=== PATIENT | male | born 1995 | race Caucasian/White ===

== ENCOUNTER 2021-11-12 09:25 | Inpatient (IN) | payer OTHER, SELFPAY ==
[2021-11-12] VITALS (11 sets, daily range): BP systolic 127–169; BP diastolic 76–91; PULSE 55–93; RESP 12–26; TEMP 36.9–37.2; O2SAT 95–100; BMI 38.7
--- NOTE | ~2021-11-12 | NM_ITS ---
PULMONARY PERFUSION ONLY STUDY: CLINICAL INDICATION: Shortness of breath. Elevated d-dimer. PROCEDURE: Following the intravenous administration of 4.0 millicuries technetium 99m MAA, images of the chest were obtained in multiple projections using a gamma scintiphotographic camera. The radiotracer was injected through the left neck IV site without complications. COMPARISON: Noncontrast CT of the chest and chest radiograph done on 11/14/2021. PERFUSION IMAGES: No segmental perfusion defects or other perfusion abnormalities are noted. NM/NM pul perfusion IMPRESSION: Based on perfusion only modified PIOPED 2 criteria, pulmonary thromboembolism is considered to be absent.
--- NOTE | ~2021-11-12 | CT_ITS ---
EXAMINATION: CT ABDOMEN AND PELVIS WITH CONTRAST CLINICAL INFORMATION: Worsening abdominal pain COMPARISON: Previous CT of the abdomen and pelvis 11/12/2021 TECHNIQUE: Multidetector volumetric images were obtained from the superior aspect of the liver through the pubic symphysis following administration 85 mL of Omnipaque 350 intravenous contrast. Sagittal and coronal reformatted images were obtained on the technologist's workstation. Oral contrast: Yes This CT examination was performed using dose optimization techniques as appropriate, variously including the following: *Automated exposure control *Adjustment of mA and/or kV according to patient size (this includes techniques or standardized protocols for targeted exams where dose is matched to indication/reason for exam; i.e. extremities or head) *Use of iterative reconstruction technique DLP: 1083 mGy-cm FINDINGS: LUNG BASES: There is new airspace disease in the left lower lobe and small left pleural effusion. There is minimal subsegmental atelectasis in the right lower lobe. LIVER, GALLBLADDER, AND BILIARY TREE: The liver is normal in size, shape, and attenuation. No focal hepatic lesion or biliary ductal dilatation is present. The gallbladder is unremarkable with no evidence of radiopaque gallstones, gallbladder wall thickening, or obvious pericholecystic inflammatory changes. PANCREAS: There is worsening pancreatitis with increasing fluid seen surrounding the body and tail of the pancreas. There is a increasing fluid seen in the left anterior pararenal fascia, adjacent to the left adrenal gland, adjacent to the left colon and adjacent to the spleen and greater curvature of the stomach. There is question of a developing cyst in the head of the pancreas measuring 2 cm. SPLEEN: Unremarkable. ADRENAL GLANDS: Unremarkable. KIDNEYS AND URETERS: The kidneys are normal in size, shape, and attenuation. No hydronephrosis, hydroureter, or calculi seen. No perinephric stranding. BLADDER: Unremarkable. GASTROINTESTINAL TRACT: The small and large bowel are unremarkable. The appendix is unremarkable. ABDOMINAL WALL: No significant hernia is appreciated. LYMPH NODES: Normal. VASCULAR: Unremarkable. PELVIC VISCERA: Unremarkable. OSSEOUS STRUCTURES: Unremarkable. CT/CT abdomen pelvis w con IMPRESSION: Worsening pancreatitis with increasing peripancreatic fluid collections. New left lower lobe pneumonia and small left pleural effusion. Fleischner guidelines were followed.
--- NOTE | ~2021-11-12 | XR_ITS ---
EXAMINATION: XR CHEST CLINICAL INFORMATION: Shortness of breath COMPARISON: CT chest from 11/06/2021 TECHNIQUE: Frontal view of the chest was obtained. FINDINGS: Bilateral low lung volumes. Slight accentuation of the pulmonary vasculature. Small left pleural effusion. Left basilar opacity which may represents subjacent atelectatic changes versus evolving infectious/inflammatory etiology. Mild opacity involving the right medial lung base may represent atelectasis. No pneumothorax. Trachea is midline. Cardiomediastinal silhouette is not enlarged. Osseous structures are intact. Soft tissues are unremarkable. XR/XR chest 1V IMPRESSION: 1. Bilateral low lung volumes. 2. Slight accentuation of the pulmonary vasculature. 3. Small left pleural effusion. 4. Left basilar opacity which may represents subjacent atelectatic changes versus evolving infectious/inflammatory etiology. 5. Mild opacity involving the right medial lung base may represent atelectasis.
--- NOTE | ~2021-11-12 | CT_ITS ---
EXAMINATION: CT ABDOMEN AND PELVIS WITHOUT CONTRAST CLINICAL INFORMATION: Abdominal pain, alcoholism. COMPARISON: None TECHNIQUE: Multidetector volumetric imaging was performed from the superior aspect of the liver through the pubic symphysis. Sagittal and coronal reformatted images were obtained on the technologist's workstation. Lack of intravenous and oral contrast limits visceral evaluation. This CT examination was performed using dose optimization techniques as appropriate, variously including the following: *Automated exposure control *Adjustment of mA and/or kV according to patient size (this includes techniques or standardized protocols for targeted exams where dose is matched to indication/reason for exam; i.e. extremities or head) *Use of iterative reconstruction technique DLP: 1026 mGy-cm FINDINGS: LUNG BASES: The visualized lung bases are unremarkable. LIVER, GALLBLADDER, AND BILIARY TREE: Diffuse decreased hepatic attenuation without focal abnormality. Gallbladder and minimally distended limiting evaluation without overt focal abnormality. No biliary ductal dilatation. PANCREAS: Moderate peripancreatic infiltrative changes extending to the left upper quadrant with mild dependent fluid, but no organized collection. No pancreatic ductal dilatation. SPLEEN: Unremarkable. ADRENAL GLANDS: Unremarkable. KIDNEYS AND URETERS: The kidneys are normal in size, shape, and attenuation. No hydronephrosis, hydroureter, or calculi seen. No perinephric stranding. BLADDER: Unremarkable. GASTROINTESTINAL TRACT: The stomach and small bowel are unremarkable. Diffuse mild mural fatty infiltration of the colon without surrounding abnormality. The rectum is unremarkable. ABDOMINAL WALL: No significant hernia is appreciated. LYMPH NODES: No lymphadenopathy. VASCULAR: Unremarkable. PELVIC VISCERA: Trace free fluid. OSSEOUS STRUCTURES: Unremarkable. CT/CT abdomen pelvis wo con IMPRESSION: 1. Moderate acute pancreatitis with mild free fluid, but no definitive organized fluid collection. No pancreatic ductal dilatation. 2. Hepatic steatosis. 3. Colonic findings are nonspecific and not acute, but can be seen as sequelae of prior colitis. Fleischner guidelines were followed.
--- NOTE | ~2021-11-12 | CT_ITS ---
EXAMINATION: CT CHEST WITHOUT CONTRAST CLINICAL INFORMATION: Hemoptysis COMPARISON: CT abdomen pelvis 11/12/2021 TECHNIQUE: Multidetector volumetric CT imaging of the chest was done. Axial MIP volume rendering provided. Sagittal and coronal reformatted images were obtained. This CT examination was performed using dose optimization techniques as appropriate, variously including the following: *Automated exposure control *Adjustment of mA and/or kV according to patient size (this includes techniques or standardized protocols for targeted exams where dose is matched to indication/reason for exam; i.e. extremities or head) *Use of iterative reconstruction technique DLP: 377 mGy-cm FINDINGS: LUNGS AND PLEURA: Bilateral small pleural effusions are present, left greater than right with associated bilateral lower lobe collapse/consolidation, left greater than right. These findings are new when compared to the 11/12/2021 study 2 days ago. The lungs are otherwise clear. MEDIASTINUM: Thyroid gland appears normal. Heart size is normal. No mediastinal or hilar lymph nodes are seen. No significant pericardial effusion is seen. AXILLA: No lymphadenopathy. UPPER ABDOMEN: There is hepatic steatosis present along with changes of pancreatitis described on the CT abdomen earlier today OSSEOUS STRUCTURES: Unremarkable. CT/CT chest wo con IMPRESSION: 1. Cause for the patient's hemoptysis has not been found. 2. New bilateral lower lobe atelectasis/consolidations with small pleural effusions, left greater than right. 3. Incidental note made once again of hepatic steatosis and pancreatitis. Fleischner guidelines were followed.
--- NOTE | 2021-11-12 09:58 | ECG_ITS ---
Test Reason : pancreatitis Blood Pressure : / mmHG Vent. Rate : 090 BPM Atrial Rate : 090 BPM P-R Int : 160 ms QRS Dur : 084 ms QT Int : 384 ms P-R-T Axes : 035 000 026 degrees QTc Int : 469 ms Normal sinus rhythm with sinus arrhythmia Normal ECG No previous ECGs available Referred By: Phillip Chacko Electronically Signed By:DWAIN CHACKO
--- NOTE | 2021-11-12 09:59 | ED_ITS ---
HPI - General Adult General Chief complaint: Abdominal Pain Stated complaint: 01/27 ABDO PAIN Time Seen by Provider: 11/12/21 10:27 Source: patient Mode of arrival: ambulatory Limitations: no limitations History of Present Illness HPI narrative: 26-year-old male with history of alcohol abuse and pancreatitis presents to ED for abdominal pain since last night. Patient states he has been detoxing from alcohol since yesterday 08:00. Patient states last drink was 08:00 yesterday. Patient states last night started having abdominal pain, nausea, vomiting, and tremors. Patient denies any opiate drug use. Patient states usually states drinking sinks tall boy beers. patient denies any chest pain or shortness of breath. Related Data Home Medications Medication Instructions Recorded Confirmed acamprosate 333 mg tablet,delayed 666 mg PO TID 11/12/21 11/12/21 release famotidine 10 mg tablet (Heartburn 1 tab PO BID 11/12/21 11/12/21 Relief (famotidine)) gabapentin 400 mg capsule 2 cap PO TID 11/12/21 11/12/21 lamotrigine 100 mg tablet 1 tab PO BID 11/12/21 11/12/21 nicotine 7 mg/24 hr daily 1 patch topical DAILY 11/12/21 11/12/21 transdermal patch ondansetron HCl 4 mg tablet 1 tab PO Q8H PRN Nausea 11/12/21 11/12/21 pantoprazole 40 mg tablet,delayed 1 tab PO DAILY 11/12/21 11/12/21 release prazosin 2 mg capsule 2 cap PO BEDTIME nightmares 11/12/21 11/12/21 trazodone 50 mg tablet 100 tab PO BEDTIME PRN Insomnia 11/12/21 11/12/21 Allergies Allergy/AdvReac Type Severity Reaction Status Date / Time No Known Allergies Allergy Unverified 01/05/20 17:39 Review of Systems Review of Systems: abdominal pain, nausea, and vomiting, with tremors Yes all other systems are reviewed and are negative PMF Past Medical History Medical History No known health problems Social History Social History Alcohol intake: current Alcohol intake frequency: 3 or more drinks per day Patient Tobacco Use Status: Current everyday Tobacco user Use of substances other than those prescribed or required for medical reasons: No Advance Directives: No Advance Directives Information Provided: Yes Physical Exam ED Vital Signs: Vital Signs - 24 hr 11/12/21 09:39 11/12/21 09:44 11/12/21 12:00 Temperature 98.4 F 98.4 F Pulse Rate 60 55 58 Respiratory Rate 15 18 15 Blood Pressure 144/87 H 144/87 H 141/76 H Pulse Oximetry 99 100 Oxygen Delivery Method Room Air Room Air Room Air BMI result Body Mass Index 38.7 Const General: cooperative, healthy appearing, comfortable, well developed, alert, awake, Physically active and acute distress Orientation/consciousness: oriented to time and patient oriented x3 HENMT Head: Yes normal to inspection, Yes No palpable skull fracture present, Yes normocephalic, Yes atraumatic and No abrasion Eyes General: appearance normal, both eyes and all related structures Neck Neck: Yes normal visual inspection, Yes full ROM, Yes no lymphadenopathy, Yes no meningeal signs, Yes trachea midline, Yes supple, No anterior neck swelling and No tender Chest Chest palpation & inspection: normal inspection of the chest and normal palpation of entire chest wall Resp Effort & Inspection: normal respiratory effort and able to speak in complete sentences Auscultation: clear to auscultation bilaterally Cardio Jugular venous distension: no JVD Heart sounds: S1 normal heart sound present and S2 normal heart sound present GI Inspection: Yes normal to inspection and No abdominal wall ecchymosis Palpation (GI): Soft to palpation, not firm, Tenderness to palpation present (GI) ( diffuse), no guarding and not rigid General: No CVA tenderness and Yes no CVA tenderness Back/Spine/Pelvis Back: no CVA tenderness, No CVA tenderness and No back tenderness Skin General skin exam: no rashes or lesions noted and elasticity normal Neuro Other: positive for tremors of extremities. Patient alert oriented x3. General: oriented to time, patient oriented x3, gait normal, no meningeal signs and CN's II-XI intact bilaterally Cranial nerves: Yes CN's II-XII intact bilaterally Extrem General: Yes normal to inspection and Yes full ROM Psych Appearance: grossly normal, well kempt and not disheveled Course Course Course Narrative: differential alcohol withdrawal versus pancreatitis. Will do labs. EKG, Valium, and CT scan abdomen ordered Reevaluation(s) Reevaluation #1: tremors resolved after receiving Valium. Labs showed white blood cell count [id number] CT scan abdomen showed pancreatitis with some fluid. Olaf presents to hospitalist for admission who agrees with plan. Patient given narcotic morphine for pain. still awaited from chemistry result from [facility]. EKG negative STEMI Time: 15:37 Medical Decision Making MDM Narrative Medical decision making narrative: pancreatitis Lab Data Result diagrams: 11/12/21 10:16 11/12/21 10:16 Labs: Lab Results 11/12/21 Range/Units 10:16 WBC 17.9 H (4.8-10.8) X10*3/uL RBC 5.26 (4.60-5.80) X10*6/uL Hgb 15.3 (14.0-18.0) g/dl Hct 44.0 (42.0-52.0) % MCV 83.7 (80.0-98.0) fL MCH 29.1 (27.0-33.0) pg MCHC 34.8 (31.0-36.0) g/dl RDW 14.8 (11.0-16.0) % Plt Count 279 (160-400) X10*3/uL MPV 9.3 L (9.4-12.4) fL Immature Gran % (Auto) 0.5 H (0.0-0.4) % Neut % (Auto) 87.7 H (45-73) % Lymph % (Auto) 2.9 L (20-40) % [place] % (Auto) 6.0 (2-11) % Eos % (Auto) 2.7 (0-4) % Baso % (Auto) 0.2 (0-2) % Lymph # (Auto) 0.5 L (1.2-4.9) X10*3/uL [place] # (Auto) 1.1 (0.1-1.2) X10*3/uL Eos # (Auto) 0.5 H (0.0-0.4) X10*3/uL Baso # (Auto) 0.0 (0.0-0.2) X10*3/uL Abs Immat Gran (auto) 0.09 H (0.00-0.03) X10*3/uL Absolute Neuts (auto) 15.7 H (2.0-8.3) x10*3/uL Absolute Nucleated RBC 0.000 (0.0-0.012) X10*3/uL Nucleated RBC % (auto) 0.0 (0.0-0.2) /100WBC ECG Data Interpretation: normal sinus rhythm periventricular a 90. Pr interval 160. QRS 84. QTC 469. Negative STEMI Discharge Plan Discharge Clinical Impression: Pancreatitis Patient Disposition: Admitted As Inpatient
[2021-11-12 10:21] LABS: MANUAL DIFF FLAG NO
[2021-11-12 10:23] LABS: Basophils Percent Auto 0.2 % (0-2); Eosinophils Absolute Auto 0.5 X10*3/uL (0.0-0.4); Eosinophils Percent Auto 2.7 % (0-4); Hemoglobin 15.3 g/dl (14.0-18.0); Imm Gran Abs Auto 0.09 X10*3/uL (0.00-0.03); Imm Gran Pct Auto 0.5 % (0.0-0.4); Lymphocytes Absolute Auto 0.5 X10*3/uL (1.2-4.9); Lymphocytes Percent Auto 2.9 % (20-40); Mean Corpuscular HGB Conc 34.8 g/dl (31.0-36.0); Mean Corpuscular Hemoglobin 29.1 pg (27.0-33.0); Mean Corpuscular Volume 83.7 fL (80.0-98.0); Mean Platelet Volume 9.3 fL (9.4-12.4); Monocytes Absolute Auto 1.1 X10*3/uL (0.1-1.2); Neutrophils Absolute Auto 15.7 x10*3/uL (2.0-8.3); Neutrophils Percent Auto 87.7 % (45-73); Platelet Count 279 X10*3/uL (160-400); Red Blood Count 5.26 X10*6/uL (4.60-5.80); Red Cell Distribution Width 14.8 % (11.0-16.0); White Blood Count 17.9 X10*3/uL (4.8-10.8)
[2021-11-12] MEDS: 0.9 % Sodium Chloride 1,000 ML 999 ML IV (10:42)
[2021-11-12] MEDS: ondansetron HCL 4 MG/2 ML VIAL IVPUSH ×3 (10:42→23:48)
[2021-11-12] MEDS: diazePAM 10 MG/2 ML CARTRIDGE 5 MG IVPUSH (10:47)
[2021-11-12] MEDS: Morphine Sulfate 4 MG/ML CARTRIDGE IVPUSH (12:13)
--- NOTE | 2021-11-12 13:04 | PM.IMHP ---
History of Present Illness Date of Service: 11/12/21 Chief Complaint: Abdominal Pain 26-year-old male with known history of alcohol abuse and a history of past pancreatitis presents today with diffuse mid epigastric pain associated with nausea. He also states that he is withdrawing from alcohol. States he checked into detox last night but could not stay secondary to the worsening pain. States last drink approximately 24-36 hours ago. Review of Systems Review of Systems: Denies chest pain Denies shortness of breath Denies fever chills Admits abdominal pain with nausea and vomiting PMFSH Medical History No known health problems Social History Alcohol intake: current Alcohol intake frequency: 3 or more drinks per day Patient Tobacco Use Status: Current everyday Tobacco user Use of substances other than those prescribed or required for medical reasons: No Advance Directives: No Advance Directives Information Provided: Yes Meds Allergies Allergy/AdvReac Type Severity Reaction Status Date / Time No Known Allergies Allergy Unverified 01/05/20 17:39 Active Medications: Current Medications Enoxaparin Sodium (Enoxaparin Sodium 40 Mg/0.4 Ml Syringe) 40 mg SUBCUT Q24H [facility] Hydromorphone HCl (Hydromorphone Hcl 1 Mg/Ml Syringe) 1 mg IVPUSH Q4H PRN; Protocol PRN Reason: Pain, Severe (Pain Scale 7-10) Sodium Chloride (Ns) 1,000 mls @ 200 mls/hr IVCONT .Q5H [facility] Stop: 11/13/21 03:59 Ondansetron HCl (Ondansetron Hcl 4 Mg/2 Ml Vial) 4 mg IVPUSH Q4H PRN PRN Reason: Nausea and Vomiting Pharmacy Consult (Consult Rx Etoh Phenob Po Only) 1 each MISCELLANE ONCE PRN; Protocol PRN Reason: Consult order Sodium Chloride (0.9 % Sodium Chloride Flush 3 Ml Syringe) 3 ml IVFLUSH QSHIFT MIRIAM Physical Exam Vital Signs and Narrative: Vital Signs: Last Vital Signs Temp 98.4 F 11/12/21 09:44 Pulse 58 11/12/21 12:00 Resp 15 11/12/21 12:00 BP 141/76 H 11/12/21 12:00 Pulse Ox 100 11/12/21 12:00 O2 Del Method 11/12/21 12:00 BMI result Body Mass Index 38.7 Const: Other: Awake alert uncomfortable appearing on stretcher HEENT: Other: Membranes dry Resp: Other: Clear to auscultation bilaterally no rales rhonchi or wheezes Cardio: Other: No S4; positive S1-S2; no S3 murmurs rubs or gallops GI: Other: Soft with voluntary guarding across abdomen. Tender with minimal palpation across epigastrium. Bowel sounds quiet Neuro: Other: Cranial nerves 2-12 grossly intact as tested. Motor 5/5 all extremities. Sensation is intact. Cognition appropriate Extrem: Other: No edema bilaterally Results Labs CBC and Chem 7: 11/12/21 10:16 11/12/21 10:16 Labs: Laboratory Results - last 24 hr 11/12/21 10:16 MCV 83.7 MCH 29.1 MCHC 34.8 RDW 14.8 Plt Count 279 MPV 9.3 L Immature Gran % (Auto) 0.5 H Neut % (Auto) 87.7 H Lymph % (Auto) 2.9 L [place] % (Auto) 6.0 Eos % (Auto) 2.7 Baso % (Auto) 0.2 Lymph # (Auto) 0.5 L [place] # (Auto) 1.1 Eos # (Auto) 0.5 H Baso # (Auto) 0.0 Abs Immat Gran (auto) 0.09 H Absolute Neuts (auto) 15.7 H Absolute Nucleated RBC 0.000 Nucleated RBC % (auto) 0.0 Imaging Radiologist's Impressions: Impressions Abdomen/Pelvis CT 11/12/21 10:54 IMPRESSION: 1. Moderate acute pancreatitis with mild free fluid, but no definitive organized fluid collection. No pancreatic ductal dilatation. 2. Hepatic steatosis. 3. Colonic findings are nonspecific and not acute, but can be seen as sequelae of prior colitis. Fleischner guidelines were followed. Assessment and Plan (1) Acute alcoholic pancreatitis: Status: Acute (2) Alcohol withdrawal: Status: Acute Plan 26-year-old male with known history of ongoing alcohol abuse and history of pancreatitis presents from detox with diffuse mid epigastric pain nausea and vomiting. Initial CT scan in the emergency room consistent with acute pancreatitis. Presents with mild alcohol withdrawal in addition to pancreatitis 1. Acute alcoholic pancreatitis -NPO -IV Dilaudid for pain management -Zofran for nausea -aggressive volume repletion with normal saline -GI consult 2. Alcohol withdrawal -phenobarb protocol -observe on CIWA Lovenox Full Code Patient will require 2 midnights going forward for IV volume repletion in the backdrop of acute pancreatitis along with treatment of his alcohol withdrawal. This cannot be achieved and lesser acute setting Quality Stroke Does the patient have a stroke diagnosis?: No VTE Prior VTE?: No VTE Risk Level:: Medical - moderate - high VTE Device Contraindication: Treatment Not Indicated VTE Drug Contraindication: N/A - Med Ordered
--- NOTE | 2021-11-12 13:19 | P.CNGI_ITS ---
History of Present Illness Data of Consult Service Date: 11/12/21 Requesting physician: Regan Massey Primary Care Provider: Unknown Physician HPI Reason for consult: pancreatitis 26 yr old m with hx of alcoholism and pancreatitis who I am seeing for acute pancreatitis. Patient has been drinking 6 tall boy beers daily for months. Suddenly developed severe 10/10 stabbing epigastric pain which is constant and goes into his back without any relieving factors or exacerbating factors. Associated with chills, nausea and non bloody emesis. He is constipated with last stool being 2 d ago. Appetite is poor. no melena or hematemesis. No chest pain or SOB. He says he has had admission for pancreatitis x6 in past, but this attack is more severe than than the others. CT with inflammed pancreatitis and some free fluid along with liver steatosis and non specific colonic findings. LAbs with nml HGB, cmp and lipase pending. Review of Systems Review of Systems: Constitutional : No Weight loss, No Fever, ENT/Mouth : No sore throat, No Rhinorrhea Eyes: No Swelling, No Redness Cardiovascular : No Chest Pain, No SOB, No Edema Respiratory : No Cough, No Sputum, No Wheezing Gastrointestinal : see HPI Genitourinary : NO Dysuria, No Urinary Frequency, No Hematuria, No Urgency Musculoskeletal : No joint pain, No Myalgias, No Joint Swelling Skin : No Skin Lesions, No rash Neuro : No Weakness, No Numbness, No Dizziness, No Headache Psych : No Anxiety/Panic, No Depression Heme/Lymph: No Bruising, No Lymphadenopathy Endocrine : No Polyuria, No Polydipsia All other systems reviewed and are negative. Yes all other systems are reviewed and are negative [facility] Past Medical History Medical History No known health problems Family History Pertinent family history: no FH of pancreas disease but there is FH of alcoholism Social History Social History Alcohol intake: current Alcohol intake frequency: 3 or more drinks per day Patient Tobacco Use Status: Current everyday Tobacco user Use of substances other than those prescribed or required for medical reasons: No Advance Directives: No Advance Directives Information Provided: Yes Meds Allergies Allergy/AdvReac Type Severity Reaction Status Date / Time No Known Allergies Allergy Unverified 01/05/20 17:39 Active Medications: Current Medications Enoxaparin Sodium (Enoxaparin Sodium 40 Mg/0.4 Ml Syringe) 40 mg SUBCUT Q24H MIRIAM Hydromorphone HCl (Hydromorphone Hcl 1 Mg/Ml Syringe) 1 mg IVPUSH Q4H PRN; Protocol PRN Reason: Pain, Severe (Pain Scale 7-10) Sodium Chloride (Ns) 1,000 mls @ 200 mls/hr IVCONT .Q5H [facility] Stop: 11/13/21 03:59 Ondansetron HCl (Ondansetron Hcl 4 Mg/2 Ml Vial) 4 mg IVPUSH Q4H PRN PRN Reason: Nausea and Vomiting Pharmacy Consult (Consult Rx Etoh Phenob Po Only) 1 each MISCELLANE ONCE PRN; Protocol PRN Reason: Consult order Phenobarbital (Phenobarbital 200 Mg Po Once) 300 mg PO ONCE ONE; Protocol Stop: 11/12/21 14:01 Phenobarbital 200 mg/ (Phenobarbital 30 mg) 230 mg PO Q3H [facility]; Protocol Stop: 11/12/21 20:01 Phenobarbital (Phenobarbital 30 Mg Tablet) 60 mg PO BID [facility]; Protocol Stop: 11/14/21 21:01 Phenobarbital (Phenobarbital 30 Mg Tablet) 30 mg PO BID [facility]; Protocol Stop: 11/16/21 21:01 Phenobarbital (Phenobarbital 30 Mg Tablet) 30 mg PO DAILY [facility]; Protocol Stop: 11/18/21 09:01 Sodium Chloride (0.9 % Sodium Chloride Flush 3 Ml Syringe) 3 ml IVFLUSH QSHIFT [facility] Home Medications Medication Instructions Recorded Confirmed Last Taken Type acamprosate 333 mg tablet,delayed 666 mg PO TID 11/12/21 11/12/21 11/10/21 History release famotidine 10 mg tablet (Heartburn 1 tab PO BID 11/12/21 11/12/21 11/10/21 History Relief (famotidine)) gabapentin 400 mg capsule 2 cap PO TID 11/12/21 11/12/21 11/10/21 History lamotrigine 100 mg tablet 1 tab PO BID 11/12/21 11/12/21 11/10/21 History nicotine 7 mg/24 hr daily 1 patch topical DAILY 11/12/21 11/12/21 11/10/21 History transdermal patch ondansetron HCl 4 mg tablet 1 tab PO Q8H PRN Nausea 11/12/21 11/12/21 11/10/21 History pantoprazole 40 mg tablet,delayed 1 tab PO DAILY 11/12/21 11/12/21 11/10/21 History release prazosin 2 mg capsule 2 cap PO BEDTIME nightmares 11/12/21 11/12/21 11/10/21 History trazodone 50 mg tablet 100 tab PO BEDTIME PRN Insomnia 11/12/21 11/12/21 0 11/10/21 History Physical Exam Vital Signs: Vital Signs: Last Vital Signs Temp 98.4 F 11/12/21 09:44 Pulse 58 11/12/21 12:00 Resp 15 11/12/21 12:00 BP 141/76 H 11/12/21 12:00 Pulse Ox 100 11/12/21 12:00 O2 Del Method 11/12/21 12:00 BMI result Body Mass Index 38.7 Const: Other: Awake alert uncomfortable appearing on stretcher General: cooperative, well developed, alert, awake, Physically active and acute distress Orientation/consciousness: oriented to time and patient oriented x3 HEENT: Other: Membranes dry Head: Yes normal to inspection, Yes No palpable skull fracture present, Yes normocephalic, Yes atraumatic and No abrasion Eyes: General: appearance normal, both eyes and all related structures Neck: Neck: Yes normal visual inspection, Yes full ROM, Yes no lymphadenopathy, Yes no meningeal signs, Yes trachea midline, Yes supple, No anterior neck swelling and No tender Chest: Chest palpation & inspection: normal inspection of the chest and normal palpation of entire chest wall Resp: Other: Clear to auscultation bilaterally no rales rhonchi or wheezes Effort & Inspection: normal respiratory effort and able to speak in complete sentences Auscultation: clear to auscultation bilaterally Cardio: Other: No S4; positive S1-S2; no S3 murmurs rubs or gallops Jugular venous distension: no JVD Heart sounds: S1 normal heart sound present and S2 normal heart sound present GI: Inspection: Yes normal to inspection and No abdominal wall ecchymosis Palpation (GI): Soft to palpation, not firm, Tenderness to palpation present (GI) ( diffuse), no guarding and not rigid : General: No CVA tenderness and Yes no CVA tenderness Back/Spine/Pelvis: Back: no CVA tenderness, No CVA tenderness and No back tenderness Skin: General skin exam: no rashes or lesions noted and elasticity normal Neuro: General: oriented to time, patient oriented x3, gait normal, no meningeal signs and CN's II-XI intact bilaterally Cranial nerves: Yes CN's II-XII intact bilaterally Extrem: Other: No edema bilaterally General: Yes normal to inspection and Yes full ROM Psych: Appearance: grossly normal, well kempt and not disheveled Results Labs CBC & Chem 7: 11/12/21 10:16 11/12/21 10:16 Labs: Short CBC 11/12/21 Range/Units 10:16 WBC 17.9 H (4.8-10.8) X10*3/uL Hgb 15.3 (14.0-18.0) g/dl Hct 44.0 (42.0-52.0) % Plt Count 279 (160-400) X10*3/uL Imaging CT scan - abdomen: Attestation: I personally reviewed and interpreted this imaging study as follows: My impression: acute oancreatitis with fluid and edema Assessment and Plan (1) Acute alcoholic pancreatitis: Qualifiers: Acute pancreatitis complication: no infection or necrosis Qualified Code(s): K85.20 - Alcohol induced acute pancreatitis without necrosis or infection Status: Acute Plan 1/ Acute pancreatitis, alcohol related with hx of prior attacks in past PLAN: 1/ await labs, check trigs 2/ US to r/o gallstones 3/ CIWA protocol 4/ multivitamins 5 bowle rest, IV analgesia 6/ aggressive fluid resus with LR, give 1 L bolus stat then maintain to give total of 3 -4 L over 24 hrs 7/ substance abuse consult, needs to avoid smoking as increases risk for chronic pancreatitis Procedures Date of Service Date of Service: 11/12/21
[2021-11-12 14:20] LABS: INTERNATIONAL NORM RATIO 1.1 (0.9-1.1); Prothrombin Time 12.4 SEC (10.0-13.1)
[2021-11-12] MEDS: Lactated Ringers 1,000 ML 500 ML IVCONT ×2 (14:23→17:38)
[2021-11-12] MEDS: HYDROmorphone HCl 1 MG/ML SYRINGE IVPUSH ×3 (14:24→23:48)
[2021-11-12] MEDS: PHENobarbitaL 200 MG PO ONCE 300 MG PO (14:24)
[2021-11-12] MEDS: Enoxaparin Sodium 40 MG/0.4 ML SYRINGE SUBCUT (14:24)
--- NOTE | 2021-11-12 14:30 | PC.NURSE ---
Dr. Massey made aware of patients fluctuating respirations. No further action required per Dr. Massey.
[2021-11-12 14:57] LABS: Partial Thromboplastin Time 17.4 SEC (24.1-38.0)
[2021-11-12 15:02] LABS: COVID-19 Test Negative (Negative); IDNOW Serial# 9DB6401D
--- NOTE | 2021-11-12 15:03 | PHA.MEDREC ---
Pharmacy Consult ? Medication Reconciliation Pharmacy has completed the medication reconciliation. Patient reported medications. Reports no long taking paroxetine or suboxone. Leonela Valdez, PharmD
[2021-11-12 16:16] LABS: Troponin-I High Sensitivity < 3.5 ng/L (<3.5-35.0)
[2021-11-12 16:20] LABS: Ethanol < 10 mg/dL
[2021-11-12] MEDS: PHENobarbitaL 200 MG, PHENobarbitaL 30 MG 230 MG PO ×2 (16:57→19:57)
--- NOTE | 2021-11-12 17:42 | PC.NURSE ---
LR bag not scanning, had RN verify with me.
[2021-11-12 18:17] LABS: Alanine Aminotransferase 92 U/L (0-40); Albumin Level 4.5 g/dL (3.5-5.0); Alkaline Phosphatase 195 U/L (39-117); Anion Gap 19 (12-20); Aspartate Amino Transferase 78 U/L (5-37); Bilirubin Total 1.1 mg/dL (0.0-1.0); Blood Urea Nitrogen 8 mg/dL (9-16); Calcium 9.1 mg/dL (8.4-10.2); Carbon Dioxide 22 mmol/L (22-29); Chloride 100 mmol/L (96-108); Creatinine Clr Calc Pharmacy 134.8; Estimated Glomerular Filt Rate > 60; Glucose Random 188 mg/dL (60-115); Potassium 4.9 mmol/L (3.3-5.1); Sodium 136 mmol/L (135-145); Total Protein 7.8 g/dL (6.5-8.0)
[2021-11-12 18:26] LABS: Lipase 1558 U/L (8-78)
[2021-11-12] MEDS: Lactated Ringers 1,000 ML 250 ML IVCONT ×2 (19:59→23:48)
--- NOTE | 2021-11-12 23:30 | PC.NURSE ---
white [place] noted to pts right shoulder above IV. IV is patent, pt has no c/o discomfort at the site
[2021-11-13] VITALS (7 sets, daily range): BP systolic 144–154; BP diastolic 85–98; PULSE 109–145; RESP 18–32; TEMP 37.1–38.1; O2SAT 92–98
[2021-11-13] MEDS: PHENobarbitaL 30 MG TABLET 60 MG PO ×3 (01:59→22:25)
[2021-11-13] MEDS: ondansetron HCL 4 MG/2 ML VIAL IVPUSH ×5 (04:07→21:35)
[2021-11-13] MEDS: Lactated Ringers 1,000 ML 250 ML IVCONT ×5 (04:07→21:22)
[2021-11-13] MEDS: HYDROmorphone HCl 1 MG/ML SYRINGE IVPUSH ×5 (04:07→21:40)
[2021-11-13 05:16] LABS: Alanine Aminotransferase 58 U/L (0-40); Albumin Level 3.5 g/dL (3.5-5.0); Alkaline Phosphatase 138 U/L (39-117); Anion Gap 14 (12-20); Aspartate Amino Transferase 55 U/L (5-37); Bilirubin Total 1.2 mg/dL (0.0-1.0); Blood Urea Nitrogen 6 mg/dL (9-16); Calcium 8.2 mg/dL (8.4-10.2); Carbon Dioxide 21 mmol/L (22-29); Chloride 102 mmol/L (96-108); Creatinine Clr Calc Pharmacy 184.3; Estimated Glomerular Filt Rate > 60; Glucose Fasting 183 mg/dL (60-99); Potassium 4.4 mmol/L (3.3-5.1); Sodium 133 mmol/L (135-145); Total Protein 6.1 g/dL (6.5-8.0)
[2021-11-13 06:06] LABS: Basophils Absolute Auto 0.1 X10*3/uL (0.0-0.2); Basophils Percent Auto 0.3 % (0-2); Hematocrit 43.3 % (42.0-52.0); Hemoglobin 14.6 g/dl (14.0-18.0); Imm Gran Abs Auto 0.03 X10*3/uL (0.00-0.03); Imm Gran Pct Auto 0.2 % (0.0-0.4); Lymphocytes Absolute Auto 1.4 X10*3/uL (1.2-4.9); Lymphocytes Percent Auto 7.8 % (20-40); Mean Corpuscular HGB Conc 33.7 g/dl (31.0-36.0); Mean Corpuscular Hemoglobin 28.8 pg (27.0-33.0); Mean Corpuscular Volume 85.4 fL (80.0-98.0); Mean Platelet Volume 9.4 fL (9.4-12.4); Monocytes Absolute Auto 1.1 X10*3/uL (0.1-1.2); Monocytes Percent Auto 6.1 % (2-11); Neutrophils Absolute Auto 15.5 x10*3/uL (2.0-8.3); Neutrophils Percent Auto 85.6 % (45-73); Platelet Count 196 X10*3/uL (160-400); Red Blood Count 5.07 X10*6/uL (4.60-5.80); Red Cell Distribution Width 15.3 % (11.0-16.0); White Blood Count 18.1 X10*3/uL (4.8-10.8)
[2021-11-13 06:12] LABS: MANUAL DIFF FLAG NO
--- NOTE | 2021-11-13 08:35 | PC.NURSE ---
Pt A&Ox4 at this time, calm and cooperative, CIWA of 4, medicated as per [facility] orders for pain and pheno protocol. Pt pain 9/10 to the abd at this time. ST in the 110's on the monitor at this time. Urinal given to pt, call faye within reach, awaiting bed assignment at this time. Will continue to monitor.
--- NOTE | 2021-11-13 09:32 | MHC.CM.PN ---
Attempted to meet with patient in regards to discharge planning. Patient is currently sleeping. No family present. Will attempt to meet again. Continue to monitor for d/c needs.
--- NOTE | 2021-11-13 11:59 | PC.NURSE ---
Pt awoke and requesting pain medication, explained to pt pain medication not due until 1230, I will bring it in at that time. Call faye within reach. Will continue to monitor.
[2021-11-13] MEDS: Enoxaparin Sodium 40 MG/0.4 ML SYRINGE SUBCUT (12:34)
[2021-11-13] MEDS: PHENobarbitaL sodium 130 MG/ML VIAL IM Q3Hx2 230 MG IM ×2 (13:56→16:36)
--- NOTE | 2021-11-13 15:15 | P.PNIM_ITS ---
Subjective Subjective Date of Service: 11/13/21 Interval History: Still with diffuse abdominal pain. Review of Systems Denies chest pain Denies shortness of breath Denies fever chills Admits abdominal pain with nausea and vomiting Physical Exam Vital Signs: Vital Signs: Last Vital Signs Temp 98.8 F 11/13/21 05:58 Pulse 122 H 11/13/21 12:36 Resp 18 11/13/21 12:36 BP 154/98 H 11/13/21 12:36 Pulse Ox 98 11/13/21 12:36 O2 Del Method 11/13/21 12:36 BMI result Body Mass Index 38.7 Const: Other: Awake alert uncomfortable appearing on stretcher HEENT: Other: Membranes dry Resp: Other: Clear to auscultation bilaterally no rales rhonchi or wheezes Cardio: Other: No S4; positive S1-S2; no S3 murmurs rubs or gallops GI: Other: Soft with voluntary guarding across abdomen. Tender with minimal palpation across epigastrium. Bowel sounds quiet Neuro: Other: Cranial nerves 2-12 grossly intact as tested. Motor 5/5 all extremities. Sensation is intact. Cognition appropriate Extrem: Other: No edema bilaterally Objective Data Active Medications Enoxaparin Sodium (Enoxaparin Sodium 40 Mg/0.4 Ml Syringe) 40 mg SUBCUT Q24H [facility] Last Admin: 11/13/21 12:34 Dose: 40 mg Documented By: CHELLE Hydromorphone HCl (Hydromorphone Hcl 1 Mg/Ml Syringe) 1 mg IVPUSH Q4H PRN; Protocol PRN Reason: Pain, Severe (Pain Scale 7-10) Last Admin: 11/13/21 12:34 Dose: 1 mg Documented By: CHELLE Lactated Ringer's (Lr) 1,000 mls @ 250 mls/hr IVCONT .Q4H [facility] Last Admin: 11/13/21 12:33 Dose: 250 mls/hr Documented By: CHELLE Ondansetron HCl (Ondansetron Hcl 4 Mg/2 Ml Vial) 4 mg IVPUSH Q4H PRN PRN Reason: Nausea and Vomiting Last Admin: 11/13/21 12:34 Dose: 4 mg Documented By: CHELLE Pharmacy Consult (Consult Rx Etoh Phenob Po Only) 1 each MISCELLANE ONCE PRN; Protocol PRN Reason: Consult order Phenobarbital (Phenobarbital 30 Mg Tablet) 60 mg PO BID [facility]; Protocol Stop: 11/14/21 21:01 Last Admin: 11/13/21 08:30 Dose: 60 mg Documented By: CHELLE Phenobarbital (Phenobarbital 30 Mg Tablet) 30 mg PO BID [facility]; Protocol Stop: 11/16/21 21:01 Phenobarbital (Phenobarbital 30 Mg Tablet) 30 mg PO DAILY [facility]; Protocol Stop: 11/18/21 09:01 Phenobarbital Sodium (Phenobarbital Sodium 130 Mg/Ml Vial Im Q3hx2) 230 mg IM Q3H [facility]; Protocol Stop: 11/13/21 17:01 Last Admin: 11/13/21 13:56 Dose: 230 mg Documented By: TONY Sodium Chloride (0.9 % Sodium Chloride Flush 3 Ml Syringe) 3 ml IVFLUSH QSHIFT [facility] Last Admin: 11/13/21 08:38 Dose: Not Given Documented By: CHELLE Non-Admin Reason: IV Running Labs CBC & Chem 7: 11/13/21 05:52 11/13/21 04:38 Labs: Laboratory Results - last 24 hr 11/12/21 11/12/21 11/13/21 15:51 15:51 04:38 MCV MCH MCHC RDW Plt Count MPV Immature Gran % (Auto) Neut % (Auto) Lymph % (Auto) [place] % (Auto) Eos % (Auto) Baso % (Auto) Lymph # (Auto) [place] # (Auto) Eos # (Auto) Baso # (Auto) Abs Immat Gran (auto) Absolute Neuts (auto) Absolute Nucleated RBC Nucleated RBC % (auto) Anion Gap 19 14 Estim Creat Clear Calc 134.8 184.3 Estimated GFR > 60 > 60 Random Glucose 188 H Fasting Glucose 183 H Calcium 9.1 8.2 L D Total Bilirubin 1.1 H 1.2 H AST 78 H 55 H ALT 92 H 58 H Alkaline Phosphatase 195 H 138 H D Total Protein 7.8 6.1 L D Albumin 4.5 3.5 D Lipase 1558 H Ethyl Alcohol < 10 11/13/21 05:52 MCV 85.4 MCH 28.8 MCHC 33.7 RDW 15.3 Plt Count 196 D MPV 9.4 Immature Gran % (Auto) 0.2 Neut % (Auto) 85.6 H Lymph % (Auto) 7.8 L [place] % (Auto) 6.1 Eos % (Auto) 0.0 Baso % (Auto) 0.3 Lymph # (Auto) 1.4 [place] # (Auto) 1.1 Eos # (Auto) 0.0 Baso # (Auto) 0.1 Abs Immat Gran (auto) 0.03 Absolute Neuts (auto) 15.5 H Absolute Nucleated RBC 0.000 Nucleated RBC % (auto) 0.0 Anion Gap Estim Creat Clear Calc Estimated GFR Random Glucose Fasting Glucose Calcium Total Bilirubin AST ALT Alkaline Phosphatase Total Protein Albumin Lipase Ethyl Alcohol Assessment and Plan (1) Acute alcoholic pancreatitis: Status: Acute (2) Alcohol withdrawal: Status: Acute Plan 26-year-old male with known history of ongoing alcohol abuse and history of pancreatitis presents from detox with diffuse mid epigastric pain nausea and vomiting. Initial CT scan in the emergency room consistent with acute pancreatitis. Presents with mild alcohol withdrawal in addition to pancreatitis 1. Acute alcoholic pancreatitis -NPO... Trial ice chips -IV Dilaudid for pain management -Zofran for nausea -aggressive volume repletion with LR 2. Alcohol withdrawal -phenobarb protocol.. Add in IM dosing x2 -observe on CIWA Lovenox Full Code Patient requires ongoing hospitalization to complete alcohol withdrawal protocol on phenobarbital; require supplemental IVs given acute pancreatitis Quality Stroke Does the patient have a stroke diagnosis?: No VTE Prior VTE?: No VTE Risk Level:: Medical - moderate - high VTE Device Contraindication: Treatment Not Indicated VTE Drug Contraindication: N/A - Med Ordered
--- NOTE | 2021-11-13 16:13 | MHC.CM.PN ---
Met with admitted patient with bed assignment pending. PCP Jt Forman. Declines HCP. Was a [facility] [place] for detox, felt to sick, left and came to ED. Lives with parents. Uses no DME/Services. [employer] x2. 01/23/21 & 04/25/21. Aware that recovery services will see him while hospitalized. D/C plan is home. Pt to arrange transportation at discharge. CM to follow for d/c needs.
[2021-11-13] MEDS: Pantoprazole Sodium 40 MG/10 ML VIAL IVPUSH (21:50)
--- NOTE | 2021-11-13 22:04 | PM.EVENT ---
Event Note Date of Service: 11/13/21 Event Note: pt had coffee ground emesis x1 . no abd pain. has tachycardia, febrile blood cultures, H&H and lactic acid ordered. Will start Pantoprazole. Abd CT showed no evidence of varices, will obtian chest ct
[2021-11-13] MEDS: Acetaminophen 325 MG TABLET 650 MG PO (22:25)
[2021-11-13 23:37] LABS: Lactic Acid 1.6 mmol/L (0.5-2.0)
[2021-11-14] VITALS (13 sets, daily range): BP systolic 108–154; BP diastolic 57–100; PULSE 99–121; RESP 18–30; TEMP 36.5–38.6; O2SAT 88–98; BMI 41.5
[2021-11-14 00:04] LABS: Hematocrit 38.6 % (42.0-52.0); Hemoglobin 13.1 g/dl (14.0-18.0)
[2021-11-14 00:18] LABS: D Dimer High Sensitivity 1597 NG/ML
[2021-11-14] MEDS: ceFAZolin Sodium/Dextrose,Iso 2 GM/50 ML PIGGYBACK IV (00:31)
[2021-11-14 00:49] LABS: Alanine Aminotransferase 40 U/L (0-40); Albumin Level 3.2 g/dL (3.5-5.0); Alkaline Phosphatase 113 U/L (39-117); Anion Gap 12 (12-20); Aspartate Amino Transferase 40 U/L (5-37); Bilirubin Total 1.2 mg/dL (0.0-1.0); Blood Urea Nitrogen 6 mg/dL (9-16); Calcium 7.9 mg/dL (8.4-10.2); Carbon Dioxide 24 mmol/L (22-29); Chloride 99 mmol/L (96-108); Creatinine Clr Calc Pharmacy 184.3; Estimated Glomerular Filt Rate > 60; Glucose Random 178 mg/dL (60-115); Potassium 4.6 mmol/L (3.3-5.1); Sodium 130 mmol/L (135-145); Total Protein 5.9 g/dL (6.5-8.0)
--- NOTE | 2021-11-14 01:08 | PM.EVENT ---
Event Note Date of Service: 11/14/21 Event Note: Patient became febrile, tachycardic, found to have right upper arm erythema, tenderness, and warmth mode being treated for cellulitis of right upper extremity
[2021-11-14] MEDS: ondansetron HCL 4 MG/2 ML VIAL IVPUSH ×5 (01:36→20:46)
[2021-11-14] MEDS: HYDROmorphone HCl 2 MG/ML VIAL 1 MG IVPUSH (01:37)
--- NOTE | 2021-11-14 01:45 | PC.NURSE ---
unable to chart VS. BP 126/82, HR 121, RR, 30, SPO2 96%, T 99.1
[2021-11-14] MEDS: Lactated Ringers 1,000 ML 250 ML IVCONT ×4 (02:14→16:51)
[2021-11-14] MEDS: Acetaminophen 325 MG TABLET 650 MG PO ×2 (05:17→20:00)
[2021-11-14] MEDS: HYDROmorphone HCl 1 MG/ML SYRINGE IVPUSH ×5 (05:17→20:46)
[2021-11-14] MEDS: Pantoprazole Sodium 40 MG/10 ML VIAL IVPUSH ×2 (05:18→16:42)
[2021-11-14 07:46] LABS: MANUAL DIFF FLAG NO
[2021-11-14 07:48] LABS: Basophils Percent Auto 0.1 % (0-2); Eosinophils Percent Auto 0.1 % (0-4); Hematocrit 34.8 % (42.0-52.0); Hemoglobin 11.7 g/dl (14.0-18.0); Imm Gran Abs Auto 0.07 X10*3/uL (0.00-0.03); Imm Gran Pct Auto 0.5 % (0.0-0.4); Lymphocytes Absolute Auto 1.7 X10*3/uL (1.2-4.9); Lymphocytes Percent Auto 11.4 % (20-40); Mean Corpuscular HGB Conc 33.6 g/dl (31.0-36.0); Mean Corpuscular Hemoglobin 28.8 pg (27.0-33.0); Mean Corpuscular Volume 85.7 fL (80.0-98.0); Mean Platelet Volume 9.8 fL (9.4-12.4); Monocytes Absolute Auto 1.1 X10*3/uL (0.1-1.2); Monocytes Percent Auto 7.1 % (2-11); Neutrophils Absolute Auto 12.1 x10*3/uL (2.0-8.3); Neutrophils Percent Auto 80.8 % (45-73); Platelet Count 147 X10*3/uL (160-400); Red Blood Count 4.06 X10*6/uL (4.60-5.80)
[2021-11-14] MEDS: 0.9 % Sodium Chloride Flush 3 ML SYRINGE IVFLUSH ×3 (08:02→20:01)
[2021-11-14 08:12] LABS: Alanine Aminotransferase 29 U/L (0-40); Albumin Level 2.9 g/dL (3.5-5.0); Alkaline Phosphatase 99 U/L (39-117); Anion Gap 12 (12-20); Aspartate Amino Transferase 28 U/L (5-37); Bilirubin Total 1.2 mg/dL (0.0-1.0); Blood Urea Nitrogen 7 mg/dL (9-16); Calcium 7.7 mg/dL (8.4-10.2); Carbon Dioxide 24 mmol/L (22-29); Chloride 99 mmol/L (96-108); Creatinine Clr Calc Pharmacy 196.2; Estimated Glomerular Filt Rate > 60; Glucose Fasting 149 mg/dL (60-99); Potassium 4.1 mmol/L (3.3-5.1); Sodium 131 mmol/L (135-145); Total Protein 5.1 g/dL (6.5-8.0)
--- NOTE | 2021-11-14 08:29 | P.CDIC_ITS ---
CDI Concurrent Query Documentation Clarification: PHYSICIAN'S DOCUMENTATION REQUEST Date of Query: 11/14/21829 Patient Name: Jorge Nolasco Admit Date: 11/12/21 Dear Doctor, A review of the medical record indicates additional documentation may be needed. Please review below and update the documentation accordingly. Risk Factors/Clinical Indicators/Treatments Nursing notes Height and Weight - BMI 41.5 Extreme Obesity Class III If possible, please provide an associated diagnosis related to the abnormal BMI, such as: For a BMI >= 40: * Overweight * Obesity * Due to excess calories * Drug induced * Due to other cause * Severe or Morbid Obesity * With alveolar hypoventilation * Without alveolar hypoventilation Or: * BMI is not significant * Other (please specify) * Unable to determine Use of terms such as suspected, likely, concern for, or probable (associated with a specific diagnosis that is being evaluated, monitored, or treated as if it exists) are acceptable and can be coded in the inpatient setting, when documented at the time of discharge. Thank you, Krys Sanchez [facility], CDIS Extension: [phone] Please use your independent medical judgment in providing your response. THIS QUERY IS PART OF THE PERMANENT MEDICAL RECORD Provider Response: Other Other Diagnosis: BMI is not significant
--- NOTE | 2021-11-14 08:29 | MHC.CDI.CONC ---
CDI Concurrent Query Documentation Clarification: PHYSICIAN'S DOCUMENTATION REQUEST Date of Query: 11/14/2130 Patient Name: Jorge Nolasco Admit Date: 11/12/21 Dear Doctor, A review of the medical record indicates additional documentation may be needed. Please review below and update the documentation accordingly. Risk Factors/Clinical Indicators/Treatments Nursing notes Height and Weight - BMI 41.5 Extreme Obesity Class III If possible, please provide an associated diagnosis related to the abnormal BMI, such as: For a BMI >= 40: Overweight Obesity Due to excess calories Drug induced Due to other cause Severe or Morbid Obesity With alveolar hypoventilation Without alveolar hypoventilation Or: BMI is not significant Other (please specify) Unable to determine Use of terms such as suspected, likely, concern for, or probable (associated with a specific diagnosis that is being evaluated, monitored, or treated as if it exists) are acceptable and can be coded in the inpatient setting, when documented at the time of discharge. Thank you, Krys Sanchez [facility], CDIS Extension: [phone] Please use your independent medical judgment in providing your response. THIS QUERY IS PART OF THE PERMANENT MEDICAL RECORD Provider Response: Other Other Diagnosis: BMI is not significant
[2021-11-14] MEDS: PHENobarbitaL 30 MG TABLET 60 MG PO ×2 (08:55→19:59)
[2021-11-14] MEDS: Piperacillin Sodium/Tazobactam 4.5 GM in 0.9 % Sodium Chloride 100 ML IV ×3 (09:03→20:00)
--- NOTE | 2021-11-14 09:40 | P.CDIC_ITS ---
CDI Concurrent Query Documentation Clarification: PHYSICIAN'S DOCUMENTATION REQUEST Date of Query: 11/14/21 0940 Patient Name: Jorge Nolasco Admit Date: 11/12/21 Dear Doctor, A review of the medical record indicates additional documentation may be needed. Please review below and update the documentation accordingly. Clinical Indicators: Is there a diagnosis that correlates with these lab findings: Risk Factors/Clinical Indicators/Treatments Labs: 11/14 - sodium 130 L IV fluids Based on the above, could you clarify in the Progress Notes the appropriate diagnosis, if significant, that supports the above abnormalities and additional evaluation, monitoring, and/or treatment rendered: * Hyponatremia or other etiology of lab findings * Labs indicate a diagnosis of (please specify) * Other (please specify) * Unable to determine Use of terms such as suspected, likely, concern for, or probable (associated with a specific diagnosis that is being evaluated, monitored, or treated as if it exists) are acceptable and can be coded in the inpatient setting, when documented at the time of discharge. Thank you, Krys Sanchez [facility], CDIS Extension: [phone] Please use your independent medical judgment in providing your response. THIS QUERY IS PART OF THE PERMANENT MEDICAL RECORD Provider Response: Other Other Diagnosis: Hypovolemic hyponatremia
--- NOTE | 2021-11-14 12:02 | ECG_ITS ---
Test Reason : chest pain Blood Pressure : / mmHG Vent. Rate : 102 BPM Atrial Rate : 102 BPM P-R Int : 156 ms QRS Dur : 090 ms QT Int : 326 ms P-R-T Axes : 037 013 027 degrees QTc Int : 424 ms Sinus tachycardia Otherwise normal ECG When compared with ECG of 12-NOV-2021 10:13, T wave amplitude has decreased in Anterolateral leads Referred By: Regan Massey Electronically Signed By:DWAIN CHACKO
[2021-11-14] MEDS: Magnesium Hydrox/Alum Hydrox 30 ML ORAL.SUSP PO (12:13)
[2021-11-14] MEDS: Enoxaparin Sodium 40 MG/0.4 ML SYRINGE SUBCUT (12:23)
--- NOTE | 2021-11-14 13:16 | HO.PM.IMPN ---
Subjective Subjective Date of Service: 11/14/21 Interval History: Still with significant pain; no overt seizures. Doing well with phenobarb taper Review of Systems Denies chest pain Denies shortness of breath Denies fever chills Admits abdominal pain with nausea and vomiting Physical Exam Vital Signs: Vital Signs: Last Vital Signs Temp 99.8 F 11/14/21 11:09 Pulse 105 H 11/14/21 11:09 Resp 18 11/14/21 11:09 BP 133/73 11/14/21 11:09 Pulse Ox 93 11/14/21 11:09 O2 Del Method 11/14/21 11:09 BMI result Body Mass Index 41.5 Const: Other: Awake alert uncomfortable appearing on stretcher HEENT: Other: Membranes dry Resp: Other: Clear to auscultation bilaterally no rales rhonchi or wheezes Cardio: Other: No S4; positive S1-S2; no S3 murmurs rubs or gallops GI: Other: Soft with voluntary guarding across abdomen. Tender with minimal palpation across epigastrium. Bowel sounds quiet Neuro: Other: Cranial nerves 2-12 grossly intact as tested. Motor 5/5 all extremities. Sensation is intact. Cognition appropriate Extrem: Other: No edema bilaterally Objective Data Active Medications Acetaminophen (Acetaminophen 325 Mg Tablet) 650 mg PO Q6H PRN PRN Reason: Pain, Mild (Pain Scale 1-3), Last Admin: 11/14/21 05:17 Dose: 650 mg Documented By: DAVID Al Hydroxide/Mg Hydroxide (Magnesium Hydrox/Alum Hydrox 30 Ml Oral.Susp) 30 ml PO Q4H PRN PRN Reason: Heartburn Last Admin: 11/14/21 12:13 Dose: 30 ml Documented By: NENITA Enoxaparin Sodium (Enoxaparin Sodium 40 Mg/0.4 Ml Syringe) 40 mg SUBCUT Q24H [facility] Last Admin: 11/14/21 12:23 Dose: 40 mg Documented By: NENITA Hydromorphone HCl (Hydromorphone Hcl 1 Mg/Ml Syringe) 1 mg IVPUSH Q4H PRN; Protocol PRN Reason: Pain, Severe (Pain Scale 7-10) Last Admin: 11/14/21 12:24 Dose: 1 mg Documented By: NENITA Lactated Ringer's (Lr) 1,000 mls @ 250 mls/hr IVCONT .Q4H [facility] Last Admin: 11/14/21 11:53 Dose: Not Given Documented By: KYLE Non-Admin Reason: IV Running Piperacillin Sod/Tazobactam (Sod 4.5 gm/ Sodium Chloride) 100 mls @ 200 mls/hr IV Q6H [facility] Last Infusion: 11/14/21 10:36 Dose: 0 mls/hr Documented By: NENITA Ondansetron HCl (Ondansetron Hcl 4 Mg/2 Ml Vial) 4 mg IVPUSH Q4H PRN PRN Reason: Nausea and Vomiting Last Admin: 11/14/21 12:17 Dose: 4 mg Documented By: NENITA Pantoprazole Sodium (Pantoprazole Sodium 40 Mg/10 Ml Vial) 40 mg IVPUSH BID@0630,1630 [facility] Last Admin: 11/14/21 05:18 Dose: 40 mg Documented By: DAVID Pharmacy Consult (Consult Rx Etoh Phenob Po Only) 1 each MISCELLANE ONCE PRN; Protocol PRN Reason: Consult order Phenobarbital (Phenobarbital 30 Mg Tablet) 60 mg PO BID [facility]; Protocol Stop: 11/14/21 21:01 Last Admin: 11/14/21 08:55 Dose: 60 mg Documented By: NENITA Phenobarbital (Phenobarbital 30 Mg Tablet) 30 mg PO BID [facility]; Protocol Stop: 11/16/21 21:01 Phenobarbital (Phenobarbital 30 Mg Tablet) 30 mg PO DAILY [facility]; Protocol Stop: 11/18/21 09:01 Sodium Chloride (0.9 % Sodium Chloride Flush 3 Ml Syringe) 3 ml IVFLUSH QSHIFT [facility] Last Admin: 11/14/21 08:02 Dose: 3 ml Documented By: NENITA Labs CBC & Chem 7: 11/14/21 07:23 11/14/21 07:23 Labs: Laboratory Results - last 24 hr 11/13/21 11/13/21 11/14/21 23:18 23:58 00:22 MCV MCH MCHC RDW Plt Count MPV Immature Gran % (Auto) Neut % (Auto) Lymph % (Auto) [place] % (Auto) Eos % (Auto) Baso % (Auto) Lymph # (Auto) [place] # (Auto) Eos # (Auto) Baso # (Auto) Abs Immat Gran (auto) Absolute Neuts (auto) Absolute Nucleated RBC Nucleated RBC % (auto) D-Dimer High Sensitivty 1597 Anion Gap 12 Estim Creat Clear Calc 184.3 Estimated GFR > 60 Random Glucose 178 H Fasting Glucose Lactic Acid 1.6 Calcium 7.9 L Total Bilirubin 1.2 H AST 40 H ALT 40 Alkaline Phosphatase 113 Total Creatine Kinase 129 Total Protein 5.9 L Albumin 3.2 L 11/14/21 11/14/21 07:23 07:23 MCV 85.7 MCH 28.8 MCHC 33.6 RDW 15.0 Plt Count 147 L MPV 9.8 Immature Gran % (Auto) 0.5 H Neut % (Auto) 80.8 H Lymph % (Auto) 11.4 L [place] % (Auto) 7.1 Eos % (Auto) 0.1 Baso % (Auto) 0.1 Lymph # (Auto) 1.7 [place] # (Auto) 1.1 Eos # (Auto) 0.0 Baso # (Auto) 0.0 Abs Immat Gran (auto) 0.07 H Absolute Neuts (auto) 12.1 H Absolute Nucleated RBC 0.000 Nucleated RBC % (auto) 0.0 D-Dimer High Sensitivty Anion Gap 12 Estim Creat Clear Calc 196.2 Estimated GFR > 60 Random Glucose Fasting Glucose 149 H Lactic Acid Calcium 7.7 L Total Bilirubin 1.2 H AST 28 ALT 29 Alkaline Phosphatase 99 Total Creatine Kinase Total Protein 5.1 L Albumin 2.9 L Assessment and Plan (1) Acute alcoholic pancreatitis: Status: Acute (2) Alcohol withdrawal: Status: Acute Plan 26-year-old male with known history of ongoing alcohol abuse and history of pancreatitis presents from detox with diffuse mid epigastric pain nausea and vomiting. Initial CT scan in the emergency room consistent with acute pancreatitis. Presents with mild alcohol withdrawal in addition to pancreatitis 1. Acute alcoholic pancreatitis -NPO... Trial ice chips failed secondary recurrent pain -IV Dilaudid for pain management -Zofran for nausea -aggressive volume repletion with LR -4 midline today 2. Alcohol withdrawal -phenobarb protocol.. Add in IM dosing x2 -observe on CIWA Lovenox Full Code Patient requires ongoing hospitalization to complete alcohol withdrawal protocol on phenobarbital; require supplemental IVs given acute pancreatitis Quality Stroke Does the patient have a stroke diagnosis?: No VTE Prior VTE?: No VTE Risk Level:: Medical - moderate - high VTE Device Contraindication: Treatment Not Indicated VTE Drug Contraindication: N/A - Med Ordered
[2021-11-14] MEDS: Lactated Ringers 1,000 ML 150 ML IVCONT (23:01)
[2021-11-15] VITALS (9 sets, daily range): BP systolic 108–133; BP diastolic 57–76; PULSE 89–113; RESP 14–20; TEMP 36.8–38.8; O2SAT 91–95
[2021-11-15] MEDS: ondansetron HCL 4 MG/2 ML VIAL IVPUSH ×5 (00:57→17:21)
[2021-11-15] MEDS: Piperacillin Sodium/Tazobactam 4.5 GM in 0.9 % Sodium Chloride 100 ML IV ×4 (00:57→21:31)
[2021-11-15] MEDS: HYDROmorphone HCl 1 MG/ML SYRINGE IVPUSH ×6 (00:58→21:31)
[2021-11-15] MEDS: Acetaminophen 325 MG TABLET 650 MG PO ×2 (02:23→15:55)
[2021-11-15] MEDS: Pantoprazole Sodium 40 MG/10 ML VIAL IVPUSH ×2 (05:07→15:10)
[2021-11-15] MEDS: Lactated Ringers 1,000 ML 150 ML IVCONT ×3 (06:13→23:13)
[2021-11-15 06:42] LABS: MANUAL DIFF FLAG NO
[2021-11-15 06:47] LABS: Basophils Percent Auto 0.2 % (0-2); Eosinophils Percent Auto 0.3 % (0-4); Hematocrit 30.8 % (42.0-52.0); Hemoglobin 10.2 g/dl (14.0-18.0); Imm Gran Abs Auto 0.07 X10*3/uL (0.00-0.03); Imm Gran Pct Auto 0.5 % (0.0-0.4); Lymphocytes Absolute Auto 1.4 X10*3/uL (1.2-4.9); Lymphocytes Percent Auto 10.3 % (20-40); Mean Corpuscular HGB Conc 33.1 g/dl (31.0-36.0); Mean Corpuscular Hemoglobin 28.2 pg (27.0-33.0); Mean Corpuscular Volume 85.1 fL (80.0-98.0); Mean Platelet Volume 9.7 fL (9.4-12.4); Monocytes Absolute Auto 1.2 X10*3/uL (0.1-1.2); Monocytes Percent Auto 8.9 % (2-11); Neutrophils Absolute Auto 10.7 x10*3/uL (2.0-8.3); Neutrophils Percent Auto 79.8 % (45-73); Platelet Count 144 X10*3/uL (160-400); Red Blood Count 3.62 X10*6/uL (4.60-5.80); Red Cell Distribution Width 14.6 % (11.0-16.0); White Blood Count 13.4 X10*3/uL (4.8-10.8)
[2021-11-15 07:04] LABS: Alanine Aminotransferase 21 U/L (0-40); Albumin Level 2.8 g/dL (3.5-5.0); Alkaline Phosphatase 105 U/L (39-117); Anion Gap 14 (12-20); Aspartate Amino Transferase 29 U/L (5-37); Bilirubin Total 1.4 mg/dL (0.0-1.0); Blood Urea Nitrogen 7 mg/dL (9-16); Calcium 7.6 mg/dL (8.4-10.2); Carbon Dioxide 22 mmol/L (22-29); Chloride 99 mmol/L (96-108); Creatinine Clr Calc Pharmacy 191.2; Estimated Glomerular Filt Rate > 60; Glucose Fasting 119 mg/dL (60-99); Potassium 3.8 mmol/L (3.3-5.1); Sodium 131 mmol/L (135-145); Total Protein 5.1 g/dL (6.5-8.0)
[2021-11-15] MEDS: PHENobarbitaL 30 MG TABLET PO ×2 (08:41→21:31)
[2021-11-15] MEDS: 0.9 % Sodium Chloride Flush 3 ML SYRINGE IVFLUSH (08:42)
--- NOTE | 2021-11-15 10:04 | HO.MIDLINE ---
Midline Insertion MIDLINE INSERTION Diagnosis: PANCREATITIS Indication: DIFFICULT IV ACCESS Pertinent Labs: REVIEWED Technique: Using sterile technique including cap and mask, glove and drape, the LEFT arm was prepped and draped in the usual sterile fashion of full barrier technique with G. Using ultrasound guidance, CEPHALIC vein access was obtained IN SINGLE ATTEMPT BY THIS RN; PRIOR UNSUCCESSFUL ATTEMPT BY THIS RN TO RUE. A SINGLE LUMEN, NON-PASV, (20G X 8CM) MIDLINE was positioned. The procedure was performed in S-272. Ultrasound was used to document vein patency and for needle entry. A formal ultrasound picture was recorded. [employer] has released the line for use and it is currently dressed with a StatLock, Tegaderm, and CHG disc. Verification has been performed for blood return and line patency. Equipment: [employer] POWERGLIDE PRO Catheter Type: SINGLE LUMEN, NON-PASV, (20G X 8CM) Lot #: [id number]
--- NOTE | 2021-11-15 12:20 | MHC.CM.PN ---
Per ROUNDS discussion, Patient is on Phenobarbital and not yet medically cleared for dc; Home and/or Care Team interventions is the goal and CM will continue to follow.
[2021-11-15] MEDS: Enoxaparin Sodium 40 MG/0.4 ML SYRINGE SUBCUT (13:00)
--- NOTE | 2021-11-15 15:06 | HO.PM.IMPN ---
Subjective Subjective Date of Service: 11/15/21 Interval History: Still unable to advance diet secondary to pain. Tolerating liquids. Review of Systems Denies chest pain Denies shortness of breath Denies fever chills Admits abdominal pain with nausea and vomiting Physical Exam Vital Signs: Vital Signs: Last Vital Signs Temp 100.0 F 11/15/21 11:37 Pulse 106 H 11/15/21 11:37 Resp 20 11/15/21 11:37 BP 133/76 11/15/21 11:37 Pulse Ox 91 L 11/15/21 11:37 O2 Del Method 11/15/21 11:37 BMI result Body Mass Index 41.5 Const: Other: Awake alert uncomfortable appearing on stretcher HEENT: Other: Membranes dry Resp: Other: Clear to auscultation bilaterally no rales rhonchi or wheezes Cardio: Other: No S4; positive S1-S2; no S3 murmurs rubs or gallops GI: Other: Soft with voluntary guarding across abdomen. Tender with minimal palpation across epigastrium. Bowel sounds quiet Neuro: Other: Cranial nerves 2-12 grossly intact as tested. Motor 5/5 all extremities. Sensation is intact. Cognition appropriate Extrem: Other: No edema bilaterally Objective Data Active Medications Acetaminophen (Acetaminophen 325 Mg Tablet) 650 mg PO Q6H PRN PRN Reason: Pain, Mild (Pain Scale 1-3), Last Admin: 11/15/21 02:23 Dose: 650 mg Documented By: FÉLIX Al Hydroxide/Mg Hydroxide (Magnesium Hydrox/Alum Hydrox 30 Ml Oral.Susp) 30 ml PO Q4H PRN PRN Reason: Heartburn Last Admin: 11/14/21 12:13 Dose: 30 ml Documented By: NENITA Albuterol/Ipratropium (Albuterol/Iprat 2.5/0.5mg 3 Ml Ampul.Neb) 3 ml INHALE RQ4H PRN PRN Reason: Wheezing Enoxaparin Sodium (Enoxaparin Sodium 40 Mg/0.4 Ml Syringe) 40 mg SUBCUT Q24H [facility] Last Admin: 11/15/21 13:00 Dose: 40 mg Documented By: NENITA Hydromorphone HCl (Hydromorphone Hcl 1 Mg/Ml Syringe) 1 mg IVPUSH Q4H PRN; Protocol PRN Reason: Pain, Severe (Pain Scale 7-10) Last Admin: 11/15/21 13:00 Dose: 1 mg Documented By: NENITA Piperacillin Sod/Tazobactam (Sod 4.5 gm/ Sodium Chloride) 100 mls @ 200 mls/hr IV Q6H [facility] Last Infusion: 11/15/21 11:25 Dose: 0 mls/hr Documented By: NENITA Lactated Ringer's (Lr) 1,000 mls @ 150 mls/hr IVCONT .Q6H40M [facility] Last Infusion: 11/15/21 11:25 Dose: 150 mls/hr Documented By: NENITA Ondansetron HCl (Ondansetron Hcl 4 Mg/2 Ml Vial) 4 mg IVPUSH Q4H PRN PRN Reason: Nausea and Vomiting Last Admin: 11/15/21 13:00 Dose: 4 mg Documented By: NENITA Pantoprazole Sodium (Pantoprazole Sodium 40 Mg/10 Ml Vial) 40 mg IVPUSH BID@0630,1630 [facility] Last Admin: 11/15/21 05:07 Dose: 40 mg Documented By: FÉLIX Pharmacy Consult (Consult Rx Etoh Phenob Po Only) 1 each MISCELLANE ONCE PRN; Protocol PRN Reason: Consult order Phenobarbital (Phenobarbital 30 Mg Tablet) 30 mg PO BID [facility]; Protocol Stop: 11/16/21 21:01 Last Admin: 11/15/21 08:41 Dose: 30 mg Documented By: NENITA Phenobarbital (Phenobarbital 30 Mg Tablet) 30 mg PO DAILY [facility]; Protocol Stop: 11/18/21 09:01 Sodium Chloride (0.9 % Sodium Chloride Flush 3 Ml Syringe) 3 ml IVFLUSH QSHIFT [facility] Last Admin: 11/15/21 08:42 Dose: 3 ml Documented By: NENITA Labs CBC & Chem 7: 11/15/21 06:25 11/15/21 06:24 Labs: Laboratory Results - last 24 hr 11/15/21 11/15/21 06:24 06:25 MCV 85.1 MCH 28.2 MCHC 33.1 RDW 14.6 Plt Count 144 L MPV 9.7 Immature Gran % (Auto) 0.5 H Neut % (Auto) 79.8 H Lymph % (Auto) 10.3 L Chase % (Auto) 8.9 Eos % (Auto) 0.3 Baso % (Auto) 0.2 Lymph # (Auto) 1.4 Chase # (Auto) 1.2 Eos # (Auto) 0.0 Baso # (Auto) 0.0 Abs Immat Gran (auto) 0.07 H Absolute Neuts (auto) 10.7 H Absolute Nucleated RBC 0.000 Nucleated RBC % (auto) 0.0 Anion Gap 14 Estim Creat Clear Calc 191.2 Estimated GFR > 60 Fasting Glucose 119 H Calcium 7.6 L Total Bilirubin 1.4 H AST 29 ALT 21 Alkaline Phosphatase 105 Total Protein 5.1 L Albumin 2.8 L Microbiology Microbiology Results: Microbiology 11/13/21 23:58 Blood Culture - Preliminary Blood - Venous No growth after 24 hours. 11/13/21 22:18 Blood Culture - Preliminary Blood - Venous No growth after 24 hours. Assessment and Plan (1) Acute alcoholic pancreatitis: Status: Acute (2) Alcohol withdrawal: Status: Acute Plan 26-year-old male with known history of ongoing alcohol abuse and history of pancreatitis presents from detox with diffuse mid epigastric pain nausea and vomiting. Initial CT scan in the emergency room consistent with acute pancreatitis. Presents with mild alcohol withdrawal in addition to pancreatitis 1. Acute alcoholic pancreatitis -advanced to clears -IV Dilaudid for pain management -Zofran for nausea -aggressive volume repletion with LR 2. Alcohol withdrawal -phenobarb protocol.. Doing well with p.o.. No evidence of seizures -observe on CIWA Lovenox Full Code Patient requires ongoing hospitalization to complete alcohol withdrawal protocol on phenobarbital; require supplemental IVs given acute pancreatitis Quality Stroke Does the patient have a stroke diagnosis?: No VTE Prior VTE?: No VTE Risk Level:: Medical - moderate - high VTE Device Contraindication: Treatment Not Indicated VTE Drug Contraindication: N/A - Med Ordered
[2021-11-15] MEDS: PHENobarbitaL sodium 130 MG/ML VIAL IM (18:44)
[2021-11-16] MEDS: Piperacillin Sodium/Tazobactam 4.5 GM in 0.9 % Sodium Chloride 100 ML IV ×4 (01:16→20:57)
[2021-11-16] MEDS: HYDROmorphone HCl 1 MG/ML SYRINGE IVPUSH ×6 (01:16→22:19)
[2021-11-16 03:45] VITALS: BP 131/66; PULSE 95; RESP 20; TEMP 37.7; O2SAT 95
[2021-11-16] MEDS: Acetaminophen 325 MG TABLET 975 MG PO ×2 (05:10→20:57)
[2021-11-16] MEDS: Pantoprazole Sodium 40 MG/10 ML VIAL IVPUSH (05:11)
[2021-11-16] MEDS: Lactated Ringers 1,000 ML 150 ML IVCONT ×2 (05:22→17:38)
[2021-11-16] MEDS: ondansetron HCL 4 MG/2 ML VIAL IVPUSH ×4 (05:24→22:19)
[2021-11-16 07:36] VITALS: BP 117/74; PULSE 77; RESP 20; TEMP 36.4; O2SAT 94
[2021-11-16] MEDS: PHENobarbitaL 30 MG TABLET PO ×2 (08:47→20:58)
[2021-11-16 11:58] VITALS: BP 124/60; PULSE 71; RESP 20; TEMP 36.5; O2SAT 94
--- NOTE | 2021-11-16 12:53 | HO.PM.IMPN ---
Subjective Subjective Date of Service: 11/16/21 Interval History: f/u on pancreatitis, still c/o pain, tolerating liquid diet Review of Systems Denies chest pain Denies shortness of breath Denies fever chills Admits abdominal pain with nausea Physical Exam Vital Signs: Vital Signs: Last Vital Signs Temp 97.7 F 11/16/21 11:58 Pulse 71 11/16/21 11:58 Resp 20 11/16/21 11:58 BP 124/60 11/16/21 11:58 Pulse Ox 94 11/16/21 11:58 O2 Del Method 11/16/21 11:58 BMI result Body Mass Index 41.5 Const: Other: Awake alert uncomfortable appearing on stretcher HEENT: Other: Membranes dry Resp: Other: Clear to auscultation bilaterally no rales rhonchi or wheezes Cardio: Other: No S4; positive S1-S2; no S3 murmurs rubs or gallops GI: Other: Soft with voluntary guarding across abdomen. Tender with minimal palpation across epigastrium. Bowel sounds quiet Neuro: Other: Cranial nerves 2-12 grossly intact as tested. Motor 5/5 all extremities. Sensation is intact. Cognition appropriate Extrem: Other: No edema bilaterally Objective Data Active Medications Acetaminophen (Acetaminophen 325 Mg Tablet) 975 mg PO Q6H PRN PRN Reason: Fever Last Admin: 11/16/21 05:10 Dose: 975 mg Documented By: SURJIT Al Hydroxide/Mg Hydroxide (Magnesium Hydrox/Alum Hydrox 30 Ml Oral.Susp) 30 ml PO Q4H PRN PRN Reason: Heartburn Last Admin: 11/14/21 12:13 Dose: 30 ml Documented By: NENITA Albuterol/Ipratropium (Albuterol/Iprat 2.5/0.5mg 3 Ml Ampul.Neb) 3 ml INHALE RQ4H PRN PRN Reason: Wheezing Enoxaparin Sodium (Enoxaparin Sodium 40 Mg/0.4 Ml Syringe) 40 mg SUBCUT Q24H [facility] Last Admin: 11/15/21 13:00 Dose: 40 mg Documented By: NENITA Hydromorphone HCl (Hydromorphone Hcl 1 Mg/Ml Syringe) 1 mg IVPUSH Q4H PRN; Protocol PRN Reason: Pain, Severe (Pain Scale 7-10) Last Admin: 11/16/21 09:19 Dose: 1 mg Documented By: KOBI Piperacillin Sod/Tazobactam (Sod 4.5 gm/ Sodium Chloride) 100 mls @ 200 mls/hr IV Q6H [facility] Last Infusion: 11/16/21 09:18 Dose: 200 mls/hr Documented By: KOBI Lactated Ringer's (Lr) 1,000 mls @ 150 mls/hr IVCONT .Q6H40M [facility] Last Admin: 11/16/21 05:22 Dose: 150 mls/hr Documented By: SURJIT Ondansetron HCl (Ondansetron Hcl 4 Mg/2 Ml Vial) 4 mg IVPUSH Q4H PRN PRN Reason: Nausea and Vomiting Last Admin: 11/16/21 09:19 Dose: 4 mg Documented By: KOBI Pantoprazole Sodium (Pantoprazole Sodium 40 Mg/10 Ml Vial) 40 mg IVPUSH BID@0630,1630 [facility] Last Admin: 11/16/21 05:11 Dose: 40 mg Documented By: SURJIT Pharmacy Consult (Consult Rx Etoh Phenob Po Only) 1 each MISCELLANE ONCE PRN; Protocol PRN Reason: Consult order Phenobarbital (Phenobarbital 30 Mg Tablet) 30 mg PO BID [facility]; Protocol Stop: 11/16/21 21:01 Last Admin: 11/16/21 08:47 Dose: 30 mg Documented By: KOBI Phenobarbital (Phenobarbital 30 Mg Tablet) 30 mg PO DAILY [facility]; Protocol Stop: 11/18/21 09:01 Sodium Chloride (0.9 % Sodium Chloride Flush 3 Ml Syringe) 3 ml IVFLUSH QSHIFT [facility] Last Admin: 11/16/21 08:47 Dose: Not Given Documented By: KOBI Non-Admin Reason: IV Running Labs CBC & Chem 7: 11/15/21 06:25 11/15/21 06:24 Labs: Laboratory Results - last 24 hr 11/15/21 18:42 Phenobarbital 15.7 Microbiology Microbiology Results: Microbiology 11/13/21 23:58 Blood Culture - Preliminary Blood - Venous No growth after 48 hours. 11/13/21 22:18 Blood Culture - Preliminary Blood - Venous No growth after 48 hours. Assessment and Plan (1) Acute alcoholic pancreatitis: Status: Acute (2) Alcohol withdrawal: Status: Acute Plan 26-year-old male with known history of ongoing alcohol abuse and history of pancreatitis presents from detox with diffuse mid epigastric pain nausea and vomiting. Initial CT scan in the emergency room consistent with acute pancreatitis. Presents with mild alcohol withdrawal in addition to pancreatitis 1. Acute alcoholic pancreatitis--improviment -advanced to full liquid diet -IV Dilaudid for pain management -Zofran for nausea -IV fluid 2. Alcohol withdrawal -phenobarb protocol.. Doing well with p.o.. No evidence of seizures -observe on CIWA Lovenox Full Code Patient requires ongoing hospitalization to complete alcohol withdrawal protocol on phenobarbital; require supplemental IVs given acute pancreatitis Quality Stroke Does the patient have a stroke diagnosis?: No VTE Prior VTE?: No VTE Risk Level:: Medical - moderate - high VTE Device Contraindication: Treatment Not Indicated VTE Drug Contraindication: N/A - Med Ordered
[2021-11-16] MEDS: Enoxaparin Sodium 40 MG/0.4 ML SYRINGE SUBCUT (13:37)
[2021-11-16 15:47] VITALS: BP 135/85; PULSE 84; RESP 16; TEMP 36.9; O2SAT 97
--- NOTE | 2021-11-16 16:59 | PC.NURSE ---
Pt reporting feeling symptoms of withdrawal. CIWA scale at this time is 6. Reported this to Dr Delarosa.
[2021-11-16] MEDS: hydrOXYzine HCL 25 MG TABLET PO (17:38)
[2021-11-16 20:00] VITALS: BP 122/60; PULSE 80; RESP 18; TEMP 38.7; O2SAT 94
[2021-11-16] MEDS: Acamprosate Calcium 333 MG TABLET.DR 666 MG PO (20:57)
[2021-11-16] MEDS: oxyCODONE HCl Immed Release 5 MG TABLET PO (20:57)
[2021-11-16] MEDS: lamoTRIgine 100 MG TABLET PO (20:58)
[2021-11-16] MEDS: Prazosin HCL 1 MG CAPSULE 4 MG PO (20:58)
[2021-11-16] MEDS: Gabapentin 400 MG CAPSULE 800 MG PO (20:58)
[2021-11-16] MEDS: 0.9 % Sodium Chloride Flush 3 ML SYRINGE IVFLUSH (21:02)
[2021-11-16] MEDS: traZODone HCL 100 MG TABLET PO (22:19)
[2021-11-16 23:09] VITALS: BP 128/56; PULSE 90; RESP 18; TEMP 37; O2SAT 93
[2021-11-17] MEDS: hydrOXYzine HCL 25 MG TABLET PO (03:24)
[2021-11-17] MEDS: HYDROmorphone HCl 1 MG/ML SYRINGE IVPUSH ×5 (03:24→20:16)
[2021-11-17] MEDS: Piperacillin Sodium/Tazobactam 4.5 GM in 0.9 % Sodium Chloride 100 ML IV ×4 (03:24→20:16)
[2021-11-17 03:51] VITALS: BP 118/72; PULSE 107; RESP 18; TEMP 37.2; O2SAT 99
[2021-11-17] MEDS: Lactated Ringers 1,000 ML 150 ML IVCONT (04:01)
[2021-11-17] MEDS: ondansetron HCL 4 MG/2 ML VIAL IVPUSH (04:04)
[2021-11-17] MEDS: Omeprazole 20 MG CAPSULE.DR PO (06:59)
[2021-11-17 08:00] VITALS: BP 128/84; PULSE 100; RESP 20; TEMP 36.9; O2SAT 96
[2021-11-17] MEDS: oxyCODONE HCl Immed Release 5 MG TABLET PO ×2 (09:19→16:59)
[2021-11-17] MEDS: lamoTRIgine 100 MG TABLET PO ×2 (09:19→20:17)
--- NOTE | 2021-11-17 09:19 | HO.PM.IMPN ---
Subjective Subjective Date of Service: 11/17/21 Interval History: f/u on pancreatitis, pain is better, tolerating full liquid diet Review of Systems no fever, no nausea, or vomitting some residual abd pain Physical Exam Vital Signs: Vital Signs: Last Vital Signs Temp 98.4 F 11/17/21 08:00 Pulse 100 11/17/21 08:00 Resp 20 11/17/21 08:00 BP 128/84 11/17/21 08:00 Pulse Ox 96 11/17/21 08:00 O2 Del Method 11/17/21 08:00 BMI result Body Mass Index 41.5 Const: Other: Awake alert uncomfortable appearing on stretcher HEENT: Other: Membranes dry Resp: Other: Clear to auscultation bilaterally no rales rhonchi or wheezes Cardio: Other: No S4; positive S1-S2; no S3 murmurs rubs or gallops GI: Other: Soft with voluntary guarding across abdomen. Tender with minimal palpation across epigastrium. Bowel sounds quiet Neuro: Other: Cranial nerves 2-12 grossly intact as tested. Motor 5/5 all extremities. Sensation is intact. Cognition appropriate Extrem: Other: No edema bilaterally Objective Data Active Medications Acamprosate (Acamprosate Calcium 333 Mg Tablet.) 666 mg PO TID [facility] Last Admin: 11/16/21 20:57 Dose: 666 mg Documented By: SURJIT Acetaminophen (Acetaminophen 325 Mg Tablet) 975 mg PO Q6H PRN PRN Reason: Fever Last Admin: 11/16/21 20:57 Dose: 975 mg Documented By: SURJIT Al Hydroxide/Mg Hydroxide (Magnesium Hydrox/Alum Hydrox 30 Ml Oral.Susp) 30 ml PO Q4H PRN PRN Reason: Heartburn Last Admin: 11/14/21 12:13 Dose: 30 ml Documented By: SOLISROMAN Albuterol/Ipratropium (Albuterol/Iprat 2.5/0.5mg 3 Ml Ampul.Neb) 3 ml INHALE RQ4H PRN PRN Reason: Wheezing Enoxaparin Sodium (Enoxaparin Sodium 40 Mg/0.4 Ml Syringe) 40 mg SUBCUT Q24H [facility] Last Admin: 11/16/21 13:37 Dose: 40 mg Documented By: KOBI Gabapentin (Gabapentin 400 Mg Capsule) 800 mg PO TID [facility] Last Admin: 11/16/21 20:58 Dose: 800 mg Documented By: SURJIT Hydromorphone HCl (Hydromorphone Hcl 1 Mg/Ml Syringe) 1 mg IVPUSH Q4H PRN; Protocol PRN Reason: Pain, Severe (Pain Scale 7-10) Last Admin: 11/17/21 06:59 Dose: 1 mg Documented By: SURJIT Hydroxyzine HCl (Hydroxyzine Hcl 25 Mg Tablet) 25 mg PO Q6H PRN PRN Reason: Anxiety Last Admin: 11/17/21 03:24 Dose: 25 mg Documented By: SURJIT Piperacillin Sod/Tazobactam (Sod 4.5 gm/ Sodium Chloride) 100 mls @ 200 mls/hr IV Q6H [facility] Last Infusion: 11/17/21 04:08 Dose: 0 mls/hr Documented By: SURJIT Lamotrigine (Lamotrigine 100 Mg Tablet) 100 mg PO BID [facility] Last Admin: 11/16/21 20:58 Dose: 100 mg Documented By: SURJIT Nicotine (Nicotine 7 Mg Patch.Td24) 7 mg TRANSDERMA DAILY [facility] Last Admin: 11/16/21 17:48 Dose: Not Given Documented By: KOBI Non-Admin Reason: Patient Refused Omeprazole (Omeprazole 20 Mg Capsule.Dr) 20 mg PO DAILY@0630 [facility] Last Admin: 11/17/21 06:59 Dose: 20 mg Documented By: SURJIT Ondansetron HCl (Ondansetron Hcl 4 Mg/2 Ml Vial) 4 mg IVPUSH Q4H PRN PRN Reason: Nausea and Vomiting Last Admin: 11/17/21 04:04 Dose: 4 mg Documented By: SURJIT Oxycodone HCl (Oxycodone Hcl Immed Release 5 Mg Tablet) 5 mg PO Q6H PRN PRN Reason: Pain, Severe (Pain Scale 7-10) Last Admin: 11/16/21 20:57 Dose: 5 mg Documented By: SURJIT Pharmacy Consult (Consult Rx Etoh Phenob Po Only) 1 each MISCELLANE ONCE PRN; Protocol PRN Reason: Consult order Phenobarbital (Phenobarbital 30 Mg Tablet) 30 mg PO DAILY [facility]; Protocol Stop: 11/18/21 09:01 Prazosin HCl (Prazosin Hcl 1 Mg Capsule) 4 mg PO BEDTIME [facility]; Protocol Last Admin: 11/16/21 20:58 Dose: 4 mg Documented By: SURJIT Sodium Chloride (0.9 % Sodium Chloride Flush 3 Ml Syringe) 3 ml IVFLUSH QSHIFT [facility] Last Admin: 11/16/21 21:02 Dose: 3 ml Documented By: SURJIT Trazodone HCl (Trazodone Hcl 100 Mg Tablet) 100 mg PO BEDTIME PRN PRN Reason: Insomnia Last Admin: 11/16/21 22:19 Dose: 100 mg Documented By: SURJIT Labs CBC & Chem 7: 11/15/21 06:25 11/15/21 06:24 Microbiology Microbiology Results: Microbiology 11/15/21 17:02 Blood Culture - Preliminary Blood - Venous No growth after 24 hours. 11/15/21 17:02 Blood Culture - Preliminary Blood - Venous No growth after 24 hours. Assessment and Plan (1) Acute alcoholic pancreatitis: Status: Acute (2) Alcohol withdrawal: Status: Acute Plan 26-year-old male with known history of ongoing alcohol abuse and history of pancreatitis presents from detox with diffuse mid epigastric pain nausea and vomiting. Initial CT scan in the emergency room consistent with acute pancreatitis. Presents with mild alcohol withdrawal in addition to pancreatitis 1. Acute alcoholic pancreatitis--improving -advanced to regular low fat diet -IV Dilaudid for pain management and transition to oxycodone -Zofran for nausea -IV fluid -empiric Zosyn for fever 101 this morning 2. Alcohol withdrawal -phenobarb protocol.. Doing well with p.o.. No evidence of seizures -observe on CIWA Lovenox Full Code Patient requires ongoing hospitalization to complete alcohol withdrawal protocol on phenobarbital; require supplemental IVs given acute pancreatitis Quality Stroke Does the patient have a stroke diagnosis?: No VTE Prior VTE?: No VTE Risk Level:: Medical - moderate - high VTE Device Contraindication: Treatment Not Indicated VTE Drug Contraindication: N/A - Med Ordered
[2021-11-17] MEDS: PHENobarbitaL 30 MG TABLET PO (09:20)
[2021-11-17] MEDS: Gabapentin 400 MG CAPSULE 800 MG PO ×3 (09:20→20:17)
[2021-11-17] MEDS: Acamprosate Calcium 333 MG TABLET.DR 666 MG PO ×3 (09:20→20:17)
[2021-11-17] MEDS: 0.9 % Sodium Chloride Flush 3 ML SYRINGE IVFLUSH ×2 (09:21→20:17)
[2021-11-17 11:48] VITALS: BP 150/94; PULSE 105; RESP 20; TEMP 37.1; O2SAT 94
[2021-11-17] MEDS: Enoxaparin Sodium 40 MG/0.4 ML SYRINGE SUBCUT (13:09)
[2021-11-17 14:57] VITALS: BP 119/75; PULSE 88; RESP 18; TEMP 37.8; O2SAT 96
[2021-11-17] MEDS: Acetaminophen 325 MG TABLET 975 MG PO (15:35)
[2021-11-17 17:06] VITALS: TEMP 36.8
[2021-11-17 20:00] VITALS: BP 134/73; PULSE 84; RESP 18; TEMP 37; O2SAT 98
[2021-11-17] MEDS: Prazosin HCL 1 MG CAPSULE 4 MG PO (20:16)
[2021-11-18] MEDS: traZODone HCL 100 MG TABLET PO ×2 (00:56→21:54)
[2021-11-18] MEDS: HYDROmorphone HCl 1 MG/ML SYRINGE IVPUSH ×3 (00:56→08:57)
[2021-11-18] MEDS: ondansetron HCL 4 MG/2 ML VIAL IVPUSH ×3 (00:56→12:08)
[2021-11-18] MEDS: Piperacillin Sodium/Tazobactam 4.5 GM in 0.9 % Sodium Chloride 100 ML IV ×4 (01:01→21:54)
[2021-11-18 03:39] VITALS: BP 138/74; PULSE 92; RESP 20; TEMP 37.8; O2SAT 93
[2021-11-18] MEDS: Omeprazole 20 MG CAPSULE.DR PO (05:07)
[2021-11-18] MEDS: Acetaminophen 325 MG TABLET 975 MG PO (05:07)
[2021-11-18 07:59] VITALS: BP 113/65; PULSE 52; RESP 16; TEMP 36.3; O2SAT 96
[2021-11-18] MEDS: 0.9 % Sodium Chloride Flush 3 ML SYRINGE IVFLUSH ×3 (08:56→22:07)
[2021-11-18] MEDS: Gabapentin 400 MG CAPSULE 800 MG PO ×3 (09:02→21:54)
[2021-11-18] MEDS: PHENobarbitaL 30 MG TABLET PO (09:02)
[2021-11-18] MEDS: Nicotine 7 MG PATCH.TD24 TRANSDERMA (09:02)
[2021-11-18] MEDS: Acamprosate Calcium 333 MG TABLET.DR 666 MG PO ×3 (09:02→21:54)
[2021-11-18] MEDS: lamoTRIgine 100 MG TABLET PO ×2 (09:02→21:54)
[2021-11-18 11:15] VITALS: BP 119/60; PULSE 68; RESP 16; TEMP 36.7; O2SAT 98
--- NOTE | 2021-11-18 12:00 | P.PNIM_ITS ---
Subjective Subjective Date of Service: 11/18/21 Interval History: cc: abd pain interval history:had some solids but still with some pain Cardiovascular Cardiovascular: Reports no additional cardiovascular complaints Respiratory Respiratory: Reports no additional respiratory complaints Physical Exam Vital Signs: Vital Signs: Last Vital Signs Temp 98.1 F 11/18/21 11:15 Pulse 68 11/18/21 11:15 Resp 16 11/18/21 11:15 BP 119/60 11/18/21 11:15 Pulse Ox 98 11/18/21 11:15 O2 Del Method 11/18/21 11:15 BMI result Body Mass Index 41.5 General: AO X 3, no acute distress Resp: CTA bilateral, no accessory muscles used CVS: S1,S2,RRR GI: soft, mildy tender, non distended Neuro: motor grossly intact, alert Psych: appropriate affect, appropriate insight Objective Data Active Medications Acamprosate (Acamprosate Calcium 333 Mg Tablet.) 666 mg PO TID [facility] Last Admin: 11/18/21 09:02 Dose: 666 mg Documented By: BRANDON Acetaminophen (Acetaminophen 325 Mg Tablet) 975 mg PO Q6H PRN PRN Reason: Fever Last Admin: 11/18/21 05:07 Dose: 975 mg Documented By: SURJIT Al Hydroxide/Mg Hydroxide (Magnesium Hydrox/Alum Hydrox 30 Ml Oral.Susp) 30 ml PO Q4H PRN PRN Reason: Heartburn Last Admin: 11/14/21 12:13 Dose: 30 ml Documented By: SOLISROMAN Albuterol/Ipratropium (Albuterol/Iprat 2.5/0.5mg 3 Ml Ampul.Neb) 3 ml INHALE RQ4H PRN PRN Reason: Wheezing Enoxaparin Sodium (Enoxaparin Sodium 40 Mg/0.4 Ml Syringe) 40 mg SUBCUT Q24H [facility] Last Admin: 11/17/21 13:09 Dose: 40 mg Documented By: BRIGIDA Gabapentin (Gabapentin 400 Mg Capsule) 800 mg PO TID [facility] Last Admin: 11/18/21 09:02 Dose: 800 mg Documented By: BRANDON Hydroxyzine HCl (Hydroxyzine Hcl 25 Mg Tablet) 25 mg PO Q6H PRN PRN Reason: Anxiety Last Admin: 11/17/21 03:24 Dose: 25 mg Documented By: SURJIT Piperacillin Sod/Tazobactam (Sod 4.5 gm/ Sodium Chloride) 100 mls @ 200 mls/hr IV Q6H [facility] Last Infusion: 11/18/21 10:01 Dose: 0 mls/hr Documented By: BRANDON Lamotrigine (Lamotrigine 100 Mg Tablet) 100 mg PO BID [facility] Last Admin: 11/18/21 09:02 Dose: 100 mg Documented By: BRANDON Nicotine (Nicotine 7 Mg Patch.Td24) 7 mg TRANSDERMA DAILY [facility] Last Admin: 11/18/21 09:02 Dose: 7 mg Documented By: BRANDON Omeprazole (Omeprazole 20 Mg Capsule.Dr) 20 mg PO DAILY@0630 [facility] Last Admin: 11/18/21 05:07 Dose: 20 mg Documented By: SURJIT Ondansetron HCl (Ondansetron Hcl 4 Mg/2 Ml Vial) 4 mg IVPUSH Q4H PRN PRN Reason: Nausea and Vomiting Last Admin: 11/18/21 05:07 Dose: 4 mg Documented By: SURJIT Oxycodone HCl (Oxycodone Hcl Immed Release 5 Mg Tablet) 5 mg PO Q6H PRN PRN Reason: Pain, Severe (Pain Scale 7-10) Last Admin: 11/17/21 16:59 Dose: 5 mg Documented By: BRIGIDA Pharmacy Consult (Consult Rx Etoh Phenob Po Only) 1 each MISCELLANE ONCE PRN; Protocol PRN Reason: Consult order Prazosin HCl (Prazosin Hcl 1 Mg Capsule) 4 mg PO BEDTIME [facility]; Protocol Last Admin: 11/17/21 20:16 Dose: 4 mg Documented By: SURJIT Sodium Chloride (0.9 % Sodium Chloride Flush 3 Ml Syringe) 3 ml IVFLUSH QSHIFT [facility] Last Admin: 11/18/21 08:56 Dose: 3 ml Documented By: BRANDON Trazodone HCl (Trazodone Hcl 100 Mg Tablet) 100 mg PO BEDTIME PRN PRN Reason: Insomnia Last Admin: 11/18/21 00:56 Dose: 100 mg Documented By: SURJIT Labs CBC & Chem 7: 11/15/21 06:25 11/15/21 06:24 Microbiology Microbiology Results: Microbiology 11/15/21 17:02 Blood Culture - Preliminary Blood - Venous No growth after 48 hours. 11/15/21 17:02 Blood Culture - Preliminary Blood - Venous No growth after 48 hours. Assessment and Plan (1) Acute alcoholic pancreatitis: Status: Acute (2) Alcohol withdrawal: Status: Acute Plan 26-year-old male with known history of ongoing alcohol abuse and history of pancreatitis presents from detox with diffuse mid epigastric pain nausea and vomiting. Initial CT scan in the emergency room consistent with acute pancreatitis. Presents with mild alcohol withdrawal in addition to pancreatitis Acute alcoholic pancreatitis--improving -advanced to regular low fat diet po oxycodone for pain management -Zofran for nausea -IV fluid aspiration pnuemonia vs pneumonitis continue zosyn Alcohol dependence with withdrawal -phenobarb protocol.. Doing well with p.o.. No evidence of seizures -observe on CIWA Lovenox Full Code reason for continued hospitalization:awaiting tolerance of solid foods. Quality Stroke Does the patient have a stroke diagnosis?: No VTE Prior VTE?: No VTE Risk Level:: Medical - moderate - high VTE Device Contraindication: Treatment Not Indicated VTE Drug Contraindication: N/A - Med Ordered
[2021-11-18] MEDS: Enoxaparin Sodium 40 MG/0.4 ML SYRINGE SUBCUT (12:08)
--- NOTE | 2021-11-18 12:19 | MHC.CM.PN ---
PER MD ROUNDS, PT WILL DC TODAY VS TOMORROW, HOME WITH NO SERVICES VS FAMILY TRANSPORT
[2021-11-18] MEDS: oxyCODONE HCl Immed Release 5 MG TABLET PO ×2 (14:52→21:54)
[2021-11-18 15:55] VITALS: BP 124/59; PULSE 75; RESP 17; TEMP 37.8; O2SAT 95
[2021-11-18 20:00] VITALS: BP 129/76; PULSE 96; RESP 18; TEMP 36.8; O2SAT 95
[2021-11-18] MEDS: Prazosin HCL 1 MG CAPSULE 4 MG PO (21:54)
[2021-11-18] MEDS: hydrOXYzine HCL 25 MG TABLET PO (21:54)
[2021-11-19] VITALS (7 sets, daily range): BP systolic 112–138; BP diastolic 61–87; PULSE 74–97; RESP 14–20; TEMP 36.1–37.8; O2SAT 92–97
[2021-11-19] MEDS: hydrOXYzine HCL 25 MG TABLET PO (05:02)
[2021-11-19] MEDS: oxyCODONE HCl Immed Release 5 MG TABLET PO (05:02)
[2021-11-19] MEDS: Omeprazole 20 MG CAPSULE.DR PO (05:02)
[2021-11-19] MEDS: Piperacillin Sodium/Tazobactam 4.5 GM in 0.9 % Sodium Chloride 100 ML IV ×3 (06:25→20:28)
[2021-11-19] MEDS: Nicotine 7 MG PATCH.TD24 TRANSDERMA (09:15)
[2021-11-19] MEDS: Acamprosate Calcium 333 MG TABLET.DR 666 MG PO ×3 (09:15→20:27)
[2021-11-19] MEDS: 0.9 % Sodium Chloride Flush 3 ML SYRINGE IVFLUSH ×3 (09:15→20:30)
[2021-11-19] MEDS: lamoTRIgine 100 MG TABLET PO ×2 (09:15→20:27)
[2021-11-19] MEDS: ondansetron HCL 4 MG/2 ML VIAL IVPUSH ×2 (09:16→13:28)
[2021-11-19] MEDS: HYDROmorphone HCl 1 MG/ML SYRINGE IVPUSH ×4 (09:16→21:36)
[2021-11-19 09:29] LABS: Mean Corpuscular HGB Conc 33.3 g/dl (31.0-36.0); Mean Corpuscular Hemoglobin 28.1 pg (27.0-33.0); Mean Corpuscular Volume 84.4 fL (80.0-98.0); Mean Platelet Volume 9.9 fL (9.4-12.4); Platelet Count 335 X10*3/uL (160-400); Red Blood Count 3.91 X10*6/uL (4.60-5.80); Red Cell Distribution Width 15.2 % (11.0-16.0); White Blood Count 13.5 X10*3/uL (4.8-10.8)
[2021-11-19 09:38] LABS: Alanine Aminotransferase 61 U/L (0-40); Albumin Level 3.4 g/dL (3.5-5.0); Alkaline Phosphatase 212 U/L (39-117); Anion Gap 18 (12-20); Aspartate Amino Transferase 91 U/L (5-37); Bilirubin Direct 0.5 mg/dL (0.0-0.5); Bilirubin Total 0.7 mg/dL (0.0-1.0); Blood Urea Nitrogen 4 mg/dL (9-16); Calcium 8.2 mg/dL (8.4-10.2); Carbon Dioxide 22 mmol/L (22-29); Chloride 99 mmol/L (96-108); Creatinine Clr Calc Pharmacy 179.8; Estimated Glomerular Filt Rate > 60; Glucose Fasting 284 mg/dL (60-99); Potassium 3.7 mmol/L (3.3-5.1); Sodium 135 mmol/L (135-145); Total Protein 6.5 g/dL (6.5-8.0)
[2021-11-19] MEDS: Gabapentin 400 MG CAPSULE 800 MG PO ×3 (10:04→20:28)
--- NOTE | 2021-11-19 11:16 | P.PNIM_ITS ---
Subjective Subjective Date of Service: 11/19/21 Interval History: cc: abd pain interval history: fevers, not tolerating solids Cardiovascular Cardiovascular: Reports no additional cardiovascular complaints Respiratory Respiratory: Reports no additional respiratory complaints Physical Exam Vital Signs: Vital Signs: Last Vital Signs Temp 99.1 F 11/19/21 10:54 Pulse 94 11/19/21 10:54 Resp 18 11/19/21 10:54 BP 112/71 11/19/21 10:54 Pulse Ox 96 11/19/21 10:54 O2 Del Method 11/19/21 10:54 BMI result Body Mass Index 41.5 General: AO X 3, in pain Resp: CTA bilateral, no accessory muscles used CVS: S1,S2,RRR GI: soft, tender, non distended Neuro: motor grossly intact, alert Psych: appropriate affect, appropriate insight Objective Data Active Medications Acamprosate (Acamprosate Calcium 333 Mg Tablet.) 666 mg PO TID [facility] Last Admin: 11/19/21 09:15 Dose: 666 mg Documented By: NENITA Acetaminophen (Acetaminophen 325 Mg Tablet) 975 mg PO Q6H PRN PRN Reason: Fever Last Admin: 11/18/21 05:07 Dose: 975 mg Documented By: SURJIT Al Hydroxide/Mg Hydroxide (Magnesium Hydrox/Alum Hydrox 30 Ml Oral.Susp) 30 ml PO Q4H PRN PRN Reason: Heartburn Last Admin: 11/14/21 12:13 Dose: 30 ml Documented By: NENITA Albuterol/Ipratropium (Albuterol/Iprat 2.5/0.5mg 3 Ml Ampul.Neb) 3 ml INHALE RQ4H PRN PRN Reason: Wheezing Enoxaparin Sodium (Enoxaparin Sodium 40 Mg/0.4 Ml Syringe) 40 mg SUBCUT Q24H [facility] Last Admin: 11/18/21 12:08 Dose: 40 mg Documented By: BRANDON Gabapentin (Gabapentin 400 Mg Capsule) 800 mg PO TID [facility] Last Admin: 11/19/21 10:04 Dose: 800 mg Documented By: NENITA Hydromorphone HCl (Hydromorphone Hcl 1 Mg/Ml Syringe) 1 mg IVPUSH Q4H PRN; Protocol PRN Reason: moderate pain Last Admin: 11/19/21 09:16 Dose: 1 mg Documented By: NENITA Hydroxyzine HCl (Hydroxyzine Hcl 25 Mg Tablet) 25 mg PO Q6H PRN PRN Reason: Anxiety Last Admin: 11/19/21 05:02 Dose: 25 mg Documented By: SURJIT Piperacillin Sod/Tazobactam (Sod 4.5 gm/ Sodium Chloride) 100 mls @ 200 mls/hr IV Q6H [facility] Last Infusion: 11/19/21 06:58 Dose: 0 mls/hr Documented By: SURJIT Lamotrigine (Lamotrigine 100 Mg Tablet) 100 mg PO BID [facility] Last Admin: 11/19/21 09:15 Dose: 100 mg Documented By: NENITA Nicotine (Nicotine 7 Mg Patch.Td24) 7 mg TRANSDERMA DAILY [facility] Last Admin: 11/19/21 09:15 Dose: 7 mg Documented By: NENITA Omeprazole (Omeprazole 20 Mg Capsule.Dr) 20 mg PO DAILY@0630 [facility] Last Admin: 11/19/21 05:02 Dose: 20 mg Documented By: SURJIT Ondansetron HCl (Ondansetron Hcl 4 Mg/2 Ml Vial) 4 mg IVPUSH Q4H PRN PRN Reason: Nausea and Vomiting Last Admin: 11/19/21 09:16 Dose: 4 mg Documented By: NENITA Oxycodone HCl (Oxycodone Hcl Immed Release 5 Mg Tablet) 5 mg PO Q6H PRN PRN Reason: Pain, Severe (Pain Scale 7-10) Last Admin: 11/19/21 05:02 Dose: 5 mg Documented By: SURJIT Pharmacy Consult (Consult Rx Etoh Phenob Po Only) 1 each MISCELLANE ONCE PRN; Protocol PRN Reason: Consult order Prazosin HCl (Prazosin Hcl 1 Mg Capsule) 4 mg PO BEDTIME [facility]; Protocol Last Admin: 11/18/21 21:54 Dose: 4 mg Documented By: SURJIT Sodium Chloride (0.9 % Sodium Chloride Flush 3 Ml Syringe) 3 ml IVFLUSH QSHIFT [facility] Last Admin: 11/19/21 09:15 Dose: 3 ml Documented By: NENITA Trazodone HCl (Trazodone Hcl 100 Mg Tablet) 100 mg PO BEDTIME PRN PRN Reason: Insomnia Last Admin: 11/18/21 21:54 Dose: 100 mg Documented By: SURJIT Labs CBC & Chem 7: 11/19/21 08:34 11/19/21 08:34 Labs: Laboratory Results - last 24 hr 11/19/21 11/19/21 08:34 08:34 MCV 84.4 MCH 28.1 MCHC 33.3 RDW 15.2 Plt Count 335 D MPV 9.9 Absolute Nucleated RBC 0.000 Nucleated RBC % (auto) 0.0 Anion Gap 18 Estim Creat Clear Calc 179.8 Estimated GFR > 60 Fasting Glucose 284 H D Calcium 8.2 L D Magnesium 2.0 Total Bilirubin 0.7 Direct Bilirubin 0.5 AST 91 H ALT 61 H Alkaline Phosphatase 212 H D Total Protein 6.5 D Albumin 3.4 L D Microbiology Microbiology Results: Microbiology 11/13/21 23:58 Blood Culture - Final Blood - Venous No growth after 5 days. 11/13/21 22:18 Blood Culture - Final Blood - Venous No growth after 5 days. Assessment and Plan (1) Acute alcoholic pancreatitis: Status: Acute (2) Alcohol withdrawal: Status: Acute Plan 26-year-old male with known history of ongoing alcohol abuse and history of pancreatitis presents from detox with diffuse mid epigastric pain nausea and vomiting. Initial CT scan in the emergency room consistent with acute pancreatitis. Presents with mild alcohol withdrawal in addition to pancreatitis Acute alcoholic pancreatitis--improving -advanced to regular low fat diet and did not tolerate in significant pain today, will go back to clears, check repeat CT abd, restart iv dilaudid for pain -Zofran for nausea -IV fluid aspiration pnuemonia vs pneumonitis continue zosyn Alcohol dependence with withdrawal -phenobarb protocol.. Doing well with p.o.. No evidence of seizures -observe on CIWA Lovenox Full Code reason for continued hospitalization:awaiting tolerance of solid foods. Quality Stroke Does the patient have a stroke diagnosis?: No VTE Prior VTE?: No VTE Risk Level:: Medical - moderate - high VTE Device Contraindication: Treatment Not Indicated VTE Drug Contraindication: N/A - Med Ordered
[2021-11-19] MEDS: Enoxaparin Sodium 40 MG/0.4 ML SYRINGE SUBCUT (13:27)
[2021-11-19] MEDS: iohexoL 350 MG/ML 100 ML INFUS..BTL IV (15:27)
[2021-11-19] MEDS: Prazosin HCL 1 MG CAPSULE 4 MG PO (20:26)
[2021-11-20] MEDS: HYDROmorphone HCl 1 MG/ML SYRINGE IVPUSH ×6 (01:39→21:59)
[2021-11-20] MEDS: Piperacillin Sodium/Tazobactam 4.5 GM in 0.9 % Sodium Chloride 100 ML IV ×4 (01:41→19:45)
[2021-11-20] MEDS: ondansetron HCL 4 MG/2 ML VIAL IVPUSH ×3 (01:45→14:11)
[2021-11-20 03:26] VITALS: BP 143/85; PULSE 85; RESP 16; TEMP 37.2; O2SAT 97
[2021-11-20] MEDS: Omeprazole 20 MG CAPSULE.DR PO (05:45)
[2021-11-20 07:12] LABS: Hematocrit 32.2 % (42.0-52.0); Hemoglobin 10.7 g/dl (14.0-18.0); Mean Corpuscular HGB Conc 33.2 g/dl (31.0-36.0); Mean Corpuscular Hemoglobin 28.1 pg (27.0-33.0); Mean Corpuscular Volume 84.5 fL (80.0-98.0); Mean Platelet Volume 10.1 fL (9.4-12.4); Platelet Count 389 X10*3/uL (160-400); Red Blood Count 3.81 X10*6/uL (4.60-5.80); Red Cell Distribution Width 15.3 % (11.0-16.0); White Blood Count 12.8 X10*3/uL (4.8-10.8)
[2021-11-20 07:45] VITALS: BP 124/64; PULSE 59; RESP 17; TEMP 36.1; O2SAT 95
[2021-11-20 07:48] LABS: Alanine Aminotransferase 79 U/L (0-40); Albumin Level 3.4 g/dL (3.5-5.0); Alkaline Phosphatase 224 U/L (39-117); Anion Gap 16 (12-20); Aspartate Amino Transferase 88 U/L (5-37); Bilirubin Direct 0.5 mg/dL (0.0-0.5); Bilirubin Total 0.7 mg/dL (0.0-1.0); Blood Urea Nitrogen 2 mg/dL (9-16); Calcium 8.3 mg/dL (8.4-10.2); Carbon Dioxide 25 mmol/L (22-29); Chloride 97 mmol/L (96-108); Creatinine Clr Calc Pharmacy 191.2; Estimated Glomerular Filt Rate > 60; Glucose Fasting 247 mg/dL (60-99); Potassium 3.9 mmol/L (3.3-5.1); Sodium 134 mmol/L (135-145); Total Protein 6.6 g/dL (6.5-8.0)
[2021-11-20] MEDS: 0.9 % Sodium Chloride Flush 3 ML SYRINGE IVFLUSH ×2 (08:36→14:19)
[2021-11-20] MEDS: Acamprosate Calcium 333 MG TABLET.DR 666 MG PO ×3 (08:37→21:58)
[2021-11-20] MEDS: lamoTRIgine 100 MG TABLET PO ×2 (08:37→21:57)
[2021-11-20] MEDS: Gabapentin 400 MG CAPSULE 800 MG PO ×3 (08:37→21:58)
[2021-11-20] MEDS: Nicotine 7 MG PATCH.TD24 TRANSDERMA (08:37)
[2021-11-20] MEDS: Magnesium Hydrox/Alum Hydrox 30 ML ORAL.SUSP PO (08:46)
[2021-11-20] MEDS: Lactated Ringers 1,000 ML 150 ML IVCONT ×2 (09:56→21:25)
--- NOTE | 2021-11-20 10:18 | P.PNIM_ITS ---
Subjective Subjective Date of Service: 11/20/21 Interval History: cc: abd pain interval history: not tolerating clears Cardiovascular Cardiovascular: Reports no additional cardiovascular complaints Respiratory Respiratory: Reports no additional respiratory complaints Physical Exam Vital Signs: Vital Signs: Last Vital Signs Temp 96.9 F 11/20/21 07:45 Pulse 59 11/20/21 07:45 Resp 17 11/20/21 07:45 BP 124/64 11/20/21 07:45 Pulse Ox 95 11/20/21 07:45 O2 Del Method 11/20/21 07:45 BMI result Body Mass Index 41.5 General: AO X 3, in pain Resp: CTA bilateral, no accessory muscles used CVS: S1,S2,RRR GI: soft, tender, non distended Neuro: motor grossly intact, alert Psych: appropriate affect, appropriate insight Objective Data Active Medications Acamprosate (Acamprosate Calcium 333 Mg Tablet.) 666 mg PO TID [facility] Last Admin: 11/20/21 08:37 Dose: 666 mg Documented By: NENITA Acetaminophen (Acetaminophen 325 Mg Tablet) 975 mg PO Q6H PRN PRN Reason: Fever Last Admin: 11/18/21 05:07 Dose: 975 mg Documented By: SURJIT Al Hydroxide/Mg Hydroxide (Magnesium Hydrox/Alum Hydrox 30 Ml Oral.Susp) 30 ml PO Q4H PRN PRN Reason: Heartburn Last Admin: 11/20/21 08:46 Dose: 30 ml Documented By: NENITA Albuterol/Ipratropium (Albuterol/Iprat 2.5/0.5mg 3 Ml Ampul.Neb) 3 ml INHALE RQ4H PRN PRN Reason: Wheezing Enoxaparin Sodium (Enoxaparin Sodium 40 Mg/0.4 Ml Syringe) 40 mg SUBCUT Q24H [facility] Last Admin: 11/19/21 13:27 Dose: 40 mg Documented By: NENITA Gabapentin (Gabapentin 400 Mg Capsule) 800 mg PO TID [facility] Last Admin: 11/20/21 08:37 Dose: 800 mg Documented By: NENITA Hydromorphone HCl (Hydromorphone Hcl 1 Mg/Ml Syringe) 1 mg IVPUSH Q4H PRN; Protocol PRN Reason: moderate pain Last Admin: 11/20/21 09:56 Dose: 1 mg Documented By: NENITA Hydroxyzine HCl (Hydroxyzine Hcl 25 Mg Tablet) 25 mg PO Q6H PRN PRN Reason: Anxiety Last Admin: 11/19/21 05:02 Dose: 25 mg Documented By: SURJIT Piperacillin Sod/Tazobactam (Sod 4.5 gm/ Sodium Chloride) 100 mls @ 200 mls/hr IV Q6H [facility] Last Infusion: 11/20/21 09:23 Dose: 0 mls/hr Documented By: NIGLE Lactated Ringer's (Lr) 1,000 mls @ 150 mls/hr IVCONT .Q6H40M [facility] Last Admin: 11/20/21 09:56 Dose: 150 mls/hr Documented By: NENITA Lamotrigine (Lamotrigine 100 Mg Tablet) 100 mg PO BID [facility] Last Admin: 11/20/21 08:37 Dose: 100 mg Documented By: NENITA Nicotine (Nicotine 7 Mg Patch.Td24) 7 mg TRANSDERMA DAILY [facility] Last Admin: 11/20/21 08:37 Dose: 7 mg Documented By: NENITA Omeprazole (Omeprazole 20 Mg Capsule.Dr) 20 mg PO DAILY@0630 [facility] Last Admin: 11/20/21 05:45 Dose: 20 mg Documented By: SALLY Ondansetron HCl (Ondansetron Hcl 4 Mg/2 Ml Vial) 4 mg IVPUSH Q4H PRN PRN Reason: Nausea and Vomiting Last Admin: 11/20/21 05:45 Dose: 4 mg Documented By: SALLY Oxycodone HCl (Oxycodone Hcl Immed Release 5 Mg Tablet) 5 mg PO Q6H PRN PRN Reason: Pain, Severe (Pain Scale 7-10) Last Admin: 11/19/21 05:02 Dose: 5 mg Documented By: SURJIT Pharmacy Consult (Consult Rx Etoh Phenob Po Only) 1 each MISCELLANE ONCE PRN; Protocol PRN Reason: Consult order Prazosin HCl (Prazosin Hcl 1 Mg Capsule) 4 mg PO BEDTIME [facility]; Protocol Last Admin: 11/19/21 20:26 Dose: 4 mg Documented By: SALLY Sodium Chloride (0.9 % Sodium Chloride Flush 3 Ml Syringe) 3 ml IVFLUSH QSHIFT [facility] Last Admin: 11/20/21 08:36 Dose: 3 ml Documented By: NENITA Trazodone HCl (Trazodone Hcl 100 Mg Tablet) 100 mg PO BEDTIME PRN PRN Reason: Insomnia Last Admin: 11/18/21 21:54 Dose: 100 mg Documented By: SURJIT Labs CBC & Chem 7: 11/20/21 06:20 11/20/21 06:20 Labs: Laboratory Results - last 24 hr 11/20/21 11/20/21 06:20 06:20 MCV 84.5 MCH 28.1 MCHC 33.2 RDW 15.3 Plt Count 389 MPV 10.1 Absolute Nucleated RBC 0.000 Nucleated RBC % (auto) 0.0 Anion Gap 16 Estim Creat Clear Calc 191.2 Estimated GFR > 60 Fasting Glucose 247 H Calcium 8.3 L Total Bilirubin 0.7 Direct Bilirubin 0.5 AST 88 H ALT 79 H Alkaline Phosphatase 224 H Total Protein 6.6 Albumin 3.4 L Assessment and Plan (1) Acute alcoholic pancreatitis: Status: Acute (2) Alcohol withdrawal: Status: Acute Plan 26-year-old male with known history of ongoing alcohol abuse and history of pancreatitis presents from detox with diffuse mid epigastric pain nausea and vomiting. Initial CT scan in the emergency room consistent with acute pancreatitis. Presents with mild alcohol withdrawal in addition to pancreatitis Acute alcoholic pancreatitis-complicated by SIRS did not tolerate diet, repeat CT showing worsening pancreatitis without abscess or necrosis will restart fluids, npo, will pursue picc for tpn aspiration pnuemonia vs pneumonitis continue zosyn Alcohol dependence with withdrawal -phenobarb protocol.. Doing well with p.o.. No evidence of seizures -observe on CIWA Lovenox Full Code reason for continued hospitalization:awaiting tolerance of solid foods. Quality Stroke Does the patient have a stroke diagnosis?: No VTE Prior VTE?: No VTE Risk Level:: Medical - moderate - high VTE Device Contraindication: Treatment Not Indicated VTE Drug Contraindication: N/A - Med Ordered
--- NOTE | 2021-11-20 12:18 | MHC.CM.PN ---
Per Rounds discussion, patient is Not yet medically cleared for discharge today r/t awaiting tolerance of solid foods. On NPO diet and waiting on picc line for TPN. Discharge plan continues to be Home (self-care) vs Care Team intervention. CM will continue to follow for D/C needs.
--- NOTE | 2021-11-20 12:31 | P.PICC_ITS ---
PICC Line Insertion NPICC Diagnosis: Pancreatitis Indication: Hyperalimentation Pertinent Labs: Reviewed Technique: Following informed consent including risks, benefits and alternatives and using sterile technique including cap and mask, sterile gown, glove and drape, the arm was prepped and draped in the usual sterile fashion of full barrier technique with CHG. Following completion of [place] Protocol the skin and soft tissues were anesthetized with 1% Lidocaine plain. Using ultrasound guidance, Right Basilic vein access was obtained. Over an 0.018 wire through peel-away sheath, a Double lumen 5 [place] k[place] PASV PICC line was positioned in a single attempt by this RN. Catheter length is 44 cm internal length, 1cm external length, for a total trimmed length of 45 cm. The procedure was performed in S272. Tip verification was performed by Lety Boone with Jake 3CG. Tip located in SVC. Ultrasound was used to document vein patency and for needle entry. A formal ultrasound picture and cardiac rhythm strip was recorded. Vascular [employer]can[employer] has released the line for use and it is currently dressed with a StatLock, Tegaderm, and CHG disc. Verification has been performed for blood return and line patency. Arm Circumference: 29 cm Equipment: [employer] PowerPICC Solo Catheter Type: 5 [place] Double lumen PASV PowerPICC Solo Lot #: [id number]
[2021-11-20 13:13] VITALS: BMI 41.5
--- NOTE | 2021-11-20 13:17 | MHC.CLN ---
RE: CONSULT FOR TPN PT UNABLE TO TOLERATE CLEAR LIQUIDS AND WILL REQUIRE TPN FOR NUTRITION SUPPORT PT HAS PICC LINE PER MD RECOMMEND D15AA5 AT 35ML/HR TO PROVIDE 596KCALS, 42G PROTEIN DAY 2: INCREASE TPN D15AA5 AT 55ML/HR TO PROVIDE 937KCALS, 66G PROTEIN CHECK TRIGS DAY 3: INCREASE TPN D15AA5 AT 75ML/HR AND ADD 20ML OF 20% LIPIDS TO PROVIDE 1758KCALS TOTAL AND 90G PROTEIN DISCUSSED WITH PHARMACY; REPLETE LYTES NEEDED SEE ALSO FULL CLINICAL NUTRITION ASSESSMENT
[2021-11-20 13:54] LABS: Phosphorus 2.8 mg/dL (2.7-4.5)
[2021-11-20] MEDS: Enoxaparin Sodium 40 MG/0.4 ML SYRINGE SUBCUT (14:12)
[2021-11-20 15:18] VITALS: BP 134/75; PULSE 75; RESP 14; TEMP 37.3; O2SAT 97
[2021-11-20] MEDS: ALPRAZolam 0.25 MG TABLET 0.125 MG PO ×2 (15:29→22:07)
[2021-11-20] MEDS: 0.9 % Sodium Chloride Flush 10 ML SYRINGE 5 ML IVFLUSH (17:56)
--- NOTE | 2021-11-20 18:55 | PC.NURSE ---
14 beats of Vtach on glove parts cutter, pt assessed ,no symptoms, pt in bed resting , DR Hernandez notified
[2021-11-20 20:00] VITALS: BP 143/73; PULSE 59; RESP 14; TEMP 36.3; O2SAT 98
[2021-11-20] MEDS: Prazosin HCL 1 MG CAPSULE 4 MG PO (21:57)
[2021-11-20] MEDS: traZODone HCL 100 MG TABLET PO (22:08)
[2021-11-20 23:41] VITALS: BP 124/60; PULSE 74; RESP 16; TEMP 36.4; O2SAT 98
[2021-11-21] MEDS: Piperacillin Sodium/Tazobactam 4.5 GM in 0.9 % Sodium Chloride 100 ML IV ×4 (01:56→21:19)
[2021-11-21] MEDS: 0.9 % Sodium Chloride Flush 3 ML SYRINGE IVFLUSH ×4 (02:01→21:22)
[2021-11-21] MEDS: HYDROmorphone HCl 1 MG/ML SYRINGE IVPUSH ×6 (02:07→21:20)
[2021-11-21 03:04] VITALS: BP 109/71; PULSE 86; RESP 15; TEMP 36.5; O2SAT 95
[2021-11-21] MEDS: Lactated Ringers 1,000 ML 150 ML IVCONT ×4 (04:11→23:23)
[2021-11-21 05:59] LABS: Hematocrit 31.6 % (42.0-52.0); Hemoglobin 10.4 g/dl (14.0-18.0); Mean Corpuscular HGB Conc 32.9 g/dl (31.0-36.0); Mean Corpuscular Hemoglobin 27.7 pg (27.0-33.0); Mean Platelet Volume 9.9 fL (9.4-12.4); Platelet Count 388 X10*3/uL (160-400); Red Blood Count 3.76 X10*6/uL (4.60-5.80); Red Cell Distribution Width 15.3 % (11.0-16.0); White Blood Count 11.5 X10*3/uL (4.8-10.8)
[2021-11-21] MEDS: Omeprazole 20 MG CAPSULE.DR PO (06:06)
[2021-11-21 06:25] LABS: Albumin Level 3.1 g/dL (3.5-5.0); Anion Gap 16 (12-20); Blood Urea Nitrogen 2 mg/dL (9-16); Carbon Dioxide 23 mmol/L (22-29); Chloride 102 mmol/L (96-108); Creatinine Clr Calc Pharmacy 212.8; Estimated Glomerular Filt Rate > 60; Glucose Fasting 230 mg/dL (60-99); Phosphorus 3.6 mg/dL (2.7-4.5); Potassium 3.6 mmol/L (3.3-5.1); Sodium 137 mmol/L (135-145); Triglycerides 184 mg/dL
[2021-11-21 07:23] VITALS: BP 140/75; PULSE 69; RESP 20; TEMP 36.4; O2SAT 97
[2021-11-21] MEDS: Acamprosate Calcium 333 MG TABLET.DR 666 MG PO ×3 (07:48→21:21)
[2021-11-21] MEDS: lamoTRIgine 100 MG TABLET PO ×2 (07:49→21:21)
[2021-11-21] MEDS: Gabapentin 400 MG CAPSULE 800 MG PO ×3 (07:49→21:20)
[2021-11-21] MEDS: Nicotine 7 MG PATCH.TD24 TRANSDERMA (07:50)
[2021-11-21] MEDS: 0.9 % Sodium Chloride Flush 10 ML SYRINGE 5 ML IVFLUSH ×2 (07:51→13:39)
[2021-11-21] MEDS: ondansetron HCL 4 MG/2 ML VIAL IVPUSH (07:52)
[2021-11-21] MEDS: Magnesium Hydrox/Alum Hydrox 30 ML ORAL.SUSP PO (09:52)
--- NOTE | 2021-11-21 10:20 | P.PNIM_ITS ---
Subjective Subjective Date of Service: 11/21/21 Interval History: cc: abd pain interval history: slightly better today, had episode of NSVT at 7pm 11/20/21, felt palpitations Cardiovascular Cardiovascular: Reports no additional cardiovascular complaints Respiratory Respiratory: Reports no additional respiratory complaints Physical Exam Vital Signs: Vital Signs: Last Vital Signs Temp 97.6 F 11/21/21 07:23 Pulse 69 11/21/21 07:23 Resp 20 11/21/21 07:23 BP 140/75 H 11/21/21 07:23 Pulse Ox 97 11/21/21 07:23 O2 Del Method 11/21/21 07:23 BMI result Body Mass Index 41.5 General: AO X 3, in pain Resp: CTA bilateral, no accessory muscles used CVS: S1,S2,RRR GI: soft, tender, non distended Neuro: motor grossly intact, alert Psych: appropriate affect, appropriate insight Objective Data Active Medications Acamprosate (Acamprosate Calcium 333 Mg Tablet.) 666 mg PO TID [facility] Last Admin: 11/21/21 07:48 Dose: 666 mg Documented By: TONEY Acetaminophen (Acetaminophen 325 Mg Tablet) 975 mg PO Q6H PRN PRN Reason: Fever Last Admin: 11/18/21 05:07 Dose: 975 mg Documented By: SURJIT Al Hydroxide/Mg Hydroxide (Magnesium Hydrox/Alum Hydrox 30 Ml Oral.Susp) 30 ml PO Q4H PRN PRN Reason: Heartburn Last Admin: 11/21/21 09:52 Dose: 30 ml Documented By: TONEY Albuterol/Ipratropium (Albuterol/Iprat 2.5/0.5mg 3 Ml Ampul.Neb) 3 ml INHALE RQ4H PRN PRN Reason: Wheezing Alprazolam (Alprazolam 0.25 Mg Tablet) 0.125 mg PO TID PRN PRN Reason: anxiety Last Admin: 11/20/21 22:07 Dose: 0.125 mg Documented By: SHERIE Enoxaparin Sodium (Enoxaparin Sodium 40 Mg/0.4 Ml Syringe) 40 mg SUBCUT Q24H [facility] Last Admin: 11/20/21 14:12 Dose: 40 mg Documented By: NENITA Gabapentin (Gabapentin 400 Mg Capsule) 800 mg PO TID [facility] Last Admin: 11/21/21 07:49 Dose: 800 mg Documented By: TONEY Hydromorphone HCl (Hydromorphone Hcl 1 Mg/Ml Syringe) 1 mg IVPUSH Q4H PRN; Protocol PRN Reason: moderate pain Last Admin: 11/21/21 09:52 Dose: 1 mg Documented By: TONEY Hydroxyzine HCl (Hydroxyzine Hcl 25 Mg Tablet) 25 mg PO Q6H PRN PRN Reason: Anxiety Last Admin: 11/19/21 05:02 Dose: 25 mg Documented By: SURJIT Piperacillin Sod/Tazobactam (Sod 4.5 gm/ Sodium Chloride) 100 mls @ 200 mls/hr IV Q6H [facility] Last Infusion: 11/21/21 09:28 Dose: 0 mls/hr Documented By: TONEY Lactated Ringer's (Lr) 1,000 mls @ 150 mls/hr IVCONT .Q6H40M [facility] Last Admin: 11/21/21 04:11 Dose: 150 mls/hr Documented By: YKLE Multivitamins 12 ml/ Trace Metals 1.2 ml/ Amino Acids/Electrolytes 840 mls @ 35 mls/hr IV DAILY@1800 [facility] Last Admin: 11/20/21 17:46 Dose: 35 mls/hr Documented By: NENITA Lamotrigine (Lamotrigine 100 Mg Tablet) 100 mg PO BID [facility] Last Admin: 11/21/21 07:49 Dose: 100 mg Documented By: TONEY Nicotine (Nicotine 7 Mg Patch.Td24) 7 mg TRANSDERMA DAILY [facility] Last Admin: 11/21/21 07:50 Dose: 7 mg Documented By: TONEY Omeprazole (Omeprazole 20 Mg Capsule.Dr) 20 mg PO DAILY@0630 [facility] Last Admin: 11/21/21 06:06 Dose: 20 mg Documented By: KYLE Ondansetron HCl (Ondansetron Hcl 4 Mg/2 Ml Vial) 4 mg IVPUSH Q4H PRN PRN Reason: Nausea and Vomiting Last Admin: 11/21/21 07:52 Dose: 4 mg Documented By: TONEY Oxycodone HCl (Oxycodone Hcl Immed Release 5 Mg Tablet) 5 mg PO Q6H PRN PRN Reason: Pain, Severe (Pain Scale 7-10) Last Admin: 11/19/21 05:02 Dose: 5 mg Documented By: SURJIT Pharmacy Consult (Consult Rx Etoh Phenob Po Only) 1 each MISCELLANE ONCE PRN; Protocol PRN Reason: Consult order Prazosin HCl (Prazosin Hcl 1 Mg Capsule) 4 mg PO BEDTIME [facility]; Protocol Last Admin: 11/20/21 21:57 Dose: 4 mg Documented By: SHERIE Sodium Chloride (0.9 % Sodium Chloride Flush 3 Ml Syringe) 3 ml IVFLUSH QSHIFT [facility] Last Admin: 11/21/21 07:49 Dose: 3 ml Documented By: TONEY Sodium Chloride (0.9 % Sodium Chloride Flush 10 Ml Syringe) 5 ml IVFLUSH TID [facility] Last Admin: 11/21/21 07:51 Dose: 5 ml Documented By: TONEY Trazodone HCl (Trazodone Hcl 100 Mg Tablet) 100 mg PO BEDTIME PRN PRN Reason: Insomnia Last Admin: 11/20/21 22:08 Dose: 100 mg Documented By: SHERIE Labs CBC & Chem 7: 11/21/21 05:38 11/21/21 05:38 Labs: Laboratory Results - last 24 hr 11/20/21 11/21/21 11/21/21 06:20 05:38 05:38 MCV 84.0 MCH 27.7 MCHC 32.9 RDW 15.3 Plt Count 388 MPV 9.9 Absolute Nucleated RBC 0.000 Nucleated RBC % (auto) 0.0 Anion Gap 16 Estim Creat Clear Calc 212.8 Estimated GFR > 60 Random Glucose TNP Fasting Glucose 230 H Calcium 8.0 L Phosphorus 2.8 3.6 Magnesium 2.0 2.0 Albumin 3.1 L Triglycerides 184 11/21/21 05:38 MCV MCH MCHC RDW Plt Count MPV Absolute Nucleated RBC Nucleated RBC % (auto) Anion Gap Estim Creat Clear Calc Estimated GFR Random Glucose Fasting Glucose Calcium Phosphorus Magnesium Albumin Triglycerides Cancelled Microbiology Microbiology Results: Microbiology 11/15/21 17:02 Blood Culture - Final Blood - Venous No growth after 5 days. 11/15/21 17:02 Blood Culture - Final Blood - Venous No growth after 5 days. Assessment and Plan (1) Acute alcoholic pancreatitis: Status: Acute (2) Alcohol withdrawal: Status: Acute Plan 26-year-old male with known history of ongoing alcohol abuse and history of pancreatitis presents from detox with diffuse mid epigastric pain nausea and vomiting. Initial CT scan in the emergency room consistent with acute pancreatitis. Presents with mild alcohol withdrawal in addition to pancreatitis Acute alcoholic pancreatitis-complicated by SIRS did not tolerate diet, repeat CT showing worsening pancreatitis without abscess or necrosis now npo again, on TPN and iv fluids NSVT echo, cardio eval aspiration pnuemonia vs pneumonitis continue zosyn Alcohol dependence with withdrawal -phenobarb protocol completed.. Doing well with p.o.. No evidence of seizures Lovenox Full Code reason for continued hospitalization:awaiting tolerance of solid foods. Quality Stroke Does the patient have a stroke diagnosis?: No VTE Prior VTE?: No VTE Risk Level:: Medical - moderate - high VTE Device Contraindication: Treatment Not Indicated VTE Drug Contraindication: N/A - Med Ordered
--- NOTE | 2021-11-21 10:26 | MHC.CLN ---
F/U REVIEWED LABS DAY 2 (11/21/21): RECOMMEND INCREASING TPN D15AA5 AT 55ML/HR TO PROVIDE 937KCALS, 66G PROTEIN TRIGS NOTED 184 TODAY DISCUSSED WITH PHARMACY; REPLETE LYTES NEEDED
--- NOTE | 2021-11-21 10:30 | CA_ITS ---
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 Technically limited study despite use of contrast agent 2. Normal LV systolic and diastolic function 3. Limited visualization of cardiac valves with normal cardiac valvular Doppler 4. No gross pericardial effusion Findings Procedure Information Contrast agent, definity, is being given per protocol without apparent complications. Left Ventricle Normal left ventricular size, thickness, and systolic function. The visually estimated ejection fraction is between 65-70%. Diastolic function is normal for age. Right Ventricle Normal right ventricular cavity size. Atria The left atrium is normal in size. Interatrial shunt cannot be excluded. The right atrium is normal in size. Aortic Valve The aortic valve structure and function is likely normal. There is no aortic valve stenosis. There is no aortic valve regurgitation. Mitral Valve Likely normal mitral valve structure and function. There is trace mitral valve regurgitation. There is no mitral valve stenosis. Pulmonic Valve The pulmonic valve was not well visualized. Tricuspid Valve Likely normal tricuspid valve structure and function. Tricuspid regurgitation envelope is inadequate for calculation of right ventricular systolic pressure. Normal right atrial pressure. Great Vessels All visible segments of the aorta are normal in size. The pulmonary artery was not well visualized. Venous The inferior vena cava is normal in size and collapses greater than 50% with inspiration. Pericardium/Pleural The pericardium was not well visualized. Prior Study Comparison No prior study available for comparison. Measurements 2D Linear Measurements IVSd: 0.87 0.6-0.9/0.6-1.0 cm LVIDd: 5.00 3.9-5.3/4.2-5.9 cm LVIDd Index: 2.05 2.4-3.2/2.2-3.1 cm/m2 LVIDs: 3.32 2.0-3.6 cm LVPWd: 0.76 0.7-1.1 cm LA Diam: 4.00 2.7-3.8/3.0-4.0 cm LAIDs Index: 1.64 1.5-2.3 cm/m2 LV Mass: 172.95 67-162/88-224 g LV Mass Index: 70.88 43-95/49-115 g/m2 LVOT Diam: 2.50 3.0+(-)1.3 cm 2D Systolic Function EF 4C: 75.50 >55% EF 2C: 67.10 >55% EF BiP: 70.80 >55% Mitral Valve MV Pk E: 1.12 MV PK A: 0.32 MV Decel Time: 140.00 E/A: 3.50 E'Lateral: 18.80 E'Medial: 11.70 E/E' Med: 9.60 E/E' Lat: 6.00 PHT: 41.00 MVA PHT: 5.37 Decel Floyd: 7.99 Aortic Valve AoV Pk Albino: 1.25 AoV Mn Albino: 0.84 AoV VTI: 0.28 AoV Pk Grad: 6.00 Aov Mn Grad: 4.00 YONATAN Cont.VTI: 4.57 LVOT LVOT Pk Albino: 1.16 LVOT Mn Albino: 0.73 LVOT VTI: 0.26 LVOT Pk Grad: 5.00 LVOT Mn Grad: 3.00 LVOT Diam: 2.50 LVOT Area: 4.91 Diastolic Function MV Pk E: 1.12 MV Pk A: 0.32 E/A: 3.50 E'Medial: 11.70 E/E' Med: 9.60 E' Laterial: 18.80 E/E' Lat: 6.00 Right Ventricle TAPSE (mm): 26.00 TVS' Albino: 13.80 Tricuspid Valve RA Press: 3.00 Great Vessels Aorta Sinus of Valsalva: 3.60 2.0-3.5 cm Ao Asc: 3.00 2.1-3.4 cm Ao Arch: 3.00 Pulmonary Valve PV Pk Albino: 1.14 Peak PV Grad: 5.00 Updated in Other Vendor System with Status of Final Luis Alfredo Whelan MD electronically signed on 11/21/2021 4:53:13 PM with status of Final
--- NOTE | 2021-11-21 10:37 | P.CONCA_ITS ---
History of Present Illness History of Present Illness Date of Service: 11/21/21 Requesting physician: Martin Hernandez Consult reason: other ( nonsustained VT) Chief complaint: Acute Pancreatitis Narrative: I was consulted to see Jorge in cardiology consultation today as incidentally on monitor today was noted to have couple of runs of wide complex tachycardia. These are most consistent with nonsustained VT. Patient has no prior history of cardiac issues. He however says that for many years he has had symptoms of fast heart rate which have been labeled as related to anxiety. However he also has had skipped heartbeats, never had any cardiac workup in the past. He has longstanding history of alcohol abuse and was in a detox facility very develops symptoms and was admitted here with pancreatitis and also developed alcohol withdrawal. He is currently being treated for both. Not sure lema on court monitor although on the monitor is noted to have nonsustained VT now. He denies any symptoms associated with nonsustained VT. Denies any skipped heartbeats also on the monitor is noted to have isolated PVCs. His potassium level was 3.6 and magnesium level is 2. no prior history of cardiomyopathy, syncope, coronary artery disease or myocardial infarction. No strong family history of premature sudden cardiac that. Review of Systems Constitutional: Constitutional: Reports lethargy Eyes: Eyes: Reports no additional eye complaints Cardiovascular: Cardiovascular: Denies chest pain, Denies lightheadedness, Denies Loss of Consciousness, Reports palpitations, Denies dyspnea on exertion, Denies orthopnea and Reports other ( Skipped heartbeat) Respiratory: Respiratory: Reports no additional respiratory complaints and Denies dyspnea on exertion Musculoskeletal: Musculoskeletal: Reports no additional musculoskeletal complaints Integumentary/Breasts: Skin/Breast: Reports system reviewed and no additional complaints, except as docu Neurologic: Reports system reviewed and no additional complaints, except as documented Psychiatric: Psychiatric: Reports no additional psychiatric complaints Endocrine: Endocrine: Reports palpitations Hematologic/Lymphatic: Hematologic/Lymphatic: Reports no additional hematologic/lymphatic complaints Allergic/Immunologic: Allergic/Immunologic: Reports no additional a llergic/immunologic complaints PMFSH Past Medical History Medical History No known health problems Social History Social History Household Members: Family Housing: House Do you presently have visiting nurse or other home services: No Alcohol intake: current Alcohol intake frequency: 3 or more drinks per day Patient Tobacco Use Status: Current everyday Tobacco user Tobacco use type: Cigarette Cigarette Packs Per Day: 0.3 Cigarettes Per Day: 6.0 Years Smoked: 14 e-Cigarette/Vaping Use: Currently Using Second Hand Smoke Exposure: Yes service: No Current occupational status: unemployed Meds Allergies Allergy/AdvReac Type Severity Reaction Status Date / Time No Known Allergies Allergy Unverified 01/05/20 17:39 Active Medications: Current Medications Acamprosate (Acamprosate Calcium 333 Mg Tablet.Dr) 666 mg PO TID [facility] Last Admin: 11/21/21 07:48 Dose: 666 mg Acetaminophen (Acetaminophen 325 Mg Tablet) 975 mg PO Q6H PRN PRN Reason: Fever Last Admin: 11/18/21 05:07 Dose: 975 mg Al Hydroxide/Mg Hydroxide (Magnesium Hydrox/Alum Hydrox 30 Ml Oral.Susp) 30 ml PO Q4H PRN PRN Reason: Heartburn Last Admin: 11/21/21 09:52 Dose: 30 ml Albuterol/Ipratropium (Albuterol/Iprat 2.5/0.5mg 3 Ml Ampul.Neb) 3 ml INHALE RQ4H PRN PRN Reason: Wheezing Alprazolam (Alprazolam 0.25 Mg Tablet) 0.125 mg PO TID PRN PRN Reason: anxiety Last Admin: 11/20/21 22:07 Dose: 0.125 mg Enoxaparin Sodium (Enoxaparin Sodium 40 Mg/0.4 Ml Syringe) 40 mg SUBCUT Q24H [facility] Last Admin: 11/20/21 14:12 Dose: 40 mg Gabapentin (Gabapentin 400 Mg Capsule) 800 mg PO TID [facility] Last Admin: 11/21/21 07:49 Dose: 800 mg Hydromorphone HCl (Hydromorphone Hcl 1 Mg/Ml Syringe) 1 mg IVPUSH Q4H PRN; Protocol PRN Reason: moderate pain Last Admin: 11/21/21 09:52 Dose: 1 mg Hydroxyzine HCl (Hydroxyzine Hcl 25 Mg Tablet) 25 mg PO Q6H PRN PRN Reason: Anxiety Last Admin: 11/19/21 05:02 Dose: 25 mg Piperacillin Sod/Tazobactam (Sod 4.5 gm/ Sodium Chloride) 100 mls @ 200 mls/hr IV Q6H [facility] Last Infusion: 11/21/21 09:28 Dose: Infused Lactated Ringer's (Lr) 1,000 mls @ 150 mls/hr IVCONT .Q6H40M [facility] Last Admin: 11/21/21 04:11 Dose: 150 mls/hr Multivitamins 12 ml/ Trace Metals 1.2 ml/ Amino Acids/Electrolytes 840 mls @ 35 mls/hr IV DAILY@1800 [facility] Last Admin: 11/20/21 17:46 Dose: 35 mls/hr Lamotrigine (Lamotrigine 100 Mg Tablet) 100 mg PO BID [facility] Last Admin: 11/21/21 07:49 Dose: 100 mg Nicotine (Nicotine 7 Mg Patch.Td24) 7 mg TRANSDERMA DAILY [facility] Last Admin: 11/21/21 07:50 Dose: 7 mg Omeprazole (Omeprazole 20 Mg Capsule.Dr) 20 mg PO DAILY@0630 [facility] Last Admin: 11/21/21 06:06 Dose: 20 mg Ondansetron HCl (Ondansetron Hcl 4 Mg/2 Ml Vial) 4 mg IVPUSH Q4H PRN PRN Reason: Nausea and Vomiting Last Admin: 11/21/21 07:52 Dose: 4 mg Oxycodone HCl (Oxycodone Hcl Immed Release 5 Mg Tablet) 5 mg PO Q6H PRN PRN Reason: Pain, Severe (Pain Scale 7-10) Last Admin: 11/19/21 05:02 Dose: 5 mg Pharmacy Consult (Consult Rx Etoh Phenob Po Only) 1 each MISCELLANE ONCE PRN; Protocol PRN Reason: Consult order Prazosin HCl (Prazosin Hcl 1 Mg Capsule) 4 mg PO BEDTIME [facility]; Protocol Last Admin: 11/20/21 21:57 Dose: 4 mg Sodium Chloride (0.9 % Sodium Chloride Flush 3 Ml Syringe) 3 ml IVFLUSH QSHIFT [facility] Last Admin: 11/21/21 07:49 Dose: 3 ml Sodium Chloride (0.9 % Sodium Chloride Flush 10 Ml Syringe) 5 ml IVFLUSH TID [facility] Last Admin: 11/21/21 07:51 Dose: 5 ml Trazodone HCl (Trazodone Hcl 100 Mg Tablet) 100 mg PO BEDTIME PRN PRN Reason: Insomnia Last Admin: 11/20/21 22:08 Dose: 100 mg Home Medications Medication Instructions Recorded Confirmed Last Taken Type acamprosate 333 mg tablet,delayed 666 mg PO TID 11/12/21 11/12/21 11/10/21 History release famotidine 10 mg tablet (Heartburn 1 tab PO BID 11/12/21 11/12/21 11/10/21 History Relief (famotidine)) gabapentin 400 mg capsule 2 cap PO TID 11/12/21 11/12/21 11/10/21 History lamotrigine 100 mg tablet 1 tab PO BID 11/12/21 11/12/21 11/10/21 History nicotine 7 mg/24 hr daily 1 patch topical DAILY 11/12/21 11/12/21 11/10/21 History transdermal patch ondansetron HCl 4 mg tablet 1 tab PO Q8H PRN Nausea 11/12/21 11/12/21 11/10/21 History pantoprazole 40 mg tablet,delayed 1 tab PO DAILY 11/12/21 11/12/21 11/10/21 History release prazosin 2 mg capsule 2 cap PO BEDTIME nightmares 11/12/21 11/12/21 11/10/21 History trazodone 50 mg tablet 100 mg PO BEDTIME PRN Insomnia 11/12/21 11/16/21 11/10/21 History Physical Exam Vital Signs: Vital Signs: Last Vital Signs Temp 97.6 F 11/21/21 07:23 Pulse 69 11/21/21 07:23 Resp 20 11/21/21 07:23 BP 140/75 H 11/21/21 07:23 Pulse Ox 97 11/21/21 07:23 O2 Del Method 11/21/21 07:23 BMI result Body Mass Index 41.5 Const: General: cooperative, comfortable, no acute distress, alert, awake and tired appearing Nutritional Appearance: obese Orientation/consciousness: patient oriented x3 Limitations: no limitations HEENT: Head: Yes normocephalic and Yes atraumatic Neck: Neck: Yes trachea midline, Yes supple and Yes no JVD Chest: Chest palpation & inspection: normal inspection of the chest Resp: Effort & Inspection: normal respiratory effort Auscultation: no rales, no rhonchi, no wheezes and breath sounds absent bilateral (bases) Cardio: Jugular venous distension: no JVD Palpation: normal PMI Rate: regular rate Rhythm: regular rhythm Heart sounds: S1 normal heart sound present, S2 normal heart sound present, no click, no gallops, no murmurs and no rubs GI: Auscultation: normal bowel sounds Skin: General skin exam: no rashes or lesions noted Neuro: General: patient oriented x3 and no focal motor deficits Extrem: General: Yes no clubbing, cyanosis or edema Objective Labs and Meds Result diagrams: 11/21/21 05:38 11/21/21 05:38 Lab results: Laboratory Results - last 24 hr 11/20/21 11/21/21 11/21/21 06:20 05:38 05:38 WBC 11.5 H RBC 3.76 L Hgb 10.4 L Hct 31.6 L MCV 84.0 MCH 27.7 MCHC 32.9 RDW 15.3 Plt Count 388 MPV 9.9 Absolute Nucleated RBC 0.000 Nucleated RBC % (auto) 0.0 Sodium 137 Potassium 3.6 Chloride 102 Carbon Dioxide 23 Anion Gap 16 BUN 2 L Creatinine 0.71 Estim Creat Clear Calc 212.8 Estimated GFR > 60 Random Glucose TNP Fasting Glucose 230 H Calcium 8.0 L Phosphorus 2.8 3.6 Magnesium 2.0 2.0 Albumin 3.1 L Triglycerides 184 11/21/21 05:38 WBC RBC Hgb Hct MCV MCH MCHC RDW Plt Count MPV Absolute Nucleated RBC Nucleated RBC % (auto) Sodium Potassium Chloride Carbon Dioxide Anion Gap BUN Creatinine Estim Creat Clear Calc Estimated GFR Random Glucose Fasting Glucose Calcium Phosphorus Magnesium Albumin Triglycerides Cancelled Assessment and Plan (1) Nonsustained ventricular tachycardia: Status: Acute nonsustained ventricular tachycardia noted in this young man incidentally while being monitored, admitted for pancreatitis and alcohol withdrawal. He had no symptoms related to it. He has prior history of skipped heartbeats which are most likely related to PVCs. He also has prior history of tachycardia / palpitations but no diagnosis, has been labile related to anxiety. Unlikely that nonsustained VT with given symptoms for so long without having proper presentation diagnosis. However requires rule out of structural heart disease given his longstanding history of alcohol use and need to rule out alcohol induced cardiomyopathy. Please request an echocardiogram. His magnesium appears acceptable and is currently on magnesium replacement. Replace his potassium to above 4. Also start him on metoprolol 25 mg b.i.d.. Will require outpatient follow-up and workup. Further treatment based on the findings of echocardiogram. Will sign of the case. Feel free to contact us. Procedures Date of Service Date of Service: 11/21/21
[2021-11-21] MEDS: ALPRAZolam 0.25 MG TABLET 0.125 MG PO ×2 (10:53→17:51)
[2021-11-21 11:17] VITALS: BP 128/66; PULSE 74; RESP 18; TEMP 36.6; O2SAT 98
[2021-11-21] MEDS: Potassium Chloride ER 20 MEQ TAB.ER.PRT 40 MEQ PO (13:38)
[2021-11-21] MEDS: Enoxaparin Sodium 40 MG/0.4 ML SYRINGE SUBCUT (13:38)
[2021-11-21 15:55] VITALS: BP 131/73; PULSE 91; RESP 16; TEMP 36.8; O2SAT 97
[2021-11-21 19:37] VITALS: BP 159/91; PULSE 78; RESP 18; TEMP 36.2; O2SAT 98
[2021-11-21] MEDS: Metoprolol Tartrate 25 MG TABLET PO (21:20)
[2021-11-21] MEDS: traZODone HCL 100 MG TABLET PO (21:21)
[2021-11-21] MEDS: Prazosin HCL 1 MG CAPSULE 4 MG PO (21:21)
[2021-11-21 23:37] VITALS: BP 118/58; PULSE 66; RESP 18; TEMP 37.8; O2SAT 95
[2021-11-22] VITALS (7 sets, daily range): BP systolic 111–143; BP diastolic 65–89; PULSE 50–78; RESP 16–18; TEMP 36.2–37; O2SAT 95–98
[2021-11-22] MEDS: Magnesium Hydrox/Alum Hydrox 30 ML ORAL.SUSP PO ×3 (01:36→22:16)
[2021-11-22] MEDS: Piperacillin Sodium/Tazobactam 4.5 GM in 0.9 % Sodium Chloride 100 ML IV ×4 (01:36→20:07)
[2021-11-22] MEDS: HYDROmorphone HCl 1 MG/ML SYRINGE IVPUSH ×5 (01:36→19:56)
[2021-11-22] MEDS: ALPRAZolam 0.25 MG TABLET 0.125 MG PO ×3 (04:02→22:14)
[2021-11-22] MEDS: Omeprazole 20 MG CAPSULE.DR PO (05:32)
[2021-11-22] MEDS: Lactated Ringers 1,000 ML 150 ML IVCONT (05:38)
[2021-11-22] MEDS: ondansetron HCL 4 MG/2 ML VIAL IVPUSH (06:30)
[2021-11-22] MEDS: Acamprosate Calcium 333 MG TABLET.DR 666 MG PO ×3 (08:23→21:04)
[2021-11-22] MEDS: Gabapentin 400 MG CAPSULE 800 MG PO ×3 (08:23→21:04)
[2021-11-22] MEDS: Nicotine 7 MG PATCH.TD24 TRANSDERMA (08:23)
[2021-11-22] MEDS: Metoprolol Tartrate 25 MG TABLET PO ×2 (08:24→21:04)
[2021-11-22] MEDS: lamoTRIgine 100 MG TABLET PO ×2 (08:24→21:04)
[2021-11-22] MEDS: 0.9 % Sodium Chloride Flush 3 ML SYRINGE IVFLUSH ×2 (08:25→15:46)
[2021-11-22] MEDS: 0.9 % Sodium Chloride Flush 10 ML SYRINGE 5 ML IVFLUSH ×3 (08:25→21:04)
[2021-11-22 08:46] LABS: Hematocrit 31.4 % (42.0-52.0); Hemoglobin 10.5 g/dl (14.0-18.0); Mean Corpuscular HGB Conc 33.4 g/dl (31.0-36.0); Mean Corpuscular Hemoglobin 28.4 pg (27.0-33.0); Mean Corpuscular Volume 84.9 fL (80.0-98.0); Mean Platelet Volume 9.9 fL (9.4-12.4); Platelet Count 414 X10*3/uL (160-400); Red Cell Distribution Width 15.2 % (11.0-16.0); White Blood Count 10.1 X10*3/uL (4.8-10.8)
[2021-11-22 09:04] LABS: Alanine Aminotransferase 77 U/L (0-40); Albumin Level 3.3 g/dL (3.5-5.0); Alkaline Phosphatase 210 U/L (39-117); Anion Gap 14 (12-20); Aspartate Amino Transferase 59 U/L (5-37); Bilirubin Direct 0.3 mg/dL (0.0-0.5); Bilirubin Total 0.5 mg/dL (0.0-1.0); Blood Urea Nitrogen 3 mg/dL (9-16); Carbon Dioxide 23 mmol/L (22-29); Chloride 101 mmol/L (96-108); Creatinine Clr Calc Pharmacy 228.9; Estimated Glomerular Filt Rate > 60; Ethanol < 10 mg/dL; Glucose Fasting 236 mg/dL (60-99); Phosphorus 2.6 mg/dL (2.7-4.5); Potassium 4.3 mmol/L (3.3-5.1); Sodium 134 mmol/L (135-145); Total Protein 6.3 g/dL (6.5-8.0)
--- NOTE | 2021-11-22 10:30 | PC.NURSE ---
Patient had a 6 beat run of VTach. Assymptomatic. Dr. Hernandez notified. No new orders.
--- NOTE | 2021-11-22 11:19 | MHC.CM.PN ---
Per ROUNDS discussion, will start clear liquids today. Patient is not yet medically cleared for dc; home is the goal and CM will continue to follow.
--- NOTE | 2021-11-22 11:52 | HO.PM.IMPN ---
Subjective Subjective Date of Service: 11/22/21 Interval History: cc: abd pain interval history: slightly better today, wanting to try clears again Cardiovascular Cardiovascular: Reports no additional cardiovascular complaints Respiratory Respiratory: Reports no additional respiratory complaints Physical Exam Vital Signs: Vital Signs: Last Vital Signs Temp 97.9 F 11/22/21 11:06 Pulse 50 11/22/21 11:06 Resp 17 11/22/21 11:06 BP 123/66 11/22/21 11:06 Pulse Ox 95 11/22/21 11:06 O2 Del Method 11/22/21 11:06 BMI result Body Mass Index 41.5 Const: General: cooperative, comfortable, no acute distress, alert, awake and tired appearing Nutritional Appearance: obese Orientation/consciousness: patient oriented x3 Limitations: no limitations HEENT: Head: Yes normocephalic and Yes atraumatic Neck: Neck: Yes trachea midline, Yes supple and Yes no JVD Chest: Chest palpation & inspection: normal inspection of the chest Resp: Effort & Inspection: normal respiratory effort Auscultation: no rales, no rhonchi, no wheezes and breath sounds absent bilateral (bases) Cardio: Jugular venous distension: no JVD Palpation: normal PMI Rate: regular rate Rhythm: regular rhythm Heart sounds: S1 normal heart sound present, S2 normal heart sound present, no click, no gallops, no murmurs and no rubs GI: Auscultation: normal bowel sounds Skin: General skin exam: no rashes or lesions noted Neuro: General: patient oriented x3 and no focal motor deficits Extrem: General: Yes no clubbing, cyanosis or edema Objective Data Active Medications Acamprosate (Acamprosate Calcium 333 Mg Tablet.) 666 mg PO TID [facility] Last Admin: 11/22/21 08:23 Dose: 666 mg Documented By: JED Acetaminophen (Acetaminophen 325 Mg Tablet) 975 mg PO Q6H PRN PRN Reason: Fever Last Admin: 11/18/21 05:07 Dose: 975 mg Documented By: SURJIT Al Hydroxide/Mg Hydroxide (Magnesium Hydrox/Alum Hydrox 30 Ml Oral.Susp) 30 ml PO Q4H PRN PRN Reason: Heartburn Last Admin: 11/22/21 08:36 Dose: 30 ml Documented By: JED Alprazolam (Alprazolam 0.25 Mg Tablet) 0.125 mg PO TID PRN PRN Reason: anxiety Last Admin: 11/22/21 04:02 Dose: 0.125 mg Documented By: DHAVAL Comments: Enoxaparin Sodium (Enoxaparin Sodium 40 Mg/0.4 Ml Syringe) 40 mg SUBCUT Q24H [facility] Last Admin: 11/21/21 13:38 Dose: 40 mg Documented By: TONEY Gabapentin (Gabapentin 400 Mg Capsule) 800 mg PO TID [facility] Last Admin: 11/22/21 08:23 Dose: 800 mg Documented By: JED Hydromorphone HCl (Hydromorphone Hcl 1 Mg/Ml Syringe) 1 mg IVPUSH Q4H PRN; Protocol PRN Reason: moderate pain Last Admin: 11/22/21 09:44 Dose: 1 mg Documented By: JED Hydroxyzine HCl (Hydroxyzine Hcl 25 Mg Tablet) 25 mg PO Q6H PRN PRN Reason: Anxiety Last Admin: 11/19/21 05:02 Dose: 25 mg Documented By: SURJIT Piperacillin Sod/Tazobactam (Sod 4.5 gm/ Sodium Chloride) 100 mls @ 200 mls/hr IV Q6H [facility] Last Infusion: 11/22/21 09:02 Dose: 0 mls/hr Documented By: JED Multivitamins 15 ml/ Trace Metals 1.5 ml/ Amino Acids/Electrolytes 1,320 mls @ 55 mls/hr IV DAILY@1800 [facility] Stop: 11/22/21 17:59 Last Admin: 11/21/21 17:36 Dose: 55 mls/hr Documented By: TONEY Multivitamins 11 ml/ Trace Metals 1.1 ml/ Amino Acids/Electrolytes 1,800 mls @ 75 mls/hr IV DAILY@1800 [facility] Stop: 11/23/21 17:59 Lamotrigine (Lamotrigine 100 Mg Tablet) 100 mg PO BID [facility] Last Admin: 11/22/21 08:24 Dose: 100 mg Documented By: JED Metoprolol Tartrate (Metoprolol Tartrate 25 Mg Tablet) 25 mg PO BID [facility]; Protocol Last Admin: 11/22/21 08:24 Dose: 25 mg Documented By: JED Nicotine (Nicotine 7 Mg Patch.Td24) 7 mg TRANSDERMA DAILY [facility] Last Admin: 11/22/21 08:23 Dose: 7 mg Documented By: JED Omeprazole (Omeprazole 20 Mg Capsule.Dr) 20 mg PO DAILY@0630 [facility] Last Admin: 11/22/21 05:32 Dose: 20 mg Documented By: DHAVAL Ondansetron HCl (Ondansetron Hcl 4 Mg/2 Ml Vial) 4 mg IVPUSH Q4H PRN PRN Reason: Nausea and Vomiting Last Admin: 11/22/21 06:30 Dose: 4 mg Documented By: DHAVAL Pharmacy Consult (Consult Rx Etoh Phenob Po Only) 1 each MISCELLANE ONCE PRN; Protocol PRN Reason: Consult order Prazosin HCl (Prazosin Hcl 1 Mg Capsule) 4 mg PO BEDTIME [facility]; Protocol Last Admin: 11/21/21 21:21 Dose: 4 mg Documented By: DHAVAL Sodium Chloride (0.9 % Sodium Chloride Flush 3 Ml Syringe) 3 ml IVFLUSH QSHIFT [facility] Last Admin: 11/22/21 08:25 Dose: 3 ml Documented By: JED Sodium Chloride (0.9 % Sodium Chloride Flush 10 Ml Syringe) 5 ml IVFLUSH TID [facility] Last Admin: 11/22/21 08:25 Dose: 5 ml Documented By: JED Trazodone HCl (Trazodone Hcl 100 Mg Tablet) 100 mg PO BEDTIME PRN PRN Reason: Insomnia Last Admin: 11/21/21 21:21 Dose: 100 mg Documented By: DHAVAL Labs CBC & Chem 7: 11/22/21 08:28 11/22/21 08:28 Labs: Laboratory Results - last 24 hr 11/22/21 11/22/21 08:28 08:28 MCV 84.9 MCH 28.4 MCHC 33.4 RDW 15.2 Plt Count 414 H MPV 9.9 Absolute Nucleated RBC 0.000 Nucleated RBC % (auto) 0.0 Anion Gap 14 Estim Creat Clear Calc 228.9 Estimated GFR > 60 Fasting Glucose 236 H Calcium 8.0 L Phosphorus 2.6 L Magnesium 2.0 Total Bilirubin 0.5 Direct Bilirubin 0.3 AST 59 H ALT 77 H Alkaline Phosphatase 210 H Total Protein 6.3 L Albumin 3.3 L Ethyl Alcohol < 10 Assessment and Plan (1) Acute alcoholic pancreatitis: Status: Acute (2) Alcohol withdrawal: Status: Acute Plan 26-year-old male with known history of ongoing alcohol abuse and history of pancreatitis presents from detox with diffuse mid epigastric pain nausea and vomiting. Initial CT scan in the emergency room consistent with acute pancreatitis. Presents with mild alcohol withdrawal in addition to pancreatitis Acute alcoholic pancreatitis-complicated by SIRS repeat CT 11/19/21 showing worsening pancreatitis without abscess or necrosis was started on TPN now a bit better, will rechallenge with clears hyperglycemia strong DM family history, check a1c insulin sliding scale for now NSVT echo unremarkable starte metoprolol cardio appreciated aspiration pnuemonia vs pneumonitis continue zosyn Alcohol dependence with withdrawal -phenobarb protocol completed.. Doing well with p.o.. No evidence of seizures Lovenox Full Code reason for continued hospitalization:awaiting tolerance of solid foods. Quality Stroke Does the patient have a stroke diagnosis?: No VTE Prior VTE?: No VTE Risk Level:: Medical - moderate - high VTE Device Contraindication: Treatment Not Indicated VTE Drug Contraindication: N/A - Med Ordered
[2021-11-22 12:17] LABS: Estimated Average Glucose 117 mg/dL; Hemoglobin A1c % 5.7 %
[2021-11-22 12:19] LABS: Glucose, Whole Blood 247 mg/dL (60-115)
[2021-11-22] MEDS: Insulin Lispro 100 UNIT/ML 3 ML VIAL SUBCUT ×2 (12:51→20:07)
[2021-11-22] MEDS: Enoxaparin Sodium 40 MG/0.4 ML SYRINGE SUBCUT (12:52)
--- NOTE | 2021-11-22 12:56 | MHC.CLN ---
F/U REVIEWED LABS PT ADVANCING TO CLEAR LIQUIDS AGAIN TODAY DAY 3 (11/22/21): RECOMMEND INCREASING TPN [id number] AT 75ML/HR TO PROVIDE 1278KCALS, 90G PROTEIN CONTINUE TO HOLD LIPIDS R/T TRIGS LEVELS 184 AND PANCREATITIS DISCUSSED WITH PHARMACY; REPLETE LYTES NEEDED IF PT CAN TOLERATE DIET-RECOMMEND D/C TPN
[2021-11-22 16:52] LABS: Glucose, Whole Blood 241 mg/dL (60-115)
[2021-11-22 20:02] LABS: Glucose, Whole Blood 263 mg/dL (60-115)
[2021-11-22] MEDS: Prazosin HCL 1 MG CAPSULE 4 MG PO (21:03)
[2021-11-23] MEDS: 0.9 % Sodium Chloride Flush 3 ML SYRINGE IVFLUSH ×3 (00:08→15:22)
[2021-11-23] MEDS: HYDROmorphone HCl 1 MG/ML SYRINGE IVPUSH ×6 (00:08→21:47)
[2021-11-23] MEDS: Piperacillin Sodium/Tazobactam 4.5 GM in 0.9 % Sodium Chloride 100 ML IV ×4 (02:54→20:03)
[2021-11-23 03:30] VITALS: BP 130/69; PULSE 73; RESP 16; TEMP 36.1; O2SAT 96
[2021-11-23] MEDS: Magnesium Hydrox/Alum Hydrox 30 ML ORAL.SUSP PO ×3 (03:47→22:59)
[2021-11-23] MEDS: Omeprazole 20 MG CAPSULE.DR PO (06:11)
[2021-11-23 07:34] VITALS: BP 139/82; PULSE 55; RESP 18; TEMP 36.4; O2SAT 96
[2021-11-23 07:41] LABS: Glucose, Whole Blood 330 mg/dL (60-115)
[2021-11-23 07:43] LABS: Hematocrit 32.8 % (42.0-52.0); Hemoglobin 10.8 g/dl (14.0-18.0); Mean Corpuscular HGB Conc 32.9 g/dl (31.0-36.0); Mean Corpuscular Hemoglobin 28.1 pg (27.0-33.0); Mean Corpuscular Volume 85.4 fL (80.0-98.0); Mean Platelet Volume 9.9 fL (9.4-12.4); Platelet Count 469 X10*3/uL (160-400); Red Blood Count 3.84 X10*6/uL (4.60-5.80); Red Cell Distribution Width 15.3 % (11.0-16.0); White Blood Count 10.5 X10*3/uL (4.8-10.8)
[2021-11-23 08:26] LABS: Anion Gap 16 (12-20); Blood Urea Nitrogen 4 mg/dL (9-16); Calcium 8.4 mg/dL (8.4-10.2); Carbon Dioxide 23 mmol/L (22-29); Chloride 99 mmol/L (96-108); Creatinine Clr Calc Pharmacy 206.9; Estimated Glomerular Filt Rate > 60; Glucose Fasting 322 mg/dL (60-99); Magnesium 2.1 mg/dL (1.6-2.6); Phosphorus 3.1 mg/dL (2.7-4.5); Potassium 4.5 mmol/L (3.3-5.1); Sodium 133 mmol/L (135-145)
[2021-11-23] MEDS: Insulin Lispro 100 UNIT/ML 3 ML VIAL SUBCUT ×4 (09:16→21:42)
[2021-11-23] MEDS: Nicotine 7 MG PATCH.TD24 TRANSDERMA (09:17)
[2021-11-23] MEDS: Acamprosate Calcium 333 MG TABLET.DR 666 MG PO ×3 (09:18→20:05)
[2021-11-23] MEDS: Gabapentin 400 MG CAPSULE 800 MG PO ×3 (09:18→20:06)
[2021-11-23] MEDS: Metoprolol Tartrate 25 MG TABLET PO ×2 (09:19→20:06)
[2021-11-23] MEDS: ALPRAZolam 0.25 MG TABLET 0.125 MG PO ×2 (09:19→22:27)
[2021-11-23] MEDS: lamoTRIgine 100 MG TABLET PO ×2 (09:19→20:06)
[2021-11-23] MEDS: 0.9 % Sodium Chloride Flush 10 ML SYRINGE 5 ML IVFLUSH ×3 (09:20→20:05)
[2021-11-23] MEDS: 0.9 % Sodium Chloride 1,000 ML 75 ML IVCONT ×2 (10:00→22:48)
--- NOTE | 2021-11-23 10:33 | HO.PM.IMPN ---
Subjective Subjective Date of Service: 11/23/21 Interval History: cc: abd pain interval history: did okay with some chicken broth, not ready to advance further. Cardiovascular Cardiovascular: Reports no additional cardiovascular complaints Respiratory Respiratory: Reports no additional respiratory complaints Physical Exam Vital Signs: Vital Signs: Last Vital Signs Temp 97.6 F 11/23/21 07:34 Pulse 55 11/23/21 07:34 Resp 18 11/23/21 07:34 BP 139/82 11/23/21 07:34 Pulse Ox 96 11/23/21 07:34 O2 Del Method 11/23/21 07:34 BMI result Body Mass Index 41.5 General: AO X 3, in some discomfort Resp: CTA bilateral, no accessory muscles used CVS: S1,S2,RRR GI: soft, tender, non distended Neuro: motor grossly intact, alert Psych: appropriate affect, appropriate insight Objective Data Active Medications Acamprosate (Acamprosate Calcium 333 Mg Tablet.) 666 mg PO TID [facility] Last Admin: 11/23/21 09:18 Dose: 666 mg Documented By: BRANDON Acetaminophen (Acetaminophen 325 Mg Tablet) 975 mg PO Q6H PRN PRN Reason: Fever Last Admin: 11/18/21 05:07 Dose: 975 mg Documented By: SURJIT Al Hydroxide/Mg Hydroxide (Magnesium Hydrox/Alum Hydrox 30 Ml Oral.Susp) 30 ml PO Q4H PRN PRN Reason: Heartburn Last Admin: 11/23/21 03:47 Dose: 30 ml Documented By: JJ Alprazolam (Alprazolam 0.25 Mg Tablet) 0.125 mg PO TID PRN PRN Reason: anxiety Last Admin: 11/23/21 09:19 Dose: 0.125 mg Documented By: BRANDON Dextrose (Dextrose 50 % 25 Gm/50 Ml Syringe) 25 gm IVPUSH Q15M PRN; Protocol PRN Reason: per Hypoglycemia Standing Ord. Enoxaparin Sodium (Enoxaparin Sodium 40 Mg/0.4 Ml Syringe) 40 mg SUBCUT Q24H [facility] Last Admin: 11/22/21 12:52 Dose: 40 mg Documented By: JED Gabapentin (Gabapentin 400 Mg Capsule) 800 mg PO TID [facility] Last Admin: 11/23/21 09:18 Dose: 800 mg Documented By: BRANDON Glucose (Glucose Gel 15 Gm Gel..Gram.) 15 gm PO Q15M PRN; Protocol PRN Reason: per Hypoglycemia Standing Ord. Hydromorphone HCl (Hydromorphone Hcl 1 Mg/Ml Syringe) 1 mg IVPUSH Q4H PRN; Protocol PRN Reason: moderate pain Last Admin: 11/23/21 09:21 Dose: 1 mg Documented By: BRANDON Hydroxyzine HCl (Hydroxyzine Hcl 25 Mg Tablet) 25 mg PO Q6H PRN PRN Reason: Anxiety Last Admin: 11/19/21 05:02 Dose: 25 mg Documented By: SURJIT Piperacillin Sod/Tazobactam (Sod 4.5 gm/ Sodium Chloride) 100 mls @ 200 mls/hr IV Q6H [facility] Last Admin: 11/23/21 09:17 Dose: 100 mls/hr Documented By: BRANDON Multivitamins 11 ml/ Trace Metals 1.1 ml/ Amino Acids/Electrolytes 1,800 mls @ 75 mls/hr IV DAILY@1800 [facility] Stop: 11/23/21 17:59 Last Admin: 11/22/21 18:16 Dose: 75 mls/hr Documented By: DEXTER Sodium Chloride (Ns) 1,000 mls @ 75 mls/hr IVCONT .[id number] [facility] Multivitamins 11 ml/ Trace Metals 1.1 ml/ Amino Acids/Electrolytes 1,800 mls @ 75 mls/hr IV DAILY@1800 [facility] Stop: 11/24/21 17:59 Insulin Human Lispro (Insulin Lispro 100 Unit/Ml 3 Ml Vial) 0 unit SUBCUT QIDACHS [facility]; Protocol Last Admin: 11/23/21 09:16 Dose: 8 unit Documented By: BRANDON Lamotrigine (Lamotrigine 100 Mg Tablet) 100 mg PO BID [facility] Last Admin: 11/23/21 09:19 Dose: 100 mg Documented By: BRANDON Metoprolol Tartrate (Metoprolol Tartrate 25 Mg Tablet) 25 mg PO BID [facility]; Protocol Last Admin: 11/23/21 09:19 Dose: 25 mg Documented By: BRANDON Nicotine (Nicotine 7 Mg Patch.Td24) 7 mg TRANSDERMA DAILY [facility] Last Admin: 11/23/21 09:17 Dose: 7 mg Documented By: BRANDON Omeprazole (Omeprazole 20 Mg Capsule.) 20 mg PO DAILY@0630 [facility] Last Admin: 11/23/21 06:11 Dose: 20 mg Documented By: JJ Ondansetron HCl (Ondansetron Hcl 4 Mg/2 Ml Vial) 4 mg IVPUSH Q4H PRN PRN Reason: Nausea and Vomiting Last Admin: 11/22/21 06:30 Dose: 4 mg Documented By: DHAVAL Pharmacy Consult (Consult Rx Etoh Phenob Po Only) 1 each MISCELLANE ONCE PRN; Protocol PRN Reason: Consult order Prazosin HCl (Prazosin Hcl 1 Mg Capsule) 4 mg PO BEDTIME [facility]; Protocol Last Admin: 11/22/21 21:03 Dose: 4 mg Documented By: SHERIE Sodium Chloride (0.9 % Sodium Chloride Flush 3 Ml Syringe) 3 ml IVFLUSH QSHIFT [facility] Last Admin: 11/23/21 09:17 Dose: 3 ml Documented By: BRANDON Sodium Chloride (0.9 % Sodium Chloride Flush 10 Ml Syringe) 5 ml IVFLUSH TID [facility] Last Admin: 11/23/21 09:20 Dose: 5 ml Documented By: BRANDON Trazodone HCl (Trazodone Hcl 100 Mg Tablet) 100 mg PO BEDTIME PRN PRN Reason: Insomnia Last Admin: 11/21/21 21:21 Dose: 100 mg Documented By: DHAVAL Labs CBC & Chem 7: 11/23/21 06:39 11/23/21 06:39 Labs: Laboratory Results - last 24 hr 11/22/21 11/22/21 11/22/21 08:28 12:14 16:46 MCV MCH MCHC RDW Plt Count MPV Absolute Nucleated RBC Nucleated RBC % (auto) Anion Gap Estim Creat Clear Calc Estimated GFR POC Glucose 247 H 241 H Random Glucose Fasting Glucose Estimat Average Glucose 117 Hemoglobin A1c % 5.7 Calcium Phosphorus Magnesium 11/22/21 11/23/21 11/23/21 19:56 06:39 06:39 MCV 85.4 MCH 28.1 MCHC 32.9 RDW 15.3 Plt Count 469 H MPV 9.9 Absolute Nucleated RBC 0.000 Nucleated RBC % (auto) 0.0 Anion Gap 16 Estim Creat Clear Calc 206.9 Estimated GFR > 60 POC Glucose 263 H Random Glucose TNP Fasting Glucose 322 H D Estimat Average Glucose Hemoglobin A1c % Calcium 8.4 Phosphorus 3.1 Magnesium 2.1 11/23/21 07:38 MCV MCH MCHC RDW Plt Count MPV Absolute Nucleated RBC Nucleated RBC % (auto) Anion Gap Estim Creat Clear Calc Estimated GFR POC Glucose 330 H Random Glucose Fasting Glucose Estimat Average Glucose Hemoglobin A1c % Calcium Phosphorus Magnesium Assessment and Plan (1) Acute alcoholic pancreatitis: Status: Acute (2) Alcohol withdrawal: Status: Acute Plan 26-year-old male with known history of ongoing alcohol abuse and history of pancreatitis presents from detox with diffuse mid epigastric pain nausea and vomiting. Initial CT scan in the emergency room consistent with acute pancreatitis. Presents with mild alcohol withdrawal in addition to pancreatitis Acute alcoholic pancreatitis-complicated by SIRS repeat CT 11/19/21 showing worsening pancreatitis without abscess or necrosis was started on TPN now a bit better, had some chicken broth yesterday but not much, wants to stay the same today hyperglycemia strong DM family history, a1c 5.7, likely preDM complicated by hyperglycemia from acute pancreatitis, can hopefully be diet controlled on discharge insulin sliding scale for now NSVT echo unremarkable started metoprolol cardio appreciated aspiration pnuemonia vs pneumonitis continue zosyn Alcohol dependence with withdrawal -phenobarb protocol completed.. Doing well with p.o.. No evidence of seizures Lovenox Full Code reason for continued hospitalization:awaiting tolerance of solid foods. Quality Stroke Does the patient have a stroke diagnosis?: No VTE Prior VTE?: No VTE Risk Level:: Medical - moderate - high VTE Device Contraindication: Treatment Not Indicated VTE Drug Contraindication: N/A - Med Ordered
[2021-11-23 11:17] VITALS: BP 118/63; PULSE 65; RESP 18; TEMP 36.6; O2SAT 96
[2021-11-23 11:40] LABS: Glucose, Whole Blood 199 mg/dL (60-115)
[2021-11-23] MEDS: Enoxaparin Sodium 40 MG/0.4 ML SYRINGE SUBCUT (13:06)
[2021-11-23 16:00] VITALS: BP 131/84; PULSE 65; RESP 20; TEMP 36.9; O2SAT 97
[2021-11-23 16:15] LABS: Glucose, Whole Blood 212 mg/dL (60-115)
[2021-11-23] MEDS: ondansetron HCL 4 MG/2 ML VIAL IVPUSH (18:44)
[2021-11-23 20:00] VITALS: BP 126/80; PULSE 71; RESP 18; TEMP 36.2; O2SAT 100
[2021-11-23] MEDS: Prazosin HCL 1 MG CAPSULE 4 MG PO (20:05)
[2021-11-23 21:13] LABS: Glucose, Whole Blood 182 mg/dL (60-115)
[2021-11-24] VITALS (9 sets, daily range): BP systolic 114–145; BP diastolic 66–91; PULSE 47–97; RESP 15–20; TEMP 36.1–36.6; O2SAT 92–98
[2021-11-24] MEDS: HYDROmorphone HCl 1 MG/ML SYRINGE IVPUSH ×7 (02:16→22:40)
[2021-11-24] MEDS: Piperacillin Sodium/Tazobactam 4.5 GM in 0.9 % Sodium Chloride 100 ML IV (02:16)
[2021-11-24] MEDS: Omeprazole 20 MG CAPSULE.DR PO (06:03)
[2021-11-24] MEDS: Magnesium Hydrox/Alum Hydrox 30 ML ORAL.SUSP PO ×3 (06:54→16:13)
[2021-11-24 07:04] LABS: Hematocrit 33.4 % (42.0-52.0); Hemoglobin 10.9 g/dl (14.0-18.0); Mean Corpuscular HGB Conc 32.6 g/dl (31.0-36.0); Mean Corpuscular Hemoglobin 27.9 pg (27.0-33.0); Mean Corpuscular Volume 85.6 fL (80.0-98.0); Mean Platelet Volume 9.8 fL (9.4-12.4); Platelet Count 486 X10*3/uL (160-400); Red Cell Distribution Width 15.2 % (11.0-16.0); White Blood Count 8.8 X10*3/uL (4.8-10.8)
[2021-11-24 07:21] LABS: Anion Gap 14 (12-20); Blood Urea Nitrogen 5 mg/dL (9-16); Calcium 8.4 mg/dL (8.4-10.2); Carbon Dioxide 22 mmol/L (22-29); Chloride 100 mmol/L (96-108); Creatinine Clr Calc Pharmacy 206.9; Estimated Glomerular Filt Rate > 60; Glucose Fasting 307 mg/dL (60-99); Magnesium 2.1 mg/dL (1.6-2.6); Potassium 4.4 mmol/L (3.3-5.1); Sodium 132 mmol/L (135-145); Triglycerides 155 mg/dL
[2021-11-24 07:31] LABS: Glucose, Whole Blood 302 mg/dL (60-115)
--- NOTE | 2021-11-24 10:11 | P.PNIM_ITS ---
Subjective Subjective Date of Service: 11/24/21 Interval History: cc: abd pain interval history: some improvement Cardiovascular Cardiovascular: Reports no additional cardiovascular complaints Respiratory Respiratory: Reports no additional respiratory complaints Physical Exam Vital Signs: Vital Signs: Last Vital Signs Temp 97.8 F 11/24/21 07:21 Pulse 97 11/24/21 07:21 Resp 20 11/24/21 07:21 BP 114/86 11/24/21 07:21 Pulse Ox 95 11/24/21 07:21 O2 Del Method 11/24/21 07:21 BMI result Body Mass Index 41.5 General: AO X 3, in some discomfort Resp: CTA bilateral, no accessory muscles used CVS: S1,S2,RRR GI: soft, tender, non distended Neuro: motor grossly intact, alert Psych: appropriate affect, appropriate insight Objective Data Active Medications Acamprosate (Acamprosate Calcium 333 Mg Tablet.) 666 mg PO TID [facility] Last Admin: 11/23/21 20:05 Dose: 666 mg Documented By: JJ Acetaminophen (Acetaminophen 325 Mg Tablet) 975 mg PO Q6H PRN PRN Reason: Fever Last Admin: 11/18/21 05:07 Dose: 975 mg Documented By: SURJIT Al Hydroxide/Mg Hydroxide (Magnesium Hydrox/Alum Hydrox 30 Ml Oral.Susp) 30 ml PO Q4H PRN PRN Reason: Heartburn Last Admin: 11/24/21 06:54 Dose: 30 ml Documented By: JJ Alprazolam (Alprazolam 0.25 Mg Tablet) 0.125 mg PO TID PRN PRN Reason: anxiety Last Admin: 11/23/21 22:27 Dose: 0.125 mg Documented By: JJ Dextrose (Dextrose 50 % 25 Gm/50 Ml Syringe) 25 gm IVPUSH Q15M PRN; Protocol PRN Reason: per Hypoglycemia Standing Ord. Enoxaparin Sodium (Enoxaparin Sodium 40 Mg/0.4 Ml Syringe) 40 mg SUBCUT Q24H [facility] Last Admin: 11/23/21 13:06 Dose: 40 mg Documented By: BRANDON Gabapentin (Gabapentin 400 Mg Capsule) 800 mg PO TID [facility] Last Admin: 11/23/21 20:06 Dose: 800 mg Documented By: JJ Glucose (Glucose Gel 15 Gm Gel..Gram.) 15 gm PO Q15M PRN; Protocol PRN Reason: per Hypoglycemia Standing Ord. Hydromorphone HCl (Hydromorphone Hcl 1 Mg/Ml Syringe) 1 mg IVPUSH Q3H PRN; Protocol PRN Reason: moderate pain Hydroxyzine HCl (Hydroxyzine Hcl 25 Mg Tablet) 25 mg PO Q6H PRN PRN Reason: Anxiety Last Admin: 11/19/21 05:02 Dose: 25 mg Documented By: SURJIT Sodium Chloride (Ns) 1,000 mls @ 75 mls/hr IVCONT .[id number] [facility] Last Admin: 11/23/21 22:48 Dose: 75 mls/hr Documented By: JJ Multivitamins 11 ml/ Trace Metals 1.1 ml/ Amino Acids/Electrolytes 1,800 mls @ 75 mls/hr IV DAILY@1800 [facility] Stop: 11/24/21 17:59 Last Admin: 11/23/21 18:04 Dose: 75 mls/hr Documented By: BRANDON Insulin Human Lispro (Insulin Lispro 100 Unit/Ml 3 Ml Vial) 0 unit SUBCUT QIDACHS [facility]; Protocol Last Admin: 11/23/21 21:42 Dose: 2 unit Documented By: JJ Lamotrigine (Lamotrigine 100 Mg Tablet) 100 mg PO BID [facility] Last Admin: 11/23/21 20:06 Dose: 100 mg Documented By: JJ Metoprolol Tartrate (Metoprolol Tartrate 25 Mg Tablet) 25 mg PO BID [facility]; Protocol Last Admin: 11/23/21 20:06 Dose: 25 mg Documented By: JJ Nicotine (Nicotine 7 Mg Patch.Td24) 7 mg TRANSDERMA DAILY [facility] Last Admin: 11/23/21 09:17 Dose: 7 mg Documented By: BRANDON Omeprazole (Omeprazole 20 Mg Capsule.) 20 mg PO DAILY@0630 [facility] Last Admin: 11/24/21 06:03 Dose: 20 mg Documented By: JJ Ondansetron HCl (Ondansetron Hcl 4 Mg/2 Ml Vial) 4 mg IVPUSH Q4H PRN PRN Reason: Nausea and Vomiting Last Admin: 11/23/21 18:44 Dose: 4 mg Documented By: BRANDON Pharmacy Consult (Consult Rx Etoh Phenob Po Only) 1 each MISCELLANE ONCE PRN; Protocol PRN Reason: Consult order Prazosin HCl (Prazosin Hcl 1 Mg Capsule) 4 mg PO BEDTIME [facility]; Protocol Last Admin: 11/23/21 20:05 Dose: 4 mg Documented By: JJ Sodium Chloride (0.9 % Sodium Chloride Flush 3 Ml Syringe) 3 ml IVFLUSH QSHIFT [facility] Last Admin: 11/23/21 23:25 Dose: Not Given Documented By: JJ Non-Admin Reason: IV Running Sodium Chloride (0.9 % Sodium Chloride Flush 10 Ml Syringe) 5 ml IVFLUSH TID [facility] Last Admin: 11/23/21 20:05 Dose: 5 ml Documented By: JJ Trazodone HCl (Trazodone Hcl 100 Mg Tablet) 100 mg PO BEDTIME PRN PRN Reason: Insomnia Last Admin: 11/21/21 21:21 Dose: 100 mg Documented By: DHAVAL Labs CBC & Chem 7: 11/24/21 06:45 11/24/21 06:45 Labs: Laboratory Results - last 24 hr 11/23/21 11/23/21 11/23/21 11:22 16:07 21:01 MCV MCH MCHC RDW Plt Count MPV Absolute Nucleated RBC Nucleated RBC % (auto) Anion Gap Estim Creat Clear Calc Estimated GFR POC Glucose 199 H 212 H 182 H Fasting Glucose Calcium Phosphorus Magnesium Triglycerides 11/24/21 11/24/21 11/24/21 06:45 06:45 07:24 MCV 85.6 MCH 27.9 MCHC 32.6 RDW 15.2 Plt Count 486 H MPV 9.8 Absolute Nucleated RBC 0.000 Nucleated RBC % (auto) 0.0 Anion Gap 14 Estim Creat Clear Calc 206.9 Estimated GFR > 60 POC Glucose 302 H Fasting Glucose 307 H Calcium 8.4 Phosphorus 3.0 Magnesium 2.1 Triglycerides 155 Assessment and Plan (1) Acute alcoholic pancreatitis: Status: Acute (2) Alcohol withdrawal: Status: Acute Plan 26-year-old male with known history of ongoing alcohol abuse and history of pancreatitis presents from detox with diffuse mid epigastric pain nausea and vomiting. Initial CT scan in the emergency room consistent with acute pancreatitis. Presents with mild alcohol withdrawal in addition to pancreatitis Acute alcoholic pancreatitis-complicated by SIRS repeat CT 11/19/21 showing worsening pancreatitis without abscess or necrosis now a bit better, will advance to solids and hold tpn today hyperglycemia strong DM family history, a1c 5.7, likely preDM complicated by hyperglycemia from acute pancreatitis, can hopefully be diet controlled on discharge insulin sliding scale for now NSVT echo unremarkable started metoprolol cardio appreciated aspiration pnuemonia vs pneumonitis completed zosyn course Alcohol dependence with withdrawal -phenobarb protocol completed.. Doing well with p.o.. No evidence of seizures Lovenox Full Code reason for continued hospitalization:awaiting tolerance of solid foods. Quality Stroke Does the patient have a stroke diagnosis?: No VTE Prior VTE?: No VTE Risk Level:: Medical - moderate - high VTE Device Contraindication: Treatment Not Indicated VTE Drug Contraindication: N/A - Med Ordered
[2021-11-24] MEDS: Enoxaparin Sodium 40 MG/0.4 ML SYRINGE SUBCUT (10:18)
[2021-11-24] MEDS: Acamprosate Calcium 333 MG TABLET.DR 666 MG PO ×3 (10:18→19:40)
[2021-11-24] MEDS: Nicotine 7 MG PATCH.TD24 TRANSDERMA (10:19)
[2021-11-24] MEDS: ALPRAZolam 0.25 MG TABLET 0.125 MG PO ×2 (10:19→16:14)
[2021-11-24] MEDS: Gabapentin 400 MG CAPSULE 800 MG PO ×3 (10:19→19:43)
[2021-11-24] MEDS: lamoTRIgine 100 MG TABLET PO ×2 (10:20→19:45)
[2021-11-24] MEDS: Metoprolol Tartrate 25 MG TABLET PO ×2 (10:20→19:45)
[2021-11-24] MEDS: Insulin Lispro 100 UNIT/ML 3 ML VIAL SUBCUT (10:21)
[2021-11-24] MEDS: 0.9 % Sodium Chloride Flush 3 ML SYRINGE IVFLUSH ×3 (10:22→19:47)
[2021-11-24] MEDS: 0.9 % Sodium Chloride Flush 10 ML SYRINGE 5 ML IVFLUSH ×3 (10:23→20:48)
[2021-11-24] MEDS: Insulin Glargine,Hum.rec.anlog 100 UNIT/ML 10 ML VIAL 10 UNIT SUBCUT (10:36)
[2021-11-24 11:54] LABS: Glucose, Whole Blood 152 mg/dL (60-115)
[2021-11-24] MEDS: 0.9 % Sodium Chloride 1,000 ML 75 ML IVCONT ×2 (13:29→23:46)
[2021-11-24 16:22] LABS: Glucose, Whole Blood 145 mg/dL (60-115)
[2021-11-24] MEDS: Prazosin HCL 1 MG CAPSULE 4 MG PO (19:44)
[2021-11-24] MEDS: Sucralfate Oral Suspension 1 GM/10 ML ORAL.SUSP PO (19:45)
[2021-11-24 20:09] LABS: Glucose, Whole Blood 110 mg/dL (60-115)
[2021-11-25] VITALS (10 sets, daily range): BP systolic 105–130; BP diastolic 55–88; PULSE 51–105; RESP 13–20; TEMP 35.8–36.6; O2SAT 96–100
[2021-11-25] MEDS: HYDROmorphone HCl 1 MG/ML SYRINGE IVPUSH ×6 (02:06→22:53)
[2021-11-25] MEDS: Omeprazole 20 MG CAPSULE.DR PO (05:39)
[2021-11-25 06:28] LABS: Hematocrit 34.7 % (42.0-52.0); Hemoglobin 11.3 g/dl (14.0-18.0); Mean Corpuscular HGB Conc 32.6 g/dl (31.0-36.0); Mean Corpuscular Hemoglobin 27.9 pg (27.0-33.0); Mean Corpuscular Volume 85.7 fL (80.0-98.0); Mean Platelet Volume 9.7 fL (9.4-12.4); Platelet Count 530 X10*3/uL (160-400); Red Blood Count 4.05 X10*6/uL (4.60-5.80); Red Cell Distribution Width 15.5 % (11.0-16.0); White Blood Count 9.6 X10*3/uL (4.8-10.8)
[2021-11-25 06:42] LABS: Anion Gap 17 (12-20); Blood Urea Nitrogen 7 mg/dL (9-16); Calcium 8.6 mg/dL (8.4-10.2); Carbon Dioxide 21 mmol/L (22-29); Chloride 103 mmol/L (96-108); Creatinine Clr Calc Pharmacy 239.8; Estimated Glomerular Filt Rate > 60; Glucose Fasting 116 mg/dL (60-99); Potassium 4.6 mmol/L (3.3-5.1); Sodium 136 mmol/L (135-145)
[2021-11-25 07:21] LABS: Glucose, Whole Blood 147 mg/dL (60-115)
[2021-11-25] MEDS: 0.9 % Sodium Chloride Flush 3 ML SYRINGE IVFLUSH ×3 (09:28→21:13)
[2021-11-25] MEDS: Nicotine 7 MG PATCH.TD24 TRANSDERMA (09:28)
[2021-11-25] MEDS: Sucralfate Oral Suspension 1 GM/10 ML ORAL.SUSP PO ×4 (09:28→19:53)
[2021-11-25] MEDS: Gabapentin 400 MG CAPSULE 800 MG PO ×3 (09:29→19:53)
[2021-11-25] MEDS: Acamprosate Calcium 333 MG TABLET.DR 666 MG PO ×3 (09:29→19:52)
[2021-11-25] MEDS: Metoprolol Tartrate 25 MG TABLET PO ×2 (09:29→19:52)
[2021-11-25] MEDS: lamoTRIgine 100 MG TABLET PO ×2 (09:29→19:53)
[2021-11-25] MEDS: Insulin Glargine,Hum.rec.anlog 100 UNIT/ML 10 ML VIAL 10 UNIT SUBCUT (09:30)
--- NOTE | 2021-11-25 10:08 | P.PNIM_ITS ---
Subjective Subjective Date of Service: 11/25/21 Interval History: cc: abd interval history:did okay with toast, but any other solids caused significant pain Cardiovascular Cardiovascular: Reports no additional cardiovascular complaints Respiratory Respiratory: Reports no additional respiratory complaints Physical Exam Vital Signs: Vital Signs: Last Vital Signs Temp 97.2 F 11/25/21 07:45 Pulse 89 11/25/21 07:45 Resp 20 11/25/21 07:45 BP 130/88 11/25/21 07:45 Pulse Ox 98 11/25/21 07:45 O2 Del Method 11/25/21 07:45 BMI result Body Mass Index 41.5 General: AO X 3, anxious, in pain Resp: CTA bilateral, no accessory muscles used CVS: S1,S2,RRR GI: soft, tender, non distended Neuro: motor grossly intact, alert Psych: appropriate affect, appropriate insight Objective Data Active Medications Acamprosate (Acamprosate Calcium 333 Mg Tablet.) 666 mg PO TID [facility] Last Admin: 11/25/21 09:29 Dose: 666 mg Documented By: LUIS Acetaminophen (Acetaminophen 325 Mg Tablet) 975 mg PO Q6H PRN PRN Reason: Fever Last Admin: 11/18/21 05:07 Dose: 975 mg Documented By: SURJIT Al Hydroxide/Mg Hydroxide (Magnesium Hydrox/Alum Hydrox 30 Ml Oral.Susp) 30 ml PO Q4H PRN PRN Reason: Heartburn Last Admin: 11/24/21 16:13 Dose: 30 ml Documented By: RAYSA Alprazolam (Alprazolam 0.25 Mg Tablet) 0.125 mg PO TID PRN PRN Reason: anxiety Last Admin: 11/24/21 16:14 Dose: 0.125 mg Documented By: RAYSA Dextrose (Dextrose 50 % 25 Gm/50 Ml Syringe) 25 gm IVPUSH Q15M PRN; Protocol PRN Reason: per Hypoglycemia Standing Ord. Enoxaparin Sodium (Enoxaparin Sodium 40 Mg/0.4 Ml Syringe) 40 mg SUBCUT Q24H [facility] Last Admin: 11/24/21 10:18 Dose: 40 mg Documented By: RAYSA Gabapentin (Gabapentin 400 Mg Capsule) 800 mg PO TID [facility] Last Admin: 11/25/21 09:29 Dose: 800 mg Documented By: LUIS Glucose (Glucose Gel 15 Gm Gel..Gram.) 15 gm PO Q15M PRN; Protocol PRN Reason: per Hypoglycemia Standing Ord. Hydromorphone HCl (Hydromorphone Hcl 1 Mg/Ml Syringe) 1 mg IVPUSH Q3H PRN; Protocol PRN Reason: moderate pain Last Admin: 11/25/21 05:39 Dose: 1 mg Documented By: DHAVAL Hydroxyzine HCl (Hydroxyzine Hcl 25 Mg Tablet) 25 mg PO Q6H PRN PRN Reason: Anxiety Last Admin: 11/19/21 05:02 Dose: 25 mg Documented By: SURJIT Sodium Chloride (Ns) 1,000 mls @ 75 mls/hr IVCONT .[id number] [facility] Last Admin: 11/25/21 01:36 Dose: Not Given Documented By: DHAVAL Non-Admin Reason: IV Running Insulin Glargine (Insulin Glargine,Hum.Rec.Anlog 100 Unit/Ml 10 Ml Vial) 10 unit SUBCUT DAILY [facility] Last Admin: 11/25/21 09:30 Dose: 10 unit Documented By: LUIS Insulin Human Lispro (Insulin Lispro 100 Unit/Ml 3 Ml Vial) 0 unit SUBCUT QIDACHS [facility]; Protocol Last Admin: 11/25/21 09:20 Dose: Not Given Documented By: LUIS Non-Admin Reason: No Insulin Coverage Lamotrigine (Lamotrigine 100 Mg Tablet) 100 mg PO BID [facility] Last Admin: 11/25/21 09:29 Dose: 100 mg Documented By: LUIS Metoprolol Tartrate (Metoprolol Tartrate 25 Mg Tablet) 25 mg PO BID [facility]; Protocol Last Admin: 11/25/21 09:29 Dose: 25 mg Documented By: LUIS Nicotine (Nicotine 7 Mg Patch.Td24) 7 mg TRANSDERMA DAILY [facility] Last Admin: 11/25/21 09:28 Dose: 7 mg Documented By: LUIS Omeprazole (Omeprazole 20 Mg Capsule.Dr) 20 mg PO DAILY@0630 [facility] Last Admin: 11/25/21 05:39 Dose: 20 mg Documented By: DHAVAL Ondansetron HCl (Ondansetron Hcl 4 Mg/2 Ml Vial) 4 mg IVPUSH Q4H PRN PRN Reason: Nausea and Vomiting Last Admin: 11/23/21 18:44 Dose: 4 mg Documented By: BRANDON Pharmacy Consult (Consult Rx Etoh Phenob Po Only) 1 each MISCELLANE ONCE PRN; P rotocol PRN Reason: Consult order Prazosin HCl (Prazosin Hcl 1 Mg Capsule) 4 mg PO BEDTIME [facility]; Protocol Last Admin: 11/24/21 19:44 Dose: 4 mg Documented By: DHAVAL Sodium Chloride (0.9 % Sodium Chloride Flush 3 Ml Syringe) 3 ml IVFLUSH QSHIFT [facility] Last Admin: 11/25/21 09:28 Dose: 3 ml Documented By: LUIS Sodium Chloride (0.9 % Sodium Chloride Flush 10 Ml Syringe) 5 ml IVFLUSH TID [facility] Last Admin: 11/24/21 20:48 Dose: 5 ml Documented By: DHAVAL Sucralfate (Sucralfate Oral Suspension 1 Gm/10 Ml Oral.Susp) 1 gm PO QIDACHS [facility] Last Admin: 11/25/21 09:28 Dose: 1 gm Documented By: LUIS Trazodone HCl (Trazodone Hcl 100 Mg Tablet) 100 mg PO BEDTIME PRN PRN Reason: Insomnia Last Admin: 11/21/21 21:21 Dose: 100 mg Documented By: DHAVAL Labs CBC & Chem 7: 11/25/21 06:14 11/25/21 06:14 Labs: Laboratory Results - last 24 hr 11/24/21 11/24/21 11/24/21 11:48 15:57 19:42 MCV MCH MCHC RDW Plt Count MPV Absolute Nucleated RBC Nucleated RBC % (auto) Anion Gap Estim Creat Clear Calc Estimated GFR POC Glucose 152 H 145 H 110 Random Glucose Fasting Glucose Calcium 11/25/21 11/25/21 11/25/21 06:14 06:14 07:17 MCV 85.7 MCH 27.9 MCHC 32.6 RDW 15.5 Plt Count 530 H MPV 9.7 Absolute Nucleated RBC 0.000 Nucleated RBC % (auto) 0.0 Anion Gap 17 Estim Creat Clear Calc 239.8 Estimated GFR > 60 POC Glucose 147 H Random Glucose TNP Fasting Glucose 116 H D Calcium 8.6 Assessment and Plan (1) Acute alcoholic pancreatitis: Status: Acute (2) Alcohol withdrawal: Status: Acute Plan 26-year-old male with known history of ongoing alcohol abuse and history of pancreatitis presents from detox with diffuse mid epigastric pain nausea and vomiting. Initial CT scan in the emergency room consistent with acute pancre atitis. Presents with mild alcohol withdrawal in addition to pancreatitis Acute alcoholic pancreatitis-complicated by SIRS repeat CT 11/19/21 showing worsening pancreatitis without abscess or necrosis TPN stopped 11/24/21, tolerated toast, but any other solid had significant pain will continue toast with ensure hyperglycemia strong DM family history, a1c 5.7, likely preDM complicated by hyperglycemia from acute pancreatitis, can hopefully be diet controlled on discharge insulin sliding scale for now NSVT echo unremarkable started metoprolol cardio appreciated aspiration pnuemonia vs pneumonitis completed zosyn course Alcohol dependence with withdrawal -phenobarb protocol completed.. Lovenox Full Code reason for continued hospitalization:awaiting tolerance of solid foods. Quality Stroke Does the patient have a stroke diagnosis?: No VTE Prior VTE?: No VTE Risk Level:: Medical - moderate - high VTE Device Contraindication: Treatment Not Indicated VTE Drug Contraindication: N/A - Med Ordered
[2021-11-25 11:14] LABS: Glucose, Whole Blood 111 mg/dL (60-115)
[2021-11-25] MEDS: Enoxaparin Sodium 40 MG/0.4 ML SYRINGE SUBCUT (13:07)
[2021-11-25] MEDS: ondansetron HCL 4 MG/2 ML VIAL IVPUSH (13:08)
--- NOTE | 2021-11-25 13:22 | MHC.CLN ---
F/U TPN D/C 11/24 PER PT TOLERATED TOAST PO INTAKE NOW 25-50% DIET RX: 1800DM LOW FAT-APPROPRIATE PT RECEIVING GLUCERNA TID TO INCREASE KCALS PROVIDES 711KCALS, 30G PROTEIN CONTINUE TO MONITOR PO INTAKE CLOSELY
[2021-11-25] MEDS: 0.9 % Sodium Chloride 1,000 ML 75 ML IVCONT (13:41)
[2021-11-25 15:58] LABS: Glucose, Whole Blood 137 mg/dL (60-115)
[2021-11-25] MEDS: 0.9 % Sodium Chloride Flush 10 ML SYRINGE 5 ML IVFLUSH ×2 (16:32→21:13)
[2021-11-25 19:22] LABS: Glucose, Whole Blood 144 mg/dL (60-115)
[2021-11-25] MEDS: Prazosin HCL 1 MG CAPSULE 4 MG PO (19:53)
[2021-11-26] VITALS (8 sets, daily range): BP systolic 110–158; BP diastolic 67–88; PULSE 64–88; RESP 14–20; TEMP 36–37.1; O2SAT 95–99
[2021-11-26] MEDS: HYDROmorphone HCl 1 MG/ML SYRINGE IVPUSH ×6 (02:11→20:16)
[2021-11-26] MEDS: 0.9 % Sodium Chloride 1,000 ML 75 ML IVCONT ×2 (02:39→16:48)
[2021-11-26] MEDS: Omeprazole 20 MG CAPSULE.DR PO (05:39)
[2021-11-26 06:02] LABS: Hematocrit 33.4 % (42.0-52.0); Hemoglobin 10.8 g/dl (14.0-18.0); Mean Corpuscular HGB Conc 32.3 g/dl (31.0-36.0); Mean Corpuscular Hemoglobin 27.9 pg (27.0-33.0); Mean Corpuscular Volume 86.3 fL (80.0-98.0); Mean Platelet Volume 9.8 fL (9.4-12.4); Platelet Count 512 X10*3/uL (160-400); Red Blood Count 3.87 X10*6/uL (4.60-5.80); Red Cell Distribution Width 15.3 % (11.0-16.0); White Blood Count 8.8 X10*3/uL (4.8-10.8)
[2021-11-26 06:35] LABS: Anion Gap 16 (12-20); Blood Urea Nitrogen 6 mg/dL (9-16); Calcium 8.9 mg/dL (8.4-10.2); Carbon Dioxide 23 mmol/L (22-29); Chloride 103 mmol/L (96-108); Creatinine Clr Calc Pharmacy 206.9; Estimated Glomerular Filt Rate > 60; Glucose Fasting 150 mg/dL (60-99); Potassium 4.5 mmol/L (3.3-5.1); Sodium 137 mmol/L (135-145)
[2021-11-26 08:09] LABS: Glucose, Whole Blood 141 mg/dL (60-115)
[2021-11-26] MEDS: Nicotine 7 MG PATCH.TD24 TRANSDERMA (10:01)
[2021-11-26] MEDS: lamoTRIgine 100 MG TABLET PO ×2 (10:04→20:01)
[2021-11-26] MEDS: Metoprolol Tartrate 25 MG TABLET PO ×2 (10:04→20:01)
[2021-11-26] MEDS: Acamprosate Calcium 333 MG TABLET.DR 666 MG PO ×3 (10:04→20:01)
[2021-11-26] MEDS: Sucralfate Oral Suspension 1 GM/10 ML ORAL.SUSP PO ×4 (10:05→20:01)
[2021-11-26] MEDS: Gabapentin 400 MG CAPSULE 800 MG PO ×3 (10:05→20:01)
[2021-11-26] MEDS: Insulin Glargine,Hum.rec.anlog 100 UNIT/ML 10 ML VIAL 10 UNIT SUBCUT (10:15)
[2021-11-26] MEDS: 0.9 % Sodium Chloride Flush 3 ML SYRINGE IVFLUSH ×2 (10:19→16:49)
[2021-11-26] MEDS: 0.9 % Sodium Chloride Flush 10 ML SYRINGE 5 ML IVFLUSH ×3 (10:19→20:01)
--- NOTE | 2021-11-26 10:20 | P.PNIM_ITS ---
Subjective Subjective Date of Service: 11/26/21 Interval History: cc: abd pain interval history:overall improved, but still vomitting occasionally and early satiety Cardiovascular Cardiovascular: Reports no additional cardiovascular complaints Respiratory Respiratory: Reports no additional respiratory complaints Physical Exam Vital Signs: Vital Signs: Last Vital Signs Temp 96.8 F 11/26/21 08:00 Pulse 64 11/26/21 08:00 Resp 20 11/26/21 08:00 BP 124/68 11/26/21 08:00 Pulse Ox 97 11/26/21 08:00 O2 Del Method 11/26/21 08:00 BMI result Body Mass Index 41.5 General: AO X 3, no acute distress Resp: CTA bilateral, no accessory muscles used CVS: S1,S2,RRR GI: soft, tender, non distended Neuro: motor grossly intact, alert Psych: appropriate affect, appropriate insight Objective Data Active Medications Acamprosate (Acamprosate Calcium 333 Mg Tablet.) 666 mg PO TID [facility] Last Admin: 11/25/21 19:52 Dose: 666 mg Documented By: DHAVAL Acetaminophen (Acetaminophen 325 Mg Tablet) 975 mg PO Q6H PRN PRN Reason: Fever Last Admin: 11/18/21 05:07 Dose: 975 mg Documented By: SURJIT Al Hydroxide/Mg Hydroxide (Magnesium Hydrox/Alum Hydrox 30 Ml Oral.Susp) 30 ml PO Q4H PRN PRN Reason: Heartburn Last Admin: 11/24/21 16:13 Dose: 30 ml Documented By: RAYSA Alprazolam (Alprazolam 0.25 Mg Tablet) 0.125 mg PO TID PRN PRN Reason: anxiety Last Admin: 11/24/21 16:14 Dose: 0.125 mg Documented By: RAYSA Dextrose (Dextrose 50 % 25 Gm/50 Ml Syringe) 25 gm IVPUSH Q15M PRN; Protocol PRN Reason: per Hypoglycemia Standing Ord. Enoxaparin Sodium (Enoxaparin Sodium 40 Mg/0.4 Ml Syringe) 40 mg SUBCUT Q24H [facility] Last Admin: 11/25/21 13:07 Dose: 40 mg Documented By: FLAVIAORRMarques Gabapentin (Gabapentin 400 Mg Capsule) 800 mg PO TID [facility] Last Admin: 11/25/21 19:53 Dose: 800 mg Documented By: DHAVAL Glucose (Glucose Gel 15 Gm Gel..Gram.) 15 gm PO Q15M PRN; Protocol PRN Reason: per Hypoglycemia Standing Ord. Hydromorphone HCl (Hydromorphone Hcl 1 Mg/Ml Syringe) 1 mg IVPUSH Q3H PRN; Protocol PRN Reason: moderate pain Last Admin: 11/26/21 05:39 Dose: 1 mg Documented By: WILI Hydroxyzine HCl (Hydroxyzine Hcl 25 Mg Tablet) 25 mg PO Q6H PRN PRN Reason: Anxiety Last Admin: 11/19/21 05:02 Dose: 25 mg Documented By: SURJIT Sodium Chloride (Ns) 1,000 mls @ 75 mls/hr IVCONT .[id number] [facility] Last Admin: 11/26/21 05:11 Dose: Not Given Documented By: DHAVAL Non-Admin Reason: IV Running Insulin Glargine (Insulin Glargine,Hum.Rec.Anlog 100 Unit/Ml 10 Ml Vial) 10 unit SUBCUT DAILY [facility] Last Admin: 11/25/21 09:30 Dose: 10 unit Documented By: LUIS Insulin Human Lispro (Insulin Lispro 100 Unit/Ml 3 Ml Vial) 0 unit SUBCUT QIDACHS [facility]; Protocol Last Admin: 11/26/21 09:38 Dose: Not Given Documented By: LUIS Non-Admin Reason: No Insulin Coverage Lamotrigine (Lamotrigine 100 Mg Tablet) 100 mg PO BID [facility] Last Admin: 11/25/21 19:53 Dose: 100 mg Documented By: DHAVAL Metoprolol Tartrate (Metoprolol Tartrate 25 Mg Tablet) 25 mg PO BID [facility]; Protocol Last Admin: 11/25/21 19:52 Dose: 25 mg Documented By: DHAVAL Nicotine (Nicotine 7 Mg Patch.Td24) 7 mg TRANSDERMA DAILY [facility] Last Admin: 11/25/21 09:28 Dose: 7 mg Documented By: LUIS Omeprazole (Omeprazole 20 Mg Capsule.Dr) 20 mg PO DAILY@0630 [facility] Last Admin: 11/26/21 05:39 Dose: 20 mg Documented By: WILI Ondansetron HCl (Ondansetron Hcl 4 Mg/2 Ml Vial) 4 mg IVPUSH Q4H PRN PRN Reason: Nausea and Vomiting Last Admin: 11/25/21 13:08 Dose: 4 mg Documented By: LUIS Pharmacy Consult (Consult Rx Etoh Phenob Po Only) 1 each MISCELLANE ONCE PRN; Protocol PRN Reason: Consult order Prazosin HCl (Prazosin Hcl 1 Mg Capsule) 4 mg PO BEDTIME [facility]; Protocol Last Admin: 11/25/21 19:53 Dose: 4 mg Documented By: DHAVAL Sodium Chloride (0.9 % Sodium Chloride Flush 3 Ml Syringe) 3 ml IVFLUSH QSHIFT [facility] Last Admin: 11/25/21 21:13 Dose: 3 ml Documented By: DHAVAL Sodium Chloride (0.9 % Sodium Chloride Flush 10 Ml Syringe) 5 ml IVFLUSH TID [facility] Last Admin: 11/25/21 21:13 Dose: 5 ml Documented By: DHAVAL Sucralfate (Sucralfate Oral Suspension 1 Gm/10 Ml Oral.Susp) 1 gm PO QIDACHS [facility] Last Admin: 11/25/21 19:53 Dose: 1 gm Documented By: DHAVAL Trazodone HCl (Trazodone Hcl 100 Mg Tablet) 100 mg PO BEDTIME PRN PRN Reason: Insomnia Last Admin: 11/21/21 21:21 Dose: 100 mg Documented By: DHAVAL Labs CBC & Chem 7: 11/26/21 05:46 11/26/21 05:46 Labs: Laboratory Results - last 24 hr 11/25/21 11/25/21 11/25/21 11:10 15:54 19:18 MCV MCH MCHC RDW Plt Count MPV Absolute Nucleated RBC Nucleated RBC % (auto) Anion Gap Estim Creat Clear Calc Estimated GFR POC Glucose 111 137 H 144 H Random Glucose Fasting Glucose Calcium 11/26/21 11/26/21 11/26/21 05:46 05:46 08:06 MCV 86.3 MCH 27.9 MCHC 32.3 RDW 15.3 Plt Count 512 H MPV 9.8 Absolute Nucleated RBC 0.000 Nucleated RBC % (auto) 0.0 Anion Gap 16 Estim Creat Clear Calc 206.9 Estimated GFR > 60 POC Glucose 141 H Random Glucose TNP Fasting Glucose 150 H Calcium 8.9 Assessment and Plan (1) Acute alcoholic pancreatitis: Status: Acute (2) Alcohol withdrawal: Status: Acute Plan 26-year-old male with known history of ongoing alcohol abuse and history of pancreatitis presents from detox with diffuse mid epigastric pain nausea and vomiting. Initial CT scan in the emergency room consistent with acute pancreatitis. Presents with mild alcohol withdrawal in addition to pancreatitis Acute alcoholic pancreatitis-complicated by SIRS repeat CT 11/19/21 showing worsening pancreatitis without abscess or necrosis TPN stopped 11/24/21, tolerating little bits of toast, but did still have some pain and vomitted after crackers continue simple solids with ensure hyperglycemia strong DM family history, a1c 5.7, likely preDM complicated by hyperglycemia from acute pancreatitis and TPN, can hopefully be diet controlled on discharge insulin sliding scale for now NSVT echo unremarkable started metoprolol cardio appreciated aspiration pnuemonia vs pneumonitis completed zosyn course Alcohol dependence with withdrawal -phenobarb protocol completed.. Lovenox Full Code reason for continued hospitalization:awaiting tolerance of solid foods. Quality Stroke Does the patient have a stroke diagnosis?: No VTE Prior VTE?: No VTE Risk Level:: Medical - moderate - high VTE Device Contraindication: Treatment Not Indicated VTE Drug Contraindication: N/A - Med Ordered
[2021-11-26] MEDS: ALPRAZolam 0.25 MG TABLET 0.125 MG PO ×2 (11:02→20:16)
[2021-11-26 11:17] LABS: Glucose, Whole Blood 129 mg/dL (60-115)
[2021-11-26] MEDS: Enoxaparin Sodium 40 MG/0.4 ML SYRINGE SUBCUT (13:41)
[2021-11-26 15:52] LABS: Glucose, Whole Blood 115 mg/dL (60-115)
[2021-11-26] MEDS: Prazosin HCL 1 MG CAPSULE 4 MG PO (20:00)
[2021-11-26] MEDS: traZODone HCL 100 MG TABLET PO (20:16)
[2021-11-26 20:37] LABS: Glucose, Whole Blood 110 mg/dL (60-115)
[2021-11-27] VITALS (8 sets, daily range): BP systolic 105–143; BP diastolic 59–78; PULSE 50–93; RESP 14–18; TEMP 36.1–36.4; O2SAT 96–99
[2021-11-27] MEDS: HYDROmorphone HCl 1 MG/ML SYRINGE IVPUSH ×8 (00:01→23:51)
[2021-11-27] MEDS: 0.9 % Sodium Chloride 1,000 ML 75 ML IVCONT (05:25)
[2021-11-27] MEDS: Omeprazole 20 MG CAPSULE.DR PO (05:28)
[2021-11-27] MEDS: ondansetron HCL 4 MG/2 ML VIAL IVPUSH ×2 (06:04→16:04)
[2021-11-27 06:58] LABS: Anion Gap 16 (12-20); Blood Urea Nitrogen 7 mg/dL (9-16); Calcium 9.4 mg/dL (8.4-10.2); Carbon Dioxide 25 mmol/L (22-29); Chloride 101 mmol/L (96-108); Creatinine Clr Calc Pharmacy 184.2; Estimated Glomerular Filt Rate > 60; Glucose Random 121 mg/dL (60-115); Potassium 4.2 mmol/L (3.3-5.1); Sodium 138 mmol/L (135-145)
[2021-11-27 07:57] LABS: Glucose, Whole Blood 153 mg/dL (60-115)
[2021-11-27] MEDS: Insulin Lispro 100 UNIT/ML 3 ML VIAL SUBCUT (09:42)
[2021-11-27] MEDS: Insulin Glargine,Hum.rec.anlog 100 UNIT/ML 10 ML VIAL 10 UNIT SUBCUT (09:43)
[2021-11-27] MEDS: Sucralfate Oral Suspension 1 GM/10 ML ORAL.SUSP PO ×4 (09:44→20:59)
[2021-11-27] MEDS: Gabapentin 400 MG CAPSULE 800 MG PO ×3 (09:44→20:49)
[2021-11-27] MEDS: Acamprosate Calcium 333 MG TABLET.DR 666 MG PO ×3 (09:44→20:49)
[2021-11-27] MEDS: lamoTRIgine 100 MG TABLET PO ×2 (09:44→20:49)
[2021-11-27] MEDS: Metoprolol Tartrate 25 MG TABLET PO ×2 (09:44→20:49)
[2021-11-27] MEDS: Nicotine 7 MG PATCH.TD24 TRANSDERMA (09:44)
[2021-11-27] MEDS: 0.9 % Sodium Chloride Flush 3 ML SYRINGE IVFLUSH ×3 (09:45→20:49)
--- NOTE | 2021-11-27 10:25 | HO.PM.IMPN ---
Subjective Subjective Date of Service: 11/27/21 Interval History: cc: abd pain interval history:overall improved, but still vomitting occasionally and early satiety Cardiovascular Cardiovascular: Reports no additional cardiovascular complaints Respiratory Respiratory: Reports no additional respiratory complaints Physical Exam Vital Signs: Vital Signs: Last Vital Signs Temp 97.0 F 11/27/21 08:00 Pulse 75 11/27/21 08:00 Resp 14 11/27/21 09:45 BP 109/64 11/27/21 08:00 Pulse Ox 97 11/27/21 08:00 O2 Del Method 11/27/21 08:00 BMI result Body Mass Index 41.5 General: AO X 3, no acute distress Resp: CTA bilateral, no accessory muscles used CVS: S1,S2,RRR GI: soft, tender, non distended Neuro: motor grossly intact, alert Psych: appropriate affect, appropriate insight Objective Data Active Medications Acamprosate (Acamprosate Calcium 333 Mg Tablet.) 666 mg PO TID [facility] Last Admin: 11/27/21 09:44 Dose: 666 mg Documented By: RAIMUNDO Acetaminophen (Acetaminophen 325 Mg Tablet) 975 mg PO Q6H PRN PRN Reason: Fever Last Admin: 11/18/21 05:07 Dose: 975 mg Documented By: SURJIT Al Hydroxide/Mg Hydroxide (Magnesium Hydrox/Alum Hydrox 30 Ml Oral.Susp) 30 ml PO Q4H PRN PRN Reason: Heartburn Last Admin: 11/24/21 16:13 Dose: 30 ml Documented By: RAYSA Alprazolam (Alprazolam 0.25 Mg Tablet) 0.125 mg PO TID PRN PRN Reason: anxiety Last Admin: 11/26/21 20:16 Dose: 0.125 mg Documented By: CASTILM Dextrose (Dextrose 50 % 25 Gm/50 Ml Syringe) 25 gm IVPUSH Q15M PRN; Protocol PRN Reason: per Hypoglycemia Standing Ord. Enoxaparin Sodium (Enoxaparin Sodium 40 Mg/0.4 Ml Syringe) 40 mg SUBCUT Q24H [facility] Last Admin: 11/26/21 13:41 Dose: 40 mg Documented By: CTORRZ Gabapentin (Gabapentin 400 Mg Capsule) 800 mg PO TID [facility] Last Admin: 11/27/21 09:44 Dose: 800 mg Documented By: RAIMUNDO Glucose (Glucose Gel 15 Gm Gel..Gram.) 15 gm PO Q15M PRN; Protocol PRN Reason: per Hypoglycemia Standing Ord. Hydromorphone HCl (Hydromorphone Hcl 1 Mg/Ml Syringe) 1 mg IVPUSH Q3H PRN; Protocol PRN Reason: moderate pain Last Admin: 11/27/21 09:45 Dose: 1 mg Documented By: RAIMUNDO Hydroxyzine HCl (Hydroxyzine Hcl 25 Mg Tablet) 25 mg PO Q6H PRN PRN Reason: Anxiety Last Admin: 11/19/21 05:02 Dose: 25 mg Documented By: SURJIT Insulin Glargine (Insulin Glargine,Hum.Rec.Anlog 100 Unit/Ml 10 Ml Vial) 10 unit SUBCUT DAILY [facility] Last Admin: 11/27/21 09:43 Dose: 10 unit Documented By: RAIMUNDO Insulin Human Lispro (Insulin Lispro 100 Unit/Ml 3 Ml Vial) 0 unit SUBCUT QIDACHS [facility]; Protocol Last Admin: 11/27/21 09:42 Dose: 2 unit Documented By: RAIMUNDO Lamotrigine (Lamotrigine 100 Mg Tablet) 100 mg PO BID [facility] Last Admin: 11/27/21 09:44 Dose: 100 mg Documented By: RAIMUNDO Metoprolol Tartrate (Metoprolol Tartrate 25 Mg Tablet) 25 mg PO BID [facility]; Protocol Last Admin: 11/27/21 09:44 Dose: 25 mg Documented By: RAIMUNDO Nicotine (Nicotine 7 Mg Patch.Td24) 7 mg TRANSDERMA DAILY [facility] Last Admin: 11/27/21 09:44 Dose: 7 mg Documented By: RAIMUNDO Omeprazole (Omeprazole 20 Mg Capsule.Dr) 20 mg PO DAILY@0630 [facility] Last Admin: 11/27/21 05:28 Dose: 20 mg Documented By: HAFSA Ondansetron HCl (Ondansetron Hcl 4 Mg/2 Ml Vial) 4 mg IVPUSH Q4H PRN PRN Reason: Nausea and Vomiting Last Admin: 11/27/21 06:04 Dose: 4 mg Documented By: HAFSA Pharmacy Consult (Consult Rx Etoh Phenob Po Only) 1 each MISCELLANE ONCE PRN; Protocol PRN Reason: Consult order Prazosin HCl (Prazosin Hcl 1 Mg Capsule) 4 mg PO BEDTIME [facility]; Protocol Last Admin: 11/26/21 20:00 Dose: 4 mg Documented By: HAFSA Sodium Chloride (0.9 % Sodium Chloride Flush 3 Ml Syringe) 3 ml IVFLUSH QSHIFT [facility] Last Admin: 11/27/21 09:45 Dose: 3 ml Documented By: RAIMUNDO Sodium Chloride (0.9 % Sodium Chloride Flush 10 Ml Syringe) 5 ml IVFLUSH TID [facility] Last Admin: 11/27/21 09:45 Dose: Not Given Documented By: RAIMUNDO Non-Admin Reason: Duplicate Order Sucralfate (Sucralfate Oral Suspension 1 Gm/10 Ml Oral.Susp) 1 gm PO QIDACHS [facility] Last Admin: 11/27/21 09:44 Dose: 1 gm Documented By: RAIMUNDO Trazodone HCl (Trazodone Hcl 100 Mg Tablet) 100 mg PO BEDTIME PRN PRN Reason: Insomnia Last Admin: 11/26/21 20:16 Dose: 100 mg Documented By: HAFSA Labs CBC & Chem 7: 11/26/21 05:46 11/27/21 05:43 Labs: Laboratory Results - last 24 hr 11/26/21 11/26/21 11/26/21 10:46 15:49 20:33 Anion Gap Estim Creat Clear Calc Estimated GFR POC Glucose 129 H 115 110 Random Glucose Calcium 11/27/21 11/27/21 05:43 07:54 Anion Gap 16 Estim Creat Clear Calc 184.2 Estimated GFR > 60 POC Glucose 153 H Random Glucose 121 H Calcium 9.4 Assessment and Plan (1) Acute alcoholic pancreatitis: Status: Acute (2) Alcohol withdrawal: Status: Acute Plan 26-year-old male with known history of ongoing alcohol abuse and history of pancreatitis presents from detox with diffuse mid epigastric pain nausea and vomiting. Initial CT scan in the emergency room consistent with acute pancreatitis. Presents with mild alcohol withdrawal in addition to pancreatitis Acute alcoholic pancreatitis-complicated by SIRS repeat CT 11/19/21 showing worsening pancreatitis without abscess or necrosis TPN stopped 11/24/21, tolerating little bits of toast, a little ensure, but did still have some pain and vomitting continue simple solids with ensure hyperglycemia strong DM family history, a1c 5.7, likely preDM complicated by hyperglycemia from acute pancreatitis and TPN, can hopefully be diet controlled on discharge insulin sliding scale for now NSVT echo unremarkable started metoprolol cardio appreciated aspiration pnuemonia vs pneumonitis completed zosyn course Alcohol dependence with withdrawal -phenobarb protocol completed.. Lovenox Full Code reason for continued hospitalization:awaiting tolerance of solid foods. Quality Stroke Does the patient have a stroke diagnosis?: No VTE Prior VTE?: No VTE Risk Level:: Medical - moderate - high VTE Device Contraindication: Treatment Not Indicated VTE Drug Contraindication: N/A - Med Ordered
[2021-11-27 11:51] LABS: Glucose, Whole Blood 140 mg/dL (60-115)
[2021-11-27] MEDS: Enoxaparin Sodium 40 MG/0.4 ML SYRINGE SUBCUT (13:29)
--- NOTE | 2021-11-27 15:40 | MHC.CM.PN ---
per rounds pot may need tpn when dcd
[2021-11-27 16:16] LABS: Glucose, Whole Blood 117 mg/dL (60-115)
[2021-11-27 20:39] LABS: Glucose, Whole Blood 129 mg/dL (60-115)
[2021-11-27] MEDS: Prazosin HCL 1 MG CAPSULE 4 MG PO (20:48)
[2021-11-27] MEDS: 0.9 % Sodium Chloride Flush 10 ML SYRINGE 5 ML IVFLUSH (20:59)
[2021-11-27] MEDS: traZODone HCL 100 MG TABLET PO (22:09)
[2021-11-27] MEDS: ALPRAZolam 0.25 MG TABLET 0.125 MG PO (22:09)
[2021-11-28] VITALS: BP 115/58; PULSE 80; RESP 18; TEMP 36.8; O2SAT 96
[2021-11-28] MEDS: HYDROmorphone HCl 1 MG/ML SYRINGE IVPUSH ×3 (03:03→09:00)
[2021-11-28 03:55] VITALS: BP 103/60; PULSE 83; RESP 18; TEMP 36.7; O2SAT 98
[2021-11-28] MEDS: Omeprazole 20 MG CAPSULE.DR PO ×2 (05:49→16:42)
[2021-11-28 06:31] LABS: Hematocrit 34.6 % (42.0-52.0); Hemoglobin 11.1 g/dl (14.0-18.0); Mean Corpuscular HGB Conc 32.1 g/dl (31.0-36.0); Mean Corpuscular Hemoglobin 27.8 pg (27.0-33.0); Mean Corpuscular Volume 86.7 fL (80.0-98.0); Mean Platelet Volume 9.9 fL (9.4-12.4); Platelet Count 417 X10*3/uL (160-400); Red Blood Count 3.99 X10*6/uL (4.60-5.80); Red Cell Distribution Width 14.6 % (11.0-16.0); White Blood Count 7.4 X10*3/uL (4.8-10.8)
[2021-11-28 07:10] LABS: Alanine Aminotransferase 45 U/L (0-40); Albumin Level 3.8 g/dL (3.5-5.0); Alkaline Phosphatase 208 U/L (39-117); Anion Gap 17 (12-20); Aspartate Amino Transferase 23 U/L (5-37); Bilirubin Direct 0.2 mg/dL (0.0-0.5); Bilirubin Total 0.3 mg/dL (0.0-1.0); Blood Urea Nitrogen 8 mg/dL (9-16); Calcium 9.2 mg/dL (8.4-10.2); Carbon Dioxide 26 mmol/L (22-29); Chloride 101 mmol/L (96-108); Creatinine Clr Calc Pharmacy 188.8; Estimated Glomerular Filt Rate > 60; Glucose Fasting 112 mg/dL (60-99); Potassium 4.5 mmol/L (3.3-5.1); Sodium 139 mmol/L (135-145); Total Protein 6.9 g/dL (6.5-8.0)
[2021-11-28 07:39] VITALS: BP 115/59; PULSE 64; RESP 17; TEMP 36.8; O2SAT 96
[2021-11-28 07:50] LABS: Glucose, Whole Blood 120 mg/dL (60-115)
[2021-11-28] MEDS: Sucralfate Oral Suspension 1 GM/10 ML ORAL.SUSP PO ×4 (08:44→21:39)
[2021-11-28] MEDS: Nicotine 7 MG PATCH.TD24 TRANSDERMA (08:44)
[2021-11-28] MEDS: Acamprosate Calcium 333 MG TABLET.DR 666 MG PO ×3 (08:44→21:34)
[2021-11-28] MEDS: Gabapentin 400 MG CAPSULE 800 MG PO ×3 (08:44→21:36)
[2021-11-28] MEDS: Insulin Glargine,Hum.rec.anlog 100 UNIT/ML 10 ML VIAL 10 UNIT SUBCUT (08:45)
[2021-11-28] MEDS: Metoprolol Tartrate 25 MG TABLET PO ×2 (08:45→21:36)
[2021-11-28] MEDS: lamoTRIgine 100 MG TABLET PO ×2 (08:45→21:36)
[2021-11-28] MEDS: ondansetron HCL 4 MG/2 ML VIAL IVPUSH (09:00)
[2021-11-28] MEDS: 0.9 % Sodium Chloride Flush 10 ML SYRINGE 5 ML IVFLUSH (09:01)
[2021-11-28] MEDS: 0.9 % Sodium Chloride Flush 3 ML SYRINGE IVFLUSH ×2 (09:01→21:39)
[2021-11-28 11:05] VITALS: BP 97/58; PULSE 80; RESP 17; TEMP 36.2; O2SAT 94
[2021-11-28 11:12] LABS: Glucose, Whole Blood 134 mg/dL (60-115)
[2021-11-28] MEDS: HYDROmorphone HCl 2 MG TABLET 1 MG PO ×2 (11:40→22:10)
[2021-11-28] MEDS: Lactulose 20 GM/30 ML SOLUTION PO (11:40)
--- NOTE | 2021-11-28 12:52 | MHC.CM.PN ---
Per rounds patient tolerating diet. Case Management will continue to follow patient for any discharge planning needs.
[2021-11-28] MEDS: Enoxaparin Sodium 40 MG/0.4 ML SYRINGE SUBCUT (13:36)
[2021-11-28] MEDS: Lactated Ringers 1,000 ML 150 ML IVCONT ×2 (15:12→21:30)
[2021-11-28] MEDS: Ketorolac Tromethamine 30 MG/ML VIAL 15 MG IVPUSH (15:14)
--- NOTE | 2021-11-28 15:16 | HO.PM.IMPN ---
Subjective Subjective Date of Service: 11/28/21 Interval History: Seen and evaluated Still complaining of abdominal pain and not tolerating diet Reported vomiting No other overnight events Review of Systems Review of Systems: Yes all other systems are reviewed and are negative Physical Exam Vital Signs: Vital Signs: Last Vital Signs Temp 97.2 F 11/28/21 11:05 Pulse 80 11/28/21 11:05 Resp 17 11/28/21 11:05 BP 97/58 L 11/28/21 11:05 Pulse Ox 94 11/28/21 11:05 O2 Del Method 11/28/21 11:05 BMI result Body Mass Index 41.5 Const: Other: Constitutional : Alert, oriented, not in distress Neck : Normal inspection, Supple Cardiovascular : RRR, no JVP, no lower extremity edema Respiratory : fair bilateral air entry, no crackles, wheezes or rhonchi Gastrointestinal: soft, lax, Normal bowel sounds, epigastric tenderness Skin : Warm, Dry Neurological : Alert & oriented x3, No focal deficit Objective Data Active Medications Acamprosate (Acamprosate Calcium 333 Mg Tablet.) 666 mg PO TID [facility] Last Admin: 11/28/21 08:44 Dose: 666 mg Documented By: DIANA Acetaminophen (Acetaminophen 325 Mg Tablet) 975 mg PO Q6H PRN PRN Reason: Fever Last Admin: 11/18/21 05:07 Dose: 975 mg Documented By: SURJIT Al Hydroxide/Mg Hydroxide (Magnesium Hydrox/Alum Hydrox 30 Ml Oral.Susp) 30 ml PO Q4H PRN PRN Reason: Heartburn Last Admin: 11/24/21 16:13 Dose: 30 ml Documented By: RAYSA Alprazolam (Alprazolam 0.25 Mg Tablet) 0.125 mg PO TID PRN PRN Reason: anxiety Last Admin: 11/27/21 22:09 Dose: 0.125 mg Documented By: SARAHY Dextrose (Dextrose 50 % 25 Gm/50 Ml Syringe) 25 gm IVPUSH Q15M PRN; Protocol PRN Reason: per Hypoglycemia Standing Ord. Enoxaparin Sodium (Enoxaparin Sodium 40 Mg/0.4 Ml Syringe) 40 mg SUBCUT Q24H [facility] Last Admin: 11/28/21 13:36 Dose: 40 mg Documented By: DIANA Gabapentin (Gabapentin 400 Mg Capsule) 800 mg PO TID [facility] Last Admin: 11/28/21 08:44 Dose: 800 mg Documented By: DIANA Glucose (Glucose Gel 15 Gm Gel..Gram.) 15 gm PO Q15M PRN; Protocol PRN Reason: per Hypoglycemia Standing Ord. Hydromorphone HCl (Hydromorphone Hcl 2 Mg Tablet) 1 mg PO Q4H PRN PRN Reason: Pain, Severe (Pain Scale 7-10) Last Admin: 11/28/21 11:40 Dose: 1 mg Documented By: DIANA Hydroxyzine HCl (Hydroxyzine Hcl 25 Mg Tablet) 25 mg PO Q6H PRN PRN Reason: Anxiety Last Admin: 11/19/21 05:02 Dose: 25 mg Documented By: SURJIT Lactated Ringer's (Lr) 1,000 mls @ 150 mls/hr IVCONT .Q6H40M [facility] Insulin Glargine (Insulin Glargine,Hum.Rec.Anlog 100 Unit/Ml 10 Ml Vial) 10 unit SUBCUT DAILY [facility] Last Admin: 11/28/21 08:45 Dose: 10 unit Documented By: DIANA Insulin Human Lispro (Insulin Lispro 100 Unit/Ml 3 Ml Vial) 0 unit SUBCUT QIDACHS [facility]; Protocol Last Admin: 11/28/21 11:36 Dose: Not Given Documented By: DIANA Non-Admin Reason: No Insulin Coverage Lactulose (Lactulose 20 Gm/30 Ml Solution) 20 gm PO DAILY [facility] Last Admin: 11/28/21 11:40 Dose: 20 gm Documented By: DIANA Lamotrigine (Lamotrigine 100 Mg Tablet) 100 mg PO BID [facility] Last Admin: 11/28/21 08:45 Dose: 100 mg Documented By: DIANA Metoprolol Tartrate (Metoprolol Tartrate 25 Mg Tablet) 25 mg PO BID [facility]; Protocol Last Admin: 11/28/21 08:45 Dose: 25 mg Documented By: DIANA Nicotine (Nicotine 7 Mg Patch.Td24) 7 mg TRANSDERMA DAILY [facility] Last Admin: 11/28/21 08:44 Dose: 7 mg Documented By: DIANA Omeprazole (Omeprazole 20 Mg Capsule.Dr) 20 mg PO BID@0630,1630 [facility] Ondansetron HCl (Ondansetron Hcl 4 Mg/2 Ml Vial) 4 mg IVPUSH Q4H PRN PRN Reason: Nausea and Vomiting Last Admin: 11/28/21 09:00 Dose: 4 mg Documented By: DIANA Pharmacy Consult (Consult Rx Etoh Phenob Po Only) 1 each MISCELLANE ONCE PRN; Protocol PRN Reason: Consult order Prazosin HCl (Prazosin Hcl 1 Mg Capsule) 4 mg PO BEDTIME [facility]; Protocol Last Admin: 11/27/21 20:48 Dose: 4 mg Documented By: SARAHY Sodium Chloride (0.9 % Sodium Chloride Flush 3 Ml Syringe) 3 ml IVFLUSH QSHIFT [facility] Last Admin: 11/28/21 09:01 Dose: 3 ml Documented By: DIANA Sodium Chloride (0.9 % Sodium Chloride Flush 10 Ml Syringe) 5 ml IVFLUSH TID [facility] Last Admin: 11/28/21 09:01 Dose: 5 ml Documented By: DIANA Sucralfate (Sucralfate Oral Suspension 1 Gm/10 Ml Oral.Susp) 1 gm PO QIDACHS [facility] Last Admin: 11/28/21 11:40 Dose: 1 gm Documented By: DIANA Trazodone HCl (Trazodone Hcl 100 Mg Tablet) 100 mg PO BEDTIME PRN PRN Reason: Insomnia Last Admin: 11/27/21 22:09 Dose: 100 mg Documented By: SARAHY Labs CBC & Chem 7: 11/28/21 05:58 11/28/21 05:58 Labs: Laboratory Results - last 24 hr 11/27/21 11/27/21 11/28/21 16:09 20:32 05:58 MCV 86.7 MCH 27.8 MCHC 32.1 RDW 14.6 Plt Count 417 H MPV 9.9 Absolute Nucleated RBC 0.000 Nucleated RBC % (auto) 0.0 Anion Gap Estim Creat Clear Calc Estimated GFR POC Glucose 117 H 129 H Fasting Glucose Calcium Total Bilirubin Direct Bilirubin AST ALT Alkaline Phosphatase Total Protein Albumin 11/28/21 11/28/21 11/28/21 05:58 07:42 11:08 MCV MCH MCHC RDW Plt Count MPV Absolute Nucleated RBC Nucleated RBC % (auto) Anion Gap 17 Estim Creat Clear Calc 188.8 Estimated GFR > 60 POC Glucose 120 H 134 H Fasting Glucose 112 H Calcium 9.2 Total Bilirubin 0.3 Direct Bilirubin 0.2 AST 23 D ALT 45 H Alkaline Phosphatase 208 H Total Protein 6.9 Albumin 3.8 Assessment and Plan (1) Acute alcoholic pancreatitis: Status: Acute Plan 26-year-old male with known history of ongoing alcohol abuse and history of pancreatitis presents from detox with diffuse mid epigastric pain nausea and vomiting. Initial CT scan in the emergency room consistent with acute pancreatitis. Presents with mild alcohol withdrawal in addition to pancreatitis Acute alcoholic pancreatitis repeat CT 11/19/21 showing worsening pancreatitis without abscess or necrosis TPN stopped 11/24/21, Tolerating more diet still have some pain and vomitting Change pain medication to p.o. Dilaudid Restart IV fluids hyperglycemia strong DM family history, a1c 5.7, likely preDM complicated by hyperglycemia from acute pancreatitis and TPN, can hopefully be diet controlled on discharge insulin sliding scale for now NSVT echo unremarkable Continue metoprolol cardio appreciated aspiration pnuemonia vs pneumonitis completed zosyn course Alcohol dependence with withdrawal phenobarb protocol completed.. Lovenox Full Code reason for continued hospitalization:awaiting tolerance of solid foods. Quality Stroke Does the patient have a stroke diagnosis?: No VTE Prior VTE?: No VTE Risk Level:: Medical - moderate - high VTE Device Contraindication: Treatment Not Indicated VTE Drug Contraindication: N/A - Med Ordered
[2021-11-28 15:41] VITALS: BP 113/64; PULSE 61; RESP 16; TEMP 36.4; O2SAT 98
[2021-11-28 16:08] LABS: Glucose, Whole Blood 105 mg/dL (60-115)
[2021-11-28 19:39] VITALS: BP 134/68; PULSE 67; RESP 18; TEMP 37.1; O2SAT 98
[2021-11-28 20:09] LABS: Glucose, Whole Blood 111 mg/dL (60-115)
[2021-11-28] MEDS: Prazosin HCL 1 MG CAPSULE 4 MG PO (21:32)
[2021-11-29] VITALS: BP 127/67; PULSE 79; RESP 18; TEMP 36.6; O2SAT 96
[2021-11-29 04:00] VITALS: BP 107/57; PULSE 72; RESP 18; TEMP 36.6; O2SAT 96
[2021-11-29] MEDS: Omeprazole 20 MG CAPSULE.DR PO ×2 (04:49→16:42)
[2021-11-29] MEDS: Lactated Ringers 1,000 ML 150 ML IVCONT (04:49)
[2021-11-29] MEDS: HYDROmorphone HCl 2 MG TABLET 1 MG PO ×4 (04:49→17:21)
[2021-11-29] MEDS: ALPRAZolam 0.25 MG TABLET 0.125 MG PO (04:57)
[2021-11-29 06:14] LABS: Hematocrit 37.4 % (42.0-52.0); Hemoglobin 12.4 g/dl (14.0-18.0); Mean Corpuscular HGB Conc 33.2 g/dl (31.0-36.0); Mean Corpuscular Hemoglobin 27.8 pg (27.0-33.0); Mean Corpuscular Volume 83.9 fL (80.0-98.0); PLT CLUMP 1; Red Blood Count 4.46 X10*6/uL (4.60-5.80); Red Cell Distribution Width 14.3 % (11.0-16.0)
[2021-11-29 06:30] LABS: Anion Gap 21 (12-20); Blood Urea Nitrogen 7 mg/dL (9-16); Calcium 9.4 mg/dL (8.4-10.2); Carbon Dioxide 20 mmol/L (22-29); Chloride 105 mmol/L (96-108); Creatinine Clr Calc Pharmacy 164.2; Estimated Glomerular Filt Rate > 60; Glucose Random 106 mg/dL (60-115); Sodium 141 mmol/L (135-145)
[2021-11-29 07:12] LABS: Platelet Count 365 X10*3/uL (160-400); White Blood Count 8.1 X10*3/uL (4.8-10.8)
[2021-11-29 07:17] VITALS: BP 126/77; PULSE 87; RESP 16; TEMP 36.9; O2SAT 98
[2021-11-29 07:28] LABS: Glucose, Whole Blood 114 mg/dL (60-115)
[2021-11-29] MEDS: Lactulose 20 GM/30 ML SOLUTION PO (08:12)
[2021-11-29] MEDS: lamoTRIgine 100 MG TABLET PO (08:12)
[2021-11-29] MEDS: Nicotine 7 MG PATCH.TD24 TRANSDERMA (08:12)
[2021-11-29] MEDS: Sucralfate Oral Suspension 1 GM/10 ML ORAL.SUSP PO ×3 (08:12→16:42)
[2021-11-29] MEDS: Gabapentin 400 MG CAPSULE 800 MG PO ×2 (08:12→16:42)
[2021-11-29] MEDS: Acamprosate Calcium 333 MG TABLET.DR 666 MG PO ×2 (08:13→16:42)
[2021-11-29] MEDS: Metoprolol Tartrate 25 MG TABLET PO (08:13)
[2021-11-29] MEDS: Insulin Glargine,Hum.rec.anlog 100 UNIT/ML 10 ML VIAL 10 UNIT SUBCUT (08:18)
[2021-11-29 09:14] LABS: Magnesium 1.9 mg/dL (1.6-2.6)
--- NOTE | 2021-11-29 10:13 | MHC.CM.PN ---
etienne dcd home today no skilled sercveis ordered by
[2021-11-29 12:00] VITALS: BP 120/70; PULSE 54; RESP 16; TEMP 36.9; O2SAT 98
--- NOTE | 2021-11-29 12:16 | PM.DS ---
DS: Providers Provider Date of Service: 11/29/21 Date of admission: 11/12/21 12:56 Primary care physician: Jt Forman MD Consults: 11/12/21 13:03 Consult to Gastroenterology Stat Consulting Provider: Kelley Yap Reason for consultation: Acute pancreatitis Has provider been notified: No 11/21/21 09:07 Consult to Cardiology Routine Consulting Provider: Luis Alfredo Whelan Reason for consultation: NSVT DS: Diagnosis Discharge Diagnosis (1) Acute alcoholic pancreatitis: Status: Acute (2) Pancreatitis: Status: Acute (3) Alcohol withdrawal: Status: Acute (4) Nonsustained ventricular tachycardia: Status: Acute (5) Aspiration pneumonia: Status: Acute DS: Summary Hospital Course Hospital Course: The patient had prolonged hospital stay. For full details please return to EMR. Admission note HPI 26-year-old male with known history of alcohol abuse and a history of past pancreatitis presents today with diffuse mid epigastric pain associated with nausea.? He also states that he is withdrawing from alcohol.? States he checked into detox last night but could not stay secondary to the worsening pain.? States last drink approximately 24-[address] scan in the emergency room consistent with acute pancreatitis.? Presents with mild alcohol withdrawal in addition to pancreatitis. Hospital course The patient was admitted to the hospital from detox facility with epigastric pain and vomiting. Symptoms were suggestive of pancreatitis as CT scan of the abdomen showed an evidence of acute pancreatitis. Treated mainly with IV fluid, pain medication and Zofran for nausea as he could not tolerate diet within 1st few days as pain worsens. repeat CT 11/19/21 showing worsening pancreatitis without abscess or necrosis. TPN was started for short-term until he became able to tolerate diet again which was advanced gradually over the course of hospital stay. Pain became better controlled on oral Dilaudid at the time of discharge as he continued to tolerate more diet. Advised complete abstinence from alcohol and to use Zofran as needed for nausea and Dilaudid as needed for pain. Treated with phenobarbital protocol for alcohol withdrawal. Reports he has a good support system outside the hospital. Noted to have aspiration pneumonia which was treated with IV Zosyn with good response as the patient on room air with no reported fever. Noted to have NSVT episodes diet which were evaluated by Cardiology as an echo was done showing no abnormalities. Recommended starting metoprolol 25 mg b.i.d. and to follow-up as outpatient with cardiology clinic. We advise you complete abstinence from alcohol Advance your diet slowly at home, multiple small meals Take metoprolol as prescribed Use Zofran as needed for nausea To follow-up with Dr. Whelan from Cardiology as outpatient Time Spent with Patient Time attestation: Total time spent providing and/or coordinating discharge services: Discharge coordination time: Greater than 30 minutes Quality: Safe Use of Opioids Does Pt have an Active Cancer Diagnosis on the Problem List?: No Quality: Stroke Does the patient have a stroke diagnosis?: No Physical Exam Vital Signs: Vital Signs: Last Vital Signs Temp 98.4 F 11/29/21 07:17 Pulse 87 11/29/21 07:17 Resp 16 11/29/21 07:17 BP 126/77 11/29/21 07:17 Pulse Ox 98 11/29/21 07:17 O2 Del Method 11/29/21 07:17 BMI result Body Mass Index 41.5 Const: Other: Constitutional : Alert, oriented, not in distress Neck : Normal inspection, Supple Cardiovascular : RRR, no JVP, no lower extremity edema Respiratory : fair bilateral air entry, no crackles, wheezes or rhonchi Gastrointestinal: soft, lax, Normal bowel sounds, no epigastric tenderness Skin : Warm, Dry Neurological : Alert & oriented x3, No focal deficit DS: Data Data Completed and Pending Labs on day of discharge: Laboratory Results - last 24 hr 11/28/21 11/28/21 11/29/21 15:43 20:06 06:02 WBC 8.1 RBC 4.46 L Hgb 12.4 L Hct 37.4 L MCV 83.9 MCH 27.8 MCHC 33.2 RDW 14.3 Plt Count 365 MPV Not Reportable Absolute Nucleated RBC 0.000 Nucleated RBC % (auto) 0.0 Sodium Potassium Chloride Carbon Dioxide Anion Gap BUN Creatinine Estim Creat Clear Calc Estimated GFR POC Glucose 105 111 Random Glucose Calcium Magnesium 11/29/21 11/29/21 06:02 07:20 WBC RBC Hgb Hct MCV MCH MCHC RDW Plt Count MPV Absolute Nucleated RBC Nucleated RBC % (auto) Sodium 141 Potassium 5.0 Chloride 105 Carbon Dioxide 20 L Anion Gap 21 H BUN 7 L Creatinine 0.92 Estim Creat Clear Calc 164.2 Estimated GFR > 60 POC Glucose 114 Random Glucose 106 Calcium 9.[address] scan - abdomen: Radiologist's impression: ITS Impressions Abdomen/Pelvis CT 11/12/21 10:54 IMPRESSION: 1. Moderate acute pancreatitis with mild free fluid, but no definitive organized fluid collection. No pancreatic ductal dilatation. 2. Hepatic steatosis. 3. Colonic findings are nonspecific and not acute, but can be seen as sequelae of prior colitis. Fleischner guidelines were followed. Chest CT 11/14/21 00:10 IMPRESSION: 1. Cause for the patient's hemoptysis has not been found. 2. New bilateral lower lobe atelectasis/consolidations with small pleural effusions, left greater than right. 3. Incidental note made once again of hepatic steatosis and pancreatitis. Fleischner guidelines were followed. Chest X-Ray 11/14/21 08:15 IMPRESSION: 1. Bilateral low lung volumes. 2. Slight accentuation of the pulmonary vasculature. 3. Small left pleural effusion. 4. Left basilar opacity which may represents subjacent atelectatic changes versus evolving infectious/inflammatory etiology. 5. Mild opacity involving the right medial lung base may represent atelectasis. Pulmonary Perfusion Imaging 11/14/21 09:40 IMPRESSION: Based on perfusion only modified PIOPED 2 criteria, pulmonary thromboembolism is considered to be absent. Abdomen/Pelvis CT 11/19/21 15:24 IMPRESSION: Worsening pancreatitis with increasing peripancreatic fluid collections. New left lower lobe pneumonia and small left pleural effusion. Fleischner guidelines were followed. Discharge Plan Discharge Patient Disposition: Home, Self-Care Discharge Diagnosis: Acute alcoholic pancreatitis Nonsustained ventricular tachycardia Alcohol withdrawal Referrals: Jt Forman MD [Primary Care Provider] - 1 Week Discharge Medications: New hydromorphone 2 mg Tablet 1 mg PO Q6-8H PRN (Reason: Pain, Severe (Pain Scale 7-10)) Qty: 10 0RF Rx Instructions: Partial Fill upon patient request. hydroxyzine HCl 25 mg Tablet 25 mg PO Q6H PRN (Reason: Anxiety) Qty: 20 0RF metoprolol tartrate 25 mg Tablet 25 mg PO BID 30 Days Qty: 60 0RF Protocol: Hold for SBP/HR < HOLD for SBP < : 90 HOLD for HR < : 60 ondansetron 4 mg tablet,disintegrating 4 mg PO Q8H PRN (Reason: nausea and vomiting) Qty: 14 0RF Continued famotidine [Heartburn Relief (famotidine)] 10 mg tablet 1 tab PO BID trazodone 50 mg tablet 100 mg PO BEDTIME PRN (Reason: Insomnia) ondansetron HCl 4 mg tablet 1 tab PO Q8H PRN (Reason: Nausea) gabapentin 400 mg capsule 2 cap PO TID pantoprazole 40 mg tablet,delayed release (DR/EC) 1 tab PO DAILY lamotrigine 100 mg tablet 1 tab PO BID prazosin 2 mg capsule 2 cap PO BEDTIME nicotine 7 mg/24 hr patch 24 hour 1 patch topical DAILY acamprosate 333 mg tablet,delayed release (DR/EC) 666 mg PO TID Discharge Orders: Discharge Order (Routine); Ordered 11/29/21 Ordered By: Patito Marion Diet: Advance to usual diet Activity on Discharge: As tolerated Stand Alone Forms: Patient Portal Discharge page Care Plan Goals: Read below Health Concerns: Read below Plan of Treatment: Read below Assessment: You were admitted to the hospital in for evaluation of abdominal pain. Images were consistent with acute pancreatitis. You were treated with IV fluid and pain medication with gradually advancing her diet over long course of hospital stay as she required TPN for short period of time. Pain better controlled with Dilaudid and smaller meals. You developed alcohol withdrawal requiring phenobarbital protocol with good response. We advise you complete abstinence from alcohol. Noted to have extra irregular beats. Evaluated by in shop service technician as an echo showed no abnormalities. Started on metoprolol with good response. We advise you complete abstinence from alcohol Advance your diet slowly at home, multiple small meals Take metoprolol as prescribed Use Zofran as needed for nausea To follow-up with Dr. Whelan from Cardiology as outpatient
--- NOTE | 2021-11-29 13:05 | PC.NURSE ---
pt had a 6 beat run of Vtach at 0820. Dr Marion made aware. Pt had an 11 beat run of Vtach at 0900. Dr Marion made aware and came to bedside. Electrolytes within range. Pt asymptomatic.
[2021-11-29] MEDS: Enoxaparin Sodium 40 MG/0.4 ML SYRINGE SUBCUT (13:17)
[2021-11-29 14:13] LABS: Glucose, Whole Blood 93 mg/dL (60-115)
[2021-11-29 14:14] LABS: Glucose, Whole Blood 104 mg/dL (60-115)
--- NOTE | 2021-11-29 14:50 | HO.REMOVAL ---
Removal of PICC/Midline Removal of PICC/Midline: Removal of PICC: 1. Date: 11/29/21 2. Reason removed: per request, no longer needed 3. Inserted length: 45 cm 4. Removed length: functional, intact, double lumen, 5-fr, 45 cm 5. A gauze dressing was placed over the site upon removal. No edema or bleeding at the site.
[2021-11-29 15:52] VITALS: BP 147/102; PULSE 88; RESP 18; TEMP 37.2; O2SAT 98
[2021-11-29 15:54] LABS: Glucose, Whole Blood 112 mg/dL (60-115)
== END 2021-11-29 17:40 | disposition home or self-care (01) | DRG 282 ==
LOC: HO.ED 13:09 → HO.EDOVER 13:53 → HO.S3 11-13 22:02 → HO.IMC 11-13 23:05
PROVIDERS: Internal Medicine; Physician Assistant; Admitting Provider Hospitalist; Emergency Provider Emergency Medicine; PCP Internal Medicine; Visit Provider Student in an Organized Health Care Education/Training Program
DX: K85.20 Alcohol induced acute pancreatitis without necrosis or infection (principal); J69.0 Pneumonitis due to inhalation of food and vomit; R65.10 Systemic inflammatory response syndrome (SIRS) of non-infectious origin without acute organ dysfunction; E87.1 Hypo-osmolality and hyponatremia; I47.1 Supraventricular tachycardia; E86.1 Hypovolemia; R73.03 Prediabetes; F10.239 Alcohol dependence with withdrawal, unspecified; F17.210 Nicotine dependence, cigarettes, uncomplicated; L03.113 Cellulitis of right upper limb; Z20.822 Contact with and (suspected) exposure to COVID-19; Z71.6 Tobacco abuse counseling; Z79.899 Other long term (current) drug therapy
CPT/HCPCS: 36410; 36415; 36573; 71045; 71250; 74176; 74177; 78580; 80048; 80053; 80076; 80184; 82040; 82077; 82550; 82947; 83036; 83605; 83690; 83735; 84100; 84478; 84484; 85014; 85018; 85025; 85027; 85379; 85610; 85730; 87040; 87635; 93005; 93306; 96361; 96374; 96375; 99285; A9540; C1751; J0690; J1170; J1650; J1885; J2270; J2405; J2543; J2560; J3360; Q9957; Q9967

== ENCOUNTER 2022-10-29 15:49 | Inpatient (IN) | payer OTHER, SELFPAY ==
--- NOTE | ~2022-10-29 | CT_ITS ---
EXAMINATION: CT ABDOMEN AND PELVIS WITH CONTRAST CLINICAL INFORMATION: Persistent abdominal pain. COMPARISON: Abdominal ultrasound dated 10/31/2022. CT abdomen/pelvis dated 10/29/2022. TECHNIQUE: Multidetector volumetric images were obtained from the superior aspect of the liver through the pubic symphysis following administration 85 mL of Omnipaque 350 intravenous contrast. Sagittal and coronal reformatted images were obtained on the technologist's workstation. Oral contrast: No This CT examination was performed using dose optimization techniques as appropriate, variously including the following: *Automated exposure control *Adjustment of mA and/or kV according to patient size (this includes techniques or standardized protocols for targeted exams where dose is matched to indication/reason for exam; i.e. extremities or head) *Use of iterative reconstruction technique DLP: 661 mGy-cm FINDINGS: LUNG BASES: Redemonstration of minimal opacities within the right lung base which appears similar when compared to the prior examination and could represent an early infectious or inflammatory process. LIVER, GALLBLADDER, AND BILIARY TREE: The liver is normal in size, shape, and attenuation. No focal hepatic lesion or biliary ductal dilatation is present. The gallbladder is unremarkable with no evidence of radiopaque gallstones, gallbladder wall thickening, or obvious pericholecystic inflammatory changes. PANCREAS: Atrophic. Redemonstration of a pancreatic tail cyst measuring up to 2.9 x 2.3 cm, not significantly changed. No new pancreatic parenchymal lesion or inflammatory change. SPLEEN: Unremarkable. ADRENAL GLANDS: Unremarkable. KIDNEYS AND URETERS: The kidneys are normal in size, shape, and attenuation. No hydronephrosis, hydroureter, or calculi seen. No perinephric stranding. BLADDER: Unremarkable. GASTROINTESTINAL TRACT: Circumferential rectal wall thickening, similar when compared to the prior examination. No extraluminal air or organized fluid collection to suggest leak or perforation. No new bowel wall thickening or inflammatory change. No small or large bowel obstruction. Appendix not visualized. Moderate stool again noted within the colon. PERITONEAL CAVITY: No intra-abdominal mass or fluid collection. No free air or free fluid. ABDOMINAL WALL: No significant hernia is appreciated. LYMPH NODES: No significant lymphadenopathy. VASCULAR: Unremarkable. PELVIC VISCERA: The prostate and seminal vesicles are unremarkable. OSSEOUS STRUCTURES: Unremarkable. CT/CT abdomen pelvis w IV con IMPRESSION: 1. Circumferential rectal wall thickening, similar when compared to the prior examination. No extraluminal air or organized fluid collection to suggest leak or perforation. No new bowel wall thickening or inflammatory change. No small or large bowel obstruction. Moderate stool throughout the colon. 2. No new intra-abdominal mass, lymphadenopathy, or ascites. 3. Stable pancreatic tail cyst, not significantly changed. No new pancreatic parenchymal lesion or inflammatory change. 4. Minimal opacities within the right lung base, similar when compared to the prior examination and could represent an early infectious or inflammatory process. Fleischner guidelines were followed.
--- NOTE | ~2022-10-29 | CT_ITS ---
EXAMINATION: CT ABDOMEN AND PELVIS WITH CONTRAST CLINICAL INFORMATION: Epigastric pain. History of pancreatitis COMPARISON: CT abdomen pelvis 11/19/2021 TECHNIQUE: Multidetector volumetric images were obtained from the superior aspect of the liver through the pubic symphysis following administration 85 mL of Omnipaque 350 intravenous contrast. Sagittal and coronal reformatted images were obtained on the technologist's workstation. Oral contrast: No This CT examination was performed using dose optimization techniques as appropriate, variously including the following: *Automated exposure control *Adjustment of mA and/or kV according to patient size (this includes techniques or standardized protocols for targeted exams where dose is matched to indication/reason for exam; i.e. extremities or head) *Use of iterative reconstruction technique DLP: 710 mGy-cm FINDINGS: LUNG BASES: The visualized lung bases are unremarkable. LIVER, GALLBLADDER, AND BILIARY TREE: The liver is normal in size, shape, and attenuation. No focal hepatic lesion or biliary ductal dilatation is present. The gallbladder is unremarkable with no evidence of radiopaque gallstones, gallbladder wall thickening, or obvious pericholecystic inflammatory changes. PANCREAS: Well-defined 3 x 2.5 cm cyst at the tail the pancreas. Density measurement 7 Hounsfield units, simple fluid. No surrounding inflammation. No pancreatic mass. No pancreatic duct dilatation. SPLEEN: Unremarkable. ADRENAL GLANDS: Unremarkable. KIDNEYS AND URETERS: The kidneys are normal in size, shape, and attenuation. No hydronephrosis, hydroureter, or calculi seen. No perinephric stranding. BLADDER: Unremarkable. GASTROINTESTINAL TRACT: Mild to moderate thickening of the distal sigmoid and rectum bowel wall. No surrounding edema in the mesenteric fat. This may be due to colitis. No bowel obstruction. Moderate volume of stool throughout the colon. The appendix is nonvisualized. Small bowel loops are normal. ABDOMINAL WALL: No significant hernia is appreciated. LYMPH NODES: Normal. VASCULAR: Unremarkable. PELVIC VISCERA: Unremarkable. OSSEOUS STRUCTURES: Unremarkable. CT/CT abdomen pelvis w IV con IMPRESSION: 1. Mild to moderate thickening of the bowel wall of the distal sigmoid and rectum. This could be due to a colitis. 2. 3 x 2.5 cm simple cyst at the tail the pancreas. No evidence of acute inflammatory changes of pancreas. Fleischner guidelines were followed.
--- NOTE | ~2022-10-29 | US_ITS ---
EXAMINATION: US ABDOMEN LIMITED CLINICAL INFORMATION: Abdominal pain. COMPARISON: CT abdomen and pelvis dated 10/29/2022. TECHNIQUE: Real-time imaging of the right upper quadrant abdominal viscera. Imaging is somewhat limited due to overlapping bowel gas. FINDINGS: PANCREAS: Normal. LIVER: Normal. The liver is normal in size. The liver contour is normal. Parenchymal echogenicity is normal. No focal hepatic lesion. There is no intrahepatic biliary duct dilatation seen. GALLBLADDER: Normal. The gallbladder is physiologically distended without evidence of stones, sludge, polyps, wall thickening or pericholecystic fluid. COMMON BILE DUCT: Normal in caliber measuring 0.3 cm in diameter. RIGHT KIDNEY: Normal. No hydronephrosis. No renal calculi or focal parenchymal lesions. The kidney measures 10.7 cm in maximum dimension. FREE FLUID: None. US/US abdomen limited IMPRESSION: Unremarkable examination.
--- NOTE | 2022-10-29 16:14 | ED.GENADULT ---
HPI - General Adult General Chief complaint: Abdominal Pain Stated complaint: Trouble eating 4 days/abd pain Time Seen by Provider: 10/29/22 16:26 Source: patient Mode of arrival: ambulatory Limitations: no limitations History of Present Illness HPI narrative: 27-year-old male who presents emergency department for evaluation of abdominal pain, nausea, vomiting, weakness. Patient has a history of pancreatitis. He states that he used to drink significant on of alcohol but has had no alcohol to drink and 8-9 months. He states that over the past 3 days he has had pain in his upper abdomen and epigastric area. He states the pain is a constant punching like sensation with a sharp component which is 10/10. He states he has not been able to eat or drink over the past 10 days. Patient has had multiple episodes of vomiting per day with no blood in his emesis. He states he has had 1 loose bowel movement per day with no blood in the bowel movements or dark tarry stools. Patient states he is feeling weak, dizzy and lightheaded. He states this pain feels similar to his pancreatitis pain. He denied fever, chills, chest pain, shortness of breath. He has had nausea, vomiting and loose stools once a day. He denied frequency got urgency or dysuria Patient was admitted to the hospital from 11/12/2021 until 11/19/2021 alcohol withdrawal and acute pancreatitis with a lipase of 1558, pancreatitis on CT scan, he acquired TPN secondary to persistent pain, nausea and vomiting. Related Data Home Medications Medication Instructions Recorded Confirmed acamprosate 333 mg tablet,delayed 666 mg PO TID 11/12/21 11/12/21 release famotidine 10 mg tablet (Heartburn 1 tab PO BID 11/12/21 11/12/21 Relief (famotidine)) gabapentin 400 mg capsule 2 cap PO TID 11/12/21 11/12/21 lamotrigine 100 mg tablet 1 tab PO BID 11/12/21 11/12/21 nicotine 7 mg/24 hr daily 1 patch topical DAILY 11/12/21 11/12/21 transdermal patch ondansetron HCl 4 mg tablet 1 tab PO Q8H PRN Nausea 11/12/21 11/12/21 pantoprazole 40 mg tablet,delayed 1 tab PO DAILY 11/12/21 11/12/21 release prazosin 2 mg capsule 2 cap PO BEDTIME nightmares 11/12/21 11/12/21 trazodone 50 mg tablet 100 mg PO BEDTIME PRN Insomnia 11/12/21 11/16/21 Previous Rx's Medication Instructions Recorded hydromorphone 2 mg tablet 1 mg PO Q6-8H PRN Pain, Severe 11/29/21 (Pain Scale 7-10) #10 tabs hydroxyzine HCl 25 mg tablet 25 mg PO Q6H PRN Anxiety #20 tabs 11/29/21 metoprolol tartrate 25 mg tablet 25 mg PO BID 30 days #60 tabs 11/29/21 ondansetron 4 mg disintegrating 4 mg PO Q8H PRN nausea and 11/29/21 tablet vomiting #14 tabs Allergies Allergy/AdvReac Type Severity Reaction Status Date / Time No Known Allergies Allergy Unverified 10/29/22 16:15 Review of Systems Review of Systems: Yes all other systems are reviewed and are negative [facility] Past Medical History Attestation statement: The following information was validated with the patient. [facility] Narrative: Past medical history: See HPI, pancreatitis, alcohol withdrawal, alcohol use disorder. Surgical history: None Social history: Patient smokes 1/2 pack of cigarettes per day. He states he stop drinking alcohol 8 or 9 months prior. Denies drug use. Medical History No known health problems Nonsustained ventricular tachycardia Social History Social History Household Members: Family Housing: House Do you presently have visiting nurse or other home services: No Alcohol intake: former Patient Tobacco Use Status: Never used Tobacco Tobacco use type: Cigarette Cigarette Packs Per Day: 0.3 Cigarettes Per Day: 6.0 Years Smoked: 14 Smoked in Last 30 Days: Yes e-Cigarette/Vaping Use: Currently Using Second Hand Smoke Exposure: Yes Use of substances other than those prescribed or required for medical reasons: No Advance Directives: No Advance Directives Information Provided: No Nutrition Risks: No Nutritional Risk service: No Current occupational status: unemployed Physical Exam ED Vital Signs: Vital Signs - 24 hr 10/29/22 16:15 10/29/22 18:39 10/29/22 19:18 Temperature 96.8 F 98.3 F Pulse Rate 131 H 107 H 99 Respiratory Rate 20 18 17 Blood Pressure 77/58 L 103/73 111/73 Pulse Oximetry 96 98 95 Oxygen Delivery Method Room Air Room Air BMI result Body Mass Index 29.0 Const Other: Awake, alert, male patient, appears to be in distress secondary to his abdominal pain, answers all questions appropriately [facility] Head: Yes normal to inspection, Yes normocephalic and Yes atraumatic Ears: external ears normal General nose exam: Normal external nose present Face and sinus: Yes normal facial exam Mouth: Normal oral and palatal mucosa present Throat: Yes posterior oropharynx normal Eyes General: appearance normal, both eyes and all related structures Pupils: Equal, round and reactive pupils present Neck Neck: Yes normal visual inspection, Yes no lymphadenopathy, Yes trachea midline and Yes supple Chest Chest palpation & inspection: normal inspection of the chest and normal palpation of entire chest wall Resp Effort & Inspection: normal respiratory effort and able to speak in complete sentences Auscultation: clear to auscultation bilaterally Cardio Rate: regular rate Rhythm: regular rhythm Heart sounds: S1 normal heart sound present, S2 normal heart sound present and no murmurs GI Other: Patient's abdomen is soft, nondistended has normoactive bowel sounds, patient has moderate to severe epigastric and periumbilical tenderness with no rebound, no voluntary or involuntary guarding General: Yes no CVA tenderness Back/Spine/Pelvis Back: no CVA tenderness Skin General skin exam: no rashes or lesions noted Neuro Cranial nerves: Yes CN's II-XII intact bilaterally and Yes Equal, round and reactive pupils present Cognition (Neuro): normal cognition Motor exam (neuro): 5/5 motor strength present throughout Extrem General: Yes normal to inspection Psych Appearance: grossly normal Speech and movement: Normal speech and movement present Affect: normal affect Attitude: cooperative Course Course Course Narrative: This is a rapid medical exam: Additional HPI, ROS, PE not included below will be deferred to primary provider. Patient is a 27-year-old male with history of alcoholic pancreatitis, aspiration pneumonia, and nonsustained vtach presenting to the emergency department with complaint of nausea and vomiting for the past 3-4 days, last night developed severe abdominal pain. States has not drank any alcohol for the past 7-8 months. Took pantoprazole but was unable to keep it down. Took prazosin a few hours [employer]. Patient appears uncomfortable, abdomen soft, RUQ and LUQ TTP, normoactive bowel sounds. Plan: EKG, labs including cultures and lactic, UA; patient brought directly to room in main ED Medications Administered Generic Name Dose Route Start Last Admin Trade Name Katie PRN Reason Stop Dose Admin Hydromorphone HCl 0.5 mg 10/29/22 21:28 10/29/22 22:46 Hydromorphone Hcl 1 Mg/Ml Syringe IVPUSH 0.5 mg Q4H PRN Administration Pain, Severe (Pain Scale 7-10) Protocol Metronidazole 500 mg in 100 mls @ 100 mls/hr 10/29/22 23:00 10/29/22 23:49 Flagyl IV Infused Q8H MIRIAM Infusion Ceftriaxone Sodium 1 gm/ 50 mls @ 100 mls/hr 10/29/22 22:00 10/29/22 23:16 Sodium Chloride IV Infused Q24H MIRIAM Infusion Lactated Ringer's 1,000 mls @ 100 mls/hr 10/29/22 21:30 10/30/22 00:25 Lr IVCONT 100 mls/hr .Q10H MIRIAM Administration Ondansetron HCl 4 mg 10/29/22 21:28 10/29/22 22:47 Ondansetron Hcl 4 Mg/2 Ml Vial IVPUSH 4 mg Q8H PRN Administration Nausea and Vomiting Sodium Chloride 3 ml 10/30/22 00:00 10/30/22 00:35 0.9 % Sodium Chloride Flush 3 Ml Syringe IVFLUSH Not Given QSHIFT MIRIAM Discontinued Medications Generic Name Dose Route Start Last Admin Trade Name Katie PRN Reason Stop Dose Admin Hydromorphone HCl 1 mg 10/29/22 17:43 10/29/22 18:23 Hydromorphone Hcl 1 Mg/Ml Syringe IVPUSH 10/29/22 17:44 1 mg ONCE STA Administration Protocol Hydromorphone HCl 1 mg 10/29/22 20:15 10/29/22 20:22 Hydromorphone Hcl 1 Mg/Ml Syringe IVPUSH 10/29/22 20:16 1 mg ONCE STA Administration Protocol Hydromorphone HCl 1 mg 10/30/22 01:15 10/30/22 01:24 Hydromorphone Hcl 1 Mg/Ml Syringe IVPUSH 10/30/22 01:16 1 mg ONCE ONE Administration Protocol Lactated Ringer's 1,000 mls @ 999 mls/hr 10/29/22 17:45 10/29/22 20:18 Lr IV 10/29/22 18:45 Infused .Q1H1M MIRIAM Infusion Lactated Ringer's 1,000 mls @ 999 mls/hr 10/29/22 17:45 10/29/22 20:18 Lr IV 10/29/22 18:45 Infused .Q1H1M MIRIAM Infusion Iohexol 100 ml 10/29/22 18:24 10/29/22 18:24 Iohexol 350 Mg/Ml 100 Ml Infus..Btl IV 10/29/22 18:25 85 ml ONCE ONE Administration Ondansetron HCl 4 mg 10/29/22 17:43 10/29/22 18:23 Ondansetron Hcl 4 Mg/2 Ml Vial IVPUSH 10/29/22 17:44 4 mg ONCE ONE Administration Medical Decision Making Medical Decision Making MDM Narrative: 27-year-old male with history of alcohol use disorder, alcohol withdrawal and pancreatitis with last admission to the hospital 11/12/2021 with severe pancreatitis requiring TPN and prolonged admission, who presents emergency department for evaluation of severe, epigastric and periumbilical pain x3 days with nausea, vomiting, unable to eat or drink. Vital signs did reveal low blood pressure of 77/58 with an elevated pulse of 131. This is most likely related to volume depletion and dehydration from not eating and drinking over the past several days. Patient did have significant epigastric and periumbilical tenderness. The following tests were ordered CBC, CMP, lipase, PT/INR, lactic acid, urinalysis, blood cultures x2, CT abdomen pelvis with IV contrast. Patient was ordered to get lactated Ringer's x2 L, Dilaudid 1 mg IV and Zofran 4 mg IV. 2020: Patient's laboratory evaluation revealed a normal lipase and a non elevated lactic acid. Patient does have an elevation in his creatinine to 1.61 acute kidney injury most likely from his poor oral intake over the past [address] scan of the abdomen pelvis with IV contrast did not reveal any evidence for acute pancreatitis, patient does have a pancreatic cyst. There is [id number] for his sigmoid wall thickening consistent with colitis however he only has 1-2 loose stools per day. My concern is the patient is not eating and drinking and is continuing to have persistent pain-his pain is 7/10 after 1 dose of Dilaudid. I ordered a 2nd dose of Dilaudid 1 mg IV. I will discuss admission with the covering hospitalist. 2044: I did discuss the patient's presentation with the covering hospitalist, Dr. Agudelo and the patient will be admitted for further treatment. Differential Diagnosis Differential Diagnoses: The differential diagnosis associated with the presentation includes Differential diagnosis includes was not limited to pancreatitis, pancreatic necrosis, pancreatic phlegmon , dehydration, volume depletion Admission/Observation Consideration of admission/observation: Escalation of care including admission/observation considered Consult Healthcare Provider Management of the patient was discussed with: Hospitalist Lab Data MDM Lab Attestation statement: I reviewed the patient's lab results. My interpretation patient's laboratory evaluation: WBC was normal 10,400 with normal differential which is reassuring. Patient's H&H was normal 13.7 and 40.2. INR was normal 1.2. BUN was normal at 13 but INR is elevated at 1.61 consistent with acute kidney injury. Glucose elevated 153. Calcium elevated 10.7. LFTs were normal. Lipase was normal. 10/29/22 16:36 10/29/22 16:36 Labs: Lab Results 10/29/22 10/29/22 10/29/22 Range/Units 16:36 16:36 16:36 WBC 10.4 (4.8-10.8) X10*3/uL RBC 5.03 (4.60-5.80) X10*6/uL Hgb 13.7 L (14.0-18.0) g/dl Hct 40.2 L (42.0-52.0) % MCV 79.9 L (80.0-98.0) fL MCH 27.2 (27.0-33.0) pg MCHC 34.1 (31.0-36.0) g/dl RDW 13.0 (11.0-16.0) % Plt Count 275 (160-400) X10*3/uL MPV 9.7 (9.4-12.4) fL Immature Gran % (Auto) 0.3 (0.0-0.4) % Neut % (Auto) 64.0 (45-73) % Lymph % (Auto) 27.3 (20-40) % [place] % (Auto) 7.0 (2-11) % Eos % (Auto) 0.9 (0-4) % Baso % (Auto) 0.5 (0-2) % Lymph # (Auto) 2.8 (1.2-4.9) X10*3/uL [place] # (Auto) 0.7 (0.1-1.2) X10*3/uL Eos # (Auto) 0.1 (0.0-0.4) X10*3/uL Baso # (Auto) 0.1 (0.0-0.2) X10*3/uL Abs Immat Gran (auto) 0.03 (0.00-0.03) X10*3/uL Absolute Neuts (auto) 6.6 (2.0-8.3) x10*3/uL Absolute Nucleated RBC 0.000 (0.0-0.012) X10*3/uL Nucleated RBC % (auto) 0.0 (0.0-0.2) /100WBC PT 13.7 H (10.0-13.1) SEC INR 1.2 H (0.9-1.1) Sodium 138 (135-145) mmol/L Potassium 3.8 D (3.3-5.1) mmol/L Chloride 99 (96-108) mmol/L Carbon Dioxide 25 (22-29) mmol/L Anion Gap 18 (12-20) BUN 13 (9-16) mg/dL Creatinine 1.61 H (0.5-1.4) mg/dL Estim Creat Clear Calc 80.1 Estimated GFR 51 Random Glucose 153 H (60-115) mg/dL Lactic Acid (0.5-2.0) mmol/L Calcium 10.7 H D (8.4-10.2) mg/dL Total Bilirubin 0.7 (0.0-1.0) mg/dL AST 17 (5-37) U/L ALT 14 (0-40) U/L Alkaline Phosphatase 74 (39-117) U/L Total Protein 8.2 H (6.5-8.0) g/dL Albumin 4.9 (3.5-5.0) g/dL Lipase 45 (8-78) U/L Urine Color Urine Appearance Urine pH (5.0-9.0) Ur Specific [place] (1.005-1.025) Urine Protein (Neg-Trace) mg/dL Urine Glucose (UA) (Negative) mg/dL Urine Ketones (Negative) mg/dL Urine Blood (Negative) Urine Nitrite (Negative) Ur Leukocyte Esterase (Negative) Urine RBC (0-2) /HPF Urine WBC (0-5) /HPF Ur Squamous Epith Cells (0-2) /HPF Urine Bacteria (None Seen) Hyaline Casts (0-2) /LPF 10/29/22 10/29/22 Range/Units 16:36 18:41 WBC (4.8-10.8) X10*3/uL RBC (4.60-5.80) X10*6/uL Hgb (14.0-18.0) g/dl Hct (42.0-52.0) % MCV (80.0-98.0) fL MCH (27.0-33.0) pg MCHC (31.0-36.0) g/dl RDW (11.0-16.0) % Plt Count (160-400) X10*3/uL MPV (9.4-12.4) fL Immature Gran % (Auto) (0.0-0.4) % Neut % (Auto) (45-73) % Lymph % (Auto) (20-40) % [place] % (Auto) (2-11) % Eos % (Auto) (0-4) % Baso % (Auto) (0-2) % Lymph # (Auto) (1.2-4.9) X10*3/uL [place] # (Auto) (0.1-1.2) X10*3/uL Eos # (Auto) (0.0-0.4) X10*3/uL Baso # (Auto) (0.0-0.2) X10*3/uL Abs Immat Gran (auto) (0.00-0.03) X10*3/uL Absolute Neuts (auto) (2.0-8.3) x10*3/uL Absolute Nucleated RBC (0.0-0.012) X10*3/uL Nucleated RBC % (auto) (0.0-0.2) /100WBC PT (10.0-13.1) SEC INR (0.9-1.1) Sodium (135-145) mmol/L Potassium (3.3-5.1) mmol/L Chloride (96-108) mmol/L Carbon Dioxide (22-29) mmol/L Anion Gap (12-20) BUN (9-16) mg/dL Creatinine (0.5-1.4) mg/dL Estim Creat Clear Calc Estimated GFR Random Glucose (60-115) mg/dL Lactic Acid 1.1 (0.5-2.0) mmol/L Calcium (8.4-10.2) mg/dL Total Bilirubin (0.0-1.0) mg/dL AST (5-37) U/L ALT (0-40) U/L Alkaline Phosphatase (39-117) U/L Total Protein (6.5-8.0) g/dL Albumin (3.5-5.0) g/dL Lipase (8-78) U/L Urine Color Dark Yellow Urine Appearance Cloudy Urine pH 6.0 (5.0-9.0) Ur Specific [place] 1.020 (1.005-1.025) Urine Protein 100 (2+) H (Neg-Trace) mg/dL Urine Glucose (UA) Negative (Negative) mg/dL Urine Ketones Trace (Negative) mg/dL Urine Blood Negative (Negative) Urine Nitrite Negative (Negative) Ur Leukocyte Esterase Trace H (Negative) Urine RBC 0-2 (0-2) /HPF Urine WBC 0-5 (0-5) /HPF Ur Squamous Epith Cells 3-5 (0-2) /HPF Urine Bacteria None Seen (None Seen) Hyaline Casts >20 (0-2) /LPF Independent Interpretation I performed an independent interpretation of an: EKG Interpretation: My independent interpretation the patient's 12 EKG done at 16:20 hours is as follows: Sinus tachycardia with a rate of 105, borderline prolonged TX interval of 200 milliseconds, normal QRS duration and QTC interval, no ST segment elevation, no ST segment depression, no T-wave abnormalities, no PACs, no PVCs Radiology Impression Discussion of test interpretation with radiology: I have reviewed the radiologist's reading. Radiologist Impression: CT abdomen pelvis w IV con IMPRESSION: 1. Mild to moderate thickening of the bowel wall of the distal sigmoid and rectum. This could be due to a colitis. 2. 3 x 2.5 cm simple cyst at the tail the pancreas. No evidence of acute inflammatory changes of pancreas. Fleischner guidelines were followed. Dictated By:Karthik Vargas MD External Record Review External record reviewed: Inpatient record Discharge Plan Discharge Clinical Impression: Colitis, Acute kidney injury, Acute dehydration Abdominal pain Qualifiers: Abdominal location: epigastric Qualified Code(s): R10.13 - Epigastric pain Vomiting Qualifiers: Vomiting type: unspecified Nausea presence: with nausea Qualified Code(s): R11.2 - Nausea with vomiting, unspecified Patient Disposition: Admitted As Inpatient
[2022-10-29 16:15] VITALS: BP 77/58; PULSE 131; RESP 20; TEMP 36; O2SAT 96; BMI 29.0
--- NOTE | 2022-10-29 16:17 | ECG_ITS ---
Test Reason : ABDOMINAL PAIN Blood Pressure : / mmHG Vent. Rate : 105 BPM Atrial Rate : 105 BPM P-R Int : 200 ms QRS Dur : 082 ms QT Int : 334 ms P-R-T Axes : 066 016 060 degrees QTc Int : 441 ms Sinus tachycardia Otherwise normal ECG When compared with ECG of 14-NOV-2021 11:59, No significant change was found Referred By: Leah Alonso Electronically Signed By:PHILIP ZARAGOZA MD
[2022-10-29 16:41] LABS: MANUAL DIFF FLAG NO
[2022-10-29 16:44] LABS: Basophils Absolute Auto 0.1 X10*3/uL (0.0-0.2); Basophils Percent Auto 0.5 % (0-2); Eosinophils Absolute Auto 0.1 X10*3/uL (0.0-0.4); Eosinophils Percent Auto 0.9 % (0-4); Hematocrit 40.2 % (42.0-52.0); Hemoglobin 13.7 g/dl (14.0-18.0); Imm Gran Abs Auto 0.03 X10*3/uL (0.00-0.03); Imm Gran Pct Auto 0.3 % (0.0-0.4); Lymphocytes Absolute Auto 2.8 X10*3/uL (1.2-4.9); Lymphocytes Percent Auto 27.3 % (20-40); Mean Corpuscular HGB Conc 34.1 g/dl (31.0-36.0); Mean Corpuscular Hemoglobin 27.2 pg (27.0-33.0); Mean Corpuscular Volume 79.9 fL (80.0-98.0); Mean Platelet Volume 9.7 fL (9.4-12.4); Monocytes Absolute Auto 0.7 X10*3/uL (0.1-1.2); Neutrophils Absolute Auto 6.6 x10*3/uL (2.0-8.3); Platelet Count 275 X10*3/uL (160-400); Red Blood Count 5.03 X10*6/uL (4.60-5.80); White Blood Count 10.4 X10*3/uL (4.8-10.8)
[2022-10-29 16:57] LABS: Lactic Acid 1.1 mmol/L (0.5-2.0)
[2022-10-29 16:59] LABS: INTERNATIONAL NORM RATIO 1.2 (0.9-1.1); Prothrombin Time 13.7 SEC (10.0-13.1)
[2022-10-29 17:03] LABS: Alanine Aminotransferase 14 U/L (0-40); Albumin Level 4.9 g/dL (3.5-5.0); Alkaline Phosphatase 74 U/L (39-117); Anion Gap 18 (12-20); Aspartate Amino Transferase 17 U/L (5-37); Bilirubin Total 0.7 mg/dL (0.0-1.0); Blood Urea Nitrogen 13 mg/dL (9-16); Calcium 10.7 mg/dL (8.4-10.2); Carbon Dioxide 25 mmol/L (22-29); Chloride 99 mmol/L (96-108); Creatinine Clr Calc Pharmacy 80.1; Estimated Glomerular Filt Rate 51; Glucose Random 153 mg/dL (60-115); Lipase 45 U/L (8-78); Potassium 3.8 mmol/L (3.3-5.1); Sodium 138 mmol/L (135-145); Total Protein 8.2 g/dL (6.5-8.0)
[2022-10-29] MEDS: ondansetron HCL 4 MG/2 ML VIAL IVPUSH ×2 (18:23→22:47)
[2022-10-29] MEDS: HYDROmorphone HCl 1 MG/ML SYRINGE IVPUSH ×2 (18:23→20:22)
[2022-10-29] MEDS: iohexoL 350 MG/ML 100 ML INFUS..BTL IV (18:24)
[2022-10-29] MEDS: Lactated Ringers 1,000 ML 999 ML IV ×2 (18:31→19:05)
[2022-10-29 18:39] VITALS: BP 103/73; PULSE 107; RESP 18; O2SAT 98
[2022-10-29 18:50] LABS: Appearance Urine Cloudy; Color Urine Dark Yellow; Glucose Urine UA Negative (Negative); Leukocyte Esterase Urine Trace (Negative); Nitrite Urine Negative (Negative); UMIC TRIGGER UACC YES; Urine Blood Negative (Negative); Urine Ketones Trace mg/dL (Negative); Urine Protein 100 (2+) mg/dL (Neg-Trace)
[2022-10-29 19:02] LABS: Bacteria Urine None Seen (None Seen); Hyaline Casts Urine >20 /LPF (0-2); RBC Urine 0-2 /HPF (0-2); WBC Urine 0-5 /HPF (0-5)
--- NOTE | 2022-10-29 19:08 | PC.NURSE ---
assumed care of patient at 1900 - pt resting comfortably on stretcher in no apparent distress. pt reports pain went to 6/10 from 10/10 after Dilaudid administration. second LR rony perez. needs met, call faye within reach, will CTM
[2022-10-29 19:18] VITALS: BP 111/73; PULSE 99; RESP 17; TEMP 36.8; O2SAT 95
--- NOTE | 2022-10-29 21:30 | PM.IMHP ---
History of Present Illness Date of Service: 10/29/22 Chief Complaint: abdominal 27-year-old male with history of alcohol abuse last drink 8 months ago presents the hospital with complaints of abdominal pain. Abdominal pain started 3 days ago, localized to the periumbilical region all the way to epigastric. Nonradiating, constant, 8/10, associated with poor oral intake, nausea vomiting, diarrhea, no blood in the vomitus or diarrhea. No fever but has chills, no chest pain, no urinary symptoms and no lower extremity edema. Patient denies drinking any alcohol recently. On arrival to the ED patient hemodynamically stable with slightly elevated heart rate Labs are significant for WBC count of 10.4, hemoglobin of 13.7, creatinine of 1.61 with a baseline less than 1, UA negative, Abdominal pelvic CT shows possible colitis in the sigmoid colon lipase negative, no acute pancreatitis on CT imaging patient has intractable abdominal pain will be admitted for further manage Review of Systems Review of Systems: Yes all other systems are reviewed and are negative [facility] Medical History No known health problems Nonsustained ventricular tachycardia Social History Household Members: Family Housing: House Do you presently have visiting nurse or other home services: No Alcohol intake: former Patient Tobacco Use Status: Never used Tobacco Tobacco use type: Cigarette Cigarette Packs Per Day: 0.3 Cigarettes Per Day: 6.0 Years Smoked: 14 Smoked in Last 30 Days: Yes e-Cigarette/Vaping Use: Currently Using Second Hand Smoke Exposure: Yes Use of substances other than those prescribed or required for medical reasons: No Advance Directives: No Advance Directives Information Provided: No Nutrition Risks: No Nutritional Risk service: No Current occupational status: unemployed Meds Allergies Allergy/AdvReac Type Severity Reaction Status Date / Time No Known Allergies Allergy Unverified 10/29/22 16:15 Home Medications Medication Instructions Recorded Confirmed Last Taken Type acamprosate 333 mg tablet,delayed 666 mg PO TID 11/12/21 11/12/21 11/10/21 History release famotidine 10 mg tablet (Heartburn 1 tab PO BID 11/12/21 11/12/21 11/10/21 History Relief (famotidine)) gabapentin 400 mg capsule 2 cap PO TID 11/12/21 11/12/21 11/10/21 History lamotrigine 100 mg tablet 1 tab PO BID 11/12/21 11/12/21 11/10/21 History nicotine 7 mg/24 hr daily 1 patch topical DAILY 11/12/21 11/12/21 11/10/21 History transdermal patch ondansetron HCl 4 mg tablet 1 tab PO Q8H PRN Nausea 11/12/21 11/12/21 11/10/21 History pantoprazole 40 mg tablet,delayed 1 tab PO DAILY 11/12/21 11/12/21 11/10/21 History release prazosin 2 mg capsule 2 cap PO BEDTIME nightmares 11/12/21 11/12/21 11/10/21 History trazodone 50 mg tablet 100 mg PO BEDTIME PRN Insomnia 11/12/21 11/16/21 11/10/21 History Physical Exam Vital Signs and Narrative: Vital Signs: Last Vital Signs Temp 98.3 F 10/29/22 19:18 Pulse 99 10/29/22 19:18 Resp 17 10/29/22 19:18 BP 111/73 10/29/22 19:18 Pulse Ox 95 10/29/22 19:18 O2 Del Method Room Air 10/29/22 19:18 BMI result Body Mass Index 29.0 Const: General: cooperative and no acute distress Orientation/consciousness: patient oriented x3 Eyes: General: appearance normal, both eyes and all related structures Resp: Effort & Inspection: normal respiratory effort Auscultation: clear to auscultation bilaterally Cardio: Rate: regular rate Rhythm: regular rhythm GI: Other: tenderness around the epigastric area as well as periumbilical, patient also has guarding, Palpation (GI): Soft to palpation Auscultation: normal bowel sounds Skin: General skin exam: no rashes or lesions noted Neuro: General: patient oriented x3 Cognition (Neuro): normal cognition Extrem: General: Yes normal to inspection and Yes no pedal edema Results Labs 10/29/22 16:36 10/29/22 16:36 Labs: Laboratory Results - last 24 hr 10/29/22 10/29/22 10/29/22 16:36 16:36 16:36 MCV 79.9 L MCH 27.2 MCHC 34.1 RDW 13.0 Plt Count 275 MPV 9.7 Immature Gran % (Auto) 0.3 Neut % (Auto) 64.0 Lymph % (Auto) 27.3 [place] % (Auto) 7.0 Eos % (Auto) 0.9 Baso % (Auto) 0.5 Lymph # (Auto) 2.8 [place] # (Auto) 0.7 Eos # (Auto) 0.1 Baso # (Auto) 0.1 Abs Immat Gran (auto) 0.03 Absolute Neuts (auto) 6.6 Absolute Nucleated RBC 0.000 Nucleated RBC % (auto) 0.0 PT 13.7 H INR 1.2 H Anion Gap 18 Estim Creat Clear Calc 80.1 Estimated GFR 51 Random Glucose 153 H Lactic Acid Calcium 10.7 H D Total Bilirubin 0.7 AST 17 ALT 14 Alkaline Phosphatase 74 Total Protein 8.2 H Albumin 4.9 Lipase 45 Urine Color Urine Appearance Urine pH Ur Specific [place] Urine Protein Urine Glucose (UA) Urine Ketones Urine Blood Urine Nitrite Ur Leukocyte Esterase Urine RBC Urine WBC Ur Squamous Epith Cells Urine Bacteria Hyaline Casts 10/29/22 10/29/22 16:36 18:41 MCV MCH MCHC RDW Plt Count MPV Immature Gran % (Auto) Neut % (Auto) Lymph % (Auto) [place] % (Auto) Eos % (Auto) Baso % (Auto) Lymph # (Auto) [place] # (Auto) Eos # (Auto) Baso # (Auto) Abs Immat Gran (auto) Absolute Neuts (auto) Absolute Nucleated RBC Nucleated RBC % (auto) PT INR Anion Gap Estim Creat Clear Calc Estimated GFR Random Glucose Lactic Acid 1.1 Calcium Total Bilirubin AST ALT Alkaline Phosphatase Total Protein Albumin Lipase Urine Color Dark Yellow Urine Appearance Cloudy Urine pH 6.0 Ur Specific [place] 1.020 Urine Protein 100 (2+) H Urine Glucose (UA) Negative Urine Ketones Trace Urine Blood Negative Urine Nitrite Negative Ur Leukocyte Esterase Trace H Urine RBC 0-2 Urine WBC 0-5 Ur Squamous Epith Cells 3-5 Urine Bacteria None Seen Hyaline Casts >20 Imaging Radiologist's Impressions: Impressions Abdomen/Pelvis CT 10/29/22 18:25 IMPRESSION: 1. Mild to moderate thickening of the bowel wall of the distal sigmoid and rectum. This could be due to a colitis. 2. 3 x 2.5 cm simple cyst at the tail the pancreas. No evidence of acute inflammatory changes of pancreas. Fleischner guidelines were followed. Assessment and Plan (1) Abdominal pain: Qualifiers: Abdominal location: epigastric Qualified Code(s): R10.13 - Epigastric pain Status: Acute (2) Colitis: Status: Acute (3) Acute kidney injury: Status: Acute (4) Acute dehydration: Status: Acute (5) Vomiting: Qualifiers: Nausea presence: with nausea Vomiting type: unspecified Qualified Code(s): R11.2 - Nausea with vomiting, unspecified Status: Acute Plan this is a 27-year-old male past medical history of acute pancreatitis in 2021 presents the hospital with complaints abdominal pain found to have acute colitis # abdominal pain # acute colitis - has evidence of sigmoid colitis on CT scan, lipase negative, no evidence of pancreatitis - will treat with IV antibiotics, IV fluids, analgesics # MIGUEL ÁNGEL - likely prerenal secondary to dehydration - will treat with IV fluids, follow BMP # vomiting - secondary to above - antiemetics DVT prophylaxis: Early ambulation given patient's need for IV antibiotics and IV fluids patient require minimum 2 nights inpatient hospital stay for further manage Time Spent With Patient Time: Total time managing care of this patient today ____ minutes. Quality Stroke Does the patient have a stroke diagnosis?: No VTE Prior VTE?: No VTE Risk Level:: Medical - moderate - high VTE Device Contraindication: Treatment Not Indicated VTE Drug Contraindication: N/A - Med Ordered
[2022-10-29 21:36] VITALS: BP 100/67; PULSE 103; RESP 16; TEMP 36.7; O2SAT 98
[2022-10-29] MEDS: HYDROmorphone HCl 1 MG/ML SYRINGE 0.5 MG IVPUSH (22:46)
[2022-10-29] MEDS: cefTRIAXone sodium 1 GM in 0.9 % Sodium Chloride 50 ML IV (22:46)
[2022-10-29] MEDS: metroNIDAZOLE/NS 500 MG/100 ML PIGGYBACK 100 MG IV (22:47)
[2022-10-29 23:44] VITALS: BP 120/57; PULSE 95; RESP 16; TEMP 36.6; O2SAT 97
[2022-10-30] MEDS: Lactated Ringers 1,000 ML 100 ML IVCONT ×3 (00:25→17:19)
[2022-10-30] MEDS: HYDROmorphone HCl 1 MG/ML SYRINGE IVPUSH (01:24)
[2022-10-30] MEDS: HYDROmorphone HCl 1 MG/ML SYRINGE 0.5 MG IVPUSH ×6 (04:03→20:25)
[2022-10-30 06:00] VITALS: BP 96/55; PULSE 99; RESP 16; TEMP 36.7; O2SAT 99
[2022-10-30 07:51] LABS: Anion Gap 14 (12-20); Blood Urea Nitrogen 12 mg/dL (9-16); Calcium 9.4 mg/dL (8.4-10.2); Carbon Dioxide 24 mmol/L (22-29); Chloride 102 mmol/L (96-108); Creatinine Clr Calc Pharmacy 126.4; Estimated Glomerular Filt Rate > 60; Glucose Random 85 mg/dL (60-115); Potassium 3.9 mmol/L (3.3-5.1); Sodium 136 mmol/L (135-145)
[2022-10-30] MEDS: metroNIDAZOLE/NS 500 MG/100 ML PIGGYBACK 100 MG IV ×3 (07:51→22:42)
[2022-10-30] MEDS: Enoxaparin Sodium 40 MG/0.4 ML SYRINGE SUBCUT (07:52)
[2022-10-30] MEDS: ondansetron HCL 4 MG/2 ML VIAL IVPUSH ×2 (08:10→17:26)
[2022-10-30] MEDS: 0.9 % Sodium Chloride Flush 3 ML SYRINGE IVFLUSH ×2 (08:14→15:28)
--- NOTE | 2022-10-30 09:07 | PHA.MEDREC ---
Pharmacy Consult ? Medication Reconciliation Pharmacy has completed the medication reconciliation. Patient states he uses gabapentin 800 mg tid. He was on this dose previously and is using old meds for this dose at this time. He last filled rx for 600 mg tid but was increased after that was filled. Has not yet filled new rx with new dosing. States he has been unable to take meds orally for several days due to vomiting.
[2022-10-30 09:19] LABS: MANUAL DIFF FLAG NO
[2022-10-30 09:22] LABS: Basophils Percent Auto 0.5 % (0-2); Eosinophils Absolute Auto 0.2 X10*3/uL (0.0-0.4); Hematocrit 33.2 % (42.0-52.0); Hemoglobin 11.4 g/dl (14.0-18.0); Imm Gran Abs Auto 0.01 X10*3/uL (0.00-0.03); Imm Gran Pct Auto 0.1 % (0.0-0.4); Lymphocytes Absolute Auto 2.9 X10*3/uL (1.2-4.9); Lymphocytes Percent Auto 37.2 % (20-40); Mean Corpuscular HGB Conc 34.3 g/dl (31.0-36.0); Mean Corpuscular Hemoglobin 28.1 pg (27.0-33.0); Mean Platelet Volume 9.9 fL (9.4-12.4); Monocytes Absolute Auto 0.6 X10*3/uL (0.1-1.2); Monocytes Percent Auto 7.4 % (2-11); Neutrophils Absolute Auto 4.1 x10*3/uL (2.0-8.3); Neutrophils Percent Auto 52.8 % (45-73); Platelet Count 202 X10*3/uL (160-400); Red Blood Count 4.05 X10*6/uL (4.60-5.80); Red Cell Distribution Width 13.2 % (11.0-16.0); White Blood Count 7.7 X10*3/uL (4.8-10.8)
--- NOTE | 2022-10-30 09:38 | PC.NURSE ---
Pt currently resting on HB, watching television. Pt complaining of severe abdominal pain and requesting increased frequency of PRN for pain management. To contact via TT with request. Pt states improvement in nausea with PRN antiemetic. Plan for IP admit. AMANDATA
[2022-10-30 10:32] VITALS: BP 111/68; PULSE 96; RESP 16; TEMP 36.8; O2SAT 94
[2022-10-30] MEDS: Famotidine/PF 20 MG/2 ML VIAL IVPUSH (11:52)
[2022-10-30 11:53] VITALS: RESP 14
--- NOTE | 2022-10-30 12:52 | MHC.CM.PN ---
Met with patient in regards to discharge planning. Patient lives with his parents and sister, ambulates independently and had no services prior to coming to the hospital. No services anticipated to be needed because patient is not homebound. PCP verified. Copy of HCP obtained from [facility]. Patient received 2 Covid vaccines but no boosters. Patient's family will transport him home when medically stable. Continue to monitor for d/c needs.
[2022-10-30 14:03] VITALS: BP 137/64; PULSE 75; RESP 18; TEMP 36.3; O2SAT 99
[2022-10-30] MEDS: Nicotine 14 MG PATCH.TD24 TRANSDERMA (14:35)
[2022-10-30] MEDS: oxyCODONE HCl Immed Release 5 MG TABLET PO (17:25)
[2022-10-30 17:35] VITALS: BMI 29.8
--- NOTE | 2022-10-30 17:48 | P.PNIM_ITS ---
Subjective Subjective Date of Service: 10/30/22 Interval History: seen and examined this morning follow up for abdominal pain with question of colitis reporting significant central abdominal pain, pain medication not adequate no nausea or vomiting. no diarrhea Review of Systems Review of Systems: Yes all other systems are reviewed and are negative Constitutional Constitutional: Denies chills and Denies fever(s) ENT Ears, Nose, Mouth, and Throat: Denies dizziness Cardiovascular Cardiovascular: Denies chest pain, Denies palpitations and Denies dyspnea Respiratory Respiratory: Denies cough and Denies dyspnea Gastrointestinal Gastrointestinal: Reports abdominal pain, Denies diarrhea, Denies nausea and Denies vomiting Neurologic Neurologic: Denies dizziness Endocrine Endocrine: Denies palpitations Physical Exam Vital Signs: Vital Signs: Last Vital Signs Temp 97.4 F 10/30/22 14:03 Pulse 75 10/30/22 14:03 Resp 18 10/30/22 14:03 BP 137/64 10/30/22 14:03 Pulse Ox 99 10/30/22 14:03 O2 Del Method Room Air 10/30/22 14:03 BMI result Body Mass Index 29.8 Const: General: cooperative, healthy appearing, alert and awake Nutritional Appearance: average body habitus Orientation/consciousness: patient oriented x3 Resp: Effort & Inspection: normal respiratory effort, able to speak in complete sentences, no respiratory distress and no use of accessory muscles Auscultation: clear to auscultation bilaterally Cardio: Rate: regular rate Heart sounds: S1 normal heart sound present and S2 normal heart sound present GI: Inspection: No distended Palpation (GI): Soft to palpation, Tenderness to palpation present (GI) (mid lower abdomen, epigastrum ) and no guarding Neuro: General: patient oriented x3, moves all extremities and CN's II-XI intact bilaterally Extrem: General: Yes no pedal edema Objective Data Active Medications Acetaminophen (Acetaminophen 325 Mg Tablet) 650 mg PO Q6H PRN PRN Reason: Pain, Mild (Pain Scale 1-3) Enoxaparin Sodium (Enoxaparin Sodium 40 Mg/0.4 Ml Syringe) 40 mg SUBCUT Q24H [facility] Last Admin: 10/30/22 07:52 Dose: 40 mg Documented By: BRAYDEN Famotidine (Famotidine/Pf 20 Mg/2 Ml Vial) 20 mg IVPUSH DAILY [facility] Last Admin: 10/30/22 11:52 Dose: 20 mg Documented By: RIYA Gabapentin (Gabapentin 400 Mg Capsule) 800 mg PO TID [facility] Last Admin: 10/30/22 14:30 Dose: Not Given Hydromorphone HCl (Hydromorphone Hcl 1 Mg/Ml Syringe) 0.5 mg IVPUSH Q3H PRN; Protocol PRN Reason: Pain, Severe (Pain Scale 7-10) Last Admin: 10/30/22 15:28 Dose: 0.5 mg Documented By: MARK Metronidazole (Flagyl) 500 mg in 100 mls @ 100 mls/hr IV Q8H [facility] Last Infusion: 10/30/22 17:03 Dose: 0 mls/hr Documented By: DEIRDRE Ceftriaxone Sodium 1 gm/ (Sodium Chloride) 50 mls @ 100 mls/hr IV Q24H [facility] Last Infusion: 10/29/22 23:16 Dose: 0 mls/hr Documented By: RISHI Lactated Ringer's (Lr) 1,000 mls @ 100 mls/hr IVCONT .Q10H [facility] Last Admin: 10/30/22 17:19 Dose: 100 mls/hr Documented By: DEIRDRE Lorazepam (Lorazepam 0.5 Mg Tablet) 0.5 mg PO BID PRN PRN Reason: Anxiety Nicotine (Nicotine 14 Mg Patch.Td24) 14 mg TRANSDERMA DAILY [facility] Last Admin: 10/30/22 14:35 Dose: 14 mg Documented By: DEIRDRE Omeprazole (Omeprazole 20 Mg Capsule.) 20 mg PO DAILY@0630 [facility] Ondansetron HCl (Ondansetron Hcl 4 Mg/2 Ml Vial) 4 mg IVPUSH Q8H PRN PRN Reason: Nausea and Vomiting Last Admin: 10/30/22 17:26 Dose: 4 mg Documented By: DEIRDRE Oxycodone HCl (Oxycodone Hcl Immed Release 5 Mg Tablet) 5 mg PO Q6H PRN PRN Reason: Pain, Moderate(Pain Scale 4-6) Last Admin: 10/30/22 17:25 Dose: 5 mg Documented By: DEIRDRE Prazosin HCl (Prazosin Hcl 1 Mg Capsule) 6 mg PO BEDTIME [facility]; Protocol Sodium Chloride (0.9 % Sodium Chloride Flush 3 Ml Syringe) 3 ml IVFLUSH QSHIFT [facility] Last Admin: 10/30/22 15:28 Dose: 3 ml Documented By: MARK Trazodone HCl (Trazodone Hcl 100 Mg Tablet) 300 mg PO BEDTIME PRN PRN Reason: insomnia Labs 10/30/22 09:15 10/30/22 06:01 Labs: Laboratory Results - last 24 hr 10/29/22 10/30/22 10/30/22 18:41 06:01 09:15 MCV 82.0 MCH 28.1 MCHC 34.3 RDW 13.2 Plt Count 202 D MPV 9.9 Immature Gran % (Auto) 0.1 Neut % (Auto) 52.8 Lymph % (Auto) 37.2 [place] % (Auto) 7.4 Eos % (Auto) 2.0 Baso % (Auto) 0.5 Lymph # (Auto) 2.9 [place] # (Auto) 0.6 Eos # (Auto) 0.2 Baso # (Auto) 0.0 Abs Immat Gran (auto) 0.01 Absolute Neuts (auto) 4.1 Absolute Nucleated RBC 0.000 Nucleated RBC % (auto) 0.0 Anion Gap 14 Estim Creat Clear Calc 126.4 Estimated GFR > 60 Random Glucose 85 Calcium 9.4 D Urine Color Dark Yellow Urine Appearance Cloudy Urine pH 6.0 Ur Specific [place] 1.020 Urine Protein 100 (2+) H Urine Glucose (UA) Negative Urine Ketones Trace Urine Blood Negative Urine Nitrite Negative Ur Leukocyte Esterase Trace H Urine RBC 0-2 Urine WBC 0-5 Ur Squamous Epith Cells 3-5 Urine Bacteria None Seen Hyaline Casts >20 Assessment and Plan (1) Abdominal pain: Status: Acute Plan this is a 27-year-old male past medical history of acute pancreatitis in 2021 presents the hospital with complaints abdominal pain found to have acute colitis abdominal pain secondary to acute colitis has evidence of sigmoid colitis on CT scan, lipase negative, no evidence of pancreatitis no evidence of sepsis continue IV antibiotics, IV fluids, analgesics GI consult pending consider GI panel if further diarrhea MIGUEL ÁNGEL likely prerenal secondary to dehydration renal function improving with IVF tobacco dependence smoking cessation advised continue NRT mood continue home meds reports he does not take florinef. will d/c as blood pressure stable. DVT prophylaxis: Early ambulation attending - dr. mg requires ongoing inpatient management for persistent abdominal pain requiring IV analgesia, IV antibiotics, specialist evaluation Time Spent With Patient Time: Total time managing care of this patient today ____ minutes. Quality Stroke Does the patient have a stroke diagnosis?: No VTE Prior VTE?: No VTE Risk Level:: Medical - moderate - high VTE Device Contraindication: Treatment Not Indicated VTE Drug Contraindication: N/A - Med Ordered
[2022-10-30 19:22] VITALS: BP 120/64; PULSE 73; RESP 17; TEMP 36.2; O2SAT 98
[2022-10-30] MEDS: cefTRIAXone sodium 1 GM in 0.9 % Sodium Chloride 50 ML IV (22:07)
[2022-10-31] VITALS (8 sets, daily range): BP systolic 111–134; BP diastolic 57–78; PULSE 52–82; RESP 14–20; TEMP 36.2–36.6; O2SAT 97–100
[2022-10-31] MEDS: HYDROmorphone HCl 1 MG/ML SYRINGE 0.5 MG IVPUSH ×6 (04:17→21:56)
[2022-10-31] MEDS: metroNIDAZOLE/NS 500 MG/100 ML PIGGYBACK 100 MG IV (05:56)
[2022-10-31] MEDS: ondansetron HCL 4 MG/2 ML VIAL IVPUSH ×2 (06:22→17:01)
[2022-10-31] MEDS: Famotidine/PF 20 MG/2 ML VIAL IVPUSH (09:16)
[2022-10-31] MEDS: Nicotine 14 MG PATCH.TD24 TRANSDERMA (09:16)
[2022-10-31] MEDS: Enoxaparin Sodium 40 MG/0.4 ML SYRINGE SUBCUT (09:17)
[2022-10-31] MEDS: Lactated Ringers 1,000 ML 100 ML IVCONT ×2 (09:17→19:34)
[2022-10-31 09:23] LABS: Hematocrit 37.3 % (42.0-52.0); Hemoglobin 12.9 g/dl (14.0-18.0); Mean Corpuscular HGB Conc 34.6 g/dl (31.0-36.0); Mean Corpuscular Hemoglobin 27.9 pg (27.0-33.0); Mean Corpuscular Volume 80.7 fL (80.0-98.0); PLT CLUMP 1; Red Blood Count 4.62 X10*6/uL (4.60-5.80); Red Cell Distribution Width 13.1 % (11.0-16.0)
[2022-10-31 09:24] LABS: White Blood Count 6.7 X10*3/uL (4.8-10.8)
--- NOTE | 2022-10-31 10:53 | P.CNGI_ITS ---
History of Present Illness Data of Consult Service Date: 10/31/22 Requesting physician: She Estrada Primary Care Provider: Unknown Physician HPI Reason for consult: Colitis 27-year-old gentleman with past medical history of alcohol use disorder, multiple episodes of pancreatitis, who is currently admitted to the hospital for abdominal pain. History obtained from patient who states that around Thursday afternoon, he developed sudden onset of severe epigastric abdominal pain that radiates to his back is associated with nausea, vomiting and inability to tolerate p.o.. With this, subjective fevers, but no documented fevers. Does not report any chest pain, shortness of breath, or diarrhea. He also does not report any blood in stool. Last drink was almost 8 months ago. Does smoke cigarettes, up to half a pack a day. When he presented to the hospital, he was noted to be significantly dehydrated with biopsies of of hemoconcentration and MIGUEL ÁNGEL. Lipase was negative. Initial CT abdomen pelvis with contrast was negative for any pancreatic or peripancreatic inflammation. It did however show left-sided colon wall thickening. As above, patient does not report any diarrhea. On bedside evaluation, reports that pain and nausea is unchanged from the time of admission. Tried to have some crackers last night, which he also threw up. Review of Systems Review of Systems: Yes all other systems are reviewed and are negative PMFSH Past Medical History Medical History No known health problems Nonsustained ventricular tachycardia Social History Social History Household Members: Family Household Members Other:: parents Housing: House Do you presently have visiting nurse or other home services: No Unable to assess alcohol history related to: Unknown Alcohol intake: former Patient Tobacco Use Status: Never used Tobacco Tobacco use type: Cigarette Cigarette Packs Per Day: 0.3 Cigarettes Per Day: 6.0 Years Smoked: 14 e-Cigarette/Vaping Use: Currently Using Second Hand Smoke Exposure: Yes service: No Current occupational status: unemployed Meds Allergies Allergy/AdvReac Type Severity Reaction Status Date / Time No Known Allergies Allergy Unverified 10/29/22 16:15 Active Medications: Current Medications Acetaminophen (Acetaminophen 325 Mg Tablet) 650 mg PO Q6H PRN PRN Reason: Pain, Mild (Pain Scale 1-3) Enoxaparin Sodium (Enoxaparin Sodium 40 Mg/0.4 Ml Syringe) 40 mg SUBCUT Q24H [facility] Last Admin: 10/31/22 09:17 Dose: 40 mg Famotidine (Famotidine/Pf 20 Mg/2 Ml Vial) 20 mg IVPUSH DAILY [facility] Last Admin: 10/31/22 09:16 Dose: 20 mg Gabapentin (Gabapentin 400 Mg Capsule) 800 mg PO TID [facility] Last Admin: 10/31/22 09:16 Dose: Not Given Hydromorphone HCl (Hydromorphone Hcl 1 Mg/Ml Syringe) 0.5 mg IVPUSH Q3H PRN; Protocol PRN Reason: Pain, Severe (Pain Scale 7-10) Last Admin: 10/31/22 09:17 Dose: 0.5 mg Metronidazole (Flagyl) 500 mg in 100 mls @ 100 mls/hr IV Q8H [facility] Last Infusion: 10/31/22 07:01 Dose: Infused Ceftriaxone Sodium 1 gm/ (Sodium Chloride) 50 mls @ 100 mls/hr IV Q24H [facility] Last Infusion: 10/31/22 00:30 Dose: Infused Lactated Ringer's (Lr) 1,000 mls @ 100 mls/hr IVCONT .Q10H [facility] Last Admin: 10/31/22 09:17 Dose: 100 mls/hr Lorazepam (Lorazepam 0.5 Mg Tablet) 0.5 mg PO BID PRN PRN Reason: Anxiety Nicotine (Nicotine 14 Mg Patch.Td24) 14 mg TRANSDERMA DAILY [facility] Last Admin: 10/31/22 09:16 Dose: 14 mg Omeprazole (Omeprazole 20 Mg Capsule.Dr) 20 mg PO DAILY@0630 [facility] Last Admin: 10/31/22 04:57 Dose: Not Given Ondansetron HCl (Ondansetron Hcl 4 Mg/2 Ml Vial) 4 mg IVPUSH Q8H PRN PRN Reason: Nausea and Vomiting Last Admin: 10/31/22 06:22 Dose: 4 mg Oxycodone HCl (Oxycodone Hcl Immed Release 5 Mg Tablet) 5 mg PO Q6H PRN PRN Reason: Pain, Moderate(Pain Scale 4-6) Last Admin: 10/30/22 17:25 Dose: 5 mg Prazosin HCl (Prazosin Hcl 1 Mg Capsule) 6 mg PO BEDTIME [facility]; Protocol Last Admin: 10/30/22 21:44 Dose: Not Given Sodium Chloride (0.9 % Sodium Chloride Flush 3 Ml Syringe) 3 ml IVFLUSH QSHIFT [facility] Last Admin: 10/31/22 07:13 Dose: Not Given Trazodone HCl (Trazodone Hcl 100 Mg Tablet) 300 mg PO BEDTIME PRN PRN Reason: insomnia Home Medications Medication Instructions Recorded Confirmed Last Taken Type pantoprazole 40 mg tablet,delayed 1 tab PO DAILY@0630 11/12/21 10/30/22 11/10/21 History release docusate sodium 100 mg capsule 100 mg PO BID PRN Constipation 10/30/22 10/30/22 Unknown History fludrocortisone 0.1 mg tablet 0.1 mg PO DAILY 10/30/22 10/30/22 Unknown History gabapentin 400 mg capsule 800 mg PO TID 10/30/22 10/30/22 Unknown History lorazepam 0.5 mg tablet (Ativan) 0.5 mg PO BID PRN Anxiety 10/30/22 10/30/22 Unknown History nicotine 14 mg/24 hr daily 1 patch transdermal DAILY 10/30/22 10/30/22 Unknown History transdermal patch ondansetron 8 mg disintegrating 8 mg PO Q8H PRN nausea 10/30/22 10/30/22 Unknown History tablet prazosin 2 mg capsule 6 mg PO BEDTIME 10/30/22 10/30/22 Unknown History trazodone 100 mg tablet 300 mg PO BEDTIME PRN insomnia 10/30/22 10/30/22 Unknown History Physical Exam Vital Signs: Vital Signs: Last Vital Signs Temp 97.2 F 10/31/22 08:00 Pulse 74 10/31/22 08:00 Resp 16 10/31/22 08:00 BP 133/72 10/31/22 08:00 Pulse Ox 97 10/31/22 08:00 O2 Del Method Room Air 10/31/22 08:00 BMI result Body Mass Index 29.8 Gen appear: NAD HEENT: nonicteric, no cervical lymphadenopathy Chest: CTA CVS: Regular S1/S2 Abd: soft, tender, nondistended, bowel sounds + Ext: no peripheral edema Neuro: A/Ox3, noted to move all extremities spontaneously Psych: interacting appropriately Results Labs 10/31/22 09:11 10/30/22 06:01 Labs: Short CBC 10/31/22 Range/Units 09:11 WBC 6.7 (4.8-10.8) X10*3/uL Hgb 12.9 L (14.0-18.0) g/dl Hct 37.3 L (42.0-52.0) % Plt Count TNP Microbiology Microbiology Results: Microbiology 10/29/22 17:14 Blood - Venous Blood Culture - Preliminary No growth after 24 hours. 10/29/22 16:36 Blood - Venous Blood Culture - Preliminary No growth after 24 hours. Assessment and Plan (1) Abdominal pain: Qualifiers: Abdominal location: epigastric Qualified Code(s): R10.13 - Epigastric pain Status: Acute (2) Colitis: Status: Acute (3) Acute kidney injury: Status: Acute (4) Vomiting: Qualifiers: Nausea presence: with nausea Vomiting type: unspecified Qualified Code(s): R11.2 - Nausea with vomiting, unspecified Status: Acute Plan Although clinical description and exam consistent with recurrent episode of acute pancreatitis, normal lipase and CT abdomen arguing against. Potentially have a radiological labs, and therefore checking a repeat lipase and amylase level ( added on). Also recommend an ultrasound right upper quadrant rule out any gallstones/ biliary colic. He will also be set up for an upper endoscopy to r/o PUD, esophagitis/gastritis/duodenitis. While clinically, does not appear to have any s/sx to correlate with the CT findings of ? left-sided colitis, we will also add on a flexible sigmoidoscopy alongside for luminal evaluation. Plan: - LFTs, lipase and amylase added on - US Abd ordered - PO omeprazole switched to protonix IVP - EGD/flex sig today - Please keep NPO. Ariana's ordered Thank you for allowing me to participate in his care. Please do not hesitate to reach out for any questions or concerns. Time Spent With Patient Time: Total time managing care of this patient today ____ minutes. Procedures Date of Service Date of Service: 10/31/22
[2022-10-31] MEDS: Sodium Phosphate,Mono-Dibasic 133 ML ENEMA PR (12:46)
[2022-10-31 13:00] LABS: Amylase 98 U/L (28-100); Lipase 53 U/L (8-78)
--- NOTE | 2022-10-31 13:20 | MHC.CM.PN ---
Per MD rounds patient is not medically cleared for discharge. DP is home no services. Family will provide aride home.
--- NOTE | 2022-10-31 13:48 | P.CONAN_ITS ---
[facility] Active Problems Active Problems: All Active Problems (Updated 10/31/22 @ 13:32 by Michelle Romano) Aspiration pneumonia (Acute) Abdominal pain (Acute) Colitis (Acute) Acute kidney injury (Acute) Acute dehydration (Acute) Vomiting (Acute) Past Medical History Medical History No known health problems Nonsustained ventricular tachycardia Shoulder dislocation Surgical History History of Problems with Anesthesia: No Social History Social History Household Members: Family Household Members Other:: parents Housing: House Do you presently have visiting nurse or other home services: No Unable to assess alcohol history related to: Unknown Alcohol intake: former Patient Tobacco Use Status: Current everyday Tobacco user Tobacco use type: Cigarette Cigarette Packs Per Day: 0.3 Cigarettes Per Day: 9 Years Smoked: 14 e-Cigarette/Vaping Use: Currently Using Second Hand Smoke Exposure: Yes service: No Current occupational status: unemployed Meds Allergies Allergy/AdvReac Type Severity Reaction Status Date / Time No Known Allergies Allergy Verified 10/31/22 13:27 Active Medications: Current Medications Acetaminophen (Acetaminophen 325 Mg Tablet) 650 mg PO Q6H PRN PRN Reason: Pain, Mild (Pain Scale 1-3) Enoxaparin Sodium (Enoxaparin Sodium 40 Mg/0.4 Ml Syringe) 40 mg SUBCUT Q24H [facility] Last Admin: 10/31/22 09:17 Dose: 40 mg Famotidine (Famotidine/Pf 20 Mg/2 Ml Vial) 20 mg IVPUSH DAILY [facility] Last Admin: 10/31/22 09:16 Dose: 20 mg Gabapentin (Gabapentin 400 Mg Capsule) 800 mg PO TID [facility] Last Admin: 10/31/22 09:16 Dose: Not Given Hydromorphone HCl (Hydromorphone Hcl 1 Mg/Ml Syringe) 0.5 mg IVPUSH Q3H PRN; Protocol PRN Reason: Pain, Severe (Pain Scale 7-10) Last Admin: 10/31/22 12:33 Dose: 0.5 mg Metronidazole (Flagyl) 500 mg in 100 mls @ 100 mls/hr IV Q8H [facility] Last Infusion: 10/31/22 07:01 Dose: Infused Ceftriaxone Sodium 1 gm/ (Sodium Chloride) 50 mls @ 100 mls/hr IV Q24H [facility] Last Infusion: 10/31/22 00:30 Dose: Infused Lactated Ringer's (Lr) 1,000 mls @ 100 mls/hr IVCONT .Q10H [facility] Last Admin: 10/31/22 09:17 Dose: 100 mls/hr Lorazepam (Lorazepam 0.5 Mg Tablet) 0.5 mg PO BID PRN PRN Reason: Anxiety Nicotine (Nicotine 14 Mg Patch.Td24) 14 mg TRANSDERMA DAILY [facility] Last Admin: 10/31/22 09:16 Dose: 14 mg Ondansetron HCl (Ondansetron Hcl 4 Mg/2 Ml Vial) 4 mg IVPUSH Q8H PRN PRN Reason: Nausea and Vomiting Last Admin: 10/31/22 06:22 Dose: 4 mg Oxycodone HCl (Oxycodone Hcl Immed Release 5 Mg Tablet) 5 mg PO Q6H PRN PRN Reason: Pain, Moderate(Pain Scale 4-6) Last Admin: 10/30/22 17:25 Dose: 5 mg Pantoprazole Sodium (Pantoprazole Sodium 40 Mg/10 Ml Vial) 40 mg IVPUSH BID@0630,1630 [facility] Stop: 11/02/22 06:31 Prazosin HCl (Prazosin Hcl 1 Mg Capsule) 6 mg PO BEDTIME [facility]; Protocol Last Admin: 10/30/22 21:44 Dose: Not Given Sodium Biphosphate/Sodium Phosphate (Sodium Phosphate,[place]-Dibasic 133 Ml Enema) 133 ml SD ONCE [facility] Last Admin: 10/31/22 12:46 Dose: 133 ml Sodium Chloride (0.9 % Sodium Chloride Flush 3 Ml Syringe) 3 ml IVFLUSH QSHIFT [facility] Last Admin: 10/31/22 07:13 Dose: Not Given Trazodone HCl (Trazodone Hcl 100 Mg Tablet) 300 mg PO BEDTIME PRN PRN Reason: insomnia Home Medications Medication Instructions Recorded Confirmed Last Taken Type pantoprazole 40 mg tablet,delayed 1 tab PO DAILY@0630 11/12/21 10/30/22 11/10/21 History release docusate sodium 100 mg capsule 100 mg PO BID PRN Constipation 10/30/22 10/30/22 Unknown History fludrocortisone 0.1 mg tablet 0.1 mg PO DAILY 10/30/22 10/30/22 Unknown History gabapentin 400 mg capsule 800 mg PO TID 10/30/22 10/30/22 Unknown History lorazepam 0.5 mg tablet (Ativan) 0.5 mg PO BID PRN Anxiety 10/30/22 10/30/22 Unknown History nicotine 14 mg/24 hr daily 1 patch transdermal DAILY 10/30/22 10/30/22 Unknown History transdermal patch ondansetron 8 mg disintegrating 8 mg PO Q8H PRN nausea 10/30/22 10/30/22 Unknown History tablet prazosin 2 mg capsule 6 mg PO BEDTIME 10/30/22 10/30/22 Unknown History trazodone 100 mg tablet 300 mg PO BEDTIME PRN insomnia 10/30/22 10/30/22 Unknown History Exam Exam Date and Time: October 31, 2022 134 Height,Weight and Vital Signs: Height 5 ft 11 in Weight 97 kg Last Vital Signs Temp 97.9 F 10/31/22 13:28 Pulse 82 10/31/22 13:28 Resp 16 10/31/22 13:28 BP 134/78 10/31/22 13:28 Pulse Ox 100 10/31/22 13:28 O2 Del Method Room Air 10/31/22 13:28 Pertinent Lab Results Pertinent Lab Results: Laboratory Tests 10/29/22 10/29/22 10/29/22 16:36 16:36 16:36 WBC 10.4 RBC 5.03 Hgb 13.7 L Hct 40.2 L MCV 79.9 L MCH 27.2 MCHC 34.1 RDW 13.0 Plt Count 275 MPV 9.7 Immature Gran % (Auto) 0.3 Neut % (Auto) 64.0 Lymph % (Auto) 27.3 [place] % (Auto) 7.0 Eos % (Auto) 0.9 Baso % (Auto) 0.5 Lymph # (Auto) 2.8 [place] # (Auto) 0.7 Eos # (Auto) 0.1 Baso # (Auto) 0.1 Abs Immat Gran (auto) 0.03 Absolute Neuts (auto) 6.6 Absolute Nucleated RBC 0.000 Nucleated RBC % (auto) 0.0 PT 13.7 H INR 1.2 H Sodium 138 Potassium 3.8 D Chloride 99 Carbon Dioxide 25 Anion Gap 18 BUN 13 Creatinine 1.61 H Estim Creat Clear Calc 80.1 Estimated GFR 51 Random Glucose 153 H Lactic Acid Calcium 10.7 H D Total Bilirubin 0.7 AST 17 ALT 14 Alkaline Phosphatase 74 Total Protein 8.2 H Albumin 4.9 Amylase Lipase 45 Urine Color Urine Appearance Urine pH Ur Specific [place] Urine Protein Urine Glucose (UA) Urine Ketones Urine Blood Urine Nitrite Ur Leukocyte Esterase Urine RBC Urine WBC Ur Squamous Epith Cells Urine Bacteria Hyaline Casts 10/29/22 10/29/22 10/30/22 16:36 18:41 06:01 WBC RBC Hgb Hct MCV MCH MCHC RDW Plt Count MPV Immature Gran % (Auto) Neut % (Auto) Lymph % (Auto) [place] % (Auto) Eos % (Auto) Baso % (Auto) Lymph # (Auto) [place] # (Auto) Eos # (Auto) Baso # (Auto) Abs Immat Gran (auto) Absolute Neuts (auto) Absolute Nucleated RBC Nucleated RBC % (auto) PT INR Sodium 136 Potassium 3.9 Chloride 102 Carbon Dioxide 24 Anion Gap 14 BUN 12 Creatinine 1.02 Estim Creat Clear Calc 126.4 Estimated GFR > 60 Random Glucose 85 Lactic Acid 1.1 Calcium 9.4 D Total Bilirubin AST ALT Alkaline Phosphatase Total Protein Albumin Amylase 98 Lipase 53 Urine Color Dark Yellow Urine Appearance Cloudy Urine pH 6.0 Ur Specific [place] 1.020 Urine Protein 100 (2+) H Urine Glucose (UA) Negative Urine Ketones Trace Urine Blood Negative Urine Nitrite Negative Ur Leukocyte Esterase Trace H Urine RBC 0-2 Urine WBC 0-5 Ur Squamous Epith Cells 3-5 Urine Bacteria None Seen Hyaline Casts >20 10/30/22 10/31/22 09:15 09:11 WBC 7.7 6.7 RBC 4.05 L 4.62 Hgb 11.4 L 12.9 L Hct 33.2 L 37.3 L MCV 82.0 80.7 MCH 28.1 27.9 MCHC 34.3 34.6 RDW 13.2 13.1 Plt Count 202 D TNP MPV 9.9 Not Reportable Immature Gran % (Auto) 0.1 Neut % (Auto) 52.8 Lymph % (Auto) 37.2 [place] % (Auto) 7.4 Eos % (Auto) 2.0 Baso % (Auto) 0.5 Lymph # (Auto) 2.9 [place] # (Auto) 0.6 Eos # (Auto) 0.2 Baso # (Auto) 0.0 Abs Immat Gran (auto) 0.01 Absolute Neuts (auto) 4.1 Absolute Nucleated RBC 0.000 0.000 Nucleated RBC % (auto) 0.0 0.0 PT INR Sodium Potassium Chloride Carbon Dioxide Anion Gap BUN Creatinine Estim Creat Clear Calc Estimated GFR Random Glucose Lactic Acid Calcium Total Bilirubin AST ALT Alkaline Phosphatase Total Protein Albumin Amylase Lipase Urine Color Urine Appearance Urine pH Ur Specific [place] Urine Protein Urine Glucose (UA) Urine Ketones Urine Blood Urine Nitrite Ur Leukocyte Esterase Urine RBC Urine WBC Ur Squamous Epith Cells Urine Bacteria Hyaline Casts Airway Mallampati Class: II (globally poor dentition) TM Dist: >3cm Neck ROM: Full Loose/Missing/Broken Teeth: Yes, Upper and Lower Heart: RRR Lungs: CTA Assessment and Plan Assessment Anesthesia Assessment: Anesthesia Plan Discussed and Chart Reviewed Final Anesthetic Review History of Problems with Anesthesia: No NPO: Yes ASA Class: II Final Preanesthetic Review: Meds/Allgs Chart Reviewed, Consent Obtained/Reviewed and Anes Risks/Benef Reviewed Patient Risk: Low Procedure Risk: Intermediate Anesthetic Plan Anesthetic Plan: MAC: Disposition: Standard PACU
--- NOTE | 2022-10-31 14:38 | P.OP_ITS ---
Operative Note Operative Note Date of Service: 10/31/22 Narrative: Procedure:?Esophagogastroduodenoscopy and flexible sigmoidoscopy Endoscopist:?Madina Og MD Indication: Abdominal pain, colitis Anesthesia Provider:?Dr Allie Lemus Anesthesia Type:?MAC Instrument:?Olympus [id number]-[id number] EGD Procedure:?? The procedure, indications, preparation and potential complications were reviewed with the patient, who indicated understanding and gave written informed consent to proceed. A physical exam was performed. The endoscope was introduced through the mouth, and advanced to the second part of duodenum. The mucosa was carefully examined on slow withdrawal of the endoscope.? There were no immediate complications.? Patient tolerated the procedure well. EGD Findings:? * Esophagus:? Linear erosions measuring 1 cm long but not crossing over the mucosal folds. Z line is at 35 cm. * Stomach:? Patchy erythema in the fundus from vomiting remaining gastric mucosa is normal. Bulge in antrum suspected to be secondary to pancreatic cyst. Random cold forceps biopsies taken to rule out H pylori. * Duodenum:? Normal duodenal mucosa to the extent visualised.? Cold forceps biopsies were taken to rule out celiac disease. Flexible sigmoidoscopy Procedure:? The patient was then turned for the colonoscopy. A digital rectal exam was performed which was normal.? The gastroscope was then inserted through the anus and advanced through the colon to the transverse colon at 55 cm. Mucosa was carefully examined under high definition white light as the instrument was slowly withdrawn in a retrograde panoramic fashion. Retroflexion was performed in rectum. The procedure was not difficult. There were no immediate obvious complications. Limitations: Poor prep Findings: Mucosa: Solid stool was noted in the colon however underlying mucosa was completely normal. Cold forceps biospsies were taken for histological evaluation. Impression: 1. Esophagitis 2. Normal stomach (biopsy) 3. Normal duodenum (biopsy) 4. ? Panc cyst abutting antrum 5. Normal colon mucosa (biopsy) Recommendations: - Cont IV protonix x 2 days and then switch to Omeprazole 20mg BID x 6-8 weeks - Await US Abd - If above negative as well, and pt still not able to tolerate PO, consider repeat CT Abd/pel with contrast
--- NOTE | 2022-10-31 15:15 | P.PNIM_ITS ---
Subjective Subjective Date of Service: 10/31/22 Interval History: seen and examined this morning follow up for abdominal pain complaining of persistent abdominal pain, severe in epigastrum, midabdomen reports some vomiting overnight, no diarrhea Review of Systems Review of Systems: Yes all other systems are reviewed and are negative Constitutional Constitutional: Denies chills and Denies fever(s) Cardiovascular Cardiovascular: Denies chest pain, Denies palpitations and Denies dyspnea Respiratory Respiratory: Denies cough and Denies dyspnea Gastrointestinal Gastrointestinal: Reports abdominal pain, Denies diarrhea, Denies nausea and Denies vomiting Endocrine Endocrine: Denies palpitations Physical Exam Vital Signs: Vital Signs: Last Vital Signs Temp 97.4 F 10/31/22 15:11 Pulse 54 10/31/22 15:11 Resp 18 10/31/22 15:11 BP 129/74 10/31/22 15:11 Pulse Ox 100 10/31/22 15:11 O2 Del Method Room Air 10/31/22 15:11 O2 Flow Rate 4 10/31/22 14:30 BMI result Body Mass Index 29.8 Const: General: cooperative, healthy appearing, alert and awake Nutritional Appearance: average body habitus Orientation/consciousness: patient oriented x3 Resp: Effort & Inspection: normal respiratory effort, able to speak in complete sentences, no respiratory distress and no use of accessory muscles Auscultation: clear to auscultation bilaterally Cardio: Rate: regular rate Heart sounds: S1 normal heart sound present and S2 normal heart sound present GI: Inspection: No distended Palpation (GI): Soft to palpation, Tenderness to palpation present (GI) (mid lower abdomen, epigastrum ) and no guarding Neuro: General: patient oriented x3, moves all extremities and CN's II-XI intact bilaterally Extrem: General: Yes no pedal edema Objective Data Active Medications Acetaminophen (Acetaminophen 325 Mg Tablet) 650 mg PO Q6H PRN PRN Reason: Pain, Mild (Pain Scale 1-3) Enoxaparin Sodium (Enoxaparin Sodium 40 Mg/0.4 Ml Syringe) 40 mg SUBCUT Q24H [facility] Last Admin: 10/31/22 09:17 Dose: 40 mg Documented By: MARK Famotidine (Famotidine/Pf 20 Mg/2 Ml Vial) 20 mg IVPUSH DAILY [facility] Last Admin: 10/31/22 09:16 Dose: 20 mg Documented By: MARK Gabapentin (Gabapentin 400 Mg Capsule) 800 mg PO TID [facility] Last Admin: 10/31/22 09:16 Dose: Not Given Documented By: MARK Non-Admin Reason: Patient Refused Hydromorphone HCl (Hydromorphone Hcl 1 Mg/Ml Syringe) 0.5 mg IVPUSH Q3H PRN; Pr otocol PRN Reason: Pain, Severe (Pain Scale 7-10) Last Admin: 10/31/22 12:33 Dose: 0.5 mg Documented By: MARK Metronidazole (Flagyl) 500 mg in 100 mls @ 100 mls/hr IV Q8H [facility] Last Infusion: 10/31/22 07:01 Dose: 0 mls/hr Documented By: MARK Ceftriaxone Sodium 1 gm/ (Sodium Chloride) 50 mls @ 100 mls/hr IV Q24H [facility] Last Infusion: 10/31/22 00:30 Dose: 0 mls/hr Documented By: VICTORINO Lactated Ringer's (Lr) 1,000 mls @ 100 mls/hr IVCONT .Q10H [facility] Last Admin: 10/31/22 09:17 Dose: 100 mls/hr Documented By: MARK Lorazepam (Lorazepam 0.5 Mg Tablet) 0.5 mg PO BID PRN PRN Reason: Anxiety Nicotine (Nicotine 14 Mg Patch.Td24) 14 mg TRANSDERMA DAILY [facility] Last Admin: 10/31/22 09:16 Dose: 14 mg Documented By: MARK Ondansetron HCl (Ondansetron Hcl 4 Mg/2 Ml Vial) 4 mg IVPUSH Q8H PRN PRN Reason: Nausea and Vomiting Last Admin: 10/31/22 06:22 Dose: 4 mg Documented By: VICTORINO Oxycodone HCl (Oxycodone Hcl Immed Release 5 Mg Tablet) 5 mg PO Q6H PRN PRN Reason: Pain, Moderate(Pain Scale 4-6) Last Admin: 10/30/22 17:25 Dose: 5 mg Documented By: DEIRDRE Pantoprazole Sodium (Pantoprazole Sodium 40 Mg/10 Ml Vial) 40 mg IVPUSH BID@0630,1630 [facility] Stop: 11/02/22 06:31 Prazosin HCl (Prazosin Hcl 1 Mg Capsule) 6 mg PO BEDTIME MIRIAM; Protocol Last Admin: 10/30/22 21:44 Dose: Not Given Documented By: VICTORINO Non-Admin Reason: NPO Sodium Biphosphate/Sodium Phosphate (Sodium Phosphate,[place]-Dibasic 133 Ml Enema) 133 ml RI ONCE MIRIAM Last Admin: 10/31/22 12:46 Dose: 133 ml Documented By: MARK Sodium Chloride (0.9 % Sodium Chloride Flush 3 Ml Syringe) 3 ml IVFLUSH QSHIFT MIRIAM Last Admin: 10/31/22 07:13 Dose: Not Given Documented By: MARK Non-Admin Reason: IV Running Trazodone HCl (Trazodone Hcl 100 Mg Tablet) 300 mg PO BEDTIME PRN PRN Reason: insomnia Labs 10/31/22 09:11 10/30/22 06:01 Labs: Laboratory Results - last 24 hr 10/30/22 10/31/22 06:01 09:11 MCV 80.7 MCH 27.9 MCHC 34.6 RDW 13.1 Plt Count TNP MPV Not Reportable Absolute Nucleated RBC 0.000 Nucleated RBC % (auto) 0.0 Amylase 98 Lipase 53 Microbiology Microbiology Results: Microbiology 10/29/22 17:14 Blood Culture - Preliminary Blood - Venous No growth after 24 hours. 10/29/22 16:36 Blood Culture - Preliminary Blood - Venous No growth after 24 hours. Assessment and Plan (1) Abdominal pain: Status: Acute Plan this is a 27-year-old male past medical history of acute pancreatitis in 2021 presents the hospital with complaints abdominal pain found to have acute colitis abdominal pain initially thought to be secondary to acute colitis as seen on CT scan. location of pain not consistent with colitis and no diarrhea. continue IV fluids, analgesics, will d/c abx seen by GI due to persistent pain s/p EGD and flex sig - no colitis, + for gastritis US pending continue protonix x 2 days then switch to omeprazole 20 bid x 6-8 weeks if US negative, rec to repeat CT abdomen/pelvis with contrast MIGUEL ÁNGEL likely prerenal secondary to dehydration chemistry still pending after several redraws - follow BMP renal function improving with IVF tobacco dependence smoking cessation advised continue NRT h/o etoh dependence denies drinking for the past several months mood continue home meds reports he does not take florinef. will d/c as blood pressure stable. DVT prophylaxis: Early ambulation attending - dr. mg requires ongoing inpatient management for persistent abdominal pain requiring IV analgesia, IV antibiotics, specialist evaluation Time Spent With Patient Time: Total time managing care of this patient today ____ minutes. Quality Stroke Does the patient have a stroke diagnosis?: No VTE Prior VTE?: No VTE Risk Level:: Medical - moderate - high VTE Device Contraindication: Treatment Not Indicated VTE Drug Contraindication: N/A - Med Ordered
[2022-10-31] MEDS: Pantoprazole Sodium 40 MG/10 ML VIAL IVPUSH (15:29)
[2022-10-31] MEDS: Gabapentin 400 MG CAPSULE 800 MG PO ×2 (15:29→19:35)
[2022-10-31] MEDS: oxyCODONE HCl Immed Release 5 MG TABLET PO (17:02)
[2022-10-31] MEDS: Prazosin HCL 1 MG CAPSULE 6 MG PO (19:35)
[2022-10-31] MEDS: traZODone HCL 100 MG TABLET 300 MG PO (19:39)
[2022-11-01] MEDS: HYDROmorphone HCl 1 MG/ML SYRINGE 0.5 MG IVPUSH ×2 (01:58→05:10)
[2022-11-01 04:00] VITALS: BP 136/90; PULSE 68; RESP 16; TEMP 36.2; O2SAT 97
[2022-11-01] MEDS: Pantoprazole Sodium 40 MG/10 ML VIAL IVPUSH ×2 (05:10→15:12)
[2022-11-01 05:44] LABS: Alanine Aminotransferase 10 U/L (0-40); Albumin Level 3.8 g/dL (3.5-5.0); Alkaline Phosphatase 57 U/L (39-117); Anion Gap 15 (12-20); Aspartate Amino Transferase 16 U/L (5-37); Bilirubin Direct 0.3 mg/dL (0.0-0.5); Bilirubin Total 0.6 mg/dL (0.0-1.0); Blood Urea Nitrogen 7 mg/dL (9-16); Calcium 9.5 mg/dL (8.4-10.2); Carbon Dioxide 21 mmol/L (22-29); Chloride 108 mmol/L (96-108); Creatinine Clr Calc Pharmacy 163.2; Estimated Glomerular Filt Rate > 60; Glucose Random 74 mg/dL (60-115); Potassium 3.9 mmol/L (3.3-5.1); Sodium 140 mmol/L (135-145); Total Protein 6.2 g/dL (6.5-8.0)
[2022-11-01 07:08] VITALS: BP 127/73; PULSE 75; RESP 18; TEMP 36.1; O2SAT 98
--- NOTE | 2022-11-01 07:47 | HO.PM.IMPN ---
Subjective Subjective Date of Service: 11/01/22 Interval History: f/u on abd pain report persistent pain Physical Exam Vital Signs: Vital Signs: Last Vital Signs Temp 97 F 11/01/22 07:08 Pulse 75 11/01/22 07:08 Resp 18 11/01/22 07:08 BP 127/73 11/01/22 07:08 Pulse Ox 98 11/01/22 07:08 O2 Del Method Room Air 11/01/22 07:08 O2 Flow Rate 4 10/31/22 14:30 BMI result Body Mass Index 29.8 Const: Other: General: AO X 3, no acute distress Resp: CTA bilateral CVS: S1,S2,RRR GI: +BS, NT, no distention--essentially bening exam Skin: No rash Neuro: motor grossly intact Psych: appropriate affect Objective Data Active Medications Acetaminophen (Acetaminophen 325 Mg Tablet) 650 mg PO Q6H PRN PRN Reason: Pain, Mild (Pain Scale 1-3) Enoxaparin Sodium (Enoxaparin Sodium 40 Mg/0.4 Ml Syringe) 40 mg SUBCUT Q24H REPLACED BY [facility] Last Admin: 10/31/22 09:17 Dose: 40 mg Documented By: MARK Famotidine (Famotidine/Pf 20 Mg/2 Ml Vial) 20 mg IVPUSH DAILY REPLACED BY [facility] Last Admin: 10/31/22 09:16 Dose: 20 mg Documented By: MARK Gabapentin (Gabapentin 400 Mg Capsule) 800 mg PO TID REPLACED BY [facility] Last Admin: 10/31/22 19:35 Dose: 800 mg Documented By: WENCESLAO Hydromorphone HCl (Hydromorphone Hcl 1 Mg/Ml Syringe) 1 mg IVPUSH Q4H PRN; Protocol PRN Reason: Pain, Severe (Pain Scale 7-10) Lorazepam (Lorazepam 0.5 Mg Tablet) 0.5 mg PO BID PRN PRN Reason: Anxiety Nicotine (Nicotine 14 Mg Patch.Td24) 14 mg TRANSDERMA DAILY REPLACED BY [facility] Last Admin: 10/31/22 09:16 Dose: 14 mg Documented By: MARK Ondansetron HCl (Ondansetron Hcl 4 Mg/2 Ml Vial) 4 mg IVPUSH Q8H PRN PRN Reason: Nausea and Vomiting Last Admin: 10/31/22 17:01 Dose: 4 mg Documented By: MARK Oxycodone HCl (Oxycodone Hcl Immed Release 5 Mg Tablet) 5 mg PO Q6H PRN PRN Reason: Pain, Moderate(Pain Scale 4-6) Last Admin: 10/31/22 17:02 Dose: 5 mg Documented By: MARK Pantoprazole Sodium (Pantoprazole Sodium 40 Mg/10 Ml Vial) 40 mg IVPUSH BID@0630,1630 REPLACED BY [facility] Stop: 11/02/22 06:31 Last Admin: 11/01/22 05:10 Dose: 40 mg Documented By: WENCESLAO Prazosin HCl (Prazosin Hcl 1 Mg Capsule) 6 mg PO BEDTIME MIRIAM; Protocol Last Admin: 10/31/22 19:35 Dose: 6 mg Documented By: WENCESLAO Sodium Biphosphate/Sodium Phosphate (Sodium Phosphate,[place]-Dibasic 133 Ml Enema) 133 ml [place] ONCE MIRIAM Last Admin: 10/31/22 12:46 Dose: 133 ml Documented By: MARK Sodium Chloride (0.9 % Sodium Chloride Flush 3 Ml Syringe) 3 ml IVFLUSH QSHIFT REPLACED BY [facility] Last Admin: 10/31/22 19:35 Dose: Not Given Documented By: WENCESLAO Non-Admin Reason: IV Running Trazodone HCl (Trazodone Hcl 100 Mg Tablet) 300 mg PO BEDTIME PRN PRN Reason: insomnia Last Admin: 10/31/22 19:39 Dose: 300 mg Documented By: WENCESLAO Labs 10/31/22 09:11 11/01/22 04:59 Labs: Laboratory Results - last 24 hr 10/30/22 10/31/22 10/31/22 06:01 09:11 09:11 MCV 80.7 MCH 27.9 MCHC 34.6 RDW 13.1 Plt Count TNP MPV Not Reportable Absolute Nucleated RBC 0.000 Nucleated RBC % (auto) 0.0 Anion Gap Cancelled Estim Creat Clear Calc Cancelled Estimated GFR Cancelled Random Glucose Cancelled Calcium Cancelled Total Bilirubin Cancelled Direct Bilirubin Cancelled AST Cancelled ALT Cancelled Alkaline Phosphatase Cancelled Total Protein Cancelled Albumin Cancelled Amylase 98 Lipase 53 11/01/22 04:59 MCV MCH MCHC RDW Plt Count MPV Absolute Nucleated RBC Nucleated RBC % (auto) Anion Gap 15 Estim Creat Clear Calc 163.2 Estimated GFR > 60 Random Glucose 74 Calcium 9.5 Total Bilirubin 0.6 Direct Bilirubin 0.3 AST 16 ALT 10 Alkaline Phosphatase 57 Total Protein 6.2 L Albumin 3.8 Amylase Lipase Microbiology Microbiology Results: Microbiology 10/29/22 17:14 Blood Culture - Preliminary Blood - Venous No growth after 48 hours. 10/29/22 16:36 Blood Culture - Preliminary Blood - Venous No growth after 48 hours. Assessment and Plan (1) Abdominal pain: Status: Acute Plan this is a 27-year-old male past medical history of acute pancreatitis in 2021 presents the hospital with complaints abdominal pain found to have acute colitis abdominal pain initially thought to be secondary to acute colitis as seen on CT scan. location of pain not consistent with colitis and no diarrhea. continue IV fluids, analgesics, will d/c abx seen by GI due to persistent pain s/p EGD and flex sig - no colitis, + for gastritis US unremarkable, repeat CT with contrast given persistent pain continue protonix x 2 days then switch to omeprazole 20 bid x 6-8 weeks advance diet if CT unremrakable MIGUEL ÁNGEL likely prerenal secondary to dehydration, hydrated and resolved. tobacco dependence smoking cessation advised continue NRT h/o etoh dependence denies drinking for the past several months mood continue home meds reports he does not take florinef. will d/c as blood pressure stable. DVT prophylaxis: Early ambulation neet for inpt: persistent abd pain, ongoing work up and pain management Time Spent With Patient Time: Total time managing care of this patient today ____ minutes. Quality Stroke Does the patient have a stroke diagnosis?: No VTE Prior VTE?: No VTE Risk Level:: Medical - moderate - high VTE Device Contraindication: Treatment Not Indicated VTE Drug Contraindication: N/A - Med Ordered
[2022-11-01] MEDS: Nicotine 14 MG PATCH.TD24 TRANSDERMA (08:35)
[2022-11-01] MEDS: Gabapentin 400 MG CAPSULE 800 MG PO ×3 (08:35→20:42)
[2022-11-01] MEDS: Famotidine/PF 20 MG/2 ML VIAL IVPUSH (08:35)
[2022-11-01] MEDS: HYDROmorphone HCl 1 MG/ML SYRINGE IVPUSH ×4 (08:35→20:42)
[2022-11-01] MEDS: Enoxaparin Sodium 40 MG/0.4 ML SYRINGE SUBCUT (08:36)
[2022-11-01] MEDS: 0.9 % Sodium Chloride Flush 3 ML SYRINGE IVFLUSH ×3 (08:36→20:44)
[2022-11-01] MEDS: iohexoL 350 MG/ML 100 ML INFUS..BTL IV (08:59)
--- NOTE | 2022-11-01 10:27 | HO.POSTANES ---
Post Anesthesia Evaluation Post Anesthesia Evaluation Date of Service: 10/31/22 Vital Signs: Vital Signs Temp Pulse Resp BP Pulse Ox O2 Del Method 11/01/22 07:08 97 F 75 18 127/73 98 Room Air 11/01/22 04:00 97.2 F 68 16 136/90 H 97 Room Air Anesthesia: Monitored Mental Status: Awake Pain Control: Satisfactory Nausea/Vomiting: None Hydration: Adequate Anesthesia-Related Issues: No Anes. Related Issues
[2022-11-01] MEDS: LORazepam 0.5 MG TABLET PO (15:16)
[2022-11-01 15:29] VITALS: BP 120/66; PULSE 71; RESP 20; TEMP 36.1; O2SAT 99
[2022-11-01 20:00] VITALS: BP 124/68; PULSE 77; RESP 16; TEMP 36.2; O2SAT 96
[2022-11-01] MEDS: Prazosin HCL 1 MG CAPSULE 6 MG PO (20:42)
[2022-11-01] MEDS: traZODone HCL 100 MG TABLET 300 MG PO (20:42)
[2022-11-02] MEDS: HYDROmorphone HCl 1 MG/ML SYRINGE IVPUSH ×2 (01:18→05:21)
[2022-11-02 04:00] VITALS: BP 123/92; PULSE 87; RESP 16; TEMP 36.1; O2SAT 98
[2022-11-02] MEDS: Pantoprazole Sodium 40 MG/10 ML VIAL IVPUSH (05:21)
[2022-11-02 07:18] VITALS: BP 102/62; PULSE 78; RESP 18; TEMP 36.7; O2SAT 97
[2022-11-02] MEDS: 0.9 % Sodium Chloride Flush 3 ML SYRINGE IVFLUSH (08:49)
[2022-11-02] MEDS: Enoxaparin Sodium 40 MG/0.4 ML SYRINGE SUBCUT (08:49)
[2022-11-02] MEDS: Famotidine/PF 20 MG/2 ML VIAL IVPUSH (08:49)
[2022-11-02] MEDS: Nicotine 14 MG PATCH.TD24 TRANSDERMA (08:49)
[2022-11-02] MEDS: Gabapentin 400 MG CAPSULE 800 MG PO (08:49)
[2022-11-02 08:55] LABS: Anion Gap 15 (12-20); Blood Urea Nitrogen 6 mg/dL (9-16); Calcium 9.5 mg/dL (8.4-10.2); Carbon Dioxide 21 mmol/L (22-29); Chloride 107 mmol/L (96-108); Creatinine Clr Calc Pharmacy 148.4; Estimated Glomerular Filt Rate > 60; Glucose Random 109 mg/dL (60-115); Potassium 3.9 mmol/L (3.3-5.1); Sodium 139 mmol/L (135-145)
[2022-11-02 09:10] LABS: TSH reflex Free T4 0.06 uIU/mL (0.32-4.0)
[2022-11-02] MEDS: LORazepam 0.5 MG TABLET PO (11:12)
[2022-11-02] MEDS: oxyCODONE HCl Immed Release 5 MG TABLET PO (11:12)
--- NOTE | 2022-11-02 13:36 | PM.DS ---
DS: Providers Provider Date of Service: 11/02/22 Date of admission: 10/29/22 21:29 Date of discharge: 11/02/22 Primary care physician: Jt Forman MD Consults: 10/30/22 15:18 Consult to Gastroenterology Routine Consulting Provider: Madina Og Reason for consultation: colitis, abdominal pain Has provider been notified: No Attending physician on discharge: Yahir Galicia Discharging clinician: She Estrada DS: Diagnosis Discharge Diagnosis (1) Abdominal pain: Status: Acute (2) Gastritis: Status: Acute DS: Summary Hospital Course Hospital Course: From H&P on day of admission 27-year-old male with history of alcohol abuse? last drink 8 months ago presents the hospital with complaints of abdominal pain.? Abdominal pain started 3 days ago, localized to the periumbilical region all the way to epigastric.? Nonradiating, constant,? 8/10, associated with poor oral intake, nausea vomiting, diarrhea, no blood in the vomitus or diarrhea.? No fever but has chills, no chest pain, no urinary symptoms and no lower extremity edema.? Patient denies drinking any alcohol recently. On arrival to the ED patient hemodynamically stable with slightly elevated heart rate Labs are significant for WBC count of 10.4, hemoglobin of 13.7, creatinine of 1.61 with a baseline less than 1, UA negative, Abdominal pelvic CT shows possible colitis in the sigmoid colon lipase negative, no acute pancreatitis on CT imaging ?patient has intractable abdominal pain will be admitted for further manage abdominal pain initially thought to be secondary to acute colitis as seen on CT scan. location of pain not consistent with colitis and no diarrhea. seen by GI due to persistent pain s/p EGD and flex sig - no colitis, + for gastritis - biopsies for h.pylori obtained. US unremarkable, repeat CT with contrast given persistent pain was also unremarkable. LFTs wnl, lipase negative, no evidence of pancreatitis. was treated with IV protonix and will be transitioned to omeprazole 20 bid x 6-8 weeks. outpatient folllow up with GI noted to have some bradycardia during sleep and one pause of 2.4 seconds also during sleep. HR improved while awake and during ambulation. Electrolytes within normal limits. TSH checked and revealed subclinical hyperthyroidism. No hypothyroidism as cause of bradycardia. recommend outpatient follow up with cardiology For consideration of Holter monitor Time Spent with Patient Time attestation: Total time managing care of this patient today ____ minutes. Discharge coordination time: Greater than 30 minutes Quality: Safe Use of Opioids Does Pt have an Active Cancer Diagnosis on the Problem List?: No Quality: Stroke Does the patient have a stroke diagnosis?: No Physical Exam Vital Signs: Vital Signs: Last Vital Signs Temp 98.1 F 11/02/22 07:18 Pulse 78 11/02/22 07:18 Resp 18 11/02/22 07:18 BP 102/62 11/02/22 07:18 Pulse Ox 97 11/02/22 07:18 O2 Del Method Room Air 11/02/22 07:18 O2 Flow Rate 4 10/31/22 14:30 BMI result Body Mass Index 29.8 Const: General: cooperative, healthy appearing, alert and awake Nutritional Appearance: average body habitus Orientation/consciousness: patient oriented x3 Resp: Effort & Inspection: normal respiratory effort, able to speak in complete sentences, no respiratory distress and no use of accessory muscles Auscultation: clear to auscultation bilaterally Cardio: Rate: regular rate Heart sounds: S1 normal heart sound present and S2 normal heart sound present GI: Inspection: No distended Palpation (GI): Soft to palpation and no guarding Neuro: General: patient oriented x3, moves all extremities and CN's II-XI intact bilaterally Extrem: General: Yes no pedal edema DS: Data Data Completed and Pending Completed studies during hospitalization [Text1]: Procedures Detoxification Services for Substance Abuse Treatment (11/12/21) Insertion of Infusion Device into Left Cephalic Vein, Percutaneous Approach (11/12/21) Insertion of Infusion Device into Superior Vena Cava, Percutaneous Approach (11/12/21) Ultrasonography of Superior Vena Cava, Guidance (11/12/21) Pending studies at discharge: Pending at discharge 10/31/22 14:19 Surgical [PTH] Routine Labs on day of discharge: Laboratory Results - last 24 hr 11/02/22 08:09 Sodium 139 Potassium 3.9 Chloride 107 Carbon Dioxide 21 L Anion Gap 15 BUN 6 L Creatinine 0.88 Estim Creat Clear Calc 148.4 Estimated GFR > 60 Random Glucose 109 Calcium 9.5 Magnesium 2.0 TSH 0.06 L Free T4 1.10 Preliminary micro results at discharge 10/29/22 17:14 Blood Culture - Preliminary Blood - Venous No growth after 48 hours. 10/29/22 16:36 Blood Culture - Preliminary Blood - Venous No growth after 48 hours. Discharge Plan Discharge Anticipated Discharge Date/Time: 11/02/22 13:41 Patient Disposition: Home, Self-Care Discharge Diagnosis: abdominal pain gastritis MIGUEL ÁNGEL Referrals: Jt Forman MD [Primary Care Provider] - 1 Week Luis Alfredo Whelan MD [Physician] - 1 Week Madina Og MD [Physician] - 1 Week Discharge Medications: New omeprazole 20 mg capsule,delayed release(DR/EC) 20 mg PO BID 60 Days Qty: 120 0RF Continued ondansetron 8 mg tablet,disintegrating 8 mg PO Q8H PRN (Reason: nausea) trazodone 100 mg tablet 300 mg PO BEDTIME PRN (Reason: insomnia) docusate sodium 100 mg capsule 100 mg PO BID PRN (Reason: Constipation) Rx Instructions: HOLD FOR LOOSE STOOLS gabapentin 400 mg Capsule 800 mg PO TID lorazepam [Ativan] 0.5 mg Tablet 0.5 mg PO BID PRN (Reason: Anxiety) prazosin 2 mg Capsule 6 mg PO BEDTIME nicotine 14 mg/24 hr Patch 24 Hour 1 patch TRANSDERMAL DAILY Discontinued pantoprazole 40 mg tablet,delayed release (DR/EC) 1 tab PO DAILY@0630 fludrocortisone 0.1 mg tablet 0.1 mg PO DAILY Discharge Orders: Discharge Order (Routine); Ordered 11/02/22 Ordered By: She Estrada Activity on Discharge: As tolerated Stand Alone Forms: Patient Portal Discharge page Care Plan Goals: see below Health Concerns: abdominal pain Gastritis MIGUEL ÁNGEL bradycardia Plan of Treatment: stop taking pantoprazole. Start taking omeprazole 20 mg twice daily Call to schedule follow-up with Gastroenterology for review of biopsy results from endoscopy low HR overnight - call to schedule appointment with cardiology for evaluation of low heart rate and sinus pause during sleep reported to not be taking florinef - would discuss need with PCP call to schedule follow-up appointment with PCP Assessment: see discharge summary
--- NOTE | 2022-11-02 15:02 | MHC.CM.PN ---
order for home, self care. CM acknowledge.
== END 2022-11-02 15:29 | disposition home or self-care (01) | DRG 241 ==
LOC: HO.ED 20:26 → HO.EDOVER 10-30 → HO.S3 10-30 13:05
PROVIDERS: Internal Medicine; Registered Nurse Emergency; Admitting Provider Internal Medicine; Emergency Provider Emergency Medicine Emergency Medical Services; PCP Internal Medicine; Visit Provider Physician Assistant Medical
PROC: 0DJ08ZZ Inspection of Upper Intestinal Tract, Via Natural or Artificial Opening Endoscopic (ICD-10-PCS; CPT 43235; principal; 2022-10-31 15:00)
DX: K29.70 Gastritis, unspecified, without bleeding (principal); N17.9 Acute kidney failure, unspecified; K86.2 Cyst of pancreas; E03.8 Other specified hypothyroidism; F39 Unspecified mood [affective] disorder; E86.0 Dehydration; F10.21 Alcohol dependence, in remission; K20.90 Esophagitis, unspecified without bleeding; R00.1 Bradycardia, unspecified; F17.210 Nicotine dependence, cigarettes, uncomplicated; Z71.6 Tobacco abuse counseling; Z79.899 Other long term (current) drug therapy
CPT/HCPCS: 36415; 74177; 76705; 80048; 80053; 80076; 81001; 82150; 83605; 83690; 83735; 84439; 84443; 85025; 85027; 85610; 87040; 88305; 88342; 93005; 99285; J0696; J1170; J1650; J2250; J2405; Q9967

== ENCOUNTER → 2022-10-29 16:17 | Outpatient (BNV) | payer OTHER, SELFPAY | PROVIDERS: Admitting Provider Internal Medicine; Emergency Provider Emergency Medicine Emergency Medical Services; Visit Provider Internal Medicine Cardiovascular Disease | DX: R00.0 Tachycardia, unspecified (principal) | CPT/HCPCS: 93010 ==

== ENCOUNTER → 2022-10-29 21:29 | Outpatient (BNV) | payer OTHER, SELFPAY | PROVIDERS: Admitting Provider Internal Medicine; Emergency Provider Emergency Medicine Emergency Medical Services; Visit Provider Internal Medicine | DX: R10.9 Unspecified abdominal pain (principal); K52.9 Noninfective gastroenteritis and colitis, unspecified; R10.13 Epigastric pain; R11.2 Nausea with vomiting, unspecified; N17.9 Acute kidney failure, unspecified | CPT/HCPCS: 43239; 45331; 99232 ==

== ENCOUNTER → 2022-10-29 21:29 | Outpatient (BNV) | payer OTHER, SELFPAY | PROVIDERS: Admitting Provider Internal Medicine; Emergency Provider Emergency Medicine Emergency Medical Services; Visit Provider Internal Medicine | DX: R10.13 Epigastric pain (principal) | CPT/HCPCS: 99223; 99232; 99233; 99239 ==

== ENCOUNTER 2023-03-11 09:09 | Inpatient (IN) | payer OTHER, SELFPAY ==
--- NOTE | 2023-03-11 | ECG_ITS ---
Test Reason : METHADONE/QTC Blood Pressure : / mmHG Vent. Rate : 116 BPM Atrial Rate : 116 BPM P-R Int : 172 ms QRS Dur : 086 ms QT Int : 316 ms P-R-T Axes : 034 004 038 degrees QTc Int : 439 ms Sinus tachycardia Possible Left atrial enlargement RSR' or QR pattern in V1 suggests right ventricular conduction delay Nonspecific ST abnormality Abnormal ECG When compared with ECG of 29-OCT-2022 16:20, No significant change was found Referred By: Martin Hernandez Electronically Signed By:INDERJIT GRANGER MD
--- NOTE | ~2023-03-11 | CT_ITS ---
EXAMINATION: CT ABDOMEN AND PELVIS WITHOUT CONTRAST CLINICAL INFORMATION: Abdominal pain and diarrhea. COMPARISON: 11/01/2022 TECHNIQUE: Multidetector volumetric imaging was performed from the superior aspect of the liver through the pubic symphysis. Sagittal and coronal reformatted images were obtained on the technologist's workstation. This CT examination was performed using dose optimization techniques as appropriate, variously including the following: *Automated exposure control *Adjustment of mA and/or kV according to patient size (this includes techniques or standardized protocols for targeted exams where dose is matched to indication/reason for exam; i.e. extremities or head) *Use of iterative reconstruction technique DLP: 814 mGy-cm FINDINGS: LUNG BASES: No pulmonary consolidation or pleural effusion. HEPATOBILIARY: The liver has normal size, shape, and attenuation. Gallbladder has a normal appearance. No radiopaque stones, wall thickening or pericholecystic fluid. No dilated bile ducts. PANCREAS: No edema, pancreatic ductal dilatation or solid mass. A cyst of the pancreatic tail measures 2.2 cm transverse and has mild calcification along its wall. This pseudocyst previously measured 2.8 cm on 10/29/2022. SPLEEN: Normal. ADRENAL GLANDS: Normal. KIDNEYS AND URETERS: The kidneys have normal size and cortical thickness. No perinephric fluid collection, urolithiasis or hydroureteronephrosis. BLADDER: Normal. No calculi or wall thickening. BOWEL AND PERITONEUM: Large amount fecal material is present within the sigmoid colon and rectum. The fecal filled rectum is distended up to nearly 9 cm maximum transverse diameter. The descending colon is underdistended, not optimally evaluated. There is equivocal circumferential thickening of the wall of the descending colon, but assessment is difficult due to the lack of distention. The regions of the sigmoid that have more intraluminal gas show normal thickness of the anterior wall. There is no pericolonic fat stranding and therefore no overt colitis. There is gaseous distention of the transverse and right colon with transverse colon measuring up to 7.5 cm AP diameter. There is no evidence of any focal inflammatory change or vascular engorgement within the mesentery. No abdominal free fluid or free air. ABDOMINAL WALL: Unremarkable. VASCULATURE: Normal for noncontrast examination. LYMPH NODES: No pathologic sized lymph nodes in the abdomen or pelvis. No inguinal lymphadenopathy. PELVIC VISCERA: Prostate gland is unremarkable. MUSCULOSKELETAL: Unremarkable. CT/CT abdomen pelvis wo IV con IMPRESSION: * Large amount of fecal material in the sigmoid colon and rectum and there is gaseous distention of the more proximal colon. Findings are highly suggestive of constipation. No evidence of any obstructing sigmoid or rectal lesion. There is no pericolonic fat stranding or vascular engorgement of the mesentery (i.e., no overt colitis) although evaluation of the descending colon is somewhat limited due to lack of distention. * A pseudocyst of the pancreatic tail has mildly decreased in size compared to 10/29/2022.
--- NOTE | ~2023-03-11 | CT_ITS ---
EXAMINATION: CT HEAD WITHOUT CONTRAST CLINICAL INFORMATION: Head strike. Unknown downtime. COMPARISON: None available. TECHNIQUE: Contiguous axial imaging was performed from the skull base to vertex without intravenous administration of contrast. This CT examination was performed using dose optimization techniques as appropriate, variously including the following: *Automated exposure control *Adjustment of mA and/or kV according to patient size (this includes techniques or standardized protocols for targeted exams where dose is matched to indication/reason for exam; i.e. extremities or head) *Use of iterative reconstruction technique DLP: 641 mGy-cm FINDINGS: There is no acute intra-axial, extra-axial bleed, masses or midline shift. There is no acute infarction in evolution. There is no edema. The ferguson to white matter differentiation is maintained normal. The lateral ventricles are symmetrical in size and configuration without enlargement. Bone windows reveal no calvarial abnormality. There is no scalp soft tissue abnormality. Bilateral paranasal sinuses and mastoid air cells are well aerated. CT/CT head/brain wo IV con IMPRESSION: No acute intracranial process seen.
--- NOTE | ~2023-03-11 | XR_ITS ---
EXAMINATION: XR ABDOMEN KUB CLINICAL INDICATION: Abdominal pain COMPARISON: CT abdomen 03/11/2023 TECHNIQUE: AP view of the abdomen. FINDINGS: A large stool ball is present in the rectum which is distended to 10.3 cm whereas at the time of the prior CT scan this measured 8.6 cm. There is no evidence of bowel obstruction. Gas and stool seen throughout the remainder of the colon. There is some air in nondilated small bowel. XR/XR KUB IMPRESSION: Large stool ball in the rectum. No evidence of bowel obstruction.
--- NOTE | 2023-03-11 09:23 | MHC.EDTECH ---
1 BAG OF BELONGINGS TO WOOD WITH SECURITY OFFICERS MELODY AND OLAF @ THIS TIME
[2023-03-11 09:24] VITALS: BP 100/61; BP 80/60; PULSE 100; PULSE 83; RESP 18; TEMP 37.1; O2SAT 94; O2SAT 96; BMI 28.6
--- NOTE | 2023-03-11 09:38 | PC.NURSE ---
pt reports having thoughts of suicide/self harm but reprts he has no plan. pt then stated actually can I take that back, I've just been really depressed lately . pt reprots he had a change in his insurances and he lost his providers. pt reports going to shower at approx 3am after using 8 bags of heroin, snorted. reports he fell in the shower, unknown LOC, unknown downtime, +HS, pt is not on thinners. pt has a lac to his forhead. according to EMS pt was incontinent of stool and urine when they arrived on scene
--- NOTE | 2023-03-11 09:57 | ED.OVERDOSE ---
HPI - Overdose General Chief Complaint: Overdose Stated Complaint: OVERDOSE FROM HOME PER EMS Time Seen by Provider: 03/11/23 09:50 Source: patient, EMS, RN notes reviewed and old records reviewed Mode of arrival: EMS Limitations: no limitations History of Present Illness HPI Narrative: 27 year old male with pmhx significant for aspiration PNA and polysubstance abuse presents to the ED today via EMS after possible overdose at home. Per EMS, patient's father found patient unresponsive this morning. He was last seen at 3:00 a.m. walking to the bathroom to shower. Father found him this morning in the bathroom covered in stool and urine. Unknown down time. Unknown whether father administered Narcan. Presents to the ED today A&Ox3. Patient tells me that he was showering after when he felt a wave come over him and was unable to control his body. Reports LOC with head strike on shower shelf. Unknown down time. Patient currently endorses headache and body aches. He has a laceration to the mid-forehead at the hairline. Endorses snorting heroin daily. Last used heroin prior to LOC. Patient endorsed SI without a plan to nursing staff. He currently denies SI and states he is just depressed. Seeking detox. Denies HI. Denies other illicit substance use. Related Data Home Medications Medication Instructions Recorded Confirmed docusate sodium 100 mg capsule 100 mg PO BID PRN Constipation 10/30/22 10/30/22 gabapentin 400 mg capsule 800 mg PO TID 10/30/22 10/30/22 lorazepam 0.5 mg tablet (Ativan) 0.5 mg PO BID PRN Anxiety 10/30/22 10/30/22 nicotine 14 mg/24 hr daily 1 patch transdermal DAILY 10/30/22 10/30/22 transdermal patch ondansetron 8 mg disintegrating 8 mg PO Q8H PRN nausea 10/30/22 10/30/22 tablet prazosin 2 mg capsule 6 mg PO BEDTIME 10/30/22 10/30/22 trazodone 100 mg tablet 300 mg PO BEDTIME PRN insomnia 10/30/22 10/30/22 Previous Rx's Medication Instructions Recorded omeprazole 20 mg capsule,delayed 20 mg PO BID 60 days #120 caps 11/02/22 release Allergies Allergy/AdvReac Type Severity Reaction Status Date / Time No Known Allergies Allergy Verified 10/31/22 13:27 Review of Systems Review of Systems: Constitutional: No fever, chills, fatigue, night sweats, weight changes ENT/Mouth: No ear pain, hearing loss, nasal congestion, sinus pain, rhinorrhea, sore throat Eyes: No eye pain, swelling, redness, vision changes, discharge Cardio: No chest pain, palpitations, PIMENTEL, orthopnea, peripheral edema Pulm: No SOB, cough, sputum, wheezing, dyspnea, hemoptysis GI: No nausea, vomiting, hematemesis, abdominal pain, diarrhea, constipation, hematochezia, melena : No irregular bleeding, dysuria, frequency, urgency, hesitancy, hematuria, flank pain, urinary flow changes, urinary incontinence or retention MSK: No back pain, neck pain, joint pain, +myalgias Skin: No lesions, rashes Neuro: No weakness, numbness, paresthesias, LOC, dizziness, +headache Psych: No anxiety/panic, +depression, +SI No HI, AH/VH All other systems reviewed and are negative. [facility] Past Medical History Attestation statement: The following information was validated with the patient. Source: old records reviewed and nursing notes reviewed Medical History Shoulder dislocation Nonsustained ventricular tachycardia No known health problems Social History Household Members: Family Household Members Other:: parents Housing: House Do you presently have visiting nurse or other home services: No Unable to assess alcohol history related to: Unknown Alcohol intake: current Alcohol intake frequency: former alcohol drinker Patient Tobacco Use Status: Current everyday Tobacco user Tobacco use type: Cigarette Cigarette Packs Per Day: 0.3 Cigarettes Per Day: 9 Years Smoked: 14 Smoked in Last 30 Days: Yes e-Cigarette/Vaping Use: Currently Using Second Hand Smoke Exposure: Yes Use of substances other than those prescribed or required for medical reasons: Yes Substance Use Type: Heroin Advance Directives: Yes Advance Directives on File: Yes Advance Directives Date on File: 10/30/22 service: No Current occupational status: unemployed Physical Exam Vital Signs: Vital Signs: Last Vital Signs Temp 98.7 F 03/11/23 09:24 Pulse 90 03/11/23 13:05 Resp 14 03/11/23 13:05 BP 134/76 03/11/23 13:05 Pulse Ox 99 03/11/23 13:05 O2 Del Method Room Air 03/11/23 13:05 BMI result Body Mass Index 28.6 Vital signs stable Const: General: cooperative, no acute distress, alert, awake and poor hygiene Orientation/consciousness: patient oriented x3 Limitations: no limitations HEENT: Other: There is a 1 cm abrasion noted to the forehead along the hairline. No active bleeding. There is no palpable skull fracture. Head is nontender to palpation. No septal hematoma. Head: Yes No palpable skull fracture present, Yes normocephalic, No Sanz's sign, No raccoon eyes and No periorbital ecchymosis General nose exam: Normal septum present Face and sinus: Yes normal facial exam Mouth: Normal oral and palatal mucosa present Teeth and gingiva: caries and poor dentition Eyes: Other: EOMs intact without entrapment. General: appearance normal, both eyes and all related structures Conjunctivae: conjunctivae normal Sclerae: sclerae normal Pupils: Equal, round and reactive pupils present Neck: Other: No midline cervical spinous tenderness. Neck: Yes normal visual inspection and Yes full ROM Chest: Chest palpation & inspection: normal inspection of the chest, normal palpation of entire chest wall, no crepitus and no tenderness Resp: Effort & Inspection: normal respiratory effort, able to speak in complete sentences and no respiratory distress Auscultation: clear to auscultation bilaterally Cardio: Rate: regular rate Rhythm: regular rhythm Peripheral pulses: radial pulses present GI: Inspection: Yes normal to inspection Palpation (GI): Soft to palpation, nontender and no guarding Back/Spine/Pelvis: Other: No midline spinous tenderness. No paraspinal muscle tenderness bilaterally. No step-off deformity. Back: No Jeronimo-Botello sign present Skin: General skin exam: no rashes or lesions noted Neuro: Other: Strength 5/5 intact throughout. No saddle anesthesia.?Sensation intact to light touch.?Neurovascular intact distally.? General: patient oriented x3, gait normal and moves all extremities Cranial nerves: Yes CN's II-XII intact bilaterally and Yes Equal, round and reactive pupils present Gait exam (Neuro): Normal gait present Motor exam (neuro): no tremor noted, no asterixis and Motor fasciculations not present Pupils: Normal pupillary reactivity/response: bilateral Extrem: General: Yes normal to inspection and Yes full ROM Psych: Appearance: disheveled Mental Status: mental status grossly normal Course Course Course Narrative: 1200-- CBC without leukocytosis. There is chronic anemia, H&H is stable when compared to priors. urine [employer] color and positive for UTI. Toxicology positive for fentanyl on opioids. chemistry showing rhabdomyolysis with CPK of 1362 and MIGUEL ÁNGEL > will order 2 L IVF and repeat labs. CT head/brain without acute bleed. 1300-- spoke with Jack from recovery. Patient requesting bed at [facility]. Jack informs me that there are no beds at this time. 1633-- patient spent 45 minutes in the bathroom with diarrhea. He is feeling nauseous. Requesting Zofran and a stool softener. Will order Zofran and docusate. > Awaiting repeat chemistry in CPK. 1724-- Repeat chemistry with some improvement of renal function. BUN 19, creatinine 1.24. There is a bump in CPK at 2369 > Will present to hospitalist for admission for rhabdomyolysis. Patient informed of results and in agreement with admission. Medications Administered Discontinued Medications Generic Name Dose Route Start Last Admin Trade Name Freq PRN Reason Stop Dose Admin Docusate Sodium 100 mg 03/11/23 16:31 03/11/23 17:53 Docusate Sodium 100 Mg Capsule PO 03/11/23 16:32 100 mg ONCE ONE Administration Sodium Chloride 1,000 mls @ 999 mls/hr 03/11/23 11:45 03/11/23 13:58 Ns IV 03/11/23 12:45 Infused .Q1H1M MIRAIM Infusion Sodium Chloride 1,000 mls @ 999 mls/hr 03/11/23 12:15 03/11/23 13:58 Ns IV 03/11/23 13:15 Infused .Q1H1M MIRIAM Infusion Naloxone HCl 8 mg 03/11/23 15:14 03/11/23 17:53 Naloxone Hcl Nasal Take Home 4 Mg [place] NOSTRILALT 03/11/23 15:15 Not Given ONCE ONE Ondansetron HCl 4 mg 03/11/23 16:30 03/11/23 17:52 Ondansetron Odt 4 Mg Tab.Rapdis TRANSLINGU 03/11/23 16:31 4 mg ONCE ONE Administration Medical Decision Making Medical Decision Making [facility] Narrative: 27 year old male with pmhx significant for aspiration PNA and polysubstance abuse presents to the ED today via EMS after possible overdose at home. vital signs stable. Patient is A&O x3. He is disheveled. Smells of feces. Poor dentition, multiple caries. there is a small 1 cm abrasion noted to his forehead along the hairline. No active bleeding. Exam is nonfocal. Cerebellum intact. He is ambulating with steady gait. RRR. Lungs CTA b/l. Abdomen is soft, nontender, nondistended, no rebound tenderness or guarding, normoactive bowel sounds x4. Clinical concern for acute overdose, polysubstance use, depression, anxiety, suicidal ideation, concussion. unlikely ICH, CVA/ TIA, cerebellar stroke, dissection. Plan at this time is for basic labs, toxicology, UA, CPK, CT head/ brain, medical clearance for care team evaluation. Differential Diagnosis Differential Diagnoses: The differential diagnosis associated with the presentation includes As above. Admission/Observation Not indicated. Lab Data [facility] Lab Attestation statement: I reviewed the patient's lab results. As above. 03/11/23 10:32 03/11/23 16:48 Labs: Lab Results 03/11/23 03/11/23 Range/Units 10:32 16:48 WBC 7.1 (4.8-10.8) X10*3/uL RBC 4.84 (4.60-5.80) X10*6/uL Hgb 12.8 L (14.0-18.0) g/dl Hct 38.3 L (42.0-52.0) % MCV 79.1 L (80.0-98.0) fL MCH 26.4 L (27.0-33.0) pg MCHC 33.4 (31.0-36.0) g/dl RDW 14.2 (11.0-16.0) % Plt Count 227 (160-400) X10*3/uL MPV 10.1 (9.4-12.4) fL Immature Gran % (Auto) 0.1 (0.0-0.4) % Neut % (Auto) 63.5 (45-73) % Lymph % (Auto) 16.4 L (20-40) % [place] % (Auto) 19.9 H (2-11) % Eos % (Auto) 0.0 (0-4) % Baso % (Auto) 0.1 (0-2) % Lymph # (Auto) 1.2 (1.2-4.9) X10*3/uL [place] # (Auto) 1.4 H (0.1-1.2) X10*3/uL Eos # (Auto) 0.0 (0.0-0.4) X10*3/uL Baso # (Auto) 0.0 (0.0-0.2) X10*3/uL Abs Immat Gran (auto) 0.01 (0.00-0.03) X10*3/uL Absolute Neuts (auto) 4.5 (2.0-8.3) x10*3/uL Absolute Nucleated RBC 0.000 (0.0-0.012) X10*3/uL Nucleated RBC % (auto) 0.0 (0.0-0.2) /100WBC PT 13.2 (11.1-13.3) SEC INR 1.1 (0.9-1.1) Sodium 138 136 (135-145) mmol/L Potassium 4.5 4.1 (3.3-5.1) mmol/L Chloride 106 105 (96-108) mmol/L Carbon Dioxide 23 22 (22-29) mmol/L Anion Gap 14 13 (12-20) BUN 21 H 19 H (9-16) mg/dL Creatinine 1.72 H 1.24 (0.5-1.4) mg/dL Estim Creat Clear Calc 74.5 103.4 Estimated GFR 48 > 60 Random Glucose 142 H 191 H (60-115) mg/dL Calcium 9.1 8.7 (8.4-10.2) mg/dL Magnesium 2.5 (1.6-2.6) mg/dL Total Creatine Kinase 1362 H 2369 H (38-174) U/L Lipase 5 L (8-78) U/L Urine Color BROWN Urine Appearance Cloudy Urine pH 6.5 (5.0-9.0) Ur Specific [place] >= 1.030 H (1.005-1.025) Urine Protein 100 (2+) H (Neg-Trace) mg/dL Urine Glucose (UA) Negative (Negative) mg/dL Urine Ketones Trace (Negative) mg/dL Urine Blood Negative (Negative) Urine Nitrite Positive H (Negative) Ur Leukocyte Esterase Trace H (Negative) Urine RBC 6-10 H (0-2) /HPF Urine WBC 0-5 (0-5) /HPF Ur Squamous Epith Cells 0-2 (0-2) /HPF Calcium Oxalate Crystal Present Urine Bacteria None Seen (None Seen) Hyaline Casts 6-10 (0-2) /LPF Salicylates < 5.0 L (15-30) mg/dL Urine Opiates Screen POSITIVE H (Not Detect) Urine Fentanyl Screen POSITIVE H (Not Detect) Ur Barbiturates Screen Not Detected (Not Detect) Ur Phencyclidine Scrn Not Detected (Not Detect) Ur Amphetamines Screen Not Detected (Not Detect) U Benzodiazepines Scrn Not Detected (Not Detect) Urine Cocaine Screen Not Detected (Not Detect) U Marijuana (THC) Screen Not Detected (Not Detect) Ethyl Alcohol < 10 mg/dL Independent Interpretation I performed an independent interpretation of an: CT Scan Interpretation: CT head/ brain without acute bleed or mass, agree with radiologist's interpretation. Radiology Impression Discussion of test interpretation with radiology: I have reviewed the radiologist's reading. Radiologist Impression: CT head/brain wo IV con IMPRESSION: No acute intracranial process seen. Independent Historian Clinical information obtained from an independent historian. History obtained from or confirmed by: EMS External Record Review External record reviewed: Inpatient record, Office record, Outpatient record, Prior outpatient labs, Prior outpatient radiology, Primary care record and Outside ED record Prescription Management I considered prescription management with: Other (Antiemetic, stool softener) Chronic Conditions Patient?s care impacted by: Other ( heroin abuse) Social Determinants Patient?s care significantly limited by Social Determinants of Health including: Other Social Determinant of Health Critical Care Time Critical Care Time Critical Care Time: No Discharge Plan Discharge Clinical Impression: Drug overdose, Rhabdomyolysis Patient Disposition: Still a Patient Instructions: Rhabdomyolysis (ED), Adult Overdose (ED) Prescriptions: No Action ondansetron 8 mg tablet,disintegrating 8 mg PO Q8H PRN (Reason: nausea) trazodone 100 mg tablet 300 mg PO BEDTIME PRN (Reason: insomnia) docusate sodium 100 mg capsule 100 mg PO BID PRN (Reason: Constipation) Rx Instructions: HOLD FOR LOOSE STOOLS gabapentin 400 mg Capsule 800 mg PO TID lorazepam [Ativan] 0.5 mg Tablet 0.5 mg PO BID PRN (Reason: Anxiety) prazosin 2 mg Capsule 6 mg PO BEDTIME nicotine 14 mg/24 hr Patch 24 Hour 1 patch TRANSDERMAL DAILY omeprazole 20 mg capsule,delayed release(DR/EC) 20 mg PO BID 60 Days Qty: 120 0RF
--- NOTE | 2023-03-11 10:16 | PC.NURSE ---
belongings in [place]
[2023-03-11 10:42] LABS: MANUAL DIFF FLAG NO
[2023-03-11 10:45] LABS: Basophils Percent Auto 0.1 % (0-2); Hematocrit 38.3 % (42.0-52.0); Hemoglobin 12.8 g/dl (14.0-18.0); Imm Gran Abs Auto 0.01 X10*3/uL (0.00-0.03); Imm Gran Pct Auto 0.1 % (0.0-0.4); Lymphocytes Absolute Auto 1.2 X10*3/uL (1.2-4.9); Lymphocytes Percent Auto 16.4 % (20-40); Mean Corpuscular HGB Conc 33.4 g/dl (31.0-36.0); Mean Corpuscular Hemoglobin 26.4 pg (27.0-33.0); Mean Corpuscular Volume 79.1 fL (80.0-98.0); Mean Platelet Volume 10.1 fL (9.4-12.4); Monocytes Absolute Auto 1.4 X10*3/uL (0.1-1.2); Monocytes Percent Auto 19.9 % (2-11); Neutrophils Absolute Auto 4.5 x10*3/uL (2.0-8.3); Neutrophils Percent Auto 63.5 % (45-73); Platelet Count 227 X10*3/uL (160-400); Red Blood Count 4.84 X10*6/uL (4.60-5.80); Red Cell Distribution Width 14.2 % (11.0-16.0); White Blood Count 7.1 X10*3/uL (4.8-10.8)
[2023-03-11 10:51] LABS: INTERNATIONAL NORM RATIO 1.1 (0.9-1.1); Prothrombin Time 13.2 SEC (11.1-13.3)
[2023-03-11 10:56] LABS: Appearance Urine Cloudy; Color Urine BROWN; Glucose Urine UA Negative (Negative); Leukocyte Esterase Urine Trace (Negative); Nitrite Urine Positive (Negative); PH 6.5 (5.0-9.0); UMIC TRIGGER UACC YES; Urine Blood Negative (Negative); Urine Ketones Trace mg/dL (Negative); Urine Protein 100 (2+) mg/dL (Neg-Trace)
[2023-03-11 10:57] LABS: Anion Gap 14 (12-20); Blood Urea Nitrogen 21 mg/dL (9-16); Calcium 9.1 mg/dL (8.4-10.2); Carbon Dioxide 23 mmol/L (22-29); Chloride 106 mmol/L (96-108); Creatinine Clr Calc Pharmacy 74.5; Estimated Glomerular Filt Rate 48; Ethanol < 10 mg/dL; Glucose Random 142 mg/dL (60-115); Lipase 5 U/L (8-78); Magnesium 2.5 mg/dL (1.6-2.6); Potassium 4.5 mmol/L (3.3-5.1); Sodium 138 mmol/L (135-145); Specific Gravity - Urine >= 1.030 (1.005-1.025)
[2023-03-11 10:59] LABS: Salicylate < 5.0 mg/dL (15-30)
[2023-03-11 11:06] LABS: Bacteria Urine None Seen (None Seen); Calcium Oxalate Crystals Urine Present; Squamous Epithelial Cell Urine 0-2 /HPF (0-2); UACC Culture Trigger YES; WBC Urine 0-5 /HPF (0-5)
[2023-03-11 11:15] LABS: Amphetamine Screen Urine Not Detected (Not Detect); Barbiturates, Urine Not Detected (Not Detect); Benzodiazepines Screen Urine Not Detected (Not Detect); Cannabinoid Screen Urine Not Detected (Not Detect); Cocaine Screen Urine Not Detected (Not Detect); Fentanyl, urine POSITIVE (Not Detect); Opiate Screen Urine POSITIVE (Not Detect); Phencyclidine Screen Urine Not Detected (Not Detect)
[2023-03-11] MEDS: 0.9 % Sodium Chloride 1,000 ML 999 ML IV ×2 (12:04→12:26)
[2023-03-11 13:05] VITALS: BP 134/76; PULSE 90; RESP 14; O2SAT 99
--- NOTE | 2023-03-11 13:17 | HO.SUDE ---
Addendum entered by Rajat Patel 03/11/23 14:12: [facility] bed search has been exhausted at this time. PT to follow up from the community. Original Note: Met with pt in ED6[facility] who is here for a potential OD to complete SUDE. Pt informs he had used 7 bags of heroin nasally before taking a shower where he fell and his his head. Pt informs he did not overdose but that he has overdosed 1 time about 1 year ago. Pt was last getting treatment about 3 years ago from [facility] and would like to go back to [facility] today. T/W reviewed harm reduction and overdose prevention with pt verbalizing understanding and having no questions or concerns. [facility]S bed search in process.
[2023-03-11 17:11] LABS: Anion Gap 13 (12-20); Blood Urea Nitrogen 19 mg/dL (9-16); Calcium 8.7 mg/dL (8.4-10.2); Carbon Dioxide 22 mmol/L (22-29); Chloride 105 mmol/L (96-108); Creatinine Clr Calc Pharmacy 103.4; Estimated Glomerular Filt Rate > 60; Glucose Random 191 mg/dL (60-115); Potassium 4.1 mmol/L (3.3-5.1); Sodium 136 mmol/L (135-145)
--- NOTE | 2023-03-11 17:42 | PC.NURSE ---
pt up to the BR repeatedly, reports having diarrhea but also reporting theres a lot of poop that needs to come out . GABBIE Hdz made aware. will medicate per MAR
[2023-03-11] MEDS: Ondansetron ODT 4 MG TAB.RAPDIS TRANSLINGU (17:52)
[2023-03-11] MEDS: Docusate Sodium 100 MG CAPSULE PO (17:53)
--- NOTE | 2023-03-11 18:00 | PM.IMHP ---
History of Present Illness Date of Service: 03/11/23 Chief Complaint: diarrhea, ams 27M PMH etoh dependence, opiate dependence, pre diabetes, NSVT presented with opiate overdose. Patient reports having several days of diarrhea, loose, brown. Has been incontinent. Denies abdominal pain. Reports continue use of intranasal heroin. Reports syncopal event while in bathroom a.m. of admission. Was found by family at 3am in bathroom covered in stool and urine. family called EMS. Patient also reports some suicidal ideation. In ED labs significant for MIGUEL ÁNGEL with creatinine is 1.7 and mild rhabdo with CPK about 1999 Review of Systems Review of Systems: Yes all other systems are reviewed and are negative [facility] Medical History Shoulder dislocation Nonsustained ventricular tachycardia No known health problems Household Members: Family Household Members Other:: parents Housing: House Do you presently have visiting nurse or other home services: No Unable to assess alcohol history related to: Unknown Alcohol intake: current Alcohol intake frequency: former alcohol drinker Patient Tobacco Use Status: Current everyday Tobacco user Tobacco use type: Cigarette Cigarette Packs Per Day: 0.3 Cigarettes Per Day: 9 Years Smoked: 14 Smoked in Last 30 Days: Yes e-Cigarette/Vaping Use: Currently Using Second Hand Smoke Exposure: Yes Use of substances other than those prescribed or required for medical reasons: Yes Substance Use Type: Heroin Advance Directives: Yes Advance Directives on File: Yes Advance Directives Date on File: 10/30/22 service: No Current occupational status: unemployed Meds Allergies Allergy/AdvReac Type Severity Reaction Status Date / Time No Known Allergies Allergy Verified 10/31/22 13:27 Active Medications: Current Medications Lactated Ringer's (Lr) 1,000 mls @ 125 mls/hr IVCONT .Q8H MIRIAM Methadone HCl (Methadone Hcl 20 Mg/2 Ml Oral.Conc) 30 mg PO DAILY MIRIAM Morphine Sulfate (Morphine Sulfate 2 Mg/Ml Cartridge) 2 mg IVPUSH Q4H PRN; Protocol PRN Reason: mod pain Ondansetron HCl (Ondansetron Hcl 4 Mg/2 Ml Vial) 4 mg IVPUSH Q6H PRN PRN Reason: Nausea Sodium Chloride (0.9 % Sodium Chloride Flush 3 Ml Syringe) 3 ml IVFLUSH QSHIFT [facility] Home Medications Medication Instructions Recorded Confirmed Last Taken Type docusate sodium 100 mg capsule 100 mg PO BID PRN Constipation 10/30/22 10/30/22 Unknown History gabapentin 400 mg capsule 800 mg PO TID 10/30/22 10/30/22 Unknown History lorazepam 0.5 mg tablet (Ativan) 0.5 mg PO BID PRN Anxiety 10/30/22 10/30/22 Unknown History nicotine 14 mg/24 hr daily 1 patch transdermal DAILY 10/30/22 10/30/22 Unknown History transdermal patch ondansetron 8 mg disintegrating 8 mg PO Q8H PRN nausea 10/30/22 10/30/22 Unknown History tablet prazosin 2 mg capsule 6 mg PO BEDTIME 10/30/22 10/30/22 Unknown History trazodone 100 mg tablet 300 mg PO BEDTIME PRN insomnia 10/30/22 10/30/22 Unknown History Physical Exam Vital Signs and Narrative: Vital Signs: Last Vital Signs Temp 98.7 F 03/11/23 09:24 Pulse 90 03/11/23 13:05 Resp 14 03/11/23 13:05 BP 134/76 03/11/23 13:05 Pulse Ox 99 03/11/23 13:05 O2 Del Method Room Air 03/11/23 13:05 BMI result Body Mass Index 28.6 General: AO X 3, no acute distress Resp: CTA bilateral, no accessory muscles used CVS: S1,S2,RRR GI: soft, non tender, non distended Neuro: motor grossly intact, alert Psych: appropriate affect, appropriate insight Results Labs 03/11/23 10:32 03/11/23 16:48 Labs: Laboratory Results - last 24 hr 03/11/23 03/11/23 10:32 16:48 MCV 79.1 L MCH 26.4 L MCHC 33.4 RDW 14.2 Plt Count 227 MPV 10.1 Immature Gran % (Auto) 0.1 Neut % (Auto) 63.5 Lymph % (Auto) 16.4 L [place] % (Auto) 19.9 H Eos % (Auto) 0.0 Baso % (Auto) 0.1 Lymph # (Auto) 1.2 [place] # (Auto) 1.4 H Eos # (Auto) 0.0 Baso # (Auto) 0.0 Abs Immat Gran (auto) 0.01 Absolute Neuts (auto) 4.5 Absolute Nucleated RBC 0.000 Nucleated RBC % (auto) 0.0 PT 13.2 INR 1.1 Anion Gap 14 13 Estim Creat Clear Calc 74.5 103.4 Estimated GFR 48 > 60 Random Glucose 142 H 191 H Calcium 9.1 8.7 Magnesium 2.5 Total Creatine Kinase 1362 H 2369 H Lipase 5 L Urine Color BROWN Urine Appearance Cloudy Urine pH 6.5 Ur Specific [place] >= 1.030 H Urine Protein 100 (2+) H Urine Glucose (UA) Negative Urine Ketones Trace Urine Blood Negative Urine Nitrite Positive H Ur Leukocyte Esterase Trace H Urine RBC 6-10 H Urine WBC 0-5 Ur Squamous Epith Cells 0-2 Calcium Oxalate Crystal Present Urine Bacteria None Seen Hyaline Casts 6-10 Salicylates < 5.0 L Urine Opiates Screen POSITIVE H Urine Fentanyl Screen POSITIVE H Ur Barbiturates Screen Not Detected Ur Phencyclidine Scrn Not Detected Ur Amphetamines Screen Not Detected U Benzodiazepines Scrn Not Detected Urine Cocaine Screen Not Detected U Marijuana (THC) Screen Not Detected Ethyl Alcohol < 10 Imaging Radiologist's Impressions: Impressions Head CT 03/11/23 11:08 IMPRESSION: No acute intracranial process seen. Assessment and Plan (1) Rhabdomyolysis: Status: Acute Plan 27M PMH etoh dependence, opiate dependence, pre diabetes, NSVT, presented with opiate overdose Acute toxic metabolic encephalopathy Likely due to opiate overdose Concern for possible cardiac syncopal event due to history of NSVT Monitor on telemetry Diarrhea Check stool studies CT abdomen Imodium if negative Acute kidney injury due to dehydration from diarrhea and acute mild rhabdomyolysis IV fluids, monitor Opiate dependence with withdrawal Addiction team eval, methadone Alcohol dependence history Reports sobriety at this time Pre diabetes Check A1c DVT prophylaxis-low risk, encourage ambulation Full code Patient with significant kidney injury requiring hydration with IV fluids, syncope with history of cardiac arrhythmia, and therefore, expected to require at least 2 midnights in patient Quality Stroke Does the patient have a stroke diagnosis?: No VTE Prior VTE?: No VTE Risk Level:: Medical - low VTE Device Contraindication: Treatment Not Indicated VTE Drug Contraindication: Treatment Not Indicated
[2023-03-11 18:18] VITALS: BP 131/74; PULSE 113; RESP 14; O2SAT 96
--- NOTE | 2023-03-11 18:30 | PHA.MEDREC ---
Pharmacy Consult ? Medication Reconciliation Pharmacy has completed the medication reconciliation. Spoke to patient and verified medication list.
[2023-03-11] MEDS: Lactated Ringers 1,000 ML 125 ML IVCONT (19:05)
--- NOTE | 2023-03-11 19:33 | PC.NURSE ---
report to luis ROTHMAN
[2023-03-11 19:56] LABS: CDiff Gene PCR NEGATIVE (Negative)
[2023-03-11 20:27] VITALS: BMI 28.6
[2023-03-11 20:46] VITALS: BP 131/72; PULSE 140; RESP 18; TEMP 36.9; O2SAT 96
[2023-03-11] MEDS: Loperamide HCl 2 MG CAPSULE 4 MG PO (21:29)
[2023-03-11] MEDS: Prazosin HCL 1 MG CAPSULE 4 MG PO (21:29)
[2023-03-11] MEDS: Gabapentin 300 MG CAPSULE 600 MG PO (21:30)
[2023-03-11] MEDS: Omeprazole 20 MG CAPSULE.DR PO (21:30)
[2023-03-11] MEDS: traZODone HCL 100 MG TABLET 200 MG PO (21:30)
[2023-03-11 22:45] VITALS: BP 133/74; PULSE 92; RESP 20; TEMP 36.4; O2SAT 100
--- NOTE | 2023-03-11 22:51 | PC.NURSE ---
2114 pt came in as new admit from ED via stretcher, with a Sitter for SI. Alert and orientedx4. OOB with steady gait. Placed on tele monitoring. Pt constantly having liquidy brown stooling. commode at bedside. Pt stayed in the commode for almost half an hour. HR went up to 140s while in the commode. 2211 MD notified. Pt HR went up to 150's. Afebrile with T 97.6 temporal. Denies any chest pain. HR went down to low 110's when at rest.Pt agreed to have rectal tube/flexiseal. Inserted at 2229. Pt tolerated well.
[2023-03-11 23:28] VITALS: BP 119/60; PULSE 106; RESP 18; TEMP 36.4; O2SAT 96
[2023-03-11] MEDS: methADONE HCl 20 MG/2 ML ORAL.CONC 30 MG PO (23:34)
[2023-03-11] MEDS: 0.9 % Sodium Chloride Flush 3 ML SYRINGE IVFLUSH (23:37)
[2023-03-12] VITALS (7 sets, daily range): BP systolic 113–152; BP diastolic 60–67; PULSE 76–103; RESP 18–21; TEMP 36.5–37.4; O2SAT 94–98
[2023-03-12] MEDS: LORazepam 2 MG/ML VIAL 0.5 MG IVPUSH (00:40)
[2023-03-12] MEDS: cloNIDine HCL 0.1 MG TABLET PO (00:40)
[2023-03-12] MEDS: hydrOXYzine HCL 25 MG TABLET PO (00:41)
[2023-03-12] MEDS: Lactated Ringers 1,000 ML 125 ML IVCONT ×3 (03:46→20:14)
[2023-03-12 04:13] LABS: Estimated Average Glucose 114 mg/dL; Hemoglobin A1c % 5.6 % (<6.0)
[2023-03-12 07:14] LABS: Hematocrit 30.7 % (42.0-52.0); Hemoglobin 10.4 g/dl (14.0-18.0); Mean Corpuscular HGB Conc 33.9 g/dl (31.0-36.0); Mean Corpuscular Hemoglobin 27.2 pg (27.0-33.0); Mean Corpuscular Volume 80.2 fL (80.0-98.0); Mean Platelet Volume 10.2 fL (9.4-12.4); Platelet Count 168 X10*3/uL (160-400); Red Blood Count 3.83 X10*6/uL (4.60-5.80); Red Cell Distribution Width 14.5 % (11.0-16.0); White Blood Count 6.6 X10*3/uL (4.8-10.8)
[2023-03-12 07:18] LABS: INTERNATIONAL NORM RATIO 1.3 (0.9-1.1); Prothrombin Time 16.1 SEC (11.1-13.3)
[2023-03-12 07:26] LABS: Alanine Aminotransferase 29 U/L (0-40); Albumin Level 3.2 g/dL (3.5-5.0); Alkaline Phosphatase 68 U/L (39-117); Anion Gap 10 (12-20); Aspartate Amino Transferase 70 U/L (5-37); Bilirubin Direct 0.2 mg/dL (0.0-0.5); Bilirubin Total 0.5 mg/dL (0.0-1.0); Blood Urea Nitrogen 12 mg/dL (9-16); C Reactive Protein 13.93 mg/dL (< or = 0.50); Calcium 8.2 mg/dL (8.4-10.2); Carbon Dioxide 25 mmol/L (22-29); Chloride 106 mmol/L (96-108); Creatinine Clr Calc Pharmacy 168.7; Estimated Glomerular Filt Rate > 60; Glucose Fasting 130 mg/dL (60-99); Magnesium 1.9 mg/dL (1.6-2.6); Potassium 3.4 mmol/L (3.3-5.1); Sodium 138 mmol/L (135-145); Total Protein 5.5 g/dL (6.5-8.0)
--- NOTE | 2023-03-12 07:48 | HE.PHANOTE ---
RE METHADONE VERIFICATION LAST DOSE 03/05 FOR 30 MG. MD RESTARTING TITRATION WOULD BE NEEDED ANYHOW BUT DOSE WAS SAME START DOSE.
[2023-03-12] MEDS: Omeprazole 20 MG CAPSULE.DR PO ×2 (09:09→20:14)
[2023-03-12] MEDS: methADONE HCl 20 MG/2 ML ORAL.CONC 30 MG PO (09:09)
[2023-03-12] MEDS: 0.9 % Sodium Chloride Flush 3 ML SYRINGE IVFLUSH ×2 (09:09→20:20)
[2023-03-12] MEDS: Gabapentin 300 MG CAPSULE 600 MG PO ×3 (09:09→20:13)
--- NOTE | 2023-03-12 09:36 | HO.PM.IMPN ---
Subjective Subjective Date of Service: 03/12/23 Interval History: no SI at this time Physical Exam Vital Signs: Vital Signs: Last Vital Signs Temp 98.4 F 03/12/23 07:12 Pulse 93 03/12/23 07:12 Resp 18 03/12/23 07:12 BP 152/61 H 03/12/23 07:12 Pulse Ox 96 03/12/23 07:12 O2 Del Method Room Air 03/12/23 07:12 BMI result Body Mass Index 28.6 General: AO X 3, no acute distress Resp: CTA bilateral, no accessory muscles used CVS: S1,S2,RRR GI: soft, non tender, non distended Neuro: motor grossly intact, alert Psych: appropriate affect, appropriate insight Objective Data Active Medications Clonidine HCl (Clonidine Hcl 0.1 Mg Tablet) 0.1 mg PO TID PRN; Protocol PRN Reason: withdrawal Last Admin: 03/12/23 00:40 Dose: 0.1 mg Documented By: BREN Gabapentin (Gabapentin 300 Mg Capsule) 600 mg PO TID [facility] TO [facility] Last Admin: 03/12/23 09:09 Dose: 600 mg Documented By: YASIR Hydroxyzine HCl (Hydroxyzine Hcl 25 Mg Tablet) 25 mg PO Q6H PRN PRN Reason: anxiety/restlessness Last Admin: 03/12/23 00:41 Dose: 25 mg Documented By: BREN Lactated Ringer's (Lr) 1,000 mls @ 125 mls/hr IVCONT .Q8H [facility] Last Admin: 03/12/23 03:46 Dose: 125 mls/hr Documented By: BREN Methadone HCl (Methadone Hcl 20 Mg/2 Ml Oral.Conc) 30 mg PO DAILY [facility] Last Admin: 03/12/23 09:09 Dose: 30 mg Documented By: YASIR Morphine Sulfate (Morphine Sulfate 2 Mg/Ml Cartridge) 2 mg IVPUSH Q4H PRN; Protocol PRN Reason: mod pain Omeprazole (Omeprazole 20 Mg Capsule.Dr) 20 mg PO BID [facility] Last Admin: 03/12/23 09:09 Dose: 20 mg Documented By: YASIR Prazosin HCl (Prazosin Hcl 1 Mg Capsule) 4 mg PO BEDTIME [facility]; Protocol Last Admin: 03/11/23 21:29 Dose: 4 mg Documented By: BREN Sodium Chloride (0.9 % Sodium Chloride Flush 3 Ml Syringe) 3 ml IVFLUSH QSHIFT [facility] Last Admin: 03/12/23 09:09 Dose: 3 ml Documented By: YASIR Trazodone HCl (Trazodone Hcl 100 Mg Tablet) 200 mg PO BEDTIME [facility] Last Admin: 03/11/23 21:30 Dose: 200 mg Documented By: BREN Labs 03/12/23 06:56 03/12/23 06:56 Labs: Laboratory Results - last 24 hr 03/11/23 03/11/23 03/11/23 10:32 16:48 18:59 MCV 79.1 L MCH 26.4 L MCHC 33.4 RDW 14.2 Plt Count 227 MPV 10.1 Immature Gran % (Auto) 0.1 Neut % (Auto) 63.5 Lymph % (Auto) 16.4 L [place] % (Auto) 19.9 H Eos % (Auto) 0.0 Baso % (Auto) 0.1 Lymph # (Auto) 1.2 [place] # (Auto) 1.4 H Eos # (Auto) 0.0 Baso # (Auto) 0.0 Abs Immat Gran (auto) 0.01 Absolute Neuts (auto) 4.5 Absolute Nucleated RBC 0.000 Nucleated RBC % (auto) 0.0 PT 13.2 INR 1.1 Anion Gap 14 13 Estim Creat Clear Calc 74.5 103.4 Estimated GFR 48 > 60 Random Glucose 142 H 191 H Fasting Glucose Estimat Average Glucose 114 Hemoglobin A1c % 5.6 Calcium 9.1 8.7 Magnesium 2.5 Total Bilirubin Direct Bilirubin AST ALT Alkaline Phosphatase Total Creatine Kinase 1362 H 2369 H C-Reactive Protein Total Protein Albumin Lipase 5 L Urine Color BROWN Urine Appearance Cloudy Urine pH 6.5 Ur Specific [place] >= 1.030 H Urine Protein 100 (2+) H Urine Glucose (UA) Negative Urine Ketones Trace Urine Blood Negative Urine Nitrite Positive H Ur Leukocyte Esterase Trace H Urine RBC 6-10 H Urine WBC 0-5 Ur Squamous Epith Cells 0-2 Calcium Oxalate Crystal Present Urine Bacteria None Seen Hyaline Casts 6-10 Salicylates < 5.0 L Urine Opiates Screen POSITIVE H Urine Fentanyl Screen POSITIVE H Ur Barbiturates Screen Not Detected Ur Phencyclidine Scrn Not Detected Ur Amphetamines Screen Not Detected U Benzodiazepines Scrn Not Detected Urine Cocaine Screen Not Detected U Marijuana (THC) Screen Not Detected Ethyl Alcohol < 10 C. difficile Tox B Gene NEGATIVE 03/12/23 06:56 MCV 80.2 MCH 27.2 MCHC 33.9 RDW 14.5 Plt Count 168 D MPV 10.2 Immature Gran % (Auto) Neut % (Auto) Lymph % (Auto) [place] % (Auto) Eos % (Auto) Baso % (Auto) Lymph # (Auto) [place] # (Auto) Eos # (Auto) Baso # (Auto) Abs Immat Gran (auto) Absolute Neuts (auto) Absolute Nucleated RBC 0.000 Nucleated RBC % (auto) 0.0 PT 16.1 H D INR 1.3 H Anion Gap 10 L Estim Creat Clear Calc 168.7 Estimated GFR > 60 Random Glucose Fasting Glucose 130 H Estimat Average Glucose Hemoglobin A1c % Calcium 8.2 L Magnesium 1.9 Total Bilirubin 0.5 Direct Bilirubin 0.2 AST 70 H ALT 29 Alkaline Phosphatase 68 Total Creatine Kinase 2389 H C-Reactive Protein 13.93 H Total Protein 5.5 L Albumin 3.2 L Lipase Urine Color Urine Appearance Urine pH Ur Specific [place] Urine Protein Urine Glucose (UA) Urine Ketones Urine Blood Urine Nitrite Ur Leukocyte Esterase Urine RBC Urine WBC Ur Squamous Epith Cells Calcium Oxalate Crystal Urine Bacteria Hyaline Casts Salicylates Urine Opiates Screen Urine Fentanyl Screen Ur Barbiturates Screen Ur Phencyclidine Scrn Ur Amphetamines Screen U Benzodiazepines Scrn Urine Cocaine Screen U Marijuana (THC) Screen Ethyl Alcohol C. difficile Tox B Gene Assessment and Plan (1) Rhabdomyolysis: Status: Acute Plan 27M PMH etoh dependence, opiate dependence, pre diabetes, NSVT, presented with opiate overdose Acute toxic metabolic encephalopathy Likely due to opiate overdose Concern for possible cardiac syncopal event due to history of NSVT resolved Diarrhea Check stool studies, so far cdif negative CT abdomen report pending Acute kidney injury due to dehydration from diarrhea and acute mild rhabdomyolysis IV fluids, monitor, renal function improved, continue fluids for rhabdo Opiate dependence with withdrawal Addiction team mikael weiss Alcohol dependence history Reports sobriety at this time Pre diabetes a1c 5.6 DVT prophylaxis-low risk, encourage ambulation Full code reason for continued hospitalization:ivf for rhabdo Quality Stroke Does the patient have a stroke diagnosis?: No VTE Prior VTE?: No VTE Risk Level:: Medical - low VTE Device Contraindication: Treatment Not Indicated VTE Drug Contraindication: Treatment Not Indicated
[2023-03-12 09:38] LABS: Adenovirus F 40/41 Not Detected (Not Detect.); Astrovirus Not Detected (Not Detect.); Campylobacter Not Detected (Not Detect.); Cryptosporidium Not Detected (Not Detect.); Cyclospora cayetanensis Not Detected (Not Detect.); E. coli EAEC Not Detected (Not Detect.); E. coli EPEC Not Detected (Not Detect.); E. coli ETEC Not Detected (Not Detect.); E. coli STEC Not Detected (Not Detect.); Entamoeba histolytica Not Detected (Not Detect.); Giardia lamblia Not Detected (Not Detect.); Norovirus GI/GII Not Detected (Not Detect.); Plesiomonas shigelloides Not Detected (Not Detect.); Rotavirus A Not Detected (Not Detect.); Salmonella Not Detected (Not Detect.); Sapovirus Not Detected (Not Detect.); Shigella sp./EIEC Not Detected (Not Detect.); Vibrio Not Detected (Not Detect.); Vibrio Cholerae Not Detected (Not Detect.); Yersinia enterocolitica Not Detected (Not Detect.)
--- NOTE | 2023-03-12 09:47 | MHC.CM.PN ---
CM met with Patient at bedside. Patient is interested in detox. Patient lives in a house with his Parents and his Mother/Carmela is the HCP. CM has initiated and will follow for dc planning. PCP is from [place] in [place].
[2023-03-12] MEDS: Mineral OiL enema 133 ML ENEMA PR (11:07)
--- NOTE | 2023-03-12 13:13 | MHC.RECOVSUP ---
Met with pt in 483 for a check in. Pt informs he is currently not feeling any withdrawals and is ok with current dose he has received of MTD. Pt informs he was getting MTD from [facility] in [place] a few weeks ago at 15mg and would like to continue MAT again going forward but is not sure if he wants Methadone or Suboxone. At this time pt is not sure what he wants to do when he leaves and would like to have a long conversation with his parents to figure it out. Pt has no other questions or concerns at this time.
[2023-03-12] MEDS: Prazosin HCL 1 MG CAPSULE 4 MG PO (20:13)
[2023-03-12] MEDS: traZODone HCL 100 MG TABLET 200 MG PO (20:14)
[2023-03-13] MEDS: Lactated Ringers 1,000 ML 125 ML IVCONT ×3 (03:52→16:47)
[2023-03-13 04:00] VITALS: BP 131/75; PULSE 57; RESP 18; TEMP 36.6; O2SAT 96
--- NOTE | 2023-03-13 07:01 | PC.NURSE ---
Removed patients rectal tube at 06:40 on 03/13/2024. Patient has semi formed stool.
[2023-03-13 07:28] VITALS: BP 130/67; PULSE 59; RESP 16; TEMP 38; O2SAT 95
[2023-03-13] MEDS: methADONE HCl 20 MG/2 ML ORAL.CONC 30 MG PO (07:45)
[2023-03-13] MEDS: Omeprazole 20 MG CAPSULE.DR PO ×2 (07:45→20:33)
[2023-03-13] MEDS: Gabapentin 300 MG CAPSULE 600 MG PO ×3 (07:45→20:33)
[2023-03-13 07:47] LABS: Anion Gap 8 (12-20); Blood Urea Nitrogen 6 mg/dL (9-16); Calcium 8.2 mg/dL (8.4-10.2); Carbon Dioxide 27 mmol/L (22-29); Chloride 108 mmol/L (96-108); Creatinine Clr Calc Pharmacy 178.1; Estimated Glomerular Filt Rate > 60; Glucose Fasting 132 mg/dL (60-99); Potassium 3.3 mmol/L (3.3-5.1); Sodium 140 mmol/L (135-145)
--- NOTE | 2023-03-13 09:28 | P.PNIM_ITS ---
Subjective Subjective Date of Service: 03/13/23 Interval History: still with frequent loose stools, without large BM Physical Exam 2 Vital Signs: Vital Signs: Last Vital Signs Temp 100.4 F 03/13/23 07:28 Pulse 59 03/13/23 07:28 Resp 16 03/13/23 07:28 BP 130/67 03/13/23 07:28 Pulse Ox 95 03/13/23 07:28 O2 Del Method Room Air 03/13/23 07:28 BMI result Body Mass Index 28.6 General: AO X 3, no acute distress Resp: CTA bilateral, no accessory muscles used CVS: S1,S2,RRR GI: soft, non tender, non distended Neuro: motor grossly intact, alert Psych: appropriate affect, appropriate insight Objective Data Active Medications Clonidine HCl (Clonidine Hcl 0.1 Mg Tablet) 0.1 mg PO TID PRN; Protocol PRN Reason: withdrawal Last Admin: 03/12/23 00:40 Dose: 0.1 mg Documented By: BREN Gabapentin (Gabapentin 300 Mg Capsule) 600 mg PO TID [facility] Last Admin: 03/13/23 07:45 Dose: 600 mg Documented By: ARNOLDO Hydroxyzine HCl (Hydroxyzine Hcl 25 Mg Tablet) 25 mg PO Q6H PRN PRN Reason: anxiety/restlessness Last Admin: 03/12/23 00:41 Dose: 25 mg Documented By: BREN Lactated Ringer's (Lr) 1,000 mls @ 125 mls/hr IVCONT .Q8H [facility] Last Admin: 03/13/23 08:49 Dose: 125 mls/hr Documented By: ARNOLDO Methadone HCl (Methadone Hcl 20 Mg/2 Ml Oral.Conc) 30 mg PO DAILY [facility] Last Admin: 03/13/23 07:45 Dose: 30 mg Documented By: ARNOLDO Morphine Sulfate (Morphine Sulfate 2 Mg/Ml Cartridge) 2 mg IVPUSH Q4H PRN; Protocol PRN Reason: mod pain Omeprazole (Omeprazole 20 Mg Capsule.Dr) 20 mg PO BID [facility] Last Admin: 03/13/23 07:45 Dose: 20 mg Documented By: ARNOLDO Prazosin HCl (Prazosin Hcl 1 Mg Capsule) 4 mg PO BEDTIME [facility]; Protocol Last Admin: 03/12/23 20:13 Dose: 4 mg Documented By: HERVE Sodium Chloride (0.9 % Sodium Chloride Flush 3 Ml Syringe) 3 ml IVFLUSH QSHIFT [facility] Last Admin: 03/13/23 07:41 Dose: Not Given Documented By: ARNOLDO Non-Admin Reason: No Access Trazodone HCl (Trazodone Hcl 100 Mg Tablet) 200 mg PO BEDTIME [facility] Last Admin: 03/12/23 20:14 Dose: 200 mg Documented By: HERVE Labs 03/12/23 06:56 03/13/23 07:01 Labs: Laboratory Results - last 24 hr 03/11/23 03/13/23 18:59 07:01 Hold Purple Top SEE NOTE Anion Gap 8 L Estim Creat Clear Calc 178.1 Estimated GFR > 60 Fasting Glucose 132 H Calcium 8.2 L Total Creatine Kinase 1025 H Stl C. cayetanensis PCR Not Detected Stool Rotavirus A PCR Not Detected Stl Adenov F 40/41 PCR Not Detected Stool Astrovirus (PCR) Not Detected Stool Campylobacter PCR Not Detected Stool Cryptosporidium PCR Not Detected Stl Sh Tox Pr E STEC PCR Not Detected Stool E coli O157 PCR Not applicable Stl Enterotoxigenic E PCR Not Detected Stool EPEC (PCR) Not Detected Stool EAEC (PCR) Not Detected Stl E. histolytica PCR Not Detected Stool Giardia Lamblia PCR Not Detected Stl P. shigelloides PCR Not Detected Stool Salmonella PCR Not Detected Stool Sapovirus (PCR) Not Detected Stl Shigella/EIEC PCR Not Detected St Y.enterocolitica PCR Not Detected Stool Vibrio (PCR) Not Detected Stl Vibrio cholerae PCR Not Detected Stl Norovirus GI/GII PCR Not Detected Microbiology Microbiology Results: Microbiology 03/11/23 Unknown Urine Culture - Final Urine clean catch - Urine ferguson top No growth. Assessment and Plan (1) Rhabdomyolysis: Status: Acute Plan 27M PMH etoh dependence, opiate dependence, pre diabetes, NSVT, presented with opiate overdose Acute toxic metabolic encephalopathy Likely due to opiate overdose no events on tele resolved Diarrhea cdif and stool pcr negative CT showing large stool burden diarrhea likely due to obstructing stool Acute kidney injury due to dehydration from diarrhea and acute mild rhabdomyolysis resolved with ivf Opiate dependence with withdrawal Addiction team following, methadone Alcohol dependence history Reports sobriety at this time Pre diabetes a1c 5.6 DVT prophylaxis-low risk, encourage ambulation Full code reason for continued hospitalization: awaiting stool Quality Stroke Does the patient have a stroke diagnosis?: No VTE Prior VTE?: No VTE Risk Level:: Medical - low VTE Device Contraindication: Treatment Not Indicated VTE Drug Contraindication: Treatment Not Indicated
[2023-03-13] MEDS: polyethylene glycoL 3350 17 GM POWD.PACK PO (10:18)
[2023-03-13] MEDS: bisacodyL 10 MG SUPP.RECT PR (10:18)
--- NOTE | 2023-03-13 10:44 | MHC.RECOVRN ---
Met with pt in 483 to follow up regarding methadone dose and assess for withdrawal. Pt laying in bed, awake, alert, easily engages in conversation, pleasant. Pt reports continued withdrawal symptoms including diaphoresis (visible), anxiety, loose stools, inability to sleep. Pt requesting methadone increase. Discussed with Julieta Gregorio APRN. Plan to administer additional 10 mg methadone.
[2023-03-13] MEDS: methADONE HCl 20 MG/2 ML ORAL.CONC 10 MG PO (10:54)
[2023-03-13 11:44] VITALS: BP 113/65; PULSE 59; RESP 18; TEMP 38.6; O2SAT 96
[2023-03-13 14:57] VITALS: BP 121/66; PULSE 70; RESP 18; TEMP 37.1; O2SAT 97
--- NOTE | 2023-03-13 16:41 | HO.ADDICTPRO ---
Subjective Subjective Date of Service: 03/13/23 Reason For Visit: Pavan,Rhabdo Interim History: Patient seen in follow up Methadone 30mg QD started by hospitalist at time of admission Seen by manager semiconductor earlier in the AM and noted diaphoreisis and anxiety. Methadone 10mg given with positive effect. Seen with manager semiconductor in the afternoon, reporting nausea and lack of appetite (of note, patient was febrile at this time 101.5). Reports previously being stable on methadone 80mg QD at [facility]. Currently using btwn 5-10 bags of opiates daily. Denies any alcohol use. Review of Systems Constitutional: Reports as per HPI, Reports body ache(s), Reports difficulty sleeping and Reports malaise Mental Status Exam Mental Status Exam Level of Consciousness: Awake, Appropriate and Alert Patient Behavior: Appropriate Mood Description: Blunted Diagnostics Vital Signs (24Hr): Vital Signs - 24 hr 03/12/23 19:52 03/12/23 23:49 03/13/23 04:00 Temperature 98.9 F 98.6 F 97.9 F Pulse Rate 103 H 76 57 Respiratory Rate 20 18 18 Blood Pressure 115/63 147/67 H 131/75 Pulse Oximetry 94 98 96 Oxygen Delivery Method Room Air Room Air Room Air 03/13/23 07:28 03/13/23 11:44 03/13/23 14:57 Temperature 100.4 F 101.5 F H 98.8 F Pulse Rate 59 59 70 Respiratory Rate 16 18 18 Blood Pressure 130/67 113/65 121/66 Pulse Oximetry 95 96 97 Oxygen Delivery Method Room Air Room Air Room Air BMI result Body Mass Index 28.6 Labs 03/12/23 06:56 03/13/23 07:01 Labs: Laboratory Results - last 48 hr 03/11/23 03/11/23 03/11/23 10:32 16:48 18:59 WBC RBC Hgb Hct MCV MCH MCHC RDW Plt Count MPV Absolute Nucleated RBC Nucleated RBC % (auto) Hold Purple Top PT INR Sodium 136 Potassium 4.1 Chloride 105 Carbon Dioxide 22 Anion Gap 13 BUN 19 H Creatinine 1.24 Estim Creat Clear Calc 103.4 Estimated GFR > 60 Random Glucose 191 H Fasting Glucose Estimat Average Glucose 114 Hemoglobin A1c % 5.6 Calcium 8.7 Magnesium Total Bilirubin Direct Bilirubin AST ALT Alkaline Phosphatase Total Creatine Kinase 2369 H C-Reactive Protein Total Protein Albumin Stl C. cayetanensis PCR Not Detected Stool Rotavirus A PCR Not Detected Stl Adenov F 40/41 PCR Not Detected Stool Astrovirus (PCR) Not Detected Stool Campylobacter PCR Not Detected Stool Cryptosporidium PCR Not Detected Stl Sh Tox Pr E STEC PCR Not Detected Stool E coli O157 PCR Not applicable Stl Enterotoxigenic E PCR Not Detected Stool EPEC (PCR) Not Detected Stool EAEC (PCR) Not Detected Stl E. histolytica PCR Not Detected Stool Giardia Lamblia PCR Not Detected Stl P. shigelloides PCR Not Detected Stool Salmonella PCR Not Detected Stool Sapovirus (PCR) Not Detected Stl Shigella/EIEC PCR Not Detected St Y.enterocolitica PCR Not Detected Stool Vibrio (PCR) Not Detected Stl Vibrio cholerae PCR Not Detected Stl Norovirus GI/GII PCR Not Detected C. difficile Tox B Gene NEGATIVE 03/12/23 03/13/23 06:56 07:01 WBC 6.6 RBC 3.83 L D Hgb 10.4 L Hct 30.7 L MCV 80.2 MCH 27.2 MCHC 33.9 RDW 14.5 Plt Count 168 D MPV 10.2 Absolute Nucleated RBC 0.000 Nucleated RBC % (auto) 0.0 Hold Purple Top SEE NOTE PT 16.1 H D INR 1.3 H Sodium 138 140 Potassium 3.4 3.3 Chloride 106 108 Carbon Dioxide 25 27 Anion Gap 10 L 8 L BUN 12 6 L Creatinine 0.76 0.72 Estim Creat Clear Calc 168.7 178.1 Estimated GFR > 60 > 60 Random Glucose Fasting Glucose 130 H 132 H Estimat Average Glucose Hemoglobin A1c % Calcium 8.2 L 8.2 L Magnesium 1.9 Total Bilirubin 0.5 Direct Bilirubin 0.2 AST 70 H ALT 29 Alkaline Phosphatase 68 Total Creatine Kinase 2389 H 1025 H C-Reactive Protein 13.93 H Total Protein 5.5 L Albumin 3.2 L Stl C. cayetanensis PCR Stool Rotavirus A PCR Stl Adenov F 40/41 PCR Stool Astrovirus (PCR) Stool Campylobacter PCR Stool Cryptosporidium PCR Stl Sh Tox Pr E STEC PCR Stool E coli O157 PCR Stl Enterotoxigenic E PCR Stool EPEC (PCR) Stool EAEC (PCR) Stl E. histolytica PCR Stool Giardia Lamblia PCR Stl P. shigelloides PCR Stool Salmonella PCR Stool Sapovirus (PCR) Stl Shigella/EIEC PCR St Y.enterocolitica PCR Stool Vibrio (PCR) Stl Vibrio cholerae PCR Stl Norovirus GI/GII PCR C. difficile Tox B Gene Imaging Radiology Impressions: ITS Impressions Head CT 03/11/23 11:08 IMPRESSION: No acute intracranial process seen. Abdomen/Pelvis CT 03/11/23 20:13 IMPRESSION: * Large amount of fecal material in the sigmoid colon and rectum and there is gaseous distention of the more proximal colon. Findings are highly suggestive of constipation. No evidence of any obstructing sigmoid or rectal lesion. There is no pericolonic fat stranding or vascular engorgement of the mesentery (i.e., no overt colitis) although evaluation of the descending colon is somewhat limited due to lack of distention. * A pseudocyst of the pancreatic tail has mildly decreased in size compared to 10/29/2022. Medications Medications Current Medications Clonidine HCl (Clonidine Hcl 0.1 Mg Tablet) 0.1 mg PO TID PRN; Protocol PRN Reason: withdrawal Last Admin: 03/12/23 00:40 Dose: 0.1 mg Gabapentin (Gabapentin 300 Mg Capsule) 600 mg PO TID [facility] Last Admin: 03/13/23 14:57 Dose: 600 mg Hydroxyzine HCl (Hydroxyzine Hcl 25 Mg Tablet) 25 mg PO Q6H PRN PRN Reason: anxiety/restlessness Last Admin: 03/12/23 00:41 Dose: 25 mg Lactated Ringer's (Lr) 1,000 mls @ 125 mls/hr IVCONT .Q8H [facility] Last Admin: 03/13/23 08:49 Dose: 125 mls/hr Methadone HCl (Methadone Hcl 20 Mg/2 Ml Oral.Conc) 55 mg PO DAILY [facility] Morphine Sulfate (Morphine Sulfate 2 Mg/Ml Cartridge) 2 mg IVPUSH Q4H PRN; Protocol PRN Reason: mod pain Omeprazole (Omeprazole 20 Mg Capsule.Dr) 20 mg PO BID [facility] Last Admin: 03/13/23 07:45 Dose: 20 mg Prazosin HCl (Prazosin Hcl 1 Mg Capsule) 4 mg PO BEDTIME [facility]; Protocol Last Admin: 03/12/23 20:13 Dose: 4 mg Sodium Chloride (0.9 % Sodium Chloride Flush 3 Ml Syringe) 3 ml IVFLUSH QSHIFT [facility] Last Admin: 03/13/23 07:41 Dose: Not Given Trazodone HCl (Trazodone Hcl 100 Mg Tablet) 200 mg PO BEDTIME [facility] Last Admin: 03/12/23 20:14 Dose: 200 mg Allergies Allergies Allergy/AdvReac Type Severity Reaction Status Date / Time No Known Allergies Allergy Verified 10/31/22 13:27 Assessment & Plan Assessment & Plan (1) Opioid use disorder: Status: Acute Code(s): F11.90 - Opioid use, unspecified, uncomplicated Assessment and Plan: methadone increase to 55mg QD starting in AM manager semiconductor to send referral to [facility] OT manager semiconductor to start sending referrals to [facility] as patient expressed interest in admission--he is aware that admission may not be possible from the hospital but he can continue to follow up from the commiunity. Total time managing care of this patient today __20__ minutes.
--- NOTE | 2023-03-13 18:05 | PC.NURSE ---
Patient sinus katherin on monitor, HR 40's-50's. Mostly sleeping and asymptomatic. Dr. Mary tracey.
[2023-03-13 19:31] VITALS: BP 120/70; PULSE 51; RESP 18; TEMP 36; O2SAT 97
[2023-03-13] MEDS: traZODone HCL 100 MG TABLET 200 MG PO (20:33)
[2023-03-13] MEDS: Prazosin HCL 1 MG CAPSULE 4 MG PO (20:33)
[2023-03-14] VITALS (8 sets, daily range): BP systolic 113–138; BP diastolic 65–76; PULSE 56–81; RESP 14–20; TEMP 36.2–36.7; O2SAT 97–99
[2023-03-14] MEDS: Lactated Ringers 1,000 ML 125 ML IVCONT ×3 (01:25→18:01)
[2023-03-14] MEDS: Gabapentin 300 MG CAPSULE 600 MG PO ×3 (08:18→20:12)
[2023-03-14] MEDS: Omeprazole 20 MG CAPSULE.DR PO ×2 (08:18→20:12)
[2023-03-14] MEDS: 0.9 % Sodium Chloride Flush 3 ML SYRINGE IVFLUSH ×2 (08:18)
[2023-03-14] MEDS: methADONE HCl 20 MG/2 ML ORAL.CONC 55 MG PO (08:18)
--- NOTE | 2023-03-14 09:14 | HO.PM.IMPN ---
Subjective Subjective Date of Service: 03/14/23 Interval History: still with frequent loose stools, without large BM Physical Exam Vital Signs: Vital Signs: Last Vital Signs Temp 98.0 F 03/14/23 07:35 Pulse 81 03/14/23 07:35 Resp 20 03/14/23 07:35 BP 120/71 03/14/23 07:35 Pulse Ox 97 03/14/23 07:35 O2 Del Method Room Air 03/14/23 07:35 BMI result Body Mass Index 28.6 General: AO X 3, no acute distress Resp: CTA bilateral, no accessory muscles used CVS: S1,S2,RRR GI: soft, non tender, non distended Neuro: motor grossly intact, alert Psych: appropriate affect, appropriate insight Objective Data Active Medications Clonidine HCl (Clonidine Hcl 0.1 Mg Tablet) 0.1 mg PO TID PRN; Protocol PRN Reason: withdrawal Last Admin: 03/12/23 00:40 Dose: 0.1 mg Documented By: BREN Gabapentin (Gabapentin 300 Mg Capsule) 600 mg PO TID [facility] Last Admin: 03/14/23 08:18 Dose: 600 mg Documented By: HUGO Hydroxyzine HCl (Hydroxyzine Hcl 25 Mg Tablet) 25 mg PO Q6H PRN PRN Reason: anxiety/restlessness Last Admin: 03/12/23 00:41 Dose: 25 mg Documented By: BREN Lactated Ringer's (Lr) 1,000 mls @ 125 mls/hr IVCONT .Q8H [facility] Last Admin: 03/14/23 08:19 Dose: 125 mls/hr Documented By: HUGO Methadone HCl (Methadone Hcl 20 Mg/2 Ml Oral.Conc) 55 mg PO DAILY [facility] Last Admin: 03/14/23 08:18 Dose: 55 mg Documented By: HUGO Morphine Sulfate (Morphine Sulfate 2 Mg/Ml Cartridge) 2 mg IVPUSH Q4H PRN; Protocol PRN Reason: mod pain Omeprazole (Omeprazole 20 Mg Capsule.Dr) 20 mg PO BID [facility] Last Admin: 03/14/23 08:18 Dose: 20 mg Documented By: HUGO Prazosin HCl (Prazosin Hcl 1 Mg Capsule) 4 mg PO BEDTIME [facility]; Protocol Last Admin: 03/13/23 20:33 Dose: 4 mg Documented By: J CARLOS Sodium Chloride (0.9 % Sodium Chloride Flush 3 Ml Syringe) 3 ml IVFLUSH QSHIFT [facility] Last Admin: 03/14/23 08:18 Dose: 3 ml Documented By: HUGO Trazodone HCl (Trazodone Hcl 100 Mg Tablet) 200 mg PO BEDTIME [facility] Last Admin: 03/13/23 20:33 Dose: 200 mg Documented By: J CARLOS Labs 03/12/23 06:56 03/13/23 07:01 Assessment and Plan (1) Rhabdomyolysis: Status: Acute Plan 27M PMH etoh dependence, opiate dependence, pre diabetes, NSVT, presented with opiate overdose Acute toxic metabolic encephalopathy Likely due to opiate overdose no events on tele resolved Diarrhea cdif and stool pcr negative CT showing large stool burden diarrhea likely due to obstructing stool Acute kidney injury due to dehydration from diarrhea and acute mild rhabdomyolysis resolved with ivf Opiate dependence with withdrawal Addiction team following, methadone Alcohol dependence history Reports sobriety at this time Pre diabetes a1c 5.6 DVT prophylaxis-low risk, encourage ambulation Full code reason for continued hospitalization: awaiting stool, still with opiate withdrawal Quality Stroke Does the patient have a stroke diagnosis?: No VTE Prior VTE?: No VTE Risk Level:: Medical - low VTE Device Contraindication: Treatment Not Indicated VTE Drug Contraindication: Treatment Not Indicated
[2023-03-14] MEDS: polyethylene glycoL 3350 17 GM POWD.PACK PO (11:08)
--- NOTE | 2023-03-14 13:19 | MHC.RECOVRN ---
Met with pt to follow up regarding methadone dose and address withdrawal symptoms. Pt laying in bed, awake, alert, easily engages in conversation. Pt received 55 mg methadone this morning, reports it helped a little. Pt continues to report withdrawal symptoms including hot/cold flashes, inability to sleep, states I feel like I have the flu. Pt is interested in CSS upon medical clearance, referral has been sent to [facility], [facility], [facility], [facility], and [facility]. Pts referral also sent to [facility]. Pt denies other questions or concerns for t/w. Discussed with Julieta Gregorio APRN..
[2023-03-14] MEDS: cloNIDine HCL 0.1 MG TABLET PO (15:01)
[2023-03-14] MEDS: Morphine Sulfate 2 MG/ML CARTRIDGE IVPUSH (15:01)
[2023-03-14] MEDS: Prazosin HCL 1 MG CAPSULE 4 MG PO (20:11)
[2023-03-14] MEDS: traZODone HCL 100 MG TABLET 200 MG PO (20:12)
[2023-03-15] VITALS (7 sets, daily range): BP systolic 104–137; BP diastolic 63–79; PULSE 56–82; RESP 17–20; TEMP 36.3–37.1; O2SAT 95–98
[2023-03-15] MEDS: hydrOXYzine HCL 25 MG TABLET PO ×3 (03:00→20:17)
[2023-03-15] MEDS: Morphine Sulfate 2 MG/ML CARTRIDGE IVPUSH ×3 (03:00→20:25)
[2023-03-15 07:40] LABS: Hemoglobin 10.7 g/dl (14.0-18.0); Mean Corpuscular HGB Conc 33.4 g/dl (31.0-36.0); Mean Corpuscular Hemoglobin 26.4 pg (27.0-33.0); Mean Corpuscular Volume 78.8 fL (80.0-98.0); Platelet Count 209 X10*3/uL (160-400); Red Blood Count 4.06 X10*6/uL (4.60-5.80); White Blood Count 7.2 X10*3/uL (4.8-10.8)
[2023-03-15 07:54] LABS: Anion Gap 11 (12-20); Blood Urea Nitrogen 5 mg/dL (9-16); Calcium 8.9 mg/dL (8.4-10.2); Carbon Dioxide 26 mmol/L (22-29); Chloride 107 mmol/L (96-108); Creatinine Clr Calc Pharmacy 166.5; Estimated Glomerular Filt Rate > 60; Glucose Fasting 103 mg/dL (60-99); Potassium 3.5 mmol/L (3.3-5.1); Sodium 140 mmol/L (135-145)
[2023-03-15] MEDS: methADONE HCl 20 MG/2 ML ORAL.CONC 55 MG PO (08:52)
[2023-03-15] MEDS: Omeprazole 20 MG CAPSULE.DR PO ×2 (08:53→20:17)
[2023-03-15] MEDS: Gabapentin 300 MG CAPSULE 600 MG PO ×3 (08:53→20:17)
--- NOTE | 2023-03-15 09:34 | HO.PM.IMPN ---
Subjective Subjective Date of Service: 03/15/23 Interval History: starting to have more substantial bms, feeling withdrawal symptoms Physical Exam Vital Signs: Vital Signs: Last Vital Signs Temp 98.8 F 03/15/23 08:00 Pulse 72 03/15/23 08:00 Resp 20 03/15/23 08:00 BP 132/76 03/15/23 08:00 Pulse Ox 98 03/15/23 08:00 O2 Del Method Room Air 03/15/23 08:00 BMI result Body Mass Index 28.6 General: AO X 3, no acute distress Resp: CTA bilateral, no accessory muscles used CVS: S1,S2,RRR GI: soft, non tender, non distended Neuro: motor grossly intact, alert Psych: appropriate affect, appropriate insight Objective Data Active Medications Clonidine HCl (Clonidine Hcl 0.1 Mg Tablet) 0.1 mg PO TID PRN; Protocol PRN Reason: withdrawal Last Admin: 03/14/23 15:01 Dose: 0.1 mg Documented By: HUGO Gabapentin (Gabapentin 300 Mg Capsule) 600 mg PO TID [facility] Last Admin: 03/15/23 08:53 Dose: 600 mg Documented By: HILLARY Hydroxyzine HCl (Hydroxyzine Hcl 25 Mg Tablet) 25 mg PO Q6H PRN PRN Reason: anxiety/restlessness Last Admin: 03/15/23 03:00 Dose: 25 mg Documented By: J CARLOS Lactated Ringer's (Lr) 1,000 mls @ 125 mls/hr IVCONT .Q8H [facility] Last Admin: 03/15/23 02:00 Dose: Not Given Documented By: J CARLOS Non-Admin Reason: IV Running Methadone HCl (Methadone Hcl 20 Mg/2 Ml Oral.Conc) 55 mg PO DAILY [facility] Last Admin: 03/15/23 08:52 Dose: 55 mg Documented By: HILLARY Morphine Sulfate (Morphine Sulfate 2 Mg/Ml Cartridge) 2 mg IVPUSH Q4H PRN; Protocol PRN Reason: mod pain Last Admin: 03/15/23 03:00 Dose: 2 mg Documented By: J CARLOS Omeprazole (Omeprazole 20 Mg Capsule.Dr) 20 mg PO BID [facility] Last Admin: 03/15/23 08:53 Dose: 20 mg Documented By: HILLARY Ondansetron HCl (Ondansetron Hcl 4 Mg/2 Ml Vial) 4 mg IVPUSH Q6H PRN PRN Reason: Nausea Prazosin HCl (Prazosin Hcl 1 Mg Capsule) 4 mg PO BEDTIME [facility]; Protocol Last Admin: 03/14/23 20:11 Dose: 4 mg Documented By: J CARLOS Sodium Chloride (0.9 % Sodium Chloride Flush 3 Ml Syringe) 3 ml IVFLUSH QSHIFT [facility] Last Admin: 03/15/23 08:50 Dose: Not Given Documented By: HILLARY Non-Admin Reason: IV Running Trazodone HCl (Trazodone Hcl 100 Mg Tablet) 200 mg PO BEDTIME [facility] Last Admin: 03/14/23 20:12 Dose: 200 mg Documented By: J CARLOS Labs 03/15/23 07:16 03/15/23 07:17 Labs: Laboratory Results - last 24 hr 03/15/23 03/15/23 07:16 07:17 MCV 78.8 L MCH 26.4 L MCHC 33.4 RDW 14.0 Plt Count 209 MPV 10.0 Absolute Nucleated RBC 0.000 Nucleated RBC % (auto) 0.0 Anion Gap 11 L Estim Creat Clear Calc 166.5 Estimated GFR > 60 Fasting Glucose 103 H Calcium 8.9 D Assessment and Plan (1) Rhabdomyolysis: Status: Acute Plan 27M PMH etoh dependence, opiate dependence, pre diabetes, NSVT, presented with opiate overdose Acute toxic metabolic encephalopathy Likely due to opiate overdose no events on tele resolved Diarrhea cdif and stool pcr negative CT showing large stool burden diarrhea likely due to obstructing stool, continue miralax Acute kidney injury due to dehydration from diarrhea and acute mild rhabdomyolysis resolved with ivf Opiate dependence with withdrawal Addiction team following, methadone Alcohol dependence history Reports sobriety at this time Pre diabetes a1c 5.6 DVT prophylaxis-low risk, encourage ambulation Full code reason for continued hospitalization: awaiting full stool, still with opiate withdrawal Quality Stroke Does the patient have a stroke diagnosis?: No VTE Prior VTE?: No VTE Risk Level:: Medical - low VTE Device Contraindication: Treatment Not Indicated VTE Drug Contraindication: Treatment Not Indicated
[2023-03-15] MEDS: ondansetron HCL 4 MG/2 ML VIAL IVPUSH (10:04)
[2023-03-15] MEDS: polyethylene glycoL 3350 17 GM POWD.PACK PO (10:04)
--- NOTE | 2023-03-15 12:17 | MHC.RECOVRN ---
Met with pt in 483 to follow up regarding methadone titration and assess for withdrawal. Pt reports continued diaphoresis, body aches, inability to sleep, and anxiety. Pt reports morphine has helped a little and states clonidine just makes me a little tired. Pt interested in increasing methadone dose. Denies other questions or concerns for t/w. Discussed with Julieta Gregorio APRN.
[2023-03-15] MEDS: Lactated Ringers 1,000 ML 125 ML IVCONT ×2 (13:11→20:18)
[2023-03-15 14:23] LABS: Influenza A PCR NEGATIVE (Negative); Influenza B PCR NEGATIVE (Negative); Resp Syncy Virus RNA Qual PCR NEGATIVE (Negative); SARS COV2 PCR INHOUSE NEGATIVE (Negative)
[2023-03-15] MEDS: traZODone HCL 100 MG TABLET 200 MG PO (20:17)
[2023-03-15] MEDS: Prazosin HCL 1 MG CAPSULE 4 MG PO (20:17)
[2023-03-15] MEDS: cloNIDine HCL 0.1 MG TABLET PO (20:17)
[2023-03-15] MEDS: 0.9 % Sodium Chloride Flush 3 ML SYRINGE IVFLUSH (20:18)
[2023-03-16] VITALS (7 sets, daily range): BP systolic 118–134; BP diastolic 69–76; PULSE 44–72; RESP 16–20; TEMP 36.1–37; O2SAT 96–99
[2023-03-16] MEDS: Morphine Sulfate 2 MG/ML CARTRIDGE IVPUSH ×4 (03:49→23:50)
[2023-03-16] MEDS: Lactated Ringers 1,000 ML 125 ML IVCONT (03:50)
[2023-03-16 07:47] LABS: Alanine Aminotransferase 25 U/L (0-40); Albumin Level 3.5 g/dL (3.5-5.0); Alkaline Phosphatase 70 U/L (39-117); Anion Gap 14 (12-20); Aspartate Amino Transferase 35 U/L (5-37); Bilirubin Direct 0.1 mg/dL (0.0-0.5); Bilirubin Total 0.3 mg/dL (0.0-1.0); Blood Urea Nitrogen 5 mg/dL (9-16); Calcium 9.1 mg/dL (8.4-10.2); Carbon Dioxide 22 mmol/L (22-29); Chloride 106 mmol/L (96-108); Creatinine Clr Calc Pharmacy 162.3; Estimated Glomerular Filt Rate > 60; Glucose Fasting 101 mg/dL (60-99); Magnesium 1.9 mg/dL (1.6-2.6); Potassium 4.1 mmol/L (3.3-5.1); Sodium 138 mmol/L (135-145); Total Protein 6.9 g/dL (6.5-8.0)
[2023-03-16] MEDS: Gabapentin 300 MG CAPSULE 600 MG PO ×3 (08:29→20:21)
[2023-03-16] MEDS: 0.9 % Sodium Chloride Flush 3 ML SYRINGE IVFLUSH ×3 (08:30→23:51)
[2023-03-16] MEDS: methADONE HCl 20 MG/2 ML ORAL.CONC 65 MG PO (08:30)
[2023-03-16] MEDS: Omeprazole 20 MG CAPSULE.DR PO ×2 (08:30→20:20)
[2023-03-16 09:23] LABS: Hematocrit 32.1 % (42.0-52.0); Hemoglobin 10.9 g/dl (14.0-18.0); Mean Corpuscular Hemoglobin 26.4 pg (27.0-33.0); Mean Corpuscular Volume 77.7 fL (80.0-98.0); Mean Platelet Volume 9.4 fL (9.4-12.4); Platelet Count 215 X10*3/uL (160-400); Red Blood Count 4.13 X10*6/uL (4.60-5.80); Red Cell Distribution Width 14.1 % (11.0-16.0)
--- NOTE | 2023-03-16 11:12 | P.PNIM_ITS ---
Subjective Subjective Date of Service: 03/16/23 Interval History: having more substantial bms, feeling withdrawal symptoms Physical Exam 2 Vital Signs: Vital Signs: Last Vital Signs Temp 98.5 F 03/16/23 11:04 Pulse 57 03/16/23 11:04 Resp 20 03/16/23 11:04 BP 118/76 03/16/23 11:04 Pulse Ox 97 03/16/23 11:04 O2 Del Method Room Air 03/16/23 11:04 BMI result Body Mass Index 28.6 General: AO X 3, no acute distress Resp: CTA bilateral, no accessory muscles used CVS: S1,S2,RRR GI: soft, non tender, non distended Neuro: motor grossly intact, alert Psych: appropriate affect, appropriate insight Objective Data Active Medications Clonidine HCl (Clonidine Hcl 0.1 Mg Tablet) 0.1 mg PO TID PRN; Protocol PRN Reason: withdrawal Last Admin: 03/15/23 20:17 Dose: 0.1 mg Documented By: CIARA Gabapentin (Gabapentin 300 Mg Capsule) 600 mg PO TID [facility] Last Admin: 03/16/23 08:29 Dose: 600 mg Documented By: XIMENA Hydroxyzine HCl (Hydroxyzine Hcl 25 Mg Tablet) 25 mg PO Q6H PRN PRN Reason: anxiety/restlessness Last Admin: 03/15/23 20:17 Dose: 25 mg Documented By: CIARA Methadone HCl (Methadone Hcl 20 Mg/2 Ml Oral.Conc) 65 mg PO DAILY [facility] Last Admin: 03/16/23 08:30 Dose: 65 mg Documented By: XIMENA Morphine Sulfate (Morphine Sulfate 2 Mg/Ml Cartridge) 2 mg IVPUSH Q4H PRN; Protocol PRN Reason: mod pain Last Admin: 03/16/23 03:49 Dose: 2 mg Documented By: NARGIS Omeprazole (Omeprazole 20 Mg Capsule.Dr) 20 mg PO BID [facility] Last Admin: 03/16/23 08:30 Dose: 20 mg Documented By: XIMENA Ondansetron HCl (Ondansetron Hcl 4 Mg/2 Ml Vial) 4 mg IVPUSH Q6H PRN PRN Reason: Nausea Last Admin: 03/15/23 10:04 Dose: 4 mg Documented By: HILLARY Prazosin HCl (Prazosin Hcl 1 Mg Capsule) 4 mg PO BEDTIME [facility]; Protocol Last Admin: 03/15/23 20:17 Dose: 4 mg Documented By: CIARA Sodium Chloride (0.9 % Sodium Chloride Flush 3 Ml Syringe) 3 ml IVFLUSH QSHIFT [facility] Last Admin: 03/16/23 08:30 Dose: 3 ml Documented By: XIMENA Trazodone HCl (Trazodone Hcl 100 Mg Tablet) 200 mg PO BEDTIME [facility] Last Admin: 03/15/23 20:17 Dose: 200 mg Documented By: CIARA Labs 03/16/23 09:00 03/16/23 07:05 Labs: Laboratory Results - last 24 hr 03/15/23 03/16/23 03/16/23 13:00 07:05 09:00 MCV 77.7 L MCH 26.4 L MCHC 34.0 RDW 14.1 Plt Count 215 MPV 9.4 Absolute Nucleated RBC 0.000 Nucleated RBC % (auto) 0.0 Anion Gap 14 Estim Creat Clear Calc 162.3 Estimated GFR > 60 Fasting Glucose 101 H Calcium 9.1 Magnesium 1.9 Total Bilirubin 0.3 Direct Bilirubin 0.1 AST 35 ALT 25 Alkaline Phosphatase 70 Total Creatine Kinase 115 Total Protein 6.9 Albumin 3.5 Influenza Type A (PCR) NEGATIVE Influenza Type B (PCR) NEGATIVE RSV RNA Qual (PCR) NEGATIVE SARS-CoV-2 RNA (RT-PCR) NEGATIVE Assessment and Plan (1) Rhabdomyolysis: Status: Acute Plan 27M PMH etoh dependence, opiate dependence, pre diabetes, NSVT, presented with opiate overdose Acute toxic metabolic encephalopathy Likely due to opiate overdose no events on tele resolved Diarrhea cdif and stool pcr negative CT showing large stool burden diarrhea likely due to obstructing stool, continue miralax Acute kidney injury due to dehydration from diarrhea and acute mild rhabdomyolysis resolved with ivf Opiate dependence with withdrawal Addiction team following, methadone being adjusted Alcohol dependence history Reports sobriety at this time Pre diabetes a1c 5.6 DVT prophylaxis-low risk, encourage ambulation Full code reason for continued hospitalization: still with opiate withdrawal Quality Stroke Does the patient have a stroke diagnosis?: No VTE Prior VTE?: No VTE Risk Level:: Medical - low VTE Device Contraindication: Treatment Not Indicated VTE Drug Contraindication: Treatment Not Indicated
[2023-03-16] MEDS: polyethylene glycoL 3350 17 GM POWD.PACK PO (11:42)
--- NOTE | 2023-03-16 14:04 | MHC.CM.PN ---
Pt not yet medically cleared for DC. CM to follow and assist as needed for DC planning.
[2023-03-16] MEDS: Prazosin HCL 1 MG CAPSULE 4 MG PO (20:20)
[2023-03-16] MEDS: traZODone HCL 100 MG TABLET 200 MG PO (20:21)
--- NOTE | 2023-03-16 21:42 | P.PNADD_ITS ---
Subjective Subjective Date of Service: 03/16/23 Reason For Visit: Pavan,Rhabdo Interim History: Patient seen in follow up Methadone dose 65mg QD. Repots still not feeling well, however states sx have improved since yesterday. Patient reports that he has not really gotten out of bed and has not showered since admissions--drapes closed all day and room quite dark and malodorous. Discussed possibly washing up until he can shower, opening drapes some, etc. Review of Systems Constitutional: Reports as per HPI, Reports body ache(s), Reports lethargy and Reports malaise Diagnostics Vital Signs (24Hr): Vital Signs - 24 hr 03/15/23 23:36 03/16/23 04:00 03/16/23 07:08 Temperature 98.6 F 98.4 F 98.1 F Pulse Rate 65 44 L 60 Respiratory Rate 18 16 20 Blood Pressure 137/75 123/73 128/69 Pulse Oximetry 96 96 96 Oxygen Delivery Method Room Air Room Air Room Air 03/16/23 11:04 03/16/23 15:48 03/16/23 19:42 Temperature 98.5 F 97.0 F 98.6 F Pulse Rate 57 72 64 Respiratory Rate 20 18 17 Blood Pressure 118/76 122/75 134/74 Pulse Oximetry 97 99 96 Oxygen Delivery Method Room Air Room Air Room Air BMI result Body Mass Index 28.6 Labs 03/16/23 09:00 03/16/23 07:05 Labs: Laboratory Results - last 48 hr 03/15/23 03/15/23 03/15/23 07:16 07:17 13:00 WBC 7.2 RBC 4.06 L Hgb 10.7 L Hct 32.0 L MCV 78.8 L MCH 26.4 L MCHC 33.4 RDW 14.0 Plt Count 209 MPV 10.0 Absolute Nucleated RBC 0.000 Nucleated RBC % (auto) 0.0 Sodium 140 Potassium 3.5 Chloride 107 Carbon Dioxide 26 Anion Gap 11 L BUN 5 L Creatinine 0.77 Estim Creat Clear Calc 166.5 Estimated GFR > 60 Fasting Glucose 103 H Calcium 8.9 D Magnesium Total Bilirubin Direct Bilirubin AST ALT Alkaline Phosphatase Total Creatine Kinase Total Protein Albumin Influenza Type A (PCR) NEGATIVE Influenza Type B (PCR) NEGATIVE RSV RNA Qual (PCR) NEGATIVE SARS-CoV-2 RNA (RT-PCR) NEGATIVE 03/16/23 03/16/23 07:05 09:00 WBC 9.0 RBC 4.13 L Hgb 10.9 L Hct 32.1 L MCV 77.7 L MCH 26.4 L MCHC 34.0 RDW 14.1 Plt Count 215 MPV 9.4 Absolute Nucleated RBC 0.000 Nucleated RBC % (auto) 0.0 Sodium 138 Potassium 4.1 Chloride 106 Carbon Dioxide 22 Anion Gap 14 BUN 5 L Creatinine 0.79 Estim Creat Clear Calc 162.3 Estimated GFR > 60 Fasting Glucose 101 H Calcium 9.1 Magnesium 1.9 Total Bilirubin 0.3 Direct Bilirubin 0.1 AST 35 ALT 25 Alkaline Phosphatase 70 Total Creatine Kinase 115 Total Protein 6.9 Albumin 3.5 Influenza Type A (PCR) Influenza Type B (PCR) RSV RNA Qual (PCR) SARS-CoV-2 RNA (RT-PCR) Imaging Radiology Impressions: ITS Impressions Head CT 03/11/23 11:08 IMPRESSION: No acute intracranial process seen. Abdomen/Pelvis CT 03/11/23 20:13 IMPRESSION: * Large amount of fecal material in the sigmoid colon and rectum and there is gaseous distention of the more proximal colon. Findings are highly suggestive of constipation. No evidence of any obstructing sigmoid or rectal lesion. There is no pericolonic fat stranding or vascular engorgement of the mesentery (i.e., no overt colitis) although evaluation of the descending colon is somewhat limited due to lack of distention. * A pseudocyst of the pancreatic tail has mildly decreased in size compared to 10/29/2022. Medications Medications Current Medications Clonidine HCl (Clonidine Hcl 0.1 Mg Tablet) 0.1 mg PO TID PRN; Protocol PRN Reason: withdrawal Last Admin: 03/15/23 20:17 Dose: 0.1 mg Gabapentin (Gabapentin 300 Mg Capsule) 600 mg PO TID [facility] Last Admin: 03/16/23 20:21 Dose: 600 mg Hydroxyzine HCl (Hydroxyzine Hcl 25 Mg Tablet) 25 mg PO Q6H PRN PRN Reason: anxiety/restlessness Last Admin: 03/15/23 20:17 Dose: 25 mg Methadone HCl (Methadone Hcl 20 Mg/2 Ml Oral.Conc) 65 mg PO DAILY [facility] Last Admin: 03/16/23 08:30 Dose: 65 mg Morphine Sulfate (Morphine Sulfate 2 Mg/Ml Cartridge) 2 mg IVPUSH Q4H PRN; Protocol PRN Reason: mod pain Last Admin: 03/16/23 16:54 Dose: 2 mg Omeprazole (Omeprazole 20 Mg Capsule.Dr) 20 mg PO BID [facility] Last Admin: 03/16/23 20:20 Dose: 20 mg Ondansetron HCl (Ondansetron Hcl 4 Mg/2 Ml Vial) 4 mg IVPUSH Q6H PRN PRN Reason: Nausea Last Admin: 03/15/23 10:04 Dose: 4 mg Prazosin HCl (Prazosin Hcl 1 Mg Capsule) 4 mg PO BEDTIME [facility]; Protocol Last Admin: 03/16/23 20:20 Dose: 4 mg Sodium Chloride (0.9 % Sodium Chloride Flush 3 Ml Syringe) 3 ml IVFLUSH QSHIFT [facility] Last Admin: 03/16/23 16:54 Dose: 3 ml Trazodone HCl (Trazodone Hcl 100 Mg Tablet) 200 mg PO BEDTIME [facility] Last Admin: 03/16/23 20:21 Dose: 200 mg Allergies Allergies Allergy/AdvReac Type Severity Reaction Status Date / Time No Known Allergies Allergy Verified 10/31/22 13:27 Assessment & Plan Assessment & Plan (1) Opioid use disorder: Status: Acute Code(s): F11.90 - Opioid use, unspecified, uncomplicated Assessment and Plan: * continue 65mg for another day and increase to 70mg on . if appropriate * withdrawal sx should be much improved based on reported use and current methadone dose--progressing much slower than expected * will continue to follow Total time managing care of this patient today _20___ minutes.
[2023-03-17 03:33] VITALS: BP 133/74; PULSE 87; RESP 19; TEMP 36.3
[2023-03-17 04:30] VITALS: RESP 18
[2023-03-17] MEDS: Morphine Sulfate 2 MG/ML CARTRIDGE IVPUSH ×3 (04:30→23:04)
[2023-03-17 07:25] VITALS: BP 137/86; PULSE 66; RESP 18; TEMP 36.8; O2SAT 96
[2023-03-17] MEDS: methADONE HCl 20 MG/2 ML ORAL.CONC 65 MG PO (08:40)
[2023-03-17] MEDS: Gabapentin 300 MG CAPSULE 600 MG PO ×3 (08:42→20:37)
[2023-03-17] MEDS: 0.9 % Sodium Chloride Flush 3 ML SYRINGE IVFLUSH ×3 (08:42→20:38)
[2023-03-17] MEDS: Omeprazole 20 MG CAPSULE.DR PO ×2 (08:42→20:37)
[2023-03-17 10:08] LABS: Hematocrit 33.6 % (42.0-52.0); Hemoglobin 11.6 g/dl (14.0-18.0); Mean Corpuscular HGB Conc 34.5 g/dl (31.0-36.0); Mean Corpuscular Hemoglobin 27.1 pg (27.0-33.0); Mean Corpuscular Volume 78.5 fL (80.0-98.0); Red Blood Count 4.28 X10*6/uL (4.60-5.80); Red Cell Distribution Width 14.4 % (11.0-16.0); White Blood Count 6.8 X10*3/uL (4.8-10.8)
[2023-03-17 10:26] LABS: Anion Gap 15 (12-20); Blood Urea Nitrogen 6 mg/dL (9-16); C Reactive Protein 1.01 mg/dL (< or = 0.50); Calcium 9.1 mg/dL (8.4-10.2); Carbon Dioxide 22 mmol/L (22-29); Chloride 106 mmol/L (96-108); Creatinine Clr Calc Pharmacy 160.3; Estimated Glomerular Filt Rate > 60; Glucose Fasting 90 mg/dL (60-99); Potassium 3.5 mmol/L (3.3-5.1); Sodium 139 mmol/L (135-145)
--- NOTE | 2023-03-17 10:28 | P.PNIM_ITS ---
Subjective Subjective Date of Service: 03/17/23 Interval History: epigastric discomfort, still feels blocked up Physical Exam 2 Vital Signs: Vital Signs: Last Vital Signs Temp 98.3 F 03/17/23 07:25 Pulse 66 03/17/23 07:25 Resp 18 03/17/23 07:25 BP 137/86 03/17/23 07:25 Pulse Ox 96 03/17/23 07:25 O2 Del Method Room Air 03/17/23 07:25 FiO2 95 03/17/23 03:33 BMI result Body Mass Index 28.6 General: AO X 3, curled up, hugging pillow Resp: CTA bilateral, no accessory muscles used CVS: S1,S2,RRR GI: soft, epigastric tender, non distended Neuro: motor grossly intact, alert Psych: appropriate affect, appropriate insight Objective Data Active Medications Clonidine HCl (Clonidine Hcl 0.1 Mg Tablet) 0.1 mg PO TID PRN; Protocol PRN Reason: withdrawal Last Admin: 03/15/23 20:17 Dose: 0.1 mg Documented By: CIARA Gabapentin (Gabapentin 300 Mg Capsule) 600 mg PO TID [facility] Last Admin: 03/17/23 08:42 Dose: 600 mg Documented By: ISABEL Hydroxyzine HCl (Hydroxyzine Hcl 25 Mg Tablet) 25 mg PO Q6H PRN PRN Reason: anxiety/restlessness Last Admin: 03/15/23 20:17 Dose: 25 mg Documented By: CIARA Methadone HCl (Methadone Hcl 20 Mg/2 Ml Oral.Conc) 65 mg PO DAILY [facility] Last Admin: 03/17/23 08:40 Dose: 65 mg Documented By: ISABEL Morphine Sulfate (Morphine Sulfate 2 Mg/Ml Cartridge) 2 mg IVPUSH Q4H PRN; Protocol PRN Reason: mod pain Last Admin: 03/17/23 04:30 Dose: 2 mg Documented By: JABIER Omeprazole (Omeprazole 20 Mg Capsule.Dr) 20 mg PO BID [facility] Last Admin: 03/17/23 08:42 Dose: 20 mg Documented By: ISABEL Ondansetron HCl (Ondansetron Hcl 4 Mg/2 Ml Vial) 4 mg IVPUSH Q6H PRN PRN Reason: Nausea Last Admin: 03/15/23 10:04 Dose: 4 mg Documented By: HILLARY Prazosin HCl (Prazosin Hcl 1 Mg Capsule) 4 mg PO BEDTIME [facility]; Protocol Last Admin: 03/16/23 20:20 Dose: 4 mg Documented By: JABIER Sodium Chloride (0.9 % Sodium Chloride Flush 3 Ml Syringe) 3 ml IVFLUSH QSHIFT [facility] Last Admin: 03/17/23 08:42 Dose: 3 ml Documented By: ISABEL Trazodone HCl (Trazodone Hcl 100 Mg Tablet) 200 mg PO BEDTIME [facility] Last Admin: 03/16/23 20:21 Dose: 200 mg Documented By: JABIER Labs 03/17/23 08:43 03/17/23 08:43 Labs: Laboratory Results - last 24 hr 03/17/23 08:43 MCV 78.5 L MCH 27.1 MCHC 34.5 RDW 14.4 Plt Count TNP MPV TNP Absolute Nucleated RBC 0.000 Nucleated RBC % (auto) 0.0 Anion Gap 15 Estim Creat Clear Calc 160.3 Estimated GFR > 60 Fasting Glucose 90 Calcium 9.1 C-Reactive Protein 1.01 H Assessment and Plan (1) Rhabdomyolysis: Status: Acute Plan 27M PMH etoh dependence, opiate dependence, pre diabetes, NSVT, presented with opiate overdose Acute toxic metabolic encephalopathy Likely due to opiate overdose no events on tele resolved Diarrhea cdif and stool pcr negative CT showing large stool burden diarrhea likely due to obstructing stool check follow up KUB Acute kidney injury due to dehydration from diarrhea and acute mild rhabdomyolysis resolved with ivf Opiate dependence with withdrawal Addiction team following, methadone being adjusted Alcohol dependence history Reports sobriety at this time Pre diabetes a1c 5.6 DVT prophylaxis-low risk, encourage ambulation Full code reason for continued hospitalization: still with opiate withdrawal, abd pain Quality Stroke Does the patient have a stroke diagnosis?: No VTE Prior VTE?: No VTE Risk Level:: Medical - low VTE Device Contraindication: Treatment Not Indicated VTE Drug Contraindication: Treatment Not Indicated
--- NOTE | 2023-03-17 10:32 | MHC.RECOVRN ---
Met with pt to follow up and provide support. Pt laying in bed, flat affect, blinds closed, declines opening them. Pt encouraged to open them and wash up/shower if able to. Pt reports feeling better, especially from 2-3 days ago however, reports continued body aches. Pt is still interested in CSS level of care. Updated information sent to [facility] as retail coordinator reached out and requested more documentation. Pt denies other questions or concerns for t/w.
[2023-03-17 11:24] VITALS: BP 140/79; PULSE 89; RESP 18; TEMP 36.4; O2SAT 95
[2023-03-17 15:21] VITALS: BP 134/74; PULSE 81; RESP 18; TEMP 36.6; O2SAT 95
[2023-03-17 19:43] VITALS: BP 131/72; PULSE 66; RESP 18; TEMP 36.6; O2SAT 96
[2023-03-17 20:33] LABS: Calprotectin, Fecal 1600 mcg/g
[2023-03-17] MEDS: traZODone HCL 100 MG TABLET 200 MG PO (20:36)
[2023-03-17] MEDS: Prazosin HCL 1 MG CAPSULE 4 MG PO (20:37)
[2023-03-18 03:08] VITALS: BP 122/77; PULSE 78; RESP 20; TEMP 36.1; O2SAT 96
--- NOTE | 2023-03-18 04:25 | PM.EVENT ---
Event Note Date of Service: 03/18/23 Event Note: NSVT to 170 while up to the bathroom, and was slighlty dizzy, bp was ok HR back to 80s when returned to bed. Should cardiology assess to treatment optiions Time Spent With Patient Time: Total time managing care of this patient today ____ minutes.
[2023-03-18] MEDS: Morphine Sulfate 2 MG/ML CARTRIDGE IVPUSH ×4 (05:15→22:03)
[2023-03-18 07:31] VITALS: BP 123/77; PULSE 69; RESP 16; TEMP 37.2; O2SAT 97
[2023-03-18] MEDS: hydrOXYzine HCL 25 MG TABLET PO ×2 (08:32→15:51)
[2023-03-18] MEDS: Gabapentin 300 MG CAPSULE 600 MG PO ×3 (08:32→21:50)
[2023-03-18] MEDS: methADONE HCl 20 MG/2 ML ORAL.CONC 65 MG PO (08:32)
[2023-03-18] MEDS: Omeprazole 20 MG CAPSULE.DR PO ×2 (08:32→21:50)
[2023-03-18] MEDS: 0.9 % Sodium Chloride Flush 3 ML SYRINGE IVFLUSH ×2 (08:33→21:51)
[2023-03-18 11:32] VITALS: BP 107/64; PULSE 80; RESP 20; TEMP 36.9; O2SAT 95
[2023-03-18] MEDS: Sennosides 8.6 MG TABLET 17.2 MG PO ×2 (11:43→21:51)
[2023-03-18] MEDS: ondansetron HCL 4 MG/2 ML VIAL IVPUSH (11:43)
[2023-03-18] MEDS: Lactated Ringers 1,000 ML 250 ML IVCONT ×2 (11:43→15:47)
[2023-03-18] MEDS: polyethylene glycoL 3350 17 GM POWD.PACK PO ×2 (11:43→21:50)
--- NOTE | 2023-03-18 12:14 | HO.PM.IMPN ---
Subjective Subjective Date of Service: 03/18/23 Interval History: Seen and evaluated this morning Feels better but still reporting pain having episodes of tachycardia and chest pain requiring higher dose of Methadone Review of Systems Review of Systems: Yes all other systems are reviewed and are negative Physical Exam Vital Signs: Vital Signs: Last Vital Signs Temp 98.5 F 03/18/23 11:32 Pulse 80 03/18/23 11:32 Resp 20 03/18/23 11:32 BP 107/64 03/18/23 11:32 Pulse Ox 95 03/18/23 11:32 O2 Del Method Room Air 03/18/23 11:32 FiO2 95 03/17/23 03:33 BMI result Body Mass Index 28.6 Const: Other: Constitutional : Awake, interactive, not in distress Neck : Normal inspection, Supple Cardiovascular : RRR, no JVP, no lower extremity edema Respiratory : good bilateral air entry, no crackles, wheezes or rhonchi Gastrointestinal: soft, lax, Normal bowel sounds, Non tender Skin : Warm, Dry Neurological : Alert & oriented x3, No focal deficit Objective Data Active Medications Clonidine HCl (Clonidine Hcl 0.1 Mg Tablet) 0.1 mg PO TID PRN; Protocol PRN Reason: withdrawal Last Admin: 03/15/23 20:17 Dose: 0.1 mg Documented By: CIARA Gabapentin (Gabapentin 300 Mg Capsule) 600 mg PO TID [facility] Last Admin: 03/18/23 08:32 Dose: 600 mg Documented By: HILLARY Hydroxyzine HCl (Hydroxyzine Hcl 25 Mg Tablet) 25 mg PO Q6H PRN PRN Reason: anxiety/restlessness Last Admin: 03/18/23 08:32 Dose: 25 mg Documented By: HILLARY Lactated Ringer's (Lr) 1,000 mls @ 250 mls/hr IVCONT .Q4H [facility] Stop: 03/18/23 19:14 Last Admin: 03/18/23 11:43 Dose: 250 mls/hr Documented By: HILLARY Methadone HCl (Methadone Hcl 20 Mg/2 Ml Oral.Conc) 65 mg PO DAILY [facility] Last Admin: 03/18/23 08:32 Dose: 65 mg Documented By: HILLARY Morphine Sulfate (Morphine Sulfate 2 Mg/Ml Cartridge) 2 mg IVPUSH Q4H PRN; Protocol PRN Reason: mod pain Last Admin: 03/18/23 11:43 Dose: 2 mg Documented By: HILLARY Omeprazole (Omeprazole 20 Mg Capsule.) 20 mg PO BID [facility] Last Admin: 03/18/23 08:32 Dose: 20 mg Documented By: HILLARY Ondansetron HCl (Ondansetron Hcl 4 Mg/2 Ml Vial) 4 mg IVPUSH Q6H PRN PRN Reason: Nausea Last Admin: 03/18/23 11:43 Dose: 4 mg Documented By: HILLARY Polyethylene Glycol (Polyethylene Glycol 3350 17 Gm Powd.Pack) 17 gm PO BID [facility] Last Admin: 03/18/23 11:43 Dose: 17 gm Documented By: HILLARY Prazosin HCl (Prazosin Hcl 1 Mg Capsule) 4 mg PO BEDTIME [facility]; Protocol Last Admin: 03/17/23 20:37 Dose: 4 mg Documented By: JABIER Senna (Sennosides 8.6 Mg Tablet) 17.2 mg PO BID [facility] Last Admin: 03/18/23 11:43 Dose: 17.2 mg Documented By: HILLARY Sodium Chloride (0.9 % Sodium Chloride Flush 3 Ml Syringe) 3 ml IVFLUSH QSHIFT [facility] Last Admin: 03/18/23 08:33 Dose: 3 ml Documented By: HILLARY Trazodone HCl (Trazodone Hcl 100 Mg Tablet) 200 mg PO BEDTIME [facility] Last Admin: 03/17/23 20:36 Dose: 200 mg Documented By: JABIER Labs 03/17/23 08:43 03/17/23 08:43 Labs: Laboratory Results - last 24 hr 03/11/23 18:59 Stool Calprotectin 1600 H Assessment and Plan (1) Opioid use disorder: Status: Acute (2) Rhabdomyolysis: Status: Acute (3) Opioid abuse with withdrawal: Status: Acute (4) Chest pain: Status: Acute Plan 27M PMH etoh dependence, opiate dependence, pre diabetes, NSVT, presented with opiate overdose Chest pain episodes of tachycardia and pain Tele showing sinus tachycardia pending Cardio eval Acute toxic metabolic encephalopathy Likely due to opiate overdose resolved Diarrhea cdif and stool pcr negative CT showing large stool burden; started on Laxatives KUB still showing large stool ball Acute kidney injury due to dehydration from diarrhea and acute mild rhabdomyolysis resolved with ivf follow BMP Opiate dependence with withdrawal Addiction team following, methadone being increased as needed Alcohol dependence history Reports sobriety at this time Pre diabetes a1c 5.6 DVT prophylaxis-low risk, encourage ambulation Full code reason for continued hospitalization: still with opiate withdrawal, abd and chest pain Quality Stroke Does the patient have a stroke diagnosis?: No VTE Prior VTE?: No VTE Risk Level:: Medical - low VTE Device Contraindication: Treatment Not Indicated VTE Drug Contraindication: Treatment Not Indicated
--- NOTE | 2023-03-18 12:44 | PM.CNCAR ---
History of Present Illness History of Present Illness Date of Service: 03/18/23 Requesting physician: [facility] Consult reason: other (Tachycardia) Chief complaint: Pavan,Shellyo Narrative: I was consulted to see this patient because of tachycardia. Patient is admitted for opioid withdrawal with prior abuse. Does reported nonsustained ventricular tachycardia. I reviewed the cardiac telemetry with speech therapist technician and there is no recording of nonsustained ventricular tachycardia noted by me. Allergy consult was sought as patient symptomatic. He said when he gets up to go to the bathroom is heart rate goes up he feels tightness in his chest. Noted heart rate going up to 170 beats per minute. Few days ago while arresting the heart rate was in the 30s and 40s especially when he is asleep. Patient does not have any other associated symptoms. Complains of some chills but there is no febrile episodes noted. Patient says he is feeling the anxiety from withdrawal from the opioids. He denies any lightheadedness, syncope. Noted episodes appear to be sinus tachycardia. Patient has been having diarrhea Review of Systems Constitutional: Constitutional: Reports chills and Denies fever(s) Eyes: Eyes: Reports no additional eye complaints Cardiovascular: Cardiovascular: Reports rapid heart rate, Denies lightheadedness, Denies Loss of Consciousness, Denies dyspnea and Reports other (Chest tightness) Respiratory: Respiratory: Reports no additional respiratory complaints and Denies dyspnea Gastrointestinal: Gastrointestinal: Reports no additional gastrointestinal complaints Genitourinary: Genitourinary: Reports no additional male genitourinary complaints Musculoskeletal: Musculoskeletal: Reports no additional musculoskeletal complaints Neurologic: Reports system reviewed and no additional complaints, except as documented Psychiatric: Psychiatric: Reports no additional psychiatric complaints Endocrine: Endocrine: Reports no additional endocrine complaints Hematologic/Lymphatic: Hematologic/Lymphatic: Reports no additional hematologic/lymphatic complaints [facility] Past Medical History Medical History Shoulder dislocation Nonsustained ventricular tachycardia No known health problems Social History Social History Household Members: Family Household Members Other:: parents Housing: House Do you presently have visiting nurse or other home services: No Unable to assess alcohol history related to: Unknown Alcohol intake: current Alcohol intake frequency: former alcohol drinker Comment: 1:1 Patient Tobacco Use Status: Current everyday Tobacco user Tobacco use type: Cigarette Cigarette Packs Per Day: 0.3 Cigarettes Per Day: 9 Years Smoked: 14 e-Cigarette/Vaping Use: Currently Using Second Hand Smoke Exposure: Yes Substance Use Type: Heroin and Opiates Advance Directives Date on File: 10/30/22 service: No Current occupational status: unemployed Meds Allergies Allergy/AdvReac Type Severity Reaction Status Date / Time No Known Allergies Allergy Verified 10/31/22 13:27 Active Medications: Current Medications Clonidine HCl (Clonidine Hcl 0.1 Mg Tablet) 0.1 mg PO TID PRN; Protocol PRN Reason: withdrawal Last Admin: 03/15/23 20:17 Dose: 0.1 mg Gabapentin (Gabapentin 300 Mg Capsule) 600 mg PO TID [facility] Last Admin: 03/18/23 08:32 Dose: 600 mg Hydroxyzine HCl (Hydroxyzine Hcl 25 Mg Tablet) 25 mg PO Q6H PRN PRN Reason: anxiety/restlessness Last Admin: 03/18/23 08:32 Dose: 25 mg Lactated Ringer's (Lr) 1,000 mls @ 250 mls/hr IVCONT .Q4H [facility] Stop: 03/18/23 19:14 Last Admin: 03/18/23 11:43 Dose: 250 mls/hr Methadone HCl (Methadone Hcl 20 Mg/2 Ml Oral.Conc) 65 mg PO DAILY [facility] Last Admin: 03/18/23 08:32 Dose: 65 mg Morphine Sulfate (Morphine Sulfate 2 Mg/Ml Cartridge) 2 mg IVPUSH Q4H PRN; Protocol PRN Reason: mod pain Last Admin: 03/18/23 11:43 Dose: 2 mg Omeprazole (Omeprazole 20 Mg Capsule.Dr) 20 mg PO BID [facility] Last Admin: 03/18/23 08:32 Dose: 20 mg Ondansetron HCl (Ondansetron Hcl 4 Mg/2 Ml Vial) 4 mg IVPUSH Q6H PRN PRN Reason: Nausea Last Admin: 03/18/23 11:43 Dose: 4 mg Polyethylene Glycol (Polyethylene Glycol 3350 17 Gm Powd.Pack) 17 gm PO BID [facility] Last Admin: 03/18/23 11:43 Dose: 17 gm Prazosin HCl (Prazosin Hcl 1 Mg Capsule) 4 mg PO BEDTIME [facility]; Protocol Last Admin: 03/17/23 20:37 Dose: 4 mg Senna (Sennosides 8.6 Mg Tablet) 17.2 mg PO BID [facility] Last Admin: 03/18/23 11:43 Dose: 17.2 mg Sodium Chloride (0.9 % Sodium Chloride Flush 3 Ml Syringe) 3 ml IVFLUSH QSHIFT [facility] Last Admin: 03/18/23 08:33 Dose: 3 ml Trazodone HCl (Trazodone Hcl 100 Mg Tablet) 200 mg PO BEDTIME [facility] Last Admin: 03/17/23 20:36 Dose: 200 mg Home Medications Medication Instructions Recorded Confirmed Last Taken Type docusate sodium 100 mg capsule 100 mg PO BEDTIME Constipation 10/30/22 03/11/23 03/10/23 History trazodone 100 mg tablet 300 mg PO BEDTIME insomnia 10/30/22 03/11/23 03/10/23 History gabapentin 300 mg capsule 600 mg PO TID 03/11/23 03/11/23 03/10/23 History prazosin 1 mg capsule 4 mg PO BEDTIME 03/11/23 03/11/23 03/10/23 History Physical Exam Vital Signs: Vital Signs: Last Vital Signs Temp 98.5 F 03/18/23 11:32 Pulse 80 03/18/23 11:32 Resp 20 03/18/23 11:32 BP 107/64 03/18/23 11:32 Pulse Ox 95 03/18/23 11:32 O2 Del Method Room Air 03/18/23 11:32 FiO2 95 03/17/23 03:33 BMI result Body Mass Index 28.6 Const: General: cooperative, comfortable, no acute distress, alert, awake, anxious and poor hygiene Nutritional Appearance: overweight Orientation/consciousness: patient oriented x3 HEENT: Head: Yes normocephalic and Yes atraumatic Neck: Neck: Yes trachea midline, Yes supple and Yes no JVD Resp: Effort & Inspection: normal respiratory effort Auscultation: clear to auscultation bilaterally Cardio: Jugular venous distension: no JVD Palpation: normal PMI Rate: regular rate Rhythm: regular rhythm Heart sounds: S1 normal heart sound present, S2 normal heart sound present, no click, no gallops and no murmurs GI: Auscultation: normal bowel sounds Skin: General skin exam: no rashes or lesions noted Neuro: General: patient oriented x3 and no focal motor deficits Extrem: General: Yes no clubbing, cyanosis or edema Objective Labs and Meds 03/17/23 08:43 03/17/23 08:43 Lab results: Laboratory Results - last 24 hr 03/11/23 18:59 Stool Calprotectin 1600 H Imaging Radiologist's impression: Impressions KUB X-Ray 03/17/23 11:20 IMPRESSION: Large stool ball in the rectum. No evidence of bowel obstruction. Assessment and Plan (1) Sinus tachycardia: Status: Acute Patient's chest tightness associated sinus tachycardia. Suggestive of says symptomatic sinus tachycardia. Likelihood of myocardial ischemia is extremely low. His sinus tachycardia appears to be postural in nature and consistent with postural orthostatic tachycardia syndrome most likely due to intravascular volume depletion. Patient also probably has anxiety related to his withdrawal syndrome contributing to sinus tachycardia. Continue treat his withdrawal aggressively. Check CBC, TSH, D-dimer. I would avoid using any beta-blockers given his resting bradycardia at nighttime. I would give him a challenge of 2 L of normal saline over the next 8 hours to replete his intravascular volume and check orthostatic tachycardia after that. No other interventions required. If he continues to remain tachycardic may benefit from Corlanor therapy. Will sign of the case at this point time. Thank you for allowing me to partake in his care Procedures Date of Service Date of Service: 03/18/23
[2023-03-18 15:40] VITALS: BP 157/76; PULSE 93; RESP 14; TEMP 36.7; O2SAT 96
[2023-03-18 16:14] LABS: Hematocrit 34.5 % (42.0-52.0); Hemoglobin 11.8 g/dl (14.0-18.0); Mean Corpuscular HGB Conc 34.2 g/dl (31.0-36.0); Mean Corpuscular Hemoglobin 26.9 pg (27.0-33.0); Mean Corpuscular Volume 78.6 fL (80.0-98.0); Mean Platelet Volume 9.3 fL (9.4-12.4); Platelet Count 246 X10*3/uL (160-400); Red Blood Count 4.39 X10*6/uL (4.60-5.80); Red Cell Distribution Width 14.6 % (11.0-16.0); White Blood Count 10.1 X10*3/uL (4.8-10.8)
[2023-03-18 16:29] LABS: D Dimer High Sensitivity 232 NG/ML
[2023-03-18 16:47] LABS: Thyroid Stimulating Hormone 0.93 uIU/mL (0.32-4.0)
[2023-03-18 19:36] VITALS: BP 128/74; PULSE 58; RESP 12; TEMP 36.3; O2SAT 97
--- NOTE | 2023-03-18 20:47 | P.PNADD_ITS ---
Subjective Subjective Date of Service: 03/18/23 Reason For Visit: Pavan,Rhabdo Interim History: Patient seen in follow up with surveying crew stake runner. Possible discharge for tomorrow, 03/19. Patient awake, alert, engaged in interview. Flat affect, laying in bed. Reporting withdrawal sx improving, and would like to increase dose to 75mg (currently at 65mg for the last 3 days). Discussed discharge plan as patient had expressed desire to discharge to a [facility], however at this time there are no open beds and none scheduled to open for tomorrow. Patient is unable to return home. He is open to referral to assisted, as long it is close to [facility]. Mental Status Exam Mental Status Exam Patient Appearance: Unkempt Level of Consciousness: Awake and Appropriate Patient Behavior: Appropriate Affect Description: Flat Diagnostics Vital Signs (24Hr): Vital Signs - 24 hr 03/18/23 03:08 03/18/23 07:31 03/18/23 11:32 Temperature 96.9 F 98.9 F 98.5 F Pulse Rate 78 69 80 Respiratory Rate 20 16 20 Blood Pressure 122/77 123/77 107/64 Pulse Oximetry 96 97 95 Oxygen Delivery Method Room Air Room Air Room Air 03/18/23 15:40 03/18/23 19:36 Temperature 98.1 F 97.3 F Pulse Rate 93 58 Respiratory Rate 14 12 Blood Pressure 157/76 H 128/74 Pulse Oximetry 96 97 Oxygen Delivery Method Room Air Room Air BMI result Body Mass Index 28.6 Labs 03/18/23 15:56 03/17/23 08:43 Labs: Laboratory Results - last 48 hr 03/11/23 03/17/23 03/18/23 18:59 08:43 15:56 WBC 6.8 10.1 RBC 4.28 L 4.39 L Hgb 11.6 L 11.8 L Hct 33.6 L 34.5 L MCV 78.5 L 78.6 L MCH 27.1 26.9 L MCHC 34.5 34.2 RDW 14.4 14.6 Plt Count TNP 246 MPV TNP 9.3 L Absolute Nucleated RBC 0.000 0.000 Nucleated RBC % (auto) 0.0 0.0 D-Dimer High Sensitivty 232 Sodium 139 Potassium 3.5 Chloride 106 Carbon Dioxide 22 Anion Gap 15 BUN 6 L Creatinine 0.80 Estim Creat Clear Calc 160.3 Estimated GFR > 60 Fasting Glucose 90 Calcium 9.1 C-Reactive Protein 1.01 H TSH 0.93 Stool Calprotectin 1600 H Imaging Radiology Impressions: ITS Impressions Head CT 03/11/23 11:08 IMPRESSION: No acute intracranial process seen. Abdomen/Pelvis CT 03/11/23 20:13 IMPRESSION: * Large amount of fecal material in the sigmoid colon and rectum and there is gaseous distention of the more proximal colon. Findings are highly suggestive of constipation. No evidence of any obstructing sigmoid or rectal lesion. There is no pericolonic fat stranding or vascular engorgement of the mesentery (i.e., no overt colitis) although evaluation of the descending colon is somewhat limited due to lack of distention. * A pseudocyst of the pancreatic tail has mildly decreased in size compared to 10/29/2022. KUB X-Ray 03/17/23 11:20 IMPRESSION: Large stool ball in the rectum. No evidence of bowel obstruction. Medications Medications Current Medications Clonidine HCl (Clonidine Hcl 0.1 Mg Tablet) 0.1 mg PO TID PRN; Protocol PRN Reason: withdrawal Last Admin: 03/15/23 20:17 Dose: 0.1 mg Gabapentin (Gabapentin 300 Mg Capsule) 600 mg PO TID [facility] Last Admin: 03/18/23 15:51 Dose: 600 mg Hydroxyzine HCl (Hydroxyzine Hcl 25 Mg Tablet) 25 mg PO Q6H PRN PRN Reason: anxiety/restlessness Last Admin: 03/18/23 15:51 Dose: 25 mg Morphine Sulfate (Morphine Sulfate 2 Mg/Ml Cartridge) 2 mg IVPUSH Q4H PRN; Protocol PRN Reason: mod pain Last Admin: 03/18/23 15:50 Dose: 2 mg Omeprazole (Omeprazole 20 Mg Capsule.Dr) 20 mg PO BID [facility] Last Admin: 03/18/23 08:32 Dose: 20 mg Ondansetron HCl (Ondansetron Hcl 4 Mg/2 Ml Vial) 4 mg IVPUSH Q6H PRN PRN Reason: Nausea Last Admin: 03/18/23 11:43 Dose: 4 mg Polyethylene Glycol (Polyethylene Glycol 3350 17 Gm Powd.Pack) 17 gm PO BID [facility] Last Admin: 03/18/23 11:43 Dose: 17 gm Prazosin HCl (Prazosin Hcl 1 Mg Capsule) 4 mg PO BEDTIME [facility]; Protocol Last Admin: 03/17/23 20:37 Dose: 4 mg Senna (Sennosides 8.6 Mg Tablet) 17.2 mg PO BID [facility] Last Admin: 03/18/23 11:43 Dose: 17.2 mg Sodium Chloride (0.9 % Sodium Chloride Flush 3 Ml Syringe) 3 ml IVFLUSH QSHIFT [facility] Last Admin: 03/18/23 15:48 Dose: Not Given Trazodone HCl (Trazodone Hcl 100 Mg Tablet) 200 mg PO BEDTIME [facility] Last Admin: 03/17/23 20:36 Dose: 200 mg Allergies Allergies Allergy/AdvReac Type Severity Reaction Status Date / Time No Known Allergies Allergy Verified 10/31/22 13:27 Assessment & Plan Assessment & Plan (1) Opioid use disorder: Status: Acute Code(s): F11.90 - Opioid use, unspecified, uncomplicated Assessment and Plan: * methadone dose increase to 75mg on 03/19 * surveying crew stake runner to coordinate [facility] referral * take home narcan at time of discharge Total time managing care of this patient today _25___ minutes.
[2023-03-18] MEDS: Prazosin HCL 1 MG CAPSULE 4 MG PO (21:50)
[2023-03-18] MEDS: traZODone HCL 100 MG TABLET 200 MG PO (21:51)
[2023-03-19] VITALS: BP 117/68; PULSE 76; RESP 20; TEMP 36.2; O2SAT 96
[2023-03-19] MEDS: Morphine Sulfate 2 MG/ML CARTRIDGE IVPUSH ×4 (03:08→20:26)
[2023-03-19 03:13] VITALS: BP 120/67; PULSE 74; RESP 20; TEMP 36.1; O2SAT 94
--- NOTE | 2023-03-19 06:39 | PC.NURSE ---
pt declined to get out of bed to ambulate to bathroom, offered to change bed linen, and new gown. pt continues to decline, states he is comfortable and doesnt wish to get up.
[2023-03-19 07:13] VITALS: BP 121/68; PULSE 72; RESP 18; TEMP 36.6; O2SAT 97
[2023-03-19] MEDS: Gabapentin 300 MG CAPSULE 600 MG PO ×3 (07:40→20:24)
[2023-03-19] MEDS: Sennosides 8.6 MG TABLET 17.2 MG PO ×2 (07:40→20:25)
[2023-03-19] MEDS: methADONE HCl 20 MG/2 ML ORAL.CONC 75 MG PO (07:41)
[2023-03-19] MEDS: 0.9 % Sodium Chloride Flush 3 ML SYRINGE IVFLUSH ×2 (07:41→20:25)
[2023-03-19] MEDS: polyethylene glycoL 3350 17 GM POWD.PACK PO ×2 (07:41→20:25)
[2023-03-19] MEDS: Omeprazole 20 MG CAPSULE.DR PO ×2 (07:41→20:24)
[2023-03-19] MEDS: ondansetron HCL 4 MG/2 ML VIAL IVPUSH (07:46)
--- NOTE | 2023-03-19 09:03 | MHC.CM.PN ---
Addendum entered by Val Burroughs RN 03/19/23 09:14: CM CONTACTED PT'S FATHER AT 9:02AM, PT'S MOTHER ON PHONE W/JOCELYN AND REPORT THAT THEY WILL BRING WALLET DOWN TODAY. Original Note: CM MET W/PT TO DISCUSS DISPO, PT AWARE IT IS UNLIKELY HE [facility]OVERY WILL SECURE A CSS BED FOR PT AND [facility] DOES HAVE BEDS, CM EXPLAINED THAT HE CAN STAY THERE FOR 30-40 DAYS AND THEN WOULD HAVE TO LEAVE FOR 2 WKS PRIOR TO RETURNING, PT WILL ALSO NEED A PICTURE ID AND PT GAVE CM VERBAL CONSENT TO CALL HIS FATHER JOCELYN AT [phone] TO ASK HIM TO BRING IN PTS WALLET AND TO LET HIM KNOW PT WILL LIKELY NEED TO DC TO A [facility] CSS BEDS ARE LIMITED. PT C/O NOT WANTING TO DC TODAY HE IS CONCERNED D/T TO STILL HAVING STOOL IN HIS COLON AND REPORTS HOSPITALIST TOLD HIM HE DIDN'T HAVE TO GO HOWEVER CM WAS ENTERING HOSPITALIST WAS LEAVING AND TOLD CM PT WOULD BE CLEARED FOR DISCHARGE. RECOVERY NURSE UPDATED ON PLAN VIA [employer].
--- NOTE | 2023-03-19 09:17 | MHC.RECOVRN ---
Pt to dc to [facility] today. Updated information sent to N [facility]TP at [address] [place] [address] as this OTP will be the closest to pt while at the long term. Pt to continue to call [facility] facilities as he is on their waitlists. Discussed with BOB.
--- NOTE | 2023-03-19 10:52 | MHC.CM.PN ---
Addendum entered by Val Burroughs RN 03/19/23 11:20: [facility] CONSULT REQUESTED TO SOME SUICIDAL IDEATION ON ADMIT. Original Note: PER [facility] BED WAS GIVEN AWAY, CM CONTACTED [facility] AND [facility], NO [facility] BEDS AT THIS TIME, PER HOSPITALIST PT CAN STAY ONE MORE NIGHT, PT AND RECOVERY NURSE UPDATED.
[2023-03-19 11:04] VITALS: BP 109/75; PULSE 93; RESP 18; TEMP 36.4; O2SAT 95
[2023-03-19] MEDS: 0.9 % Sodium Chloride 1,000 ML 500 ML IVCONT ×2 (11:33→14:36)
--- NOTE | 2023-03-19 13:43 | P.PNIM_ITS ---
Subjective Subjective Date of Service: 03/19/23 Interval History: Seen and evaluated this morning Feels better but still constipation episodes of tachycardia Pain under fair control Review of Systems Review of Systems: Yes all other systems are reviewed and are negative Physical Exam 2 Vital Signs: Vital Signs: Last Vital Signs Temp 97.5 F 03/19/23 11:04 Pulse 93 03/19/23 11:04 Resp 18 03/19/23 11:04 BP 109/75 03/19/23 11:04 Pulse Ox 95 03/19/23 11:04 O2 Del Method Room Air 03/19/23 11:04 FiO2 95 03/17/23 03:33 BMI result Body Mass Index 28.6 Const: Other: Constitutional : Awake, interactive, not in distress Neck : Normal inspection, Supple Cardiovascular : RRR, no JVP, no lower extremity edema Respiratory : good bilateral air entry, no crackles, wheezes or rhonchi Gastrointestinal: soft, lax, Normal bowel sounds, Non tender Skin : Warm, Dry Neurological : Alert & oriented x3, No focal deficit Objective Data Active Medications Clonidine HCl (Clonidine Hcl 0.1 Mg Tablet) 0.1 mg PO TID PRN; Protocol PRN Reason: withdrawal Last Admin: 03/15/23 20:17 Dose: 0.1 mg Documented By: CIARA Gabapentin (Gabapentin 300 Mg Capsule) 600 mg PO TID [facility] Last Admin: 03/19/23 07:40 Dose: 600 mg Documented By: FRANCIS Hydroxyzine HCl (Hydroxyzine Hcl 25 Mg Tablet) 25 mg PO Q6H PRN PRN Reason: anxiety/restlessness Last Admin: 03/18/23 15:51 Dose: 25 mg Documented By: HILLARY Sodium Chloride (Ns) 1,000 mls @ 500 mls/hr IVCONT .Q2H [facility] Stop: 03/19/23 15:14 Last Admin: 03/19/23 11:33 Dose: 500 mls/hr Documented By: FRANCIS Methadone HCl (Methadone Hcl 20 Mg/2 Ml Oral.Conc) 75 mg PO DAILY [facility] Last Admin: 03/19/23 07:41 Dose: 75 mg Documented By: FRANCIS Morphine Sulfate (Morphine Sulfate 2 Mg/Ml Cartridge) 2 mg IVPUSH Q4H PRN; Protocol PRN Reason: mod pain Last Admin: 03/19/23 11:30 Dose: 2 mg Documented By: FRANCIS Omeprazole (Omeprazole 20 Mg Capsule.) 20 mg PO BID [facility] Last Admin: 03/19/23 07:41 Dose: 20 mg Documented By: FRANCIS Ondansetron HCl (Ondansetron Hcl 4 Mg/2 Ml Vial) 4 mg IVPUSH Q6H PRN PRN Reason: Nausea Last Admin: 03/19/23 07:46 Dose: 4 mg Documented By: FRANCIS Polyethylene Glycol (Polyethylene Glycol 3350 17 Gm Powd.Pack) 17 gm PO BID [facility] Last Admin: 03/19/23 07:41 Dose: 17 gm Documented By: FRANCIS Prazosin HCl (Prazosin Hcl 1 Mg Capsule) 4 mg PO BEDTIME [facility]; Protocol Last Admin: 03/18/23 21:50 Dose: 4 mg Documented By: J CARLOS Senna (Sennosides 8.6 Mg Tablet) 17.2 mg PO BID [facility] Last Admin: 03/19/23 07:40 Dose: 17.2 mg Documented By: FRANCIS Sodium Chloride (0.9 % Sodium Chloride Flush 3 Ml Syringe) 3 ml IVFLUSH QSHIFT [facility] Last Admin: 03/19/23 07:41 Dose: 3 ml Documented By: FRANCIS Trazodone HCl (Trazodone Hcl 100 Mg Tablet) 200 mg PO BEDTIME [facility] Last Admin: 03/18/23 21:51 Dose: 200 mg Documented By: J CARLOS Labs 03/18/23 15:56 03/17/23 08:43 Labs: Laboratory Results - last 24 hr 03/17/23 03/18/23 08:43 15:56 MCV 78.6 L MCH 26.9 L MCHC 34.2 RDW 14.6 Plt Count 246 MPV 9.3 L Absolute Nucleated RBC 0.000 Nucleated RBC % (auto) 0.0 D-Dimer High Sensitivty 232 TSH 0.93 Assessment and Plan (1) Sinus tachycardia: Status: Acute (2) Opioid abuse with withdrawal: Status: Acute (3) Rhabdomyolysis: Status: Acute Plan 27M PMH etoh dependence, opiate dependence, pre diabetes, NSVT, presented with opiate overdose paroxysmal Tachycardia Tele showing sinus tachycardia related to position change and standing, BP low, postural changes? Cardio input appreciated, benign, give IVF, consider Corlanor therapy if remains tachy Give 2 L IVF now Acute toxic metabolic encephalopathy Likely due to opiate overdose resolved Diarrhea cdif and stool pcr negative CT showing large stool burden; started on Laxatives KUB still showing large stool ball Acute kidney injury due to dehydration from diarrhea and acute mild rhabdomyolysis resolved with ivf follow BMP Opiate dependence with withdrawal Addiction team following, methadone being increased as needed Care team eval for placement Alcohol dependence history Reports sobriety at this time Pre diabetes a1c 5.6 DVT prophylaxis-low risk, encourage ambulation Full code reason for continued hospitalization: Pending safe discharge plan Quality Stroke Does the patient have a stroke diagnosis?: No VTE Prior VTE?: No VTE Risk Level:: Medical - low VTE Device Contraindication: Treatment Not Indicated VTE Drug Contraindication: Treatment Not Indicated
[2023-03-19 15:55] VITALS: BP 126/74; PULSE 70; RESP 18; TEMP 36.2; O2SAT 96
[2023-03-19 19:27] VITALS: BP 119/65; PULSE 75; RESP 18; TEMP 36.6; O2SAT 94
[2023-03-19] MEDS: Prazosin HCL 1 MG CAPSULE 4 MG PO (20:24)
[2023-03-19] MEDS: traZODone HCL 100 MG TABLET 200 MG PO (20:25)
[2023-03-20] VITALS (7 sets, daily range): BP systolic 121–136; BP diastolic 64–77; PULSE 58–93; RESP 17–20; TEMP 36.1–36.4; O2SAT 95–96
[2023-03-20] MEDS: Morphine Sulfate 2 MG/ML CARTRIDGE IVPUSH ×2 (00:50→14:50)
[2023-03-20] MEDS: Gabapentin 300 MG CAPSULE 600 MG PO ×3 (09:06→21:16)
[2023-03-20] MEDS: 0.9 % Sodium Chloride Flush 3 ML SYRINGE IVFLUSH ×3 (09:06→21:20)
[2023-03-20] MEDS: Omeprazole 20 MG CAPSULE.DR PO ×2 (09:06→21:16)
[2023-03-20] MEDS: methADONE HCl 20 MG/2 ML ORAL.CONC 75 MG PO (09:07)
[2023-03-20] MEDS: Sennosides 8.6 MG TABLET 17.2 MG PO ×2 (09:10→21:16)
[2023-03-20] MEDS: polyethylene glycoL 3350 17 GM POWD.PACK PO ×2 (09:10→21:16)
--- NOTE | 2023-03-20 12:26 | MHC.CM.PN ---
Addendum entered by Val Burroughs RN 03/20/23 16:50: CM CALLED [facility] IN [facility] WITH NO OPEN BEDS, CM WILL REVISIT OVER W/E. Original Note: EMR REVIEWED, CM CONTACTED CARE TEAM TO FOLLOW UP AND CARE TEAM REPORTS PT WAS SEEN AND NOT APPROPRIATE FOR IPLOC, CM HAS CONTACTED ALL AREA [facility]S INCLUDING [facility], [facility], [facility], [facility], [facility] ALL REPORTING THERE ARE NO BEDS AVAILABLE, CM ALSO ATTEMPTED TO CONTACT [employer] [phone] AND MESSAGE LEFT W/[employer] TROUBLE LOCATER, CM ATTEMPTED TO CONTAACT THE [facility] IN [facility] [phone]. CM CONTACTED [facility] IN [facility] INCLUDING [facility], [facility] WHO HAVE HAVE NO OPEN BEDS. [facility] AND [facility] ARE NO LONGER IN WORKING ORDER. CM TO ATTMEPT TO CONTACT [facility] IN [facility].
--- NOTE | 2023-03-20 13:54 | P.PNIM_ITS ---
Subjective Subjective Date of Service: 03/20/23 Interval History: Seen and evaluated this morning Feels better and havimg bowel movements episodes of tachycardia Pain under fair control Review of Systems Review of Systems: Yes all other systems are reviewed and are negative Physical Exam 2 Vital Signs: Vital Signs: Last Vital Signs Temp 97.4 F 03/20/23 11:26 Pulse 93 03/20/23 11:26 Resp 18 03/20/23 11:26 BP 127/77 03/20/23 11:26 Pulse Ox 96 03/20/23 11:26 O2 Del Method Room Air 03/20/23 11:26 FiO2 95 03/17/23 03:33 BMI result Body Mass Index 28.6 Const: Other: Constitutional : Awake, interactive, not in distress Neck : Normal inspection, Supple Cardiovascular : RRR, no JVP, no lower extremity edema Respiratory : good bilateral air entry, no crackles, wheezes or rhonchi Gastrointestinal: soft, lax, Normal bowel sounds, Non tender Skin : Warm, Dry Neurological : Alert & oriented x3, No focal deficit Objective Data Active Medications Clonidine HCl (Clonidine Hcl 0.1 Mg Tablet) 0.1 mg PO TID PRN; Protocol PRN Reason: withdrawal Last Admin: 03/15/23 20:17 Dose: 0.1 mg Documented By: CIARA Gabapentin (Gabapentin 300 Mg Capsule) 600 mg PO TID [facility] Last Admin: 03/20/23 09:06 Dose: 600 mg Documented By: KYLE Hydroxyzine HCl (Hydroxyzine Hcl 25 Mg Tablet) 25 mg PO Q6H PRN PRN Reason: anxiety/restlessness Last Admin: 03/18/23 15:51 Dose: 25 mg Documented By: HILLARY Methadone HCl (Methadone Hcl 20 Mg/2 Ml Oral.Conc) 75 mg PO DAILY [facility] Last Admin: 03/20/23 09:07 Dose: 75 mg Documented By: KYLE Morphine Sulfate (Morphine Sulfate 2 Mg/Ml Cartridge) 2 mg IVPUSH Q4H PRN; Protocol PRN Reason: mod pain Last Admin: 03/20/23 00:50 Dose: 2 mg Documented By: SANCHEZ Omeprazole (Omeprazole 20 Mg Capsule.Dr) 20 mg PO BID [facility] Last Admin: 03/20/23 09:06 Dose: 20 mg Documented By: KYLE Ondansetron HCl (Ondansetron Hcl 4 Mg/2 Ml Vial) 4 mg IVPUSH Q6H PRN PRN Reason: Nausea Last Admin: 03/19/23 07:46 Dose: 4 mg Documented By: FRANCIS Polyethylene Glycol (Polyethylene Glycol 3350 17 Gm Powd.Pack) 17 gm PO BID [facility] Last Admin: 03/20/23 09:10 Dose: 17 gm Documented By: KYLE Prazosin HCl (Prazosin Hcl 1 Mg Capsule) 4 mg PO BEDTIME [facility]; Protocol Last Admin: 03/19/23 20:24 Dose: 4 mg Documented By: SANCHEZ Senna (Sennosides 8.6 Mg Tablet) 17.2 mg PO BID [facility] Last Admin: 03/20/23 09:10 Dose: 17.2 mg Documented By: KYLE Sodium Chloride (0.9 % Sodium Chloride Flush 3 Ml Syringe) 3 ml IVFLUSH QSHIFT [facility] Last Admin: 03/20/23 09:06 Dose: 3 ml Documented By: KYLE Trazodone HCl (Trazodone Hcl 100 Mg Tablet) 200 mg PO BEDTIME [facility] Last Admin: 03/19/23 20:25 Dose: 200 mg Documented By: SANCHEZ Labs 03/18/23 15:56 03/17/23 08:43 Assessment and Plan (1) Sinus tachycardia: Status: Acute Plan 27M PMH etoh dependence, opiate dependence, pre diabetes, NSVT, presented with opiate overdose paroxysmal Tachycardia Tele showing sinus tachycardia related to position change and standing, BP low, postural changes? Cardio input appreciated, Start Fludricortisone 0.2 mg daily, follow as OP for possible Corlanor therapy if remains tachy Acute toxic metabolic encephalopathy Likely due to opiate overdose resolved Constipation with Diarrhea overflow cdif and stool pcr negative CT showing large stool burden; started on Laxatives KUB showed large stool ball Acute kidney injury due to dehydration from diarrhea and acute mild rhabdomyolysis resolved with ivf follow BMP Opiate dependence with withdrawal Addiction team following, methadone being increased as needed Care team eval for placement Alcohol dependence history Reports sobriety at this time Pre diabetes a1c 5.6 DVT prophylaxis-low risk, encourage ambulation Full code reason for continued hospitalization: Pending safe discharge plan Quality Stroke Does the patient have a stroke diagnosis?: No VTE Prior VTE?: No VTE Risk Level:: Medical - low VTE Device Contraindication: Treatment Not Indicated VTE Drug Contraindication: Treatment Not Indicated
[2023-03-20] MEDS: Fludrocortisone Acetate 0.1 MG TABLET 0.2 MG PO (14:51)
--- NOTE | 2023-03-20 19:46 | P.PNADD_ITS ---
Subjective Subjective Date of Service: 03/20/23 Reason For Visit: Pavan,Rhabdo Interim History: Patient seen in follow up Methadone at 75mg QD Withdrawal sx resolved. Reporting loose stools have not yet resolved, will be staying another day. Review of Systems Constitutional: Reports as per HPI Mental Status Exam Mental Status Exam Level of Consciousness: Awake, Appropriate and Alert Diagnostics Vital Signs (24Hr): Vital Signs - 24 hr 03/20/23 00:00 03/20/23 03:38 03/20/23 08:00 Temperature 96.9 F 96.9 F 97.1 F Pulse Rate 84 74 87 Respiratory Rate 20 20 18 Blood Pressure 127/73 121/68 128/69 Pulse Oximetry 95 96 96 Oxygen Delivery Method Room Air Room Air Room Air 03/20/23 11:26 03/20/23 14:50 03/20/23 15:16 Temperature 97.4 F 97.5 F Pulse Rate 93 70 Respiratory Rate 18 17 17 Blood Pressure 127/77 136/76 Pulse Oximetry 96 95 Oxygen Delivery Method Room Air Room Air 03/20/23 19:39 Temperature 97.3 F Pulse Rate 58 Respiratory Rate 18 Blood Pressure 126/64 Pulse Oximetry 95 Oxygen Delivery Method Room Air BMI result Body Mass Index 28.6 Labs 03/18/23 15:56 03/17/23 08:43 Imaging Radiology Impressions: ITS Impressions Head CT 03/11/23 11:08 IMPRESSION: No acute intracranial process seen. Abdomen/Pelvis CT 03/11/23 20:13 IMPRESSION: * Large amount of fecal material in the sigmoid colon and rectum and there is gaseous distention of the more proximal colon. Findings are highly suggestive of constipation. No evidence of any obstructing sigmoid or rectal lesion. There is no pericolonic fat stranding or vascular engorgement of the mesentery (i.e., no overt colitis) although evaluation of the descending colon is somewhat limited due to lack of distention. * A pseudocyst of the pancreatic tail has mildly decreased in size compared to 10/29/2022. KUB X-Ray 03/17/23 11:20 IMPRESSION: Large stool ball in the rectum. No evidence of bowel obstruction. Medications Medications Current Medications Clonidine HCl (Clonidine Hcl 0.1 Mg Tablet) 0.1 mg PO TID PRN; Protocol PRN Reason: withdrawal Last Admin: 03/15/23 20:17 Dose: 0.1 mg Fludrocortisone Acetate (Fludrocortisone Acetate 0.1 Mg Tablet) 0.2 mg PO DAILY [facility] Last Admin: 03/20/23 14:51 Dose: 0.2 mg Gabapentin (Gabapentin 300 Mg Capsule) 600 mg PO TID [facility] Last Admin: 03/20/23 14:51 Dose: 600 mg Hydroxyzine HCl (Hydroxyzine Hcl 25 Mg Tablet) 25 mg PO Q6H PRN PRN Reason: anxiety/restlessness Last Admin: 03/18/23 15:51 Dose: 25 mg Methadone HCl (Methadone Hcl 20 Mg/2 Ml Oral.Conc) 75 mg PO DAILY [facility] Last Admin: 03/20/23 09:07 Dose: 75 mg Morphine Sulfate (Morphine Sulfate 2 Mg/Ml Cartridge) 2 mg IVPUSH Q4H PRN; Protocol PRN Reason: mod pain Last Admin: 03/20/23 14:50 Dose: 2 mg Omeprazole (Omeprazole 20 Mg Capsule.Dr) 20 mg PO BID [facility] Last Admin: 03/20/23 09:06 Dose: 20 mg Ondansetron HCl (Ondansetron Hcl 4 Mg/2 Ml Vial) 4 mg IVPUSH Q6H PRN PRN Reason: Nausea Last Admin: 03/19/23 07:46 Dose: 4 mg Polyethylene Glycol (Polyethylene Glycol 3350 17 Gm Powd.Pack) 17 gm PO BID [facility] Last Admin: 03/20/23 09:10 Dose: 17 gm Prazosin HCl (Prazosin Hcl 1 Mg Capsule) 4 mg PO BEDTIME [facility]; Protocol Last Admin: 03/19/23 20:24 Dose: 4 mg Senna (Sennosides 8.6 Mg Tablet) 17.2 mg PO BID [facility] Last Admin: 03/20/23 09:10 Dose: 17.2 mg Sodium Chloride (0.9 % Sodium Chloride Flush 3 Ml Syringe) 3 ml IVFLUSH QSHIFT [facility] Last Admin: 03/20/23 14:51 Dose: 3 ml Trazodone HCl (Trazodone Hcl 100 Mg Tablet) 200 mg PO BEDTIME [facility] Last Admin: 03/19/23 20:25 Dose: 200 mg Allergies Allergies Allergy/AdvReac Type Severity Reaction Status Date / Time No Known Allergies Allergy Verified 10/31/22 13:27 Assessment & Plan Assessment & Plan (1) Opioid use disorder: Status: Acute Code(s): F11.90 - Opioid use, unspecified, uncomplicated Assessment and Plan: * no further adjustments to methadone dose * referral in place to [facility] * take home narcan at discharge Total time managing care of this patient today __20__ minutes.
[2023-03-20] MEDS: traZODone HCL 100 MG TABLET 200 MG PO (21:16)
[2023-03-20] MEDS: Prazosin HCL 1 MG CAPSULE 4 MG PO (21:16)
[2023-03-21] VITALS (7 sets, daily range): BP systolic 109–128; BP diastolic 62–72; PULSE 60–103; RESP 17–20; TEMP 36.1–36.6; O2SAT 95–98
[2023-03-21] MEDS: Morphine Sulfate 2 MG/ML CARTRIDGE IVPUSH (04:23)
[2023-03-21] MEDS: methADONE HCl 20 MG/2 ML ORAL.CONC 75 MG PO (08:48)
[2023-03-21] MEDS: Gabapentin 300 MG CAPSULE 600 MG PO ×3 (08:50→19:55)
[2023-03-21] MEDS: polyethylene glycoL 3350 17 GM POWD.PACK PO ×2 (08:51→19:55)
[2023-03-21] MEDS: Omeprazole 20 MG CAPSULE.DR PO ×2 (08:52→19:56)
[2023-03-21] MEDS: Sennosides 8.6 MG TABLET 17.2 MG PO ×2 (08:52→19:56)
[2023-03-21] MEDS: 0.9 % Sodium Chloride Flush 3 ML SYRINGE IVFLUSH ×3 (08:52→19:56)
--- NOTE | 2023-03-21 09:34 | MHC.CM.PN ---
CM called [facility] @ [phone] (Ext [phone] for the [facility]) and let the phone ring for an extended period of time with no answer nor an opportunity to leave a message. CM will attempt to call again shortly. CM will follow.
--- NOTE | 2023-03-21 09:55 | MHC.CM.PN ---
BOB has now called [facility] @ [phone] EXT [phone] without getting through to anyone. BOB will continue to reach out.
[2023-03-21] MEDS: Simethicone 80 MG TAB.CHEW PO (11:07)
[2023-03-21] MEDS: Fludrocortisone Acetate 0.1 MG TABLET 0.2 MG PO (11:08)
--- NOTE | 2023-03-21 13:11 | P.PNIM_ITS ---
Subjective Subjective Date of Service: 03/21/23 Interval History: Seen and evaluated this morning Feels better less episodes of tachycardia Pain under fair control Review of Systems Review of Systems: Yes all other systems are reviewed and are negative Physical Exam 2 Vital Signs: Vital Signs: Last Vital Signs Temp 96.9 F 03/21/23 11:06 Pulse 103 H 03/21/23 11:06 Resp 20 03/21/23 11:06 BP 112/72 03/21/23 11:06 Pulse Ox 96 03/21/23 11:06 O2 Del Method Room Air 03/21/23 11:06 FiO2 95 03/17/23 03:33 BMI result Body Mass Index 28.6 Const: Other: Constitutional : Awake, interactive, not in distress Neck : Normal inspection, Supple Cardiovascular : RRR, no JVP, no lower extremity edema Respiratory : good bilateral air entry, no crackles, wheezes or rhonchi Gastrointestinal: soft, lax, Normal bowel sounds, Non tender Skin : Warm, Dry Neurological : Alert & oriented x3, No focal deficit Objective Data Active Medications Clonidine HCl (Clonidine Hcl 0.1 Mg Tablet) 0.1 mg PO TID PRN; Protocol PRN Reason: withdrawal Last Admin: 03/15/23 20:17 Dose: 0.1 mg Documented By: CIARA Fludrocortisone Acetate (Fludrocortisone Acetate 0.1 Mg Tablet) 0.2 mg PO DAILY [facility] Last Admin: 03/21/23 11:08 Dose: 0.2 mg Documented By: ISABEL Gabapentin (Gabapentin 300 Mg Capsule) 600 mg PO TID [facility] Last Admin: 03/21/23 08:50 Dose: 600 mg Documented By: ISABEL Hydroxyzine HCl (Hydroxyzine Hcl 25 Mg Tablet) 25 mg PO Q6H PRN PRN Reason: anxiety/restlessness Last Admin: 03/18/23 15:51 Dose: 25 mg Documented By: HILLARY Methadone HCl (Methadone Hcl 20 Mg/2 Ml Oral.Conc) 75 mg PO DAILY [facility] Last Admin: 03/21/23 08:48 Dose: 75 mg Documented By: ISABEL Morphine Sulfate (Morphine Sulfate 2 Mg/Ml Cartridge) 2 mg IVPUSH Q4H PRN; Protocol PRN Reason: mod pain Last Admin: 03/17/23 17:00 Dose: 2 mg Documented By: ISABEL Omeprazole (Omeprazole 20 Mg Capsule.) 20 mg PO BID [facility] Last Admin: 03/21/23 08:52 Dose: 20 mg Documented By: ISABEL Ondansetron HCl (Ondansetron Hcl 4 Mg/2 Ml Vial) 4 mg IVPUSH Q6H PRN PRN Reason: Nausea Last Admin: 03/19/23 07:46 Dose: 4 mg Documented By: FRANCIS Polyethylene Glycol (Polyethylene Glycol 3350 17 Gm Powd.Pack) 17 gm PO BID [facility] Last Admin: 03/21/23 08:51 Dose: 17 gm Documented By: ISABEL Prazosin HCl (Prazosin Hcl 1 Mg Capsule) 4 mg PO BEDTIME [facility]; Protocol Last Admin: 03/20/23 21:16 Dose: 4 mg Documented By: HERVE Senna (Sennosides 8.6 Mg Tablet) 17.2 mg PO BID [facility] Last Admin: 03/21/23 08:52 Dose: 17.2 mg Documented By: ISABEL Simethicone (Simethicone 80 Mg Tab.Chew) 80 mg PO QIDWMHS PRN PRN Reason: Gas Last Admin: 03/21/23 11:07 Dose: 80 mg Documented By: ISABEL Sodium Chloride (0.9 % Sodium Chloride Flush 3 Ml Syringe) 3 ml IVFLUSH QSHIFT [facility] Last Admin: 03/21/23 08:52 Dose: 3 ml Documented By: ISABEL Trazodone HCl (Trazodone Hcl 100 Mg Tablet) 200 mg PO BEDTIME [facility] Last Admin: 03/20/23 21:16 Dose: 200 mg Documented By: HERVE Labs 03/18/23 15:56 03/17/23 08:43 Assessment and Plan (1) Sinus tachycardia: Status: Acute (2) Opioid abuse with withdrawal: Status: Acute Plan 27M PMH etoh dependence, opiate dependence, pre diabetes, NSVT, presented with opiate overdose paroxysmal Tachycardia Tele showing no significant episodes since starting Fludricortisone related to position change and standing, BP low, postural changes? Cardio input appreciated, Start Fludricortisone 0.2 mg daily, follow as OP for possible Corlanor therapy if remains tachy Acute toxic metabolic encephalopathy Likely due to opiate overdose resolved Constipation with Diarrhea overflow cdif and stool pcr negative CT showing large stool burden; started on Laxatives KUB showed large stool ball Acute kidney injury due to dehydration from diarrhea and acute mild rhabdomyolysis resolved with ivf follow BMP Opiate dependence with withdrawal Addiction team following, methadone being increased as needed Care team eval for placement Alcohol dependence history Reports sobriety at this time Pre diabetes a1c 5.6 DVT prophylaxis-low risk, encourage ambulation Full code reason for continued hospitalization: Pending safe discharge plan Quality Stroke Does the patient have a stroke diagnosis?: No VTE Prior VTE?: No VTE Risk Level:: Medical - low VTE Device Contraindication: Treatment Not Indicated VTE Drug Contraindication: Treatment Not Indicated
[2023-03-21] MEDS: Prazosin HCL 1 MG CAPSULE 4 MG PO (19:55)
[2023-03-21] MEDS: traZODone HCL 100 MG TABLET 200 MG PO (19:56)
[2023-03-22 04:00] VITALS: BP 113/66; PULSE 83; RESP 17; TEMP 35.8; O2SAT 95
[2023-03-22 08:00] VITALS: BP 127/74; PULSE 95; RESP 20; TEMP 36.7; O2SAT 97
[2023-03-22] MEDS: Fludrocortisone Acetate 0.1 MG TABLET 0.2 MG PO (08:41)
[2023-03-22] MEDS: Gabapentin 300 MG CAPSULE 600 MG PO ×3 (08:41→21:19)
[2023-03-22] MEDS: Omeprazole 20 MG CAPSULE.DR PO ×2 (08:41→21:19)
[2023-03-22] MEDS: 0.9 % Sodium Chloride Flush 3 ML SYRINGE IVFLUSH ×2 (08:41→17:39)
[2023-03-22] MEDS: Sennosides 8.6 MG TABLET 17.2 MG PO ×2 (08:41→21:19)
[2023-03-22] MEDS: methADONE HCl 20 MG/2 ML ORAL.CONC 75 MG PO (08:42)
[2023-03-22] MEDS: polyethylene glycoL 3350 17 GM POWD.PACK PO ×2 (08:49→21:19)
[2023-03-22 12:00] VITALS: BP 107/77; PULSE 100; RESP 20; TEMP 36.9; O2SAT 95
--- NOTE | 2023-03-22 13:48 | HO.PM.IMPN ---
Subjective Subjective Date of Service: 03/22/23 Interval History: Seen and evaluated this morning Feels better , moving bowels Pain under fair control Review of Systems Review of Systems: Yes all other systems are reviewed and are negative Physical Exam Vital Signs: Vital Signs: Last Vital Signs Temp 98.4 F 03/22/23 12:00 Pulse 100 03/22/23 12:00 Resp 20 03/22/23 12:00 BP 107/77 03/22/23 12:00 Pulse Ox 95 03/22/23 12:00 O2 Del Method Room Air 03/22/23 12:00 FiO2 95 03/17/23 03:33 BMI result Body Mass Index 28.6 Const: Other: Constitutional : Awake, interactive, not in distress Neck : Normal inspection, Supple Cardiovascular : no JVP, no lower extremity edema Gastrointestinal: soft, lax, Non tender Skin : Warm, Dry Neurological : Alert & oriented x3, No focal deficit Objective Data Active Medications Clonidine HCl (Clonidine Hcl 0.1 Mg Tablet) 0.1 mg PO TID PRN; Protocol PRN Reason: withdrawal Last Admin: 03/15/23 20:17 Dose: 0.1 mg Documented By: CIARA Fludrocortisone Acetate (Fludrocortisone Acetate 0.1 Mg Tablet) 0.2 mg PO DAILY [facility] Last Admin: 03/22/23 08:41 Dose: 0.2 mg Documented By: ISABEL Gabapentin (Gabapentin 300 Mg Capsule) 600 mg PO TID [facility] Last Admin: 03/22/23 08:41 Dose: 600 mg Documented By: ISABEL Hydroxyzine HCl (Hydroxyzine Hcl 25 Mg Tablet) 25 mg PO Q6H PRN PRN Reason: anxiety/restlessness Last Admin: 03/18/23 15:51 Dose: 25 mg Documented By: HILLARY Methadone HCl (Methadone Hcl 20 Mg/2 Ml Oral.Conc) 75 mg PO DAILY [facility] Last Admin: 03/22/23 08:42 Dose: 75 mg Documented By: ISABEL Morphine Sulfate (Morphine Sulfate 2 Mg/Ml Cartridge) 2 mg IVPUSH Q4H PRN; Protocol PRN Reason: mod pain Last Admin: 03/17/23 17:00 Dose: 2 mg Documented By: ISABEL Omeprazole (Omeprazole 20 Mg Capsule.Dr) 20 mg PO BID [facility] Last Admin: 03/22/23 08:41 Dose: 20 mg Documented By: ISABEL Ondansetron HCl (Ondansetron Hcl 4 Mg/2 Ml Vial) 4 mg IVPUSH Q6H PRN PRN Reason: Nausea Last Admin: 03/19/23 07:46 Dose: 4 mg Documented By: FRANCIS Polyethylene Glycol (Polyethylene Glycol 3350 17 Gm Powd.Pack) 17 gm PO BID [facility] Last Admin: 03/22/23 08:49 Dose: 17 gm Documented By: ISABEL Prazosin HCl (Prazosin Hcl 1 Mg Capsule) 4 mg PO BEDTIME [facility]; Protocol Last Admin: 03/21/23 19:55 Dose: 4 mg Documented By: HERVE Senna (Sennosides 8.6 Mg Tablet) 17.2 mg PO BID [facility] Last Admin: 03/22/23 08:41 Dose: 17.2 mg Documented By: ISABEL Simethicone (Simethicone 80 Mg Tab.Chew) 80 mg PO QIDWMHS PRN PRN Reason: Gas Last Admin: 03/21/23 11:07 Dose: 80 mg Documented By: ISABEL Sodium Chloride (0.9 % Sodium Chloride Flush 3 Ml Syringe) 3 ml IVFLUSH QSHIFT [facility] Last Admin: 03/22/23 08:41 Dose: 3 ml Documented By: ISABEL Trazodone HCl (Trazodone Hcl 100 Mg Tablet) 200 mg PO BEDTIME [facility] Last Admin: 03/21/23 19:56 Dose: 200 mg Documented By: HERVE Labs 03/18/23 15:56 03/17/23 08:43 Assessment and Plan (1) Sinus tachycardia: Status: Acute (2) Opioid use disorder: Status: Acute Plan 27M PMH etoh dependence, opiate dependence, pre diabetes, NSVT, presented with opiate overdose paroxysmal Tachycardia Tele showing no significant episodes since starting Fludricortisone related to position change and standing, BP low, postural changes? Cardio input appreciated, Start Fludricortisone 0.2 mg daily, follow as OP for possible Corlanor therapy if remains tachy Acute toxic metabolic encephalopathy Likely due to opiate overdose resolved Constipation with Diarrhea overflow cdif and stool pcr negative CT showing large stool burden; started on Laxatives KUB showed large stool ball Acute kidney injury due to dehydration from diarrhea and acute mild rhabdomyolysis resolved with ivf follow BMP Opiate dependence with withdrawal Addiction team following, methadone being increased as needed Care team eval for placement Alcohol dependence history Reports sobriety at this time Pre diabetes a1c 5.6 DVT prophylaxis-low risk, encourage ambulation Full code reason for continued hospitalization: Pending safe discharge plan Quality Stroke Does the patient have a stroke diagnosis?: No VTE Prior VTE?: No VTE Risk Level:: Medical - low VTE Device Contraindication: Treatment Not Indicated VTE Drug Contraindication: Treatment Not Indicated
[2023-03-22 15:59] VITALS: BP 116/75; PULSE 90; RESP 16; TEMP 36.7; O2SAT 96
[2023-03-22 19:59] VITALS: BP 130/65; PULSE 72; RESP 16; TEMP 36.1; O2SAT 96
[2023-03-22] MEDS: Prazosin HCL 1 MG CAPSULE 4 MG PO (21:18)
[2023-03-22] MEDS: traZODone HCL 100 MG TABLET 200 MG PO (21:19)
[2023-03-23] VITALS: BP 109/75; PULSE 95; RESP 20; TEMP 36.4; O2SAT 97
[2023-03-23 03:19] VITALS: BP 127/71; PULSE 71; RESP 20; TEMP 35.9; O2SAT 98
[2023-03-23 07:49] VITALS: BP 120/65; PULSE 87; RESP 18; TEMP 36.1; O2SAT 95
[2023-03-23] MEDS: Omeprazole 20 MG CAPSULE.DR PO (08:32)
[2023-03-23] MEDS: Fludrocortisone Acetate 0.1 MG TABLET 0.2 MG PO (08:32)
[2023-03-23] MEDS: Gabapentin 300 MG CAPSULE 600 MG PO (08:32)
[2023-03-23] MEDS: Sennosides 8.6 MG TABLET 17.2 MG PO (08:32)
[2023-03-23] MEDS: polyethylene glycoL 3350 17 GM POWD.PACK PO (08:32)
[2023-03-23] MEDS: methADONE HCl 20 MG/2 ML ORAL.CONC 75 MG PO (08:32)
--- NOTE | 2023-03-23 09:52 | P.DS_ITS ---
DS: Providers Provider Date of Service: 03/23/23 Date of admission: 03/11/23 17:58 Primary care physician: Jt Forman MD Consults: 03/11/23 10:13 Consult to Care Team Stat Comment: Reason for consultation: sude 03/11/23 17:56 Addiction Medicine Routine Consulting Provider: Addiction Covering Reason for consultation: heroin 03/18/23 04:53 Consult to Cardiology Routine Consulting Provider: [facility] Cardiovascular Services Reason for consultation: reccurent, NSVTs, ? treatment options Has provider been notified: Yes 03/19/23 11:22 Consult to Care Team Routine Comment: Reason for consultation: Medically clear, report depression, SI on admission, for placement\plan DS: Diagnosis Discharge Diagnosis (1) Sinus tachycardia: Status: Acute (2) Drug overdose: Status: Acute (3) Rhabdomyolysis: Status: Acute (4) Opioid abuse with withdrawal: Status: Acute (5) Constipation: Status: Acute (6) Acute kidney injury: Status: Resolved DS: Summary Hospital Course Hospital Course: Admission note HPI 27M PMH etoh dependence, opiate dependence, pre diabetes, NSVT presented with opiate overdose. Patient reports having several days of diarrhea, loose, brown. Has been incontinent. Denies abdominal pain. Reports continue use of intranasal heroin. Reports syncopal event while in bathroom a.m. of admission. Was found by family at 3am in bathroom covered in stool and urine. family called EMS. Patient also reports some suicidal ideation. In ED labs significant for MIGUEL ÁNGEL with creatinine is 1.7 and mild rhabdo with CPK about 2000 Hospital course paroxysmal Tachycardia Tele showing no significant episodes since starting Fludricortisone. related to position change and standing, BP low, postural changes. Cardio input appreciated , Start Fludricortisone 0.2 mg daily, follow as OP for possible Corlanor therapy if remains tachy Acute toxic metabolic encephalopathy Likely due to opiate overdose resolved Constipation with Diarrhea overflow cdif and stool pcr negative. CT showing large stool burden; started on Laxatives. KUB showed large stool ball. To continue Laxatives on discharge. Acute kidney injury due to dehydration from diarrhea and acute mild rhabdomyolysis resolved with iv fluids Opiate dependence with withdrawal Addiction team following, methadone presribed Plan Start Methadone as prescribed Increase Fiber intake, Miralax and Colace for bowel movements Fludricortisone to help controlling rapid heart rate, keep yourself well hydrated and follow up with dr Whelan from cardiology in clinic if these episodes are recurrent Time Attestation Discharge coordination time: Greater than 30 minutes Quality: Safe Use of Opioids Does Pt have an Active Cancer Diagnosis on the Problem List?: No Quality: Stroke Does the patient have a stroke diagnosis?: No Physical Exam Vital Signs: Vital Signs: Last Vital Signs Temp 97 F 03/23/23 07:49 Pulse 87 03/23/23 07:49 Resp 18 03/23/23 07:49 BP 120/65 03/23/23 07:49 Pulse Ox 95 03/23/23 07:49 O2 Del Method Room Air 03/23/23 07:49 FiO2 95 03/17/23 03:33 BMI result Body Mass Index 28.6 Const: Other: Constitutional : Awake, interactive, not in distress Neck : Normal inspection, Supple Cardiovascular : no JVP, no lower extremity edema Gastrointestinal: soft, lax, Non tender Skin : Warm, Dry Neurological : Alert & oriented x3, No focal deficit DS: Data Data Completed and Pending Completed studies during hospitalization [Text1]: Procedures Detoxification Services for Substance Abuse Treatment (11/12/21) Excision of Duodenum, Via Natural or Artificial Opening Endoscopic, Diagnostic (10/29/22) Excision of Stomach, Pylorus, Via Natural or Artificial Opening Endoscopic, Diagnostic (10/29/22) Insertion of Infusion Device into Left Cephalic Vein, Percutaneous Approach (11/12/21) Insertion of Infusion Device into Superior Vena Cava, Percutaneous Approach (11/12/21) Inspection of Lower Intestinal Tract, Via Natural or Artificial Opening Endoscopic (10/29/22) Ultrasonography of Superior Vena Cava, Guidance (11/12/21) Imaging Chest x-ray: Radiologist's impression: ITS Impressions Head CT 03/11/23 11:08 IMPRESSION: No acute intracranial process seen. Abdomen/Pelvis CT 03/11/23 20:13 IMPRESSION: * Large amount of fecal material in the sigmoid colon and rectum and there is gaseous distention of the more proximal colon. Findings are highly suggestive of constipation. No evidence of any obstructing sigmoid or rectal lesion. There is no pericolonic fat stranding or vascular engorgement of the mesentery (i.e., no overt colitis) although evaluation of the descending colon is somewhat limited due to lack of distention. * A pseudocyst of the pancreatic tail has mildly decreased in size compared to 10/29/2022. KUB X-Ray 03/17/23 11:20 IMPRESSION: Large stool ball in the rectum. No evidence of bowel obstruction. Discharge Plan Discharge Anticipated Discharge Date/Time: 03/23/23 09:47 Patient Disposition: [facility] Discharge Diagnosis: Opioid Overdose with withdrawal Referrals: [facility] Clinic [Other] - 1 Day ([facility] OTP for Methadone Maintenance) Jt Forman MD [Primary Care Provider] - 1 Week Discharge Medications: New polyethylene glycol 3350 17 gram Powder In Packet 17 g PO DAILY Qty: 30 0RF fludrocortisone 0.1 mg Tablet 0.2 mg PO DAILY Qty: 60 2RF Continued trazodone 100 mg tablet 300 mg PO BEDTIME docusate sodium 100 mg capsule 100 mg PO BEDTIME Rx Instructions: HOLD FOR LOOSE STOOLS omeprazole 20 mg capsule,delayed release(DR/EC) 20 mg PO BID 60 Days Qty: 120 0RF gabapentin 300 mg capsule 600 mg PO TID prazosin 1 mg capsule 4 mg PO BEDTIME Discharge Orders: Discharge Order (Routine); Ordered 03/23/23 Ordered By: Patito Marion Diet: Advance to usual diet Activity on Discharge: As tolerated Stand Alone Forms: Patient Portal Discharge page Care Plan Goals: Read below Health Concerns: Read below Plan of Treatment: Read below Assessment: We advise you complete abstinence from drugs. Start Methadone as prescribed Increase Fiber intake, Miralax and Colace for bowel movements Fludricortisone to help controlling rapid heart rate, keep yourself well hydrated and follow up with dr Whelan from cardiology in clinic if these episodes are recurrent Patient Instructions: Rhabdomyolysis (ED), Adult Overdose (ED)
--- NOTE | 2023-03-23 10:16 | MHC.CM.PN ---
This CM called [place] [facility] (on [address], [place], [place]) at [phone] and they have a bed available for pt, he must get there before 4pm. This CM spoke to pt and he is agreeable to going to the long-term. Transport set up via lyft at 1:30pm today. [facility] form recovery team notified of pts discharge plan.
[2023-03-23 12:00] VITALS: BP 137/69; PULSE 99; RESP 18; TEMP 36.5; O2SAT 96
[2023-03-23] MEDS: Simethicone 80 MG TAB.CHEW PO (12:19)
== END 2023-03-23 14:29 | disposition home or self-care (01) | DRG 816 ==
LOC: HO.ED 15:14 → HO.EDOVER 18:03 → HO.IMC 19:18
PROVIDERS: Physician Assistant Medical; Admitting Provider Internal Medicine; Emergency Provider Emergency Medicine; PCP Internal Medicine; Visit Provider Student in an Organized Health Care Education/Training Program
DX: T40.1X1A Poisoning by heroin, accidental (unintentional), initial encounter (principal); G92.8 Other toxic encephalopathy; N17.9 Acute kidney failure, unspecified; M62.82 Rhabdomyolysis; R73.03 Prediabetes; F32.A Depression, unspecified; I47.9 Paroxysmal tachycardia, unspecified; R45.851 Suicidal ideations; F17.210 Nicotine dependence, cigarettes, uncomplicated; K59.00 Constipation, unspecified; F11.23 Opioid dependence with withdrawal; E86.0 Dehydration; F10.21 Alcohol dependence, in remission; Z20.822 Contact with and (suspected) exposure to COVID-19; Z71.6 Tobacco abuse counseling; Z79.899 Other long term (current) drug therapy
CPT/HCPCS: 0241U; 36415; 70450; 74018; 74176; 80048; 80076; 80179; 80307; 81001; 82550; 83036; 83690; 83735; 83993; 84443; 85025; 85027; 85379; 85610; 86140; 87086; 87493; 87507; 93005; 99285; J2060; J2270; J2405; J7120; S9485

== ENCOUNTER → 2023-03-11 17:58 | Outpatient (BNV) | payer OTHER, SELFPAY | PROVIDERS: Admitting Provider Internal Medicine; Emergency Provider Emergency Medicine; Visit Provider Internal Medicine | DX: N17.9 Acute kidney failure, unspecified (principal); F11.13 Opioid abuse with withdrawal; R00.0 Tachycardia, unspecified; T50.901A Poisoning by unspecified drugs, medicaments and biological substances, accidental (unintentional), initial encounter; M62.82 Rhabdomyolysis; K59.00 Constipation, unspecified | CPT/HCPCS: 99223; 99231; 99232; 99239; 99499 ==

== ENCOUNTER → 2023-03-11 17:58 | Outpatient (BNV) | payer OTHER, SELFPAY | PROVIDERS: Admitting Provider Internal Medicine; Emergency Provider Emergency Medicine; Visit Provider Nurse Practitioner Psychiatric/Mental Health | DX: F11.90 Opioid use, unspecified, uncomplicated (principal) | CPT/HCPCS: 99231 ==

== ENCOUNTER → 2023-03-11 17:58 | Outpatient (BNV) | payer OTHER, SELFPAY | PROVIDERS: Admitting Provider Internal Medicine; Emergency Provider Emergency Medicine; PCP Internal Medicine; Visit Provider Internal Medicine Cardiovascular Disease | DX: R00.0 Tachycardia, unspecified (principal) | CPT/HCPCS: 99222 ==

== ENCOUNTER 2023-06-11 12:38 | Emergency (ER) | payer OTHER, SELFPAY ==
--- NOTE | 2023-06-11 13:01 | ED_ITS ---
HPI - Overdose General Chief Complaint: ETOH/Substance Use Stated Complaint: ETOH/TRAZADONE USE,IN [facility] CUSTODY PER EMS Time Seen by Provider: 06/11/23 12:57 Source: patient and EMS Mode of arrival: EMS Limitations: altered mental status History of Present Illness HPI Narrative: Police went to his home to [place] 35, found patient too altered to go to court so they brought him to the ED. Patient is an active heroin user but he is denying right now. Intent: wanted to escape Related Data Home Medications Medication Instructions Recorded Confirmed docusate sodium 100 mg capsule 100 mg PO BEDTIME Constipation 10/30/22 03/11/23 trazodone 100 mg tablet 300 mg PO BEDTIME insomnia 10/30/22 03/11/23 gabapentin 300 mg capsule 600 mg PO TID 03/11/23 03/11/23 prazosin 1 mg capsule 4 mg PO BEDTIME 03/11/23 03/11/23 Previous Rx's Medication Instructions Recorded omeprazole 20 mg capsule,delayed 20 mg PO BID 60 days #120 caps 11/02/22 release fludrocortisone 0.1 mg tablet 0.2 mg (2 x 0.1 mg) PO DAILY #60 03/23/23 tabs polyethylene glycol 3350 17 gram 17 g PO DAILY #30 ea 03/23/23 oral powder packet Allergies Allergy/AdvReac Type Severity Reaction Status Date / Time No Known Allergies Allergy Verified 10/31/22 13:27 Review of Systems Review of Systems: Yes Unobtainable due to mental status Neurologic: Denies Sensory deficit (Neuro) [facility] Past Medical History Medical History Sinus tachycardia Opioid use disorder Shoulder dislocation Nonsustained ventricular tachycardia No known health problems Social History Social History Household Members: Family Household Members Other:: parents Housing: House Do you presently have visiting nurse or other home services: No Unable to assess alcohol history related to: Unknown Alcohol intake: current Alcohol intake frequency: 3 or more drinks per day Alcohol type: beer Comment: PT. refusing bed alarm. Patient Tobacco Use Status: Current everyday Tobacco user Tobacco use type: Cigarette Cigarette Packs Per Day: 0.3 Cigarettes Per Day: 9 Years Smoked: 14 Smoked in Last 30 Days: No e-Cigarette/Vaping Use: Currently Using Second Hand Smoke Exposure: Yes Use of substances other than those prescribed or required for medical reasons: Unknown Substance Use Type: Heroin and Opiates Advance Directives: Yes Advance Directives on File: Yes Advance Directives Date on File: 10/30/22 service: No Current occupational status: unemployed Physical Exam Vital Signs: Vital Signs: Last Vital Signs Temp 97.2 F 06/11/23 16:13 Pulse 68 06/11/23 16:13 Resp 13 06/11/23 16:13 BP 92/56 L 06/11/23 16:13 Pulse Ox 100 06/11/23 16:13 O2 Del Method Room Air 06/11/23 16:13 BMI result Body Mass Index 25.7 Const: Other: Male appearing to be under the influence of opiates Nutritional Appearance: average body habitus Orientation/consciousness: oriented to person Limitations: altered mental status HEENT: Head: Yes normal to inspection Ears: external ears normal General nose exam: Normal external nose present Mouth: Normal oral and palatal mucosa present and oropharynx normal Throat: Yes posterior oropharynx normal Eyes: Other: pin point pupils Neck: Other: supple Neck: Yes normal visual inspection Chest: Chest palpation & inspection: normal inspection of the chest Resp: Auscultation: clear to auscultation bilaterally Cardio: Jugular venous distension: no JVD Rate: regular rate Rhythm: regular rhythm Heart sounds: S1 normal heart sound present and S2 normal heart sound present GI: Inspection: Yes normal to inspection Palpation (GI): Soft to palpation, nontender and No hepatosplenomegaly present Auscultation: normal bowel sounds : General: Yes no CVA tenderness Back/Spine/Pelvis: Back: no CVA tenderness Skin: Other: severe pallor Neuro: General: oriented to person Cranial nerves: Yes CN's II-XII intact bilaterally Motor exam (neuro): 5/5 motor strength present throughout Sensory Exam: No Sensory deficit (Neuro) Extrem: General: Yes normal to inspection Psych: Appearance: grossly normal Course Reevaluation(s) Reevaluation #1: will give narcan, if patient becomes more alert will call police to transport to court Time: 13:52 Reevaluation #2: patient still lethargic with low BP will add labs and IV fluids Time: 16:27 Reevaluation #3: patient awake, walking around will dc home Time: 19:49 Medications Administered Discontinued Medications Generic Name Dose Route Start Last Admin Trade Name Katie PRN Reason Stop Dose Admin Sodium Chloride 1,000 mls @ 500 mls/hr 06/11/23 16:30 06/11/23 18:08 Ns IVCONT 06/11/23 18:29 500 mls/hr .Q2H MIRIAM Administration Naloxone HCl 0.8 mg 06/11/23 12:59 06/11/23 14:48 Naloxone Hcl 0.4 Mg/Ml Vial SUBCUT 06/11/23 13:00 0.8 mg STAT STA Administration Medical Decision Making Differential Diagnosis Differential Diagnoses: The differential diagnosis associated with the presentation includes (opiate use disorder, opiate overdose, polysubstance abuse ) Admission/Observation Consideration of admission/observation: Escalation of care including admission/observation considered (upon arrival patient was considered for admission) Lab Data Labs: Lab Results 06/11/23 06/11/23 Range/Units 18:42 18:45 Urine Color Yellow Urine Appearance Clear Urine pH 5.0 (5.0-9.0) Ur Specific [place] 1.010 (1.005-1.025) Urine Protein Negative (Neg-Trace) mg/dL Urine Glucose (UA) Negative (Negative) mg/dL Urine Ketones Negative (Negative) mg/dL Urine Blood Negative (Negative) Urine Nitrite Negative (Negative) Ur Leukocyte Esterase Negative (Negative) Urine Opiates Screen POSITIVE H (Not Detect) Urine Fentanyl Screen POSITIVE H (Not Detect) Ur Barbiturates Screen Not Detected (Not Detect) Ur Phencyclidine Scrn Not Detected (Not Detect) Ur Amphetamines Screen Not Detected (Not Detect) U Benzodiazepines Scrn POSITIVE H (Not Detect) Urine Cocaine Screen Not Detected (Not Detect) U Marijuana (THC) Screen POSITIVE H (Not Detect) Independent Historian Clinical information obtained from an independent historian. History obtained from or confirmed by: EMS Tests considered The following testing was considered but not selected: head CT considered but patient clearly under the influence of drugs Social Determinants Patient?s care significantly limited by Social Determinants of Health including: Low income and Alcoholism and drug addiction in family Discharge Plan Discharge Clinical Impression: Polysubstance (including opioids) dependence with physiol dependence Patient Disposition: Home, Self-Care Instructions: Narcotic Use Disorder (ED), Opioid Use Disorder (ED) Prescriptions: No Action trazodone 100 mg tablet 300 mg PO BEDTIME docusate sodium 100 mg capsule 100 mg PO BEDTIME Rx Instructions: HOLD FOR LOOSE STOOLS omeprazole 20 mg capsule,delayed release(DR/EC) 20 mg PO BID 60 Days Qty: 120 0RF gabapentin 300 mg capsule 600 mg PO TID prazosin 1 mg capsule 4 mg PO BEDTIME polyethylene glycol 3350 17 gram Powder In Packet 17 g PO DAILY Qty: 30 0RF fludrocortisone 0.1 mg Tablet 0.2 mg PO DAILY Qty: 60 2RF Referrals: Physician,Unknown J [Primary Care Provider] - 3 days
[2023-06-11 13:07] VITALS: BP 102/68; PULSE 70; RESP 12; TEMP 36.2; O2SAT 98
[2023-06-11 13:13] VITALS: BP 102/68; BP 128/84; PULSE 67; PULSE 70; RESP 12; TEMP 36.2; O2SAT 96; O2SAT 98; BMI 25.7
[2023-06-11] MEDS: Naloxone HCl 0.4 MG/ML VIAL 0.8 MG SUBCUT (14:48)
[2023-06-11 16:13] VITALS: BP 92/56; PULSE 68; RESP 13; TEMP 36.2; O2SAT 100
[2023-06-11] MEDS: 0.9 % Sodium Chloride 1,000 ML 500 ML IVCONT (18:08)
--- NOTE | 2023-06-11 18:27 | MHC.EDTECH ---
Patient is a difficult stick. Nurse STEPHAN Valencia instructed this phone technician to call phlebotomy.
[2023-06-11 18:52] LABS: Appearance Urine Clear; Color Urine Yellow; Glucose Urine UA Negative (Negative); Leukocyte Esterase Urine Negative (Negative); Nitrite Urine Negative (Negative); Urine Blood Negative (Negative); Urine Ketones Negative (Negative); Urine Protein Negative (Neg-Trace)
[2023-06-11 18:58] LABS: Amphetamine Screen Urine Not Detected (Not Detect); Barbiturates, Urine Not Detected (Not Detect); Benzodiazepines Screen Urine POSITIVE (Not Detect); Cannabinoid Screen Urine POSITIVE (Not Detect); Cocaine Screen Urine Not Detected (Not Detect); Fentanyl, urine POSITIVE (Not Detect); Opiate Screen Urine POSITIVE (Not Detect); Phencyclidine Screen Urine Not Detected (Not Detect)
--- NOTE | 2023-06-11 19:24 | PC.NURSE ---
pt changed into [facility] gown belongings secured. Carolyn pct attempt for blood draw difficult stick unable to obtain at this time. pt axox4 sitting up in stretcher. nad.
[2023-06-11 19:51] VITALS: BP 108/82; PULSE 75; RESP 16; O2SAT 98
--- NOTE | 2023-06-11 19:51 | PC.NURSE ---
ciwa 0 pt axox4 ambulatory with steady gait. nad. resp even and unlabored. vss bp up 108/82. unable to draw labs/difficult stick Dr. Staton aware.
[2023-06-11] MEDS: methADONE HCl 20 MG/2 ML ORAL.CONC PO (20:18)
[2023-06-11 20:19] VITALS: BP 111/80; PULSE 78; RESP 16; O2SAT 97
--- NOTE | 2023-06-11 20:22 | PC.NURSE ---
Addendum entered by Rufino Abbott 06/11/23 20:23: pt can be d/c home per cpd. Original Note: [facility] notified of pt d/c per their request.
== END 2023-06-11 21:13 | disposition home or self-care (01) ==
PROVIDERS: Emergency Provider Emergency Medicine
DX: F11.29 Opioid dependence with unspecified opioid-induced disorder (principal); R53.83 Other fatigue; R41.82 Altered mental status, unspecified; F17.210 Nicotine dependence, cigarettes, uncomplicated; Z79.899 Other long term (current) drug therapy
CPT/HCPCS: 80307; 81003; 96360; 96361; 96372; 99284; J2310

== ENCOUNTER 2023-06-12 18:07 | Emergency (ER) | payer OTHER, SELFPAY ==
[2023-06-12 18:17] VITALS: BP 113/66; BP 120/80; PULSE 67; PULSE 71; RESP 18; TEMP 36.6; O2SAT 97; BMI 30.8
--- NOTE | 2023-06-12 18:33 | ED.GENADULT ---
HPI - General Adult General Chief complaint: Psychiatric Symptoms Stated complaint: POSSIBLE ETOH,MISSED COURT WANTS TO TALK TO SOMEON Time Seen by Provider: 06/12/23 18:29 Source: patient and EMS Mode of arrival: EMS Limitations: no limitations History of Present Illness HPI narrative: Patient with polysubstance abuse alcohol fentanyl and was here yesterday father tried to do [address] ran out of the home earlier this morning patient has been drinking all day yesterday patient says that her close friend yesterday also he took 3 back of heroin earlier tried to take heroin in the bathroom patient refusing any help. Patient denies any depression been taking Xanax for anxiety Related Data Home Medications Medication Instructions Recorded Confirmed docusate sodium 100 mg capsule 100 mg PO BEDTIME Constipation 10/30/22 03/11/23 trazodone 100 mg tablet 300 mg PO BEDTIME insomnia 10/30/22 03/11/23 gabapentin 300 mg capsule 600 mg PO TID 03/11/23 03/11/23 prazosin 1 mg capsule 4 mg PO BEDTIME 03/11/23 03/11/23 Previous Rx's Medication Instructions Recorded omeprazole 20 mg capsule,delayed 20 mg PO BID 60 days #120 caps 11/02/22 release fludrocortisone 0.1 mg tablet 0.2 mg (2 x 0.1 mg) PO DAILY #60 03/23/23 tabs polyethylene glycol 3350 17 gram 17 g PO DAILY #30 ea 03/23/23 oral powder packet Allergies Allergy/AdvReac Type Severity Reaction Status Date / Time No Known Allergies Allergy Verified 10/31/22 13:27 Review of Systems Review of Systems: Yes all other systems are reviewed and are negative [facility] Past Medical History Medical History Sinus tachycardia Opioid use disorder Shoulder dislocation Nonsustained ventricular tachycardia No known health problems Social History Social History Household Members: Family Household Members Other:: parents Housing: House Do you presently have visiting nurse or other home services: No Unable to assess alcohol history related to: Unknown Alcohol intake: current Alcohol intake frequency: 3 or more drinks per day Alcohol type: beer Comment: PT. refusing bed alarm. Patient Tobacco Use Status: Current everyday Tobacco user Tobacco use type: Cigarette Cigarette Packs Per Day: 0.3 Cigarettes Per Day: 9 Years Smoked: 14 e-Cigarette/Vaping Use: Currently Using Second Hand Smoke Exposure: Yes Substance Use Type: Heroin and Opiates Advance Directives: Yes Advance Directives on File: Yes Advance Directives Date on File: 10/30/22 service: No Current occupational status: unemployed Physical Exam ED Vital Signs: Vital Signs - 24 hr 06/12/23 18:17 Temperature 97.8 F Pulse Rate 71 Respiratory Rate 18 Blood Pressure 113/66 Pulse Oximetry 97 Oxygen Delivery Method Room Air BMI result Body Mass Index 30.8 Appearance: Alert. Oriented X3. No acute distress. Unkept condition Eyes: PERRLA, No Nystagmus ENT: Pharynx normal. Oral Mucosa moist Neck: Normal inspection. Neck supple. CVS: Normal heart rate and rhythm. Pulses normal. Respiratory: No respiratory distress. Equal air entry bilateral, no wheezing/rales/rhonchi Abdomen: Soft and nontender. Bowel sounds are present, Skin: Skin warm and dry. Normal skin color. Normal skin turgor. Extremities: No lower extremity edema. No calf tenderness Neuro: Oriented X 3. No motor deficit. Medical Decision Making Differential Diagnosis Differential Diagnoses: The differential diagnosis associated with the presentation includes Lab Data MDM Lab Attestation statement: I reviewed the patient's lab results. Labs: Lab Results 06/12/23 06/12/23 Range/Units 18:26 18:27 Urine Color Yellow Urine Appearance Clear Urine pH 5.5 (5.0-9.0) Ur Specific [place] 1.020 (1.005-1.025) Urine Protein Negative (Neg-Trace) mg/dL Urine Glucose (UA) Negative (Negative) mg/dL Urine Ketones Negative (Negative) mg/dL Urine Blood Negative (Negative) Urine Nitrite Negative (Negative) Ur Leukocyte Esterase Negative (Negative) Urine Opiates Screen POSITIVE H (Not Detect) Urine Fentanyl Screen POSITIVE H (Not Detect) Ur Barbiturates Screen Not Detected (Not Detect) Ur Phencyclidine Scrn Not Detected (Not Detect) Ur Amphetamines Screen Not Detected (Not Detect) U Benzodiazepines Scrn POSITIVE H (Not Detect) Urine Cocaine Screen Not Detected (Not Detect) U Marijuana (THC) Screen POSITIVE H (Not Detect) Discharge Plan Discharge Clinical Impression: Polysubstance abuse Patient Disposition: Home, Self-Care Instructions: Polysubstance Abuse (ED) Additional Instructions: Stop using drugs and follow with detox Prescriptions: No Action trazodone 100 mg tablet 300 mg PO BEDTIME docusate sodium 100 mg capsule 100 mg PO BEDTIME Rx Instructions: HOLD FOR LOOSE STOOLS omeprazole 20 mg capsule,delayed release(DR/EC) 20 mg PO BID 60 Days Qty: 120 0RF gabapentin 300 mg capsule 600 mg PO TID prazosin 1 mg capsule 4 mg PO BEDTIME polyethylene glycol 3350 17 gram Powder In Packet 17 g PO DAILY Qty: 30 0RF fludrocortisone 0.1 mg Tablet 0.2 mg PO DAILY Qty: 60 2RF
--- NOTE | 2023-06-12 18:37 | PC.NURSE ---
patient was changed into hospital attire and belongings secured. upon finishing triage patient stated he needed to go to the bathroom to [facility] patient was checked on in the bathroom and it was noted that he was holding something in his hand. patient had 2 baggies in his hand which were dropped to the floor, security was called. one bag on the bathroom floor was used. patient was brought into his room, more baggies were found hidden in his sock. patient was searched by security, room also rechecked.
--- NOTE | 2023-06-12 18:47 | PC.NURSE ---
This RN called and spoke with father who states that he went to the court yesterday and got a section 35, states that his son has been drinking every day and taking medications. Father also states that patient was supposed to go to court today but he took off, patient then [facility] and father called 911
[2023-06-12 18:51] LABS: Appearance Urine Clear; Color Urine Yellow; Glucose Urine UA Negative (Negative); Leukocyte Esterase Urine Negative (Negative); Nitrite Urine Negative (Negative); PH 5.5 (5.0-9.0); Urine Blood Negative (Negative); Urine Ketones Negative (Negative); Urine Protein Negative (Neg-Trace)
[2023-06-12 18:57] LABS: Amphetamine Screen Urine Not Detected (Not Detect); Barbiturates, Urine Not Detected (Not Detect); Benzodiazepines Screen Urine POSITIVE (Not Detect); Cannabinoid Screen Urine POSITIVE (Not Detect); Cocaine Screen Urine Not Detected (Not Detect); Fentanyl, urine POSITIVE (Not Detect); Opiate Screen Urine POSITIVE (Not Detect); Phencyclidine Screen Urine Not Detected (Not Detect)
== END 2023-06-12 21:00 | disposition home or self-care (01) ==
PROVIDERS: Emergency Provider Internal Medicine
DX: F19.10 Other psychoactive substance abuse, uncomplicated (principal); Z02.83 Encounter for blood-alcohol and blood-drug test
CPT/HCPCS: 80307; 81003; 99283

== ENCOUNTER 2023-06-12 23:03 | Emergency (ER) | payer OTHER, SELFPAY ==
[2023-06-12 23:14] VITALS: BP 128/65; PULSE 85; RESP 16; TEMP 36.6; BMI 31.7
--- NOTE | 2023-06-12 23:55 | MHC.EDTECH ---
Patient brought into triage area,labs obtained and sent to lab. Patient is unable to give a urine sample at this time .
[2023-06-12 23:59] LABS: Hematocrit 35.1 % (42.0-52.0); Hemoglobin 11.7 g/dl (14.0-18.0); Mean Corpuscular HGB Conc 33.3 g/dl (31.0-36.0); Mean Corpuscular Hemoglobin 26.7 pg (27.0-33.0); Mean Platelet Volume 9.7 fL (9.4-12.4); Platelet Count 238 X10*3/uL (160-400); Red Blood Count 4.39 X10*6/uL (4.60-5.80); Red Cell Distribution Width 16.2 % (11.0-16.0); White Blood Count 6.6 X10*3/uL (4.8-10.8)
[2023-06-13 00:15] LABS: Anion Gap 15 (12-20); Blood Urea Nitrogen 8 mg/dL (9-16); Calcium 9.7 mg/dL (8.4-10.2); Carbon Dioxide 25 mmol/L (22-29); Chloride 104 mmol/L (96-108); Creatinine Clr Calc Pharmacy 120.6; Estimated Glomerular Filt Rate > 60; Ethanol < 10 mg/dL; Glucose Random 106 mg/dL (60-115); Potassium 3.7 mmol/L (3.3-5.1); Sodium 140 mmol/L (135-145)
[2023-06-13 00:21] LABS: Troponin-I High Sensitivity < 2.7 ng/L (<3.5-35.0)
== END 2023-06-13 01:11 | disposition left against medical advice (07) ==
PROVIDERS: Emergency Provider Emergency Medicine
DX: Z02.83 Encounter for blood-alcohol and blood-drug test (principal)
CPT/HCPCS: 36415; 80048; 80307; 84484; 85027; 99281; 99283